=== PATIENT | female | born 1940 | race Caucasian/White ===

== ENCOUNTER → 2017-02-18 | Outpatient (REF) | payer MEDICARE, MEDICAID ==
[2017-02-19 11:25] LABS: ANION GAP 10 MEQ/L (8-16); BLOOD UREA NITROGEN 7 MG/DL (7-18); CALCIUM LEVEL 9.1 MG/DL (8.8-10.2); CARBON DIOXIDE LEVEL 32 MEQ/L (21-32); CHLORIDE LEVEL 94 MEQ/L (98-107); CREATININE FOR GFR 0.44 MG/DL (0.55-1.02); GLOMERULAR FILTRATION RATE > 60.0 (>39); GLUCOSE, FASTING 99 MG/DL (83-110); POTASSIUM SERUM 3.5 MEQ/L (3.5-5.1); SODIUM LEVEL 136 MEQ/L (136-145)
== END ==
LOC: M SFHCCLAY 14:23
PROVIDERS: ATTEND Family Medicine
DX: I10 Essential (primary) hypertension (principal)
CPT/HCPCS: 80048; 84443; G0463

== ENCOUNTER → 2017-04-19 | Outpatient (CLI) | payer MEDICARE, MEDICAID ==
[~2017-04-19] MED LIST: ATEN25TA PO; HYDR-3713 PO; MODU5TA PO; NORC7.5T35 PO; VALS1TAB47 PO; XARE10TA PO
--- NOTE | 2017-04-21 09:37 | REPMRS ---
Patient History The patient states she has not had a clinical breast exam in over a year. Patient is postmenopausal. No known family history of cancer. Digital Woman Screen Mammo: April 19, 2017 - Exam #: [id number] Bilateral CC and MLO view(s) were taken. Technologist: Jannette Yanez, Technologist Prior study comparison: June 05, 2013, digital woman screen mammo performed at [facility] to [facility]. March 01, 2012, digital woman screen mammo performed at [facility] to [facility]. November 13, 2010, bilateral bilat screen digital mammo performed at [facility]. FINDINGS: There are scattered fibroglandular densities. There has been no change in the appearance of the mammogram from the prior studies. There is a mild amount of scattered fibroglandular density which is fairly symmetric. There is no interval development of dominant mass, architectural distortion, or clustered microcalcification suggestive of malignancy. ASSESSMENT: BI-RADS/ACR category 1 mammogram. Negative. Recommendation Routine screening mammogram in 1 year (for women over age 40). This mammogram was interpreted with the aid of an FDA-approved computer-aided dectection system. Electronically Signed By: Sami Lombardo MD 04/21/17 0936
== END ==
LOC: M WHC 09:30
PROVIDERS: ATTEND Family Medicine
DX: Z12.31 Encounter for screening mammogram for malignant neoplasm of breast (principal)

== ENCOUNTER → 2017-05-18 | Outpatient (REF) | payer MEDICARE, MEDICAID ==
[2017-05-18 12:55] LABS: ANION GAP 8 MEQ/L (8-16); BLOOD UREA NITROGEN 7 MG/DL (7-18); CALCIUM LEVEL 8.9 MG/DL (8.8-10.2); CARBON DIOXIDE LEVEL 31 MEQ/L (21-32); CHLORIDE LEVEL 95 MEQ/L (98-107); CREATININE FOR GFR 0.45 MG/DL (0.55-1.02); GLOMERULAR FILTRATION RATE > 60.0 (>39); GLUCOSE, FASTING 107 MG/DL (83-110); POTASSIUM SERUM 3.8 MEQ/L (3.5-5.1); SODIUM LEVEL 134 MEQ/L (136-145)
== END ==
LOC: M SFHCCLAY 08:35
PROVIDERS: ATTEND Family Medicine
DX: I10 Essential (primary) hypertension (principal)
CPT/HCPCS: 80048; G0463

== ENCOUNTER 2017-07-11 15:49 | Inpatient (IN) | payer MEDICARE, MEDICAID ==
[~2017-07-11] VITALS: Ht 157.5 cm; Wt 57.2 kg
[2017-07-11] MEDS ORDERED: PERCOCET 5MG/325MG TAB PO PRN (18:45)
[2017-07-11] MEDS: ONDANSETRON 4MG/2ML VIAL (J2405) IV PRN (18:55)
[2017-07-11 19:00] VITALS: BP 190/80
[2017-07-11] MEDS ORDERED: KCL 20MEQ IN 0.45NS 1000ML 1,000 ML IV SCH (19:00)
[2017-07-11] MEDS: MORPHINE 2 MG/ML 1ML SYRINGE IV PRN ×2 (19:01→22:19)
[2017-07-11] MEDS ORDERED: VALS1TAB47 PO (19:22)
[2017-07-11] MEDS ORDERED: MODU5TA PO (19:22)
[2017-07-11] MEDS ORDERED: ATEN25TA PO (19:22)
[2017-07-11] MEDS ORDERED: NORC7.5T35 PO (19:22)
--- NOTE | 2017-07-11 19:30 | HPEPDOC ---
General Date of Admission Jul 11, 2017 at 18:28 Primary Care Physician: Alejo Barnes MD Attending Physician: GRISEL JOYNER MD Chief Complaint The patient is a 76-year-old female admitted with a reason for visit of Right Femur Fx. Source: Patient Exam Limitations: No limitations History of Present Illness Ms. Lopez is a 76 y/o woman with a history of hypertension, AAA s/p stents, and degenerative disc disease s/p spinal fusion presented to the ED after a fall. She has chronic right foot numbness since her spinal surgery in 1986. Today while walking up the steps at [employer], her right leg gave out and she fell onto her right hip and her right hand. She was evaluated at [facility], where she was found to have right subcapital femur fracture and a fracture of the proximal phalanx of her right thumb. She was transferred to [facility] for Orthopedic consultation. Home Medications Scheduled Amiloride/Hctz (Amiloride/Hydrochlorothia 5-50 mg) 1 Ea Tab, 2 TAB PO DAILY, ( Reported) Atenolol (Atenolol) 25 Mg Tab, 25 MG PO DAILY, (Reported) Valsartan (Valsartan) 160 Mg Tab, 160 MG PO DAILY, (Reported) Scheduled PRN Acetaminophen/Hydrocodone ([place] 7.5-325 mg) 1 Tab Tab, 1 TAB PO Q6H PRN for PAIN, (Reported) Allergies Coded Allergies: Nystatin (Unverified Allergy, Intermediate, RASH, 01/16/13) Amlodipine (Verified Allergy, Unknown, rash, 07/11/17) Contrast Media (Verified Allergy, Unknown, rash, 07/11/17) Cymbalta (Verified Allergy, Unknown, rash, 07/11/17) Past Medical History Medical History 1. Hypertension 2. AAA s/p repair 3. Rheumatoid arthritis 4. Osteoporosis 5. Chronic low back pain, history of lumbar fusion, DDD Surgical History 1. Spinal fusion rods in 1986 2. Left knee replacement in 2008 3. Vein stripping 2011 4. AAA repair with stents 12/05/2016 at [facility] Family History Significant Family History: Noncontributory Social History * Smoker: former Smoker (Quit 23 years ago) Alcohol: Denies Drugs: denies Lives alone Review of Symptoms Constitutional: Denies: Chills, Fever, Night Sweats Eyes: Denies: Pain ENT: Denies: Head Aches Skin: Denies: Rash Pulmonary: Denies: Dyspnea, Cough Cardiovascular: Denies: Chest Pain, Palpitations, Orthopnea, Lt Headedness Gastrointestinal: Denies: Nausea, Vomiting, Abdominal Pain, Diarrhea, Constipation Genitourinary: Denies: Dysuria Hematologic: Denies: Bruising, Bleeding Excessively Musculoskeletal: Reports: Back Pain (chronic), Hand Pain (Right thumb), Denies: Neck Pain Neurological: Reports: Numbness (Right foot - chronic), Denies: Change in speech, Confusion Psych: Reports: Mood Normal Physical Examination General Exam: Positive: Alert, Cooperative, No Acute Distress Eye Exam: Positive: PERRLA, Conjunctiva & lids normal, EOMI ENT Exam: Positive: Atraumatic, Mucous membr. moist/pink Neck Exam: Positive: Supple, Negative: JVD, thyromegaly Chest Exam: Positive: Clear to auscultation, Normal air movement, Negative: Rales, Rhonchi, Wheezing Heart Exam: Positive: Rate Normal, Normal S1, Normal S2, Negative: Murmurs Abdomen Exam: Positive: Normal bowel sounds Extremity Exam: Positive: Normal pulses, Tenderness (right thumb, which is splinted), Negative: Clubbing, Edema Skin Exam: Positive: Nl turgor and temperature, Negative: Rash, Breakdown Neuro Exam: Positive: Normal Speech, Negative: Sensation Intact (Diminished sensation in right foot) Psych Exam: Positive: Mental status NL, Mood NL Vital Signs At [facility]: T97.3, P59, R18, BP 193/83 Laboratory Data CBC/BMP At [facility]: WBC 12.4, Hgb 14.3, Hct 40.5, Plt 241, BUN 10, Cr 0.6, Na 132, K+ 3.9 , CO2 29, PT 9.8, INR 1.02 Problems (1) Subcapital fracture of right femur Status: Acute Problem Specific Plan: Consult Specialist Problem Text: Patient will likely need surgery tomorrow. Will work on BP control tonight so that she can be optimized for surgery tomorrow. Will check EKG and repeat labs in the morning. - Consult Orthopedic surgery. - NPO after midnight, with maintenance IVF to start at midnight - Control pain with home hydrocodone/APAP for moderate pain and morphine IV for severe pain (2) Fracture of thumb, proximal phalanx, right, closed Status: Acute Problem Text: Consult orthopedic surgery (3) Hypertension Status: Chronic Response to Treatment: Uncontrolled Problem Text: BP elevated in the ED and here, likely due to pain. Will treat pain as above and continue home BP medications (valsartan, amiloride-HCTZ, atenolol). Patient states she took all of her BP medications this morning. (4) History of AAA (abdominal aortic aneurysm) repair Status: Chronic Response to Treatment: Stable (5) Osteoporosis Status: Chronic Response to Treatment: Stable (6) Chronic low back pain Status: Chronic Response to Treatment: Stable Plan / VTE VTE Prophylaxis Ordered?: Yes (SCDs, TEDs) GRISEL JOYNER MD Jul 11, 2017 19:08
[2017-07-11] MEDS ORDERED: ATENOLOL 25 MG TAB PO SCH (21:00)
[2017-07-11 22:00] VITALS: BP 166/79
--- NOTE | 2017-07-11 22:36 | CR.PDOC ---
[facility] Consultation Consultation DATE OF CONSULTATION: REFERRING PROVIDER: Dr. Bere Bedolla ATTENDING PHYSICIAN: Dr. Vladimir Solano REASON FOR CONSULTATION/CHIEF COMPLAINT: R femoral neck fracture. HISTORY OF PRESENT ILLNESS: Patient is a 76 y/o female who sustained a fall from standing height resulting in a R minimally displaced femoral neck fracture. She was seen at an outside hospital and transported to [facility] for orthopedic management and medical optimization. Also reports R thumb pain with reported proximal phalanx fracture. ALLERGIES: Please see below. HOME MEDICATIONS: Please see below. 1. Hypertension 2. AAA s/p repair 3. Rheumatoid arthritis 4. Osteoporosis 5. Chronic low back pain, history of lumbar fusion, DDD Surgical History 1. Spinal fusion rods in 1986 2. Left knee replacement in 2008 3. Vein stripping 2011 4. AAA repair with stents 12/05/2016 at [facility] Family History Significant Family History: Noncontributory Social History * Smoker: former Smoker (Quit 23 years ago) Alcohol: Denies Drugs: denies Lives alone Review of Systems Review of Symptoms Constitutional: Denies: Chills, Fever, Night Sweats Eyes: Denies: Pain ENT: Denies: Head Aches Skin: Denies: Rash Pulmonary: Denies: Dyspnea, Cough Cardiovascular: Denies: Chest Pain, Palpitations, Orthopnea, Lt Headedness Gastrointestinal: Denies: Nausea, Vomiting, Abdominal Pain, Diarrhea, Constipation Genitourinary: Denies: Dysuria Hematologic: Denies: Bruising, Bleeding Excessively Musculoskeletal: Reports: Back Pain (chronic), Hand Pain (Right thumb), Denies: Neck Pain Neurological: Reports: Numbness (Right foot - chronic), Denies: Change in speech, Confusion Psych: Reports: Mood Normal PHYSICAL EXAMINATION: VITAL SIGNS: Please see below. GENERAL APPEARANCE: No acute distress. RESPIRATORY: Non labored breathing LABORATORY DATA: Please see below. Radiographs of the R hip, femur, and AP pelvis were reviewed demonstrating a minimally displaced valgus impacted R femoral neck fracture. R thumb images pending. ASSESSMENT: 76 y/o female with R valgus impacted fem neck fracture PLAN: 1. Discussed case with Dr. Bedolla. Patient with poorly controlled blood pressure today and thus not yet medically optimized. Likely will be medically optimized by tomorrow 2. Patient will ultimately require closed reduction percutaneous screw fixation when cleared. 3. Will follow up thumb xrays 4. Please contact [facility] answering service when patient medically optimized Vital Signs/I&O Vital Signs Date Time Temp Pulse Resp B/P (MAP) Pulse Ox O2 Delivery O2 Flow Rate FiO2 07/11/17 22:19 10 07/11/17 19:01 Room Air 07/11/17 19:00 98.0 63 190/80 (116) 96 Allergies Coded Allergies: Nystatin (Unverified Allergy, Intermediate, RASH, 01/16/13) Amlodipine (Verified Allergy, Unknown, rash, 07/11/17) CI Pigment Blue 63 (Verified Allergy, Unknown, rash, 07/11/17) Contrast Media (Verified Allergy, Unknown, rash, 07/11/17) Duloxetine (Verified Allergy, Unknown, rash, 07/11/17) Home Medications Scheduled Amiloride/Hctz (Amiloride/Hydrochlorothia 5-50 mg) 1 Ea Tab, 2 TAB PO DAILY, ( Reported) Atenolol (Atenolol) 25 Mg Tab, 25 MG PO DAILY, (Reported) Valsartan (Valsartan) 160 Mg Tab, 160 MG PO DAILY, (Reported) Scheduled PRN Acetaminophen/Hydrocodone ([place] 7.5-325 mg) 1 Tab Tab, 1 TAB PO Q6H PRN for PAIN, (Reported) RAJINDER SOLANO MD Jul 11, 2017 22:36
[2017-07-12] VITALS (8 sets, daily range): BP systolic 143–169; BP diastolic 71–89; O2SAT 93
[2017-07-12] MEDS ORDERED: KCL 20MEQ IN 0.45NS 1000ML 1,000 ML IV SCH (00:01)
[2017-07-12] MEDS: NORCO, ANEXSIA 5/325MG TABLET (HYDROcodone/ACETAMINOPHEN) PO PRN ×2 (00:10→22:36)
[2017-07-12] MEDS: MORPHINE 2 MG/ML 1ML SYRINGE IV PRN ×7 (05:17→20:16)
[2017-07-12 06:49] LABS: MEAN CORPUSCULAR HEMOGLOBIN 32.5 pg (27.0-33.0); MEAN CORPUSCULAR HGB CONC 35.5 g/dl (32.0-36.5); MEAN CORPUSCULAR VOLUME 91.6 fl (80.0-96.0); RED CELL DISTRIBUTION WIDTH 12.7 % (11.5-14.5); WHITE BLOOD COUNT 6.6 K/mm3 (4.0-10.0)
--- NOTE | 2017-07-12 07:10 | IPNPDOC ---
Subjective Date Seen The patient was seen on 07/12/17. Subjective Chief Complaint/HPI The patient is a 76-year-old female admitted with a reason for visit of Right Femur Fx. Events since last encounter Patient states she is feeling quite anxious this morning and is requesting medication for anxiety. She slept all night, but now that she is awake, she is having more pain in her right hip. Constitutional: Denies: Chills, Fever Pulmonary: Denies: Dyspnea, Cough Cardiovascular: Denies: Chest Pain, Palpitations, Orthopnea, Lt Headedness Gastrointestinal: Denies: Nausea, Vomiting, Abdominal Pain, Diarrhea Hematologic: Denies: Bruising, Bleeding Excessively Musculoskeletal: Reports: Back Pain (chronic, exacerbated by lying in bed) Neurological: Reports: Numbness (chronic right foot), Denies: Confusion Psych: Reports: Anxiety Objective Physical Examination General Exam: Positive: Alert, Cooperative, No Acute Distress Eye Exam: Positive: PERRLA, Conjunctiva & lids normal, EOMI ENT Exam: Positive: Atraumatic, Mucous membr. moist/pink Neck Exam: Positive: Supple, Negative: JVD, thyromegaly Chest Exam: Positive: Clear to auscultation, Normal air movement, Negative: Rales, Rhonchi, Wheezing Heart Exam: Positive: Rate Normal, Normal S1, Normal S2, Negative: Murmurs Abdomen Exam: Positive: Normal bowel sounds Extremity Exam: Positive: Normal pulses, Tenderness (right thumb, which is splinted), Negative: Clubbing, Edema Skin Exam: Positive: Nl turgor and temperature, Negative: Rash, Breakdown Neuro Exam: Positive: Normal Speech, Negative: Sensation Intact (Diminished sensation in right foot) Psych Exam: Positive: Mental status NL, Mood NL Assessment /Plan Problems (1) Subcapital fracture of right femur Status: Acute Problem Specific Plan: Consult Specialist Problem Text: Plan is for OR today. BP is better today. Patient's acute and chronic medical problems are optimized for surgery. - NPO after midnight, with maintenance IVF - Control pain with home hydrocodone/APAP for moderate pain and morphine IV for severe pain (2) Fracture of thumb, proximal phalanx, right, closed Status: Acute Problem Text: Consult orthopedic surgery (3) Hypertension Status: Chronic Response to Treatment: Uncontrolled Problem Text: BP improved today though still somewhat elevated, likely due to pain. - Give home antihypertensives this morning (valsartan, amiloride-HCTZ, atenolol) . (4) History of AAA (abdominal aortic aneurysm) repair Status: Chronic Response to Treatment: Stable (5) Osteoporosis Status: Chronic Response to Treatment: Stable (6) Chronic low back pain Status: Chronic Response to Treatment: Stable (7) Anxiety Status: Acute Problem Text: Start lorazepam PRN. Plan/VTE VTE Prophylaxis Ordered?: Yes (SCDs, TEDs) VS, I&O, 24H, Fishbone Vital Signs/I&O Vital Signs Date Time Temp Pulse Resp B/P (MAP) Pulse Ox O2 Delivery O2 Flow Rate FiO2 07/12/17 06:00 98.4 62 18 169/74 (105) 95 Room Air Laboratory Data 24H LABS Laboratory Tests 2 07/12/17 06:20: CBC/BMP Laboratory Tests 07/12/17 06:20 Red Blood Count 4.19, Mean Corpuscular Volume 91.6, Mean Corpuscular Hemoglobin 32.5, Mean Corpuscular Hemoglobin Concent 35.5, Red Cell Distribution Width 12.7 GRISEL JOYNER MD Jul 12, 2017 07:10
[2017-07-12] MEDS ORDERED: LORazepam 0.5 MG TAB PO PRN (07:15)
[2017-07-12 07:18] LABS: ANION GAP 9 MEQ/L (8-16); BLOOD UREA NITROGEN 9 MG/DL (7-18); CALCIUM LEVEL 8.2 MG/DL (8.8-10.2); CARBON DIOXIDE LEVEL 27 MEQ/L (21-32); CHLORIDE LEVEL 97 MEQ/L (98-107); CREATININE FOR GFR 0.45 MG/DL (0.55-1.02); GLOMERULAR FILTRATION RATE > 60.0 (>39); GLUCOSE, FASTING 89 MG/DL (83-110); POTASSIUM SERUM 3.6 MEQ/L (3.5-5.1); SODIUM LEVEL 133 MEQ/L (136-145)
[2017-07-12] MEDS ORDERED: hydroCHLOROthiazide 25 MG TAB PO SCH (09:00)
--- NOTE | 2017-07-12 09:08 | REP ---
PELVIS AND RIGHT HIP: AP View of the pelvis and cross-table lateral views of the right hip demonstrate an impacted right femoral neck fracture. No other acute fracture or dislocation is seen. Metallic rods extend from the lower lumbar spine region across the sacroiliac joints. There is an aortobifemoral graft. IMPRESSION: Impacted right femoral neck fracture. Signed by Feliciano Gardner MD 07/12/2017 05:29 P
--- NOTE | 2017-07-12 09:09 | REP ---
RIGHT FEMUR: AP and lateral views of the right femur are performed. There is an impacted right femoral neck fracture. No other acute fracture or dislocation is seen. IMPRESSION: Impacted right femoral neck fracture. Signed by Feliciano Gardner MD 07/12/2017 05:29 P
--- NOTE | 2017-07-12 09:10 | REP ---
RIGHT HIP: Two views of the right hip are performed. There is an impacted right femoral neck fracture. No other acute findings are seen. IMPRESSION: Impacted right femoral neck fracture. Signed by Feliciano Gardner MD 07/12/2017 05:29 P
[2017-07-12] MEDS: aMILoride 5 MG TAB PO SCH (09:18)
[2017-07-12] MEDS: VALSARTAN 80 MG TAB (DIOVAN) PO SCH (09:19)
[2017-07-12] MEDS: ATENOLOL 25 MG TAB PO SCH (09:19)
--- NOTE | 2017-07-12 09:24 | REP ---
CT RIGHT HIP: CT right hip performed without IV contrast in the axial plane with sagittal and coronal reconstruction images. There is an impacted fracture of the right femoral neck, which is nondisplaced. There is no other evidence of acute fracture or dislocation. Surrounding soft tissues appear unremarkable. No bone lesions are seen. Signed by Feliciano Gardner MD 07/12/2017 05:29 P
--- NOTE | 2017-07-12 09:44 | REP ---
RIGHT FIRST DIGIT: Four views of the right 1st digit are performed. There is a nondisplaced fracture at the base of the distal phalanx, which extends into the interphalangeal joint. The fracture is not significantly displaced or angulated. No other acute fracture or dislocation is seen. There are degenerative changes in the visualized joints. Signed by Feliciano Gardner MD 07/12/2017 05:30 P
[2017-07-12] MEDS: ONDANSETRON 4MG/2ML VIAL (J2405) IV PRN (11:51)
[2017-07-12] MEDS ORDERED: ceFAZolin 1GM INJ (J0690) As Ordered ONE (13:42)
[2017-07-12] MEDS ORDERED: BUPIVACAINE/EPIN 0.25% 30 ML VIAL As Ordered ONE (13:42)
[2017-07-12] MEDS ORDERED: fentaNYL 100 MCG/2 ML INJECTION (J3010) As Ordered ONE ×2 (14:02→16:12)
[2017-07-12] MEDS ORDERED: MIDAZOLAM INJ 2 MG/2 ML VIAL (J2250) As Ordered ONE (14:03)
[2017-07-12] MEDS ORDERED: ceFAZolin 2 GM/D5W 50 ML IV BAG (J0690) As Ordered ONE (14:16)
[2017-07-12] MEDS ORDERED: BUPIVACAINE HCL 0.25% 30 ML VIAL As Ordered ONE (14:31)
[2017-07-12] MEDS ORDERED: PROPOFOL 200 MG/20 ML VIAL As Ordered ONE (15:46)
[2017-07-12] MEDS ORDERED: ROCURONIUM BROMIDE 50 MG/5 ML VIAL/SYRINGE As Ordered ONE (15:46)
[2017-07-12] MEDS ORDERED: LIDOCAINE 2% INJ 100 MG/5 ML SDV (FOR ANES.) As Ordered ONE (15:46)
[2017-07-12] MEDS ORDERED: NEOSTIGMINE 1MG/ML 5 ML SYRINGE (J2710) As Ordered ONE (15:47)
[2017-07-12] MEDS ORDERED: ONDANSETRON 4MG/2ML VIAL (J2405) As Ordered ONE (15:47)
[2017-07-12] MEDS ORDERED: GLYCOPYRROLATE INJ 0.2 MG/ML 2 ML VIAL As Ordered ONE (15:47)
[2017-07-12] MEDS: fentaNYL 100 MCG/2 ML INJECTION (J3010) IV PRN ×4 (16:30→16:50)
[2017-07-12] MEDS ORDERED: MORPHINE 2 MG/ML 1ML SYRINGE As Ordered ONE ×3 (16:58→17:27)
[2017-07-12] MEDS ORDERED: FLEET ENEMA PR PRN (17:15)
[2017-07-12] MEDS ORDERED: ACETAMINOPHEN TAB 650MG DOSE (2X325MG) PO PRN (17:15)
[2017-07-12] MEDS ORDERED: ONDANSETRON 4MG/2ML VIAL (J2405) IV PRN (17:15)
[2017-07-12] MEDS ORDERED: LR 1,000 ML IV SCH (17:15)
[2017-07-12] MEDS: LR 1,000 ML IV SCH (17:15)
--- NOTE | 2017-07-12 18:58 | REP ---
C-ARM VIEWS RIGHT HIP: C-ARM views of the right hip are performed during placement of metallic screws in the proximal right femur for a right femoral neck fracture. 2 minutes 42 seconds of fluoroscopic time utilized. Signed by Feliciano Gardner MD 07/13/2017 05:19 P
--- NOTE | 2017-07-12 21:28 | ECGEPIP ---
Stationary ECG Study [facility] Test Date: 2017-07-12 Pat Name: JENNIE MENDOZA Department: Room: [place] [address] Gender: F Director Of Special Services: KERRY : 1940 Requested By: GRISEL Velazquez Order Number: [id number] Reading MD: Kobe Woods Measurements Intervals [place] Rate: 61 P: 52 [place]: 149 QRS: -11 QRSD: 81 T: 60 QT: 423 QTc: 429 Interpretive Statements SINUS RHYTHM MODERATE ST DEPRESSION NO PRIOR TRACING IN THE SYSTEM Electronically Signed On 07-12-2017 21:27:41 EDT by Kobe oWods
[2017-07-13] MEDS: MORPHINE 2 MG/ML 1ML SYRINGE IV PRN (01:23)
[2017-07-13] MEDS: LR 1,000 ML IV SCH (05:43)
[2017-07-13] MEDS: NORCO, ANEXSIA 5/325MG TABLET (HYDROcodone/ACETAMINOPHEN) PO PRN ×4 (05:59→20:23)
[2017-07-13 06:00] VITALS: BP 148/65
[2017-07-13 06:46] LABS: MEAN CORPUSCULAR HEMOGLOBIN 30.8 pg (27.0-33.0); MEAN CORPUSCULAR HGB CONC 33.7 g/dl (32.0-36.5); MEAN CORPUSCULAR VOLUME 91.5 fl (80.0-96.0); RED CELL DISTRIBUTION WIDTH 13.2 % (11.5-14.5)
--- NOTE | 2017-07-13 07:01 | RO ---
DATE OF PROCEDURE: 07/12/2017 PREPROCEDURE DIAGNOSIS: Right valgus impacted femoral neck fracture. POSTPROCEDURE DIAGNOSIS: Right valgus impacted femoral neck fracture. FINDINGS: Right valgus impacted femoral neck fracture. PROCEDURE: Closed reduction percutaneous pinning right proximal femur. SURGEON: Sofy Panda MD HEAD OF SALES PROMOTION: None ANESTHESIA: General. ESTIMATED BLOOD LOSS: 50 mL. COMPLICATIONS: None, stable to recovery. INDICATION: This is a 76-year-old female who sustained a [place] [facility] [employer]. The patient sustained a right minimally displaced valgus impacted femoral neck fracture. She was admitted to the hospitalist service and medically cleared for the OR. Risks and benefits of the procedure were discussed with the patient and her family in detail. This includes deep venous thrombosis (DVT)/pulmonary embolus (PE), wound healing problems, continued pain or stiffness, or need for further procedures. Informed consent was obtained. PROCEDURE: The patient was met in the preoperative holding area where the right lower extremity was marked as the corrected operative side. She was then taken to the operating room where she underwent general anesthesia without difficulty. The patient was placed on the fracture table in the scissoring position with her bony prominences well padded. An official time out was performed with the correct patient and side verified. Next, an approximately 3 cm incision was made along the lateral proximal femur distal to the femoral neck for guide pin insertion. Using the appropriate guidewire, a pin was placed inferiorly along the calcar center in the femoral head. Following this, two pins were placed in the superior part of the neck and head in both the anterior and posterior femoral neck. Placement within the femoral neck was confirmed on AP and lateral and multiple orthogonal views. Following confirmation of satisfactory guide pin placement, the lateral cortex was drilled. Following this, three 7.3 mm partially threaded screws were inserted over the guidewires. These measured 75 mm x 2 and 85 mm x 1. The guide pins were removed. Again maintenance of fracture reduction and satisfactory hardware placement were obtained in multiple orthogonal views. The wound was copiously irrigated with normal saline. The wound was copiously irrigated with normal saline following which the deep tissues were closed with #2-0 Vicryl. Subcutaneous tissue was also closed with #2-0 Vicryl and erasmo were used for the skin. A sterile dressing was applied. Patient was safely transferred from the fracture table back to the operating room bed. She was successfully extubated without any difficulty. She was transferred to the postanesthesia care unit in stable condition. PLAN: The patient will be weight bearing as tolerated on her right lower extremity using a walker. She may started Lovenox tomorrow morning for DVT prophylaxis. CRISTIAN
[2017-07-13 07:14] LABS: ANION GAP 8 MEQ/L (8-16); BLOOD UREA NITROGEN 11 MG/DL (7-18); CALCIUM LEVEL 8.2 MG/DL (8.8-10.2); CARBON DIOXIDE LEVEL 26 MEQ/L (21-32); CHLORIDE LEVEL 97 MEQ/L (98-107); CREATININE FOR GFR 0.58 MG/DL (0.55-1.02); GLOMERULAR FILTRATION RATE > 60.0 (>39); GLUCOSE, FASTING 129 MG/DL (83-110); POTASSIUM SERUM 3.9 MEQ/L (3.5-5.1); SODIUM LEVEL 131 MEQ/L (136-145)
--- NOTE | 2017-07-13 08:27 | IPNPDOC ---
Subjective Date Seen The patient was seen on 07/13/17. Subjective Chief Complaint/HPI The patient is a 76-year-old female admitted with a reason for visit of Right Femur Fx. Events since last encounter Patient reports fair amount of pain in right hip this morning not relieved by Hydrocodone.. Feels well otherwise Constitutional: Denies: Chills, Fever Pulmonary: Denies: Dyspnea, Cough Cardiovascular: Denies: Chest Pain, Palpitations Gastrointestinal: Denies: Nausea, Vomiting, Abdominal Pain, Diarrhea, Constipation Musculoskeletal: Reports: Joint Pain (right hip) Objective Physical Examination General Exam: Positive: Alert, Cooperative, No Acute Distress Neck Exam: Positive: Supple Chest Exam: Positive: Clear to auscultation, Normal air movement, Negative: Rales, Rhonchi, Wheezing Heart Exam: Positive: Rate Normal, Normal S1, Normal S2, Negative: Murmurs Abdomen Exam: Positive: Normal bowel sounds, Soft, Negative: Tenderness Extremity Exam: Negative: Edema Skin Exam: Negative: Rash, Breakdown Assessment /Plan Problems (1) Subcapital fracture of right femur Status: Acute Problem Specific Plan: Consult Specialist Problem Text: 07/13 - Psot op day #1 s/p closed reduction Right hip fracture Pain meds adjusted - Can get 2 Hoyt, but has not gotten that dose yet. Has Morphine for breakthrough - last dose around 1:30 am. Sheis on Hoyt chronically at home due to Chronic back pain and RA therefore will likely need something stronger here. (2) Fracture of thumb, proximal phalanx, right, closed Status: Acute Problem Text: Consult orthopedic surgery (3) Hypertension Status: Chronic Response to Treatment: Uncontrolled Problem Text: Bp improved - Getting HD Valsartan. Getting Amiloride 10 ( Normally on Norberto/HCTZ 5/50) and Atenolol 25 (Normally on 50) Adjust as needed. (4) History of AAA (abdominal aortic aneurysm) repair Status: Chronic Response to Treatment: Stable (5) Osteoporosis Status: Chronic Response to Treatment: Stable Problem Text: Defer initiation of Bisphosphonate to PCP upon d/c home (6) Chronic low back pain Status: Chronic Response to Treatment: Stable (7) Anxiety Status: Acute Problem Text: Resolved - D/c lorazepam Plan/VTE VTE Prophylaxis Ordered?: Yes (SCDs, TEDs) Plan Therapy: PT, OT (Lovenox) VS, I&O, 24H, Fishbone Vital Signs/I&O Vital Signs Date Time Temp Pulse Resp B/P (MAP) Pulse Ox O2 Delivery O2 Flow Rate FiO2 07/13/17 06:29 16 Room Air 07/13/17 06:00 98.4 73 148/65 (92) 90 07/12/17 17:31 2 Laboratory Data 24H LABS Laboratory Tests 2 07/13/17 06:28: Anion Gap 8, Glomerular Filtration Rate > 60.0, Blood Urea Nitrogen 11, Creatinine 0.58, Sodium Level 131L, Potassium Level 3.9, Chloride Level 97L, Carbon Dioxide Level 26, Calcium Level 8.2L CBC/BMP Laboratory Tests 07/13/17 06:28 Red Blood Count 3.99 L, Mean Corpuscular Volume 91.5, Mean Corpuscular Hemoglobin 30.8, Mean Corpuscular Hemoglobin Concent 33.7, Red Cell Distribution Width 13.2, Calcium Level 8.2 L KAMILA HURLEY PA-C Jul 13, 2017 08:27
[2017-07-13] MEDS: ENOXAPARIN 40 MG/0.4 ML SYRINGE (J1650) SC SCH (08:48)
[2017-07-13] MEDS: MOM 30ML SUSPENSION UDC PO SCH (08:48)
[2017-07-13] MEDS: MIRALAX *UNIT DOSE* 17GM PACKET PO SCH (08:48)
[2017-07-13] MEDS: SENOKOT S TAB PO SCH ×2 (08:49→20:23)
[2017-07-13] MEDS: ATENOLOL 25 MG TAB PO SCH (08:50)
[2017-07-13] MEDS: aMILoride 5 MG TAB PO SCH (08:50)
[2017-07-13] MEDS: VALSARTAN 80 MG TAB (DIOVAN) PO SCH (08:50)
[2017-07-13] MEDS ORDERED: PREVNAR 13 VACCINE SYRINGE (CPT CODE:90670) IM ONE (09:00)
--- NOTE | 2017-07-13 11:09 | REP ---
RIGHT HIP, TWO VIEWS: HISTORY: Fracture. COMPARISON: 07/12/2017 The patient is status post ORIF of a right femoral neck fracture. Three metal screws are present. There is no dislocation. There is narrowing of the joint space. Surgical clips are present in the overlying soft tissue. IMPRESSION: The patient is status post ORIF of a right femoral neck fracture. There is anatomic alignment. Signed by Anoop Sánchez MD 07/13/2017 11:47 A
[2017-07-13 14:00] VITALS: BP 151/68
[2017-07-13 22:00] VITALS: BP 142/58
[2017-07-13 22:32] VITALS: O2SAT 95
[2017-07-14] MEDS: NORCO, ANEXSIA 5/325MG TABLET (HYDROcodone/ACETAMINOPHEN) PO PRN ×5 (03:04→21:11)
[2017-07-14 06:00] VITALS: BP 140/72
[2017-07-14 06:52] LABS: ANION GAP 5 MEQ/L (8-16); BLOOD UREA NITROGEN 18 MG/DL (7-18); CALCIUM LEVEL 8.5 MG/DL (8.8-10.2); CARBON DIOXIDE LEVEL 28 MEQ/L (21-32); CHLORIDE LEVEL 102 MEQ/L (98-107); CREATININE FOR GFR 0.44 MG/DL (0.55-1.02); GLOMERULAR FILTRATION RATE > 60.0 (>39); GLUCOSE, FASTING 98 MG/DL (83-110); POTASSIUM SERUM 4.7 MEQ/L (3.5-5.1); SODIUM LEVEL 135 MEQ/L (136-145)
--- NOTE | 2017-07-14 08:08 | IPNPDOC ---
Subjective Date Seen The patient was seen on 07/14/17. Subjective Chief Complaint/HPI The patient is a 76-year-old female admitted with a reason for visit of Right Femur Fx. Events since last encounter Pain fairly well controlled with [place] only. No Morphine in over 24 hours Constitutional: Denies: Chills, Fever Pulmonary: Denies: Dyspnea, Cough Cardiovascular: Denies: Chest Pain, Palpitations Gastrointestinal: Reports: Constipation (chronic), Denies: Nausea, Vomiting, Abdominal Pain, Diarrhea Objective Physical Examination General Exam: Positive: Alert, Cooperative, No Acute Distress Neck Exam: Positive: Supple Chest Exam: Positive: Clear to auscultation, Normal air movement, Negative: Rales, Rhonchi, Wheezing Heart Exam: Positive: Rate Normal, Normal S1, Normal S2, Negative: Murmurs Abdomen Exam: Positive: Normal bowel sounds, Soft, Negative: Tenderness Extremity Exam: Negative: Edema Skin Exam: Negative: Rash, Breakdown Assessment /Plan Problems (1) Subcapital fracture of right femur Status: Acute Problem Specific Plan: Consult Specialist Problem Text: 07/14 - Post op day #2 s/p closed reduction Right hip fracture Continue [place] 1 - 2 tabs as needed for pain control (On [place] at home for chronic pain related to lumbar DDD and RA) Continue Lovenox for DVT px Bowel care ordered (2) Fracture of thumb, proximal phalanx, right, closed Status: Acute Problem Text: Casted per ortho (3) Hypertension Status: Chronic Response to Treatment: Uncontrolled Problem Text: BP controlled - Getting HD Valsartan. Getting Amiloride 10 ( Normally on TWO tablets of Norberto/HCTZ 5/50) and Atenolol 25 (Normally on 50) Adjust as needed. (4) History of AAA (abdominal aortic aneurysm) repair Status: Chronic Response to Treatment: Stable (5) Osteoporosis Status: Chronic Response to Treatment: Stable Problem Text: Defer initiation of Bisphosphonate to PCP upon d/c home (6) Chronic low back pain Status: Chronic Response to Treatment: Stable (7) Anxiety Status: Acute Problem Text: Resolved - D/c lorazepam Plan/VTE VTE Prophylaxis Ordered?: Yes (SCDs, TEDs) Plan Therapy: PT, OT (Lovenox) Family Medicine Attending Note: I saw and examined Ms. Lopez this morning; I discussed her care with Kamila Wetterhahn, RPA-C and I agree with her note as documented. Patient had minimal pain in her hip and states she ambulated well with PT today; she plans to attempt stairs this afternoon and hopes to be discharged to home tomorrow. Her daughter is at bedside and states she plans to stay with her mother for the next few days. (KES) Disposition Probable d/c in am 07/15 VS, I&O, 24H, Fishbone Vital Signs/I&O Vital Signs Date Time Temp Pulse Resp B/P (MAP) Pulse Ox O2 Delivery O2 Flow Rate FiO2 07/14/17 06:00 96.9 72 18 140/72 (94) 93 Room Air 07/12/17 17:31 2 Laboratory Data 24H LABS Laboratory Tests 2 07/14/17 05:43: Anion Gap 5L, Glomerular Filtration Rate > 60.0, Blood Urea Nitrogen 18#, Creatinine 0.44L, Sodium Level 135L, Potassium Level 4.7#, Chloride Level 102, Carbon Dioxide Level 28, Calcium Level 8.5L CBC/BMP Laboratory Tests 07/14/17 05:43 Calcium Level 8.5 L KAMILA HURLEY PA-C Jul 14, 2017 08:08 GRISEL JOYNER MD Jul 14, 2017 15:04
[2017-07-14] MEDS: MIRALAX *UNIT DOSE* 17GM PACKET PO SCH (08:10)
[2017-07-14] MEDS: aMILoride 5 MG TAB PO SCH (08:10)
[2017-07-14] MEDS: MOM 30ML SUSPENSION UDC PO SCH (08:10)
[2017-07-14] MEDS: VALSARTAN 80 MG TAB (DIOVAN) PO SCH (08:10)
[2017-07-14] MEDS: ATENOLOL 25 MG TAB PO SCH (08:11)
[2017-07-14] MEDS: SENOKOT S TAB PO SCH ×2 (08:11→21:11)
[2017-07-14] MEDS: ENOXAPARIN 40 MG/0.4 ML SYRINGE (J1650) SC SCH (08:12)
[2017-07-14 14:00] VITALS: BP 139/65
[2017-07-14 22:00] VITALS: BP 162/74
[2017-07-15] MEDS: NORCO, ANEXSIA 5/325MG TABLET (HYDROcodone/ACETAMINOPHEN) PO PRN ×3 (01:47→11:20)
[2017-07-15 06:00] VITALS: BP 157/77
[2017-07-15] MEDS ORDERED: HYDROCORTISONE 1% CREAM 30 GM TOP SCH (09:00)
[2017-07-15] MEDS ORDERED: HYDR-3713 PO (09:05)
[2017-07-15] MEDS ORDERED: XARE10TA PO (09:08)
[2017-07-15] MEDS: MOM 30ML SUSPENSION UDC PO SCH (09:23)
[2017-07-15] MEDS: MIRALAX *UNIT DOSE* 17GM PACKET PO SCH (09:23)
[2017-07-15] MEDS: SENOKOT S TAB PO SCH (09:24)
[2017-07-15] MEDS: ENOXAPARIN 40 MG/0.4 ML SYRINGE (J1650) SC SCH (09:24)
[2017-07-15 09:25] VITALS: BP 157/77
[2017-07-15] MEDS: VALSARTAN 80 MG TAB (DIOVAN) PO SCH (09:25)
[2017-07-15] MEDS: aMILoride 5 MG TAB PO SCH (09:25)
[2017-07-15] MEDS: ATENOLOL 25 MG TAB PO SCH (09:25)
--- NOTE | 2017-07-15 13:44 | DSES ---
DATE OF ADMISSION: 07/11/2017 DATE OF DISCHARGE: 07/15/2017 BRIEF HISTORY AND PHYSICAL: The patient is a 76-year-old patient of Dr. Barnes who was walking up the [employer] steps. Her right leg gave out, she fell onto her right hip and her right hand. Evaluated at [facility], found to have a right subcapital femur fracture and fracture of the proximal phalanx of the right. Transferred to [facility] for orthopedic consultation. Past medical history is significant for hypertension, aortic abdominal aneurysm (AAA) status post stents, degenerative disk disease status post spinal fusion, rheumatoid arthritis and chronic low back pain. Pertinent labs on admission. White count 6.6, hemoglobin 13.6, platelets 126,000. Sodium 133, potassium 3.6, BUN 9, creatinine 0.45, glucose 89. Hip x-rays showed an impacted right femoral neck fracture. HOSPITAL COURSE: The patient was admitted for right valgus impacted femoral neck fracture. She was taken to the operating room (OR) on 07/12/2017 by Duc Panda and underwent closed reduction percutaneous pinning of the right proximal femur. She has done well postoperatively, is participating with physical therapy. Pain is controlled with hydrocortisone acetaminophen and she is felt stable for discharge home. She has been getting Lovenox in the hospital for DVT prophylaxis but is incapable of administering the Lovenox at home due to her hand fracture and inadequate help in assuring she would get this as needed as ordered and so orthopedics plans to send her home on Xarelto. They will be arranging this and obtaining prior authorization if needed. Fracture of the proximal phalanx of the right thumb. Orthopedics has seen the patient and the hand has been casted. She will followup with orthopedics as an outpatient for this. . Hypertension: She was restarted on her he usual home medications. Her amiloride is a combination of amiloride and hydrochlorothiazide. The hydrochlorothiazide part was held during the hospitalization but she will be discharged home on her usual regimen of medications, at this time. Her blood pressure is 157/77 at the time of discharge and so therefore restarting the hydrochlorothiazide, I anticipate she will tolerate without difficulty. Osteoporosis: She is now sustained a hip fracture after mechanical fall and therefore would likely benefit from bisphosphonate therapy. I will defer this to her primary care provider (PCP) to be discussed during followup. Chronic low back pain: She is normally on hydrocodone at home for this and she is almost out so orthopedics plans to send her home with a hydrocodone prescriptions for her current hip fracture and then the further the use of hydrocodone per her PCP. Contact dermatitis: She has a raised erythematous rash on her buttocks from contact irritation from the bed sheets she has been given hydrocortisone cream to use for this and will need followup as an outpatient. I suspect this will resolve when she is no longer contact with the hospital bed sheets. DISPOSITION: She is stable for discharge home with [facility]. She will followup with Dr. Barnes next week and follow up with orthopedics per their office. MEDICATIONS: - amiloride/hydrochlorothiazide 5/50 two tablets daily - atenolol 25 mg daily - valsartan 160 mg daily. - She is getting [place] here in the hospital and the orthopedic group will be sending a prescription for that as well as Xarelto for her deep venous thrombosis (DVT) prophylaxis. Those scripts will be written by orthopedics. DISCHARGE DIAGNOSES: 1. Right impacted capital hip fracture. 2. Fracture of the proximal phalanx of the right some thumb. 3. Hypertension. 4. History of abdominal aortic aneurysm (AAA). 5. Osteoporosis. 6. Chronic low back pain. 7. Contact dermatitis on the buttock. edited: 07/16/2017 1526 tkf MTDD
== END 2017-07-15 13:35 | disposition home health service (06) | DRG 482 ==
LOC: M MS5PR 18:28
PROVIDERS: ADMIT Family Medicine; ATTEND Family Medicine
PROC: 0QS634Z Reposition Right Upper Femur with Internal Fixation Device, Percutaneous Approach (ICD-10-PCS; principal; 2017-07-12 09:23)
DX: S72.011A Unspecified intracapsular fracture of right femur, initial encounter for closed fracture (principal); S62.511A Displaced fracture of proximal phalanx of right thumb, initial encounter for closed fracture; I10 Essential (primary) hypertension; M54.5 Low back pain; F41.9 Anxiety disorder, unspecified; M81.0 Age-related osteoporosis without current pathological fracture; W10.8XXA Fall (on) (from) other stairs and steps, initial encounter; Y92.22 Religious institution as the place of occurrence of the external cause; Y93.01 Activity, walking, marching and hiking; Y99.9 Unspecified external cause status; Z79.899 Other long term (current) drug therapy; Z88.8 Allergy status to other drugs, medicaments and biological substances; Z91.041 Radiographic dye allergy status; Z96.652 Presence of left artificial knee joint; Z87.891 Personal history of nicotine dependence

== ENCOUNTER → 2017-10-07 | Outpatient (CLI) | payer MEDICARE, MEDICAID ==
--- NOTE | 2017-10-07 09:28 | REP ---
ULTRASOUND ABDOMINAL AORTA: Real-time sonographic evaluation of the abdominal aorta performed. There is mild diffuse aneurysmal dilatation of the abdominal aorta. Maximum AP diameter proximally just below the diaphragms is 3.4 cm, at the level of the renal arteries 3.5 cm, and distally 3.2 cm. Common iliac arteries are mildly ectatic, right measuring 1.2 x 1.7 cm and left 1.8 x 1.6 cm. There is a stent in the distal abdominal aorta extending into the common iliac arteries. IMPRESSION: Mild diffuse aneurysmal dilatation of the abdominal aorta as discussed above. Signed by Feliciano Gardner MD 10/07/2017 08:35 P
== END ==
LOC: M RAD 08:12
PROVIDERS: ATTEND Surgery Vascular Surgery
DX: I71.4 Abdominal aortic aneurysm, without rupture (principal)

== ENCOUNTER → 2018-03-31 | Outpatient (CLI) | payer MEDICARE, MEDICAID | LOC: M CLY 14:36 | DX: M85.811 Other specified disorders of bone density and structure, right shoulder (principal); M25.511 Pain in right shoulder | CPT/HCPCS: 73030; G0463 ==

== ENCOUNTER → 2018-05-04 | Outpatient (CLI) | payer MEDICARE, MEDICAID | LOC: M WHC 09:23 | DX: Z12.31 Encounter for screening mammogram for malignant neoplasm of breast (principal) | CPT/HCPCS: 77067 ==

== ENCOUNTER → 2018-06-08 | Outpatient (CLI) | payer MEDICARE, MEDICAID | LOC: M RAD 06:24 | DX: I71.4 Abdominal aortic aneurysm, without rupture (principal) | CPT/HCPCS: 76775 ==

== ENCOUNTER → 2018-09-26 | Outpatient (REF) | payer MEDICARE, MEDICAID | LOC: M LAB REF 16:58 | DX: N39.0 Urinary tract infection, site not specified (principal) | CPT/HCPCS: 87086 ==

== ENCOUNTER → 2018-09-27 | Outpatient (REF) | payer MEDICARE, MEDICAID ==
[~2018-09-27] MED LIST changes: +ALDA25TA2 PO; +Acetaminophen Tab PO; +Artificial Tears Op Drops OU; +BUSP10TA PO; +CALCTAB6 PO; +CATA0.2D TOP; +CLON-412 PO; +CLON0.2T PO; +CLONI1TA PO; +DICL13PA TOP; +KLOR10TA76 PO; +LOSA50TA73 PO; +MAGN50TA PO; +PRESCAP6 PO; +SPIR50TA4 PO; +TRAM50TA2 PO; +XANA0.25 PO
[2018-09-28 11:40] LABS: HEMATOCRIT 38.5 % (36.0-47.0); HEMOGLOBIN 12.9 g/dl (12.0-15.5); MEAN CORPUSCULAR HEMOGLOBIN 28.5 pg (27.0-33.0); MEAN CORPUSCULAR HGB CONC 33.5 g/dl (32.0-36.5); MEAN CORPUSCULAR VOLUME 85.2 fl (80.0-96.0); PLATELET COUNT, AUTOMATED 321 10^3/uL (150-450); RED BLOOD COUNT 4.52 10^6/uL (4.00-5.40); WHITE BLOOD COUNT 6.3 10^3/uL (4.0-10.0)
[2018-09-28 11:48] LABS: ALBUMIN 3.5 GM/DL (3.2-5.2); ALT/SGPT 14 U/L (12-78); BILIRUBIN,TOTAL 0.4 MG/DL (0.2-1.0); BLOOD UREA NITROGEN 9 MG/DL (7-18); CALCIUM LEVEL 8.7 MG/DL (8.8-10.2); CARBON DIOXIDE LEVEL 31 MEQ/L (21-32); CHLORIDE LEVEL 95 MEQ/L (98-107); CREATININE FOR GFR 0.45 MG/DL (0.55-1.30); GLOMERULAR FILTRATION RATE > 60.0 (>39); GLUCOSE, FASTING 91 MG/DL (70-100); POTASSIUM SERUM 3.1 MEQ/L (3.5-5.1); SODIUM LEVEL 133 MEQ/L (136-145); TOTAL PROTEIN 7.1 GM/DL (6.4-8.2)
[2018-09-28 12:12] LABS: ERYTHROCYTE SEDIMENTATION RATE 37 mm/hr (0-30)
== END ==
LOC: M SFHCCLAY 14:54
PROVIDERS: ATTEND Family Medicine
DX: R53.81 Other malaise (principal)
CPT/HCPCS: 80053; 85027; 85652; G0463

== ENCOUNTER 2018-10-04 20:48 | Inpatient (IN) | payer MEDICARE, MEDICAID ==
[2018-10-04] MEDS: methylPREDNISolone INJ 125 MG/2 ML VIAL (J2930) IV
[2018-10-04] MEDS: diphenhydrAMINE INJ 50MG/ML VIAL (J1200) IV
[2018-10-04] MEDS: ACETAMINOPHEN TAB 650MG DOSE (2X325MG) PO (21:50)
[2018-10-04 21:56] LABS: BASO # 0.1 10^3/uL (0.0-0.2); BASO % 0.8 % (0.0-1.0); EOS % 0.2 % (0.0-3.0); HEMATOCRIT 38.3 % (36.0-47.0); HEMOGLOBIN 12.4 g/dl (12.0-15.5); IMMATURE GRANULOCYTE % 0.2 % (0-3.0); LYMPH # 1.1 10^3/uL (1.5-4.5); MEAN CORPUSCULAR HEMOGLOBIN 28.2 pg (27.0-33.0); MEAN CORPUSCULAR HGB CONC 32.4 g/dl (32.0-36.5); MONO # 0.8 10^3/uL (0.0-0.8); MONO % 13.2 % (0.0-5.0); NEUTROPHILS # 4.3 10^3/uL (1.8-7.7); NEUTROPHILS % 68.6 % (36.0-66.0); PLATELET COUNT, AUTOMATED 319 10^3/uL (150-450); RED CELL DISTRIBUTION WIDTH 14.6 % (11.5-14.5); WHITE BLOOD COUNT 6.2 10^3/uL (4.0-10.0)
[2018-10-04 22:21] LABS: ALBUMIN 3.4 GM/DL (3.2-5.2); ALBUMIN/GLOBULIN RATIO 0.97 (1.00-1.93); ALKALINE PHOSPHATASE 121 U/L (45-117); ALT/SGPT 13 U/L (12-78); ANION GAP 6 MEQ/L (8-16); AST/SGOT 19 U/L (7-37); BILIRUBIN,DIRECT 0.1 MG/DL (0.0-0.2); BILIRUBIN,TOTAL 0.4 MG/DL (0.2-1.0); BLOOD UREA NITROGEN 12 MG/DL (7-18); CALCIUM LEVEL 8.6 MG/DL (8.8-10.2); CARBON DIOXIDE LEVEL 27 MEQ/L (21-32); CHLORIDE LEVEL 103 MEQ/L (98-107); CPK CREATINE PHOSPHOKINASE 75 U/L (26-192); CREATININE FOR GFR 0.47 MG/DL (0.55-1.30); GLOMERULAR FILTRATION RATE > 60.0 (>39); GLUCOSE, FASTING 101 MG/DL (70-100); LIPASE 116 U/L (73-393); MAGNESIUM LEVEL 1.8 MG/DL (1.8-2.4); MB/CK RELATIVE INDEX 2.53 (< OR =4); SODIUM LEVEL 136 MEQ/L (136-145); TOTAL PROTEIN 6.9 GM/DL (6.4-8.2); TROPONIN I 0.06 NG/ML (< 0.10)
[2018-10-04 22:51] LABS: KETONE, URINE AUTO RFX TRACE mg/dL (NEGATIVE); LEUKOCYTE ESTERASE UR AUTO RFX NEGATIVE (NEGATIVE); MUCUS, URINE RFX SMALL (NEGATIVE); NITRITE, URINE AUTO RFX NEGATIVE (NEGATIVE); RBC, URINE AUTO RFX 3 /HPF (0-3); SPECIFIC GRAVITY UR AUTO RFX 1.006 (1.002-1.035); SQUAM EPITHELIAL CELL UR AURFX 0 /HPF (0-6); WBC, URINE AUTO RFX 2 /HPF (0-3)
[2018-10-04] MEDS ORDERED: ISOVUE-370 76% 100ML VIAL (Q9967) As Ordered (23:43)
[2018-10-05] MEDS: cloNIDine 0.1 MG TAB PO ×2 (02:35→08:25)
[2018-10-05] MEDS: LOSARTAN 50 MG TAB PO ×3 (02:36→21:17)
[2018-10-05 03:23] LABS: AMMONIA < 10 uMOL/L (<32)
[2018-10-05 03:50] LABS: CPK CREATINE PHOSPHOKINASE 52 U/L (26-192); MB/CK RELATIVE INDEX 2.88 (< OR =4); TROPONIN I 0.04 NG/ML (< 0.10)
[2018-10-05] MEDS: **hydrALAZINE** 10 MG TAB PO ×4 (05:53→23:58)
[2018-10-05] MEDS: ACETAMINOPHEN TAB 650MG DOSE (2X325MG) PO ×4 (05:53→21:16)
[2018-10-05] MEDS: HEPARIN SOD (PORCINE) 5000 UNITS/ML VIAL SC ×3 (05:54→21:17)
[2018-10-05 06:45] LABS: HEMATOCRIT 36.7 % (36.0-47.0); HEMOGLOBIN 12.1 g/dl (12.0-15.5); MEAN CORPUSCULAR HEMOGLOBIN 27.9 pg (27.0-33.0); MEAN CORPUSCULAR VOLUME 84.8 fl (80.0-96.0); PLATELET COUNT, AUTOMATED 334 10^3/uL (150-450); RED BLOOD COUNT 4.33 10^6/uL (4.00-5.40); RED CELL DISTRIBUTION WIDTH 14.6 % (11.5-14.5); WHITE BLOOD COUNT 4.3 10^3/uL (4.0-10.0)
[2018-10-05 07:15] LABS: ALBUMIN 2.9 GM/DL (3.2-5.2); ALBUMIN/GLOBULIN RATIO 0.76 (1.00-1.93); ALKALINE PHOSPHATASE 116 U/L (45-117); ALT/SGPT 15 U/L (12-78); ANION GAP 8 MEQ/L (8-16); AST/SGOT 14 U/L (7-37); BILIRUBIN,TOTAL 0.3 MG/DL (0.2-1.0); BLOOD UREA NITROGEN 7 MG/DL (7-18); CARBON DIOXIDE LEVEL 27 MEQ/L (21-32); CHLORIDE LEVEL 102 MEQ/L (98-107); CREATININE FOR GFR 0.45 MG/DL (0.55-1.30); GLOMERULAR FILTRATION RATE > 60.0 (>39); GLUCOSE, FASTING 137 MG/DL (70-100); MAGNESIUM LEVEL 1.6 MG/DL (1.8-2.4); POTASSIUM SERUM 3.2 MEQ/L (3.5-5.1); SODIUM LEVEL 137 MEQ/L (136-145); TOTAL PROTEIN 6.7 GM/DL (6.4-8.2)
[2018-10-05] MEDS: ONDANSETRON 4MG/2ML VIAL (J2405) IV (07:54)
[2018-10-05] MEDS: CALCIUM/VITAMIN D 500 MG TAB PO (08:25)
[2018-10-05 12:05] LABS: CPK CREATINE PHOSPHOKINASE 51 U/L (26-192); MB/CK RELATIVE INDEX 2.75 (< OR =4); TROPONIN I 0.03 NG/ML (< 0.10)
[2018-10-05] MEDS ORDERED: PILL CRUSHER/CUTTER 1 EACH XX (13:00)
[2018-10-05] MEDS: POTASSIUM CHLORIDE 10 MEQ SR TABLET PO ×2 (13:27→18:21)
[2018-10-05] MEDS: MAGNESIUM GLUCONATE 500 MG TAB PO (18:18)
[2018-10-05] MEDS: cloNIDine HCL 0.2 MG/24 HR PATCH TOP (18:21)
[2018-10-05 18:51] LABS: CPK CREATINE PHOSPHOKINASE 40 U/L (26-192); MB/CK RELATIVE INDEX 2.75 (< OR =4); TROPONIN I 0.02 NG/ML (< 0.10)
[2018-10-05] MEDS ORDERED: LORazepam 2 MG TAB PO (22:30)
[2018-10-05] MEDS: THIAMINE 100 MG TAB PO (22:46)
[2018-10-06] MEDS: ACETAMINOPHEN TAB 650MG DOSE (2X325MG) PO ×3 (03:06→17:58)
[2018-10-06] MEDS: POLYVINYL ALCOHOL OPHTH SOLN 15 ML(LIQUITEARS) OU (05:15)
[2018-10-06] MEDS: SPIRONOLACTONE 25 MG TAB PO (05:15)
[2018-10-06] MEDS: HEPARIN SOD (PORCINE) 5000 UNITS/ML VIAL SC ×3 (05:16→21:17)
[2018-10-06 06:23] LABS: ALBUMIN 3.1 GM/DL (3.2-5.2); ALBUMIN/GLOBULIN RATIO 0.82 (1.00-1.93); ALKALINE PHOSPHATASE 115 U/L (45-117); ALT/SGPT 14 U/L (12-78); ANION GAP 7 MEQ/L (8-16); AST/SGOT 12 U/L (7-37); BILIRUBIN,TOTAL 0.3 MG/DL (0.2-1.0); BLOOD UREA NITROGEN 10 MG/DL (7-18); CALCIUM LEVEL 8.3 MG/DL (8.8-10.2); CARBON DIOXIDE LEVEL 29 MEQ/L (21-32); CHLORIDE LEVEL 100 MEQ/L (98-107); CREATININE FOR GFR 0.56 MG/DL (0.55-1.30); GLOMERULAR FILTRATION RATE > 60.0 (>39); GLUCOSE, FASTING 118 MG/DL (70-100); MAGNESIUM LEVEL 1.7 MG/DL (1.8-2.4); SODIUM LEVEL 136 MEQ/L (136-145); TOTAL PROTEIN 6.9 GM/DL (6.4-8.2)
[2018-10-06] MEDS: POTASSIUM CHLORIDE 10 MEQ SR TABLET PO ×4 (07:53→17:52)
[2018-10-06] MEDS: MAGNESIUM OXIDE 400 MG TAB (MAG-OX) PO (09:32)
[2018-10-06] MEDS: MAGNESIUM GLUCONATE 500 MG TAB PO (09:32)
[2018-10-06] MEDS: LOSARTAN 50 MG TAB PO ×2 (09:34→20:04)
[2018-10-06] MEDS: FOLIC ACID 1 MG TAB PO (09:34)
[2018-10-06] MEDS: THIAMINE 100 MG TAB PO ×2 (09:35→20:04)
[2018-10-06] MEDS: MULTIVITAMINS/MINERALS THERAP 1 TAB PO (09:35)
[2018-10-06] MEDS: CALCIUM/VITAMIN D 500 MG TAB PO (09:35)
[2018-10-06] MEDS: PNEUMOCOCCAL VACCINE 0.5ML SYRINGE(90732) PNEUMOVAX 23 IM (11:27)
[2018-10-06] MEDS: SLF 3 ML SYR IV ×2 (14:25→21:17)
[2018-10-06 14:45] LABS: ANION GAP 8 MEQ/L (8-16); BLOOD UREA NITROGEN 11 MG/DL (7-18); CALCIUM LEVEL 8.7 MG/DL (8.8-10.2); CARBON DIOXIDE LEVEL 28 MEQ/L (21-32); CHLORIDE LEVEL 103 MEQ/L (98-107); CREATININE FOR GFR 0.47 MG/DL (0.55-1.30); GLOMERULAR FILTRATION RATE > 60.0 (>39); GLUCOSE, FASTING 115 MG/DL (70-100); MAGNESIUM LEVEL 1.8 MG/DL (1.8-2.4); POTASSIUM SERUM 4.4 MEQ/L (3.5-5.1); SODIUM LEVEL 139 MEQ/L (136-145)
[2018-10-06] MEDS: **hydrALAZINE** 10 MG TAB PO ×2 (17:58→23:53)
[2018-10-07] MEDS: ACETAMINOPHEN TAB 650MG DOSE (2X325MG) PO ×3 (02:40→16:44)
[2018-10-07] MEDS: HEPARIN SOD (PORCINE) 5000 UNITS/ML VIAL SC ×3 (05:12→21:20)
[2018-10-07] MEDS: SLF 3 ML SYR IV ×3 (05:12→21:20)
[2018-10-07] MEDS: ONDANSETRON 4MG/2ML VIAL (J2405) IV (05:12)
[2018-10-07 06:31] LABS: ANION GAP 7 MEQ/L (8-16); BLOOD UREA NITROGEN 11 MG/DL (7-18); CALCIUM LEVEL 8.5 MG/DL (8.8-10.2); CARBON DIOXIDE LEVEL 29 MEQ/L (21-32); CHLORIDE LEVEL 103 MEQ/L (98-107); GLOMERULAR FILTRATION RATE > 60.0 (>39); GLUCOSE, FASTING 97 MG/DL (70-100); POTASSIUM SERUM 3.7 MEQ/L (3.5-5.1); SODIUM LEVEL 139 MEQ/L (136-145)
[2018-10-07] MEDS: LOSARTAN 50 MG TAB PO ×2 (09:05→19:55)
[2018-10-07] MEDS: POTASSIUM CHLORIDE 10 MEQ SR TABLET PO ×2 (09:06→17:39)
[2018-10-07] MEDS: THIAMINE 100 MG TAB PO (09:06)
[2018-10-07] MEDS: SPIRONOLACTONE 25 MG TAB PO (09:06)
[2018-10-07] MEDS: CALCIUM/VITAMIN D 500 MG TAB PO (09:06)
[2018-10-07] MEDS: FOLIC ACID 1 MG TAB PO (09:06)
[2018-10-07] MEDS: MULTIVITAMINS/MINERALS THERAP 1 TAB PO (09:06)
[2018-10-07] MEDS: MAGNESIUM GLUCONATE 500 MG TAB PO (09:07)
[2018-10-07] MEDS: DICLOFENAC EPOLAMINE 1.3 % PATCH TOP (16:43)
[2018-10-07] MEDS: busPIRone 10 MG TAB PO ×2 (16:44→19:55)
[2018-10-08 05:01] LABS: HEMOGLOBIN 11.8 g/dl (12.0-15.5); MEAN CORPUSCULAR HEMOGLOBIN 27.9 pg (27.0-33.0); MEAN CORPUSCULAR HGB CONC 32.8 g/dl (32.0-36.5); MEAN CORPUSCULAR VOLUME 85.1 fl (80.0-96.0); PLATELET COUNT, AUTOMATED 312 10^3/uL (150-450); RED BLOOD COUNT 4.23 10^6/uL (4.00-5.40); RED CELL DISTRIBUTION WIDTH 15.3 % (11.5-14.5); WHITE BLOOD COUNT 6.8 10^3/uL (4.0-10.0)
[2018-10-08 05:23] LABS: ALBUMIN 2.8 GM/DL (3.2-5.2); ANION GAP 6 MEQ/L (8-16); BLOOD UREA NITROGEN 11 MG/DL (7-18); CALCIUM LEVEL 7.9 MG/DL (8.8-10.2); CARBON DIOXIDE LEVEL 27 MEQ/L (21-32); CHLORIDE LEVEL 105 MEQ/L (98-107); CREATININE FOR GFR 0.48 MG/DL (0.55-1.30); GLOMERULAR FILTRATION RATE > 60.0 (>39); GLUCOSE, FASTING 104 MG/DL (70-100); PHOSPHORUS LEVEL 3.2 MG/DL (2.5-4.9); POTASSIUM SERUM 4.3 MEQ/L (3.5-5.1); SODIUM LEVEL 138 MEQ/L (136-145)
[2018-10-08] MEDS: SLF 3 ML SYR IV (05:48)
[2018-10-08] MEDS: DICLOFENAC EPOLAMINE 1.3 % PATCH TOP (05:48)
[2018-10-08] MEDS: HEPARIN SOD (PORCINE) 5000 UNITS/ML VIAL SC (05:48)
[2018-10-08] MEDS: busPIRone 10 MG TAB PO (08:10)
[2018-10-08] MEDS: MULTIVITAMINS/MINERALS THERAP 1 TAB PO (08:10)
[2018-10-08] MEDS: SPIRONOLACTONE 25 MG TAB PO (08:11)
[2018-10-08] MEDS: MAGNESIUM GLUCONATE 500 MG TAB PO (08:11)
[2018-10-08] MEDS: POTASSIUM CHLORIDE 10 MEQ SR TABLET PO (08:11)
[2018-10-08] MEDS: LOSARTAN 50 MG TAB PO (08:11)
[2018-10-08] MEDS: CALCIUM/VITAMIN D 500 MG TAB PO (08:11)
== END 2018-10-08 13:35 | disposition home or self-care (01) | DRG 918 ==
LOC: M ED INP 20:49 → M ED 20:48 → M PCU 10-05 15:11
DX: T40.2X1A Poisoning by other opioids, accidental (unintentional), initial encounter (principal); F19.20 Other psychoactive substance dependence, uncomplicated; N28.0 Ischemia and infarction of kidney; I16.0 Hypertensive urgency; F41.9 Anxiety disorder, unspecified; M54.5 Low back pain; E83.42 Hypomagnesemia; E87.6 Hypokalemia; R51 Headache; T42.4X1A Poisoning by benzodiazepines, accidental (unintentional), initial encounter; Z79.899 Other long term (current) drug therapy; Z91.041 Radiographic dye allergy status; Z88.8 Allergy status to other drugs, medicaments and biological substances; M81.0 Age-related osteoporosis without current pathological fracture; M06.9 Rheumatoid arthritis, unspecified; Z96.652 Presence of left artificial knee joint; I71.4 Abdominal aortic aneurysm, without rupture; K57.30 Diverticulosis of large intestine without perforation or abscess without bleeding

== ENCOUNTER → 2018-10-10 | Outpatient (REF) | payer MEDICARE, MEDICAID ==
[2018-10-10 13:24] LABS: HEMATOCRIT 41.5 % (36.0-47.0); HEMOGLOBIN 13.7 g/dl (12.0-15.5); MEAN CORPUSCULAR HEMOGLOBIN 28.7 pg (27.0-33.0); MEAN CORPUSCULAR VOLUME 86.8 fl (80.0-96.0); PLATELET COUNT, AUTOMATED 361 10^3/uL (150-450); RED BLOOD COUNT 4.78 10^6/uL (4.00-5.40); RED CELL DISTRIBUTION WIDTH 15.5 % (11.5-14.5); WHITE BLOOD COUNT 7.4 10^3/uL (4.0-10.0)
[2018-10-10 13:26] LABS: ANION GAP 8 MEQ/L (8-16); BLOOD UREA NITROGEN 7 MG/DL (7-18); CALCIUM LEVEL 8.8 MG/DL (8.8-10.2); CARBON DIOXIDE LEVEL 29 MEQ/L (21-32); CHLORIDE LEVEL 96 MEQ/L (98-107); CREATININE FOR GFR 0.62 MG/DL (0.55-1.30); GLOMERULAR FILTRATION RATE > 60.0 (>39); GLUCOSE, FASTING 113 MG/DL (70-100); POTASSIUM SERUM 4.3 MEQ/L (3.5-5.1); SODIUM LEVEL 133 MEQ/L (136-145)
== END ==
LOC: M LAB REF 13:06
DX: E87.6 Hypokalemia (principal); E86.0 Dehydration

== ENCOUNTER → 2018-10-10 | Outpatient (REF) | payer MEDICARE, MEDICAID ==
[2018-10-10 13:25] LABS: ANION GAP 8 MEQ/L (8-16); BLOOD UREA NITROGEN 7 MG/DL (7-18); CALCIUM LEVEL 8.9 MG/DL (8.8-10.2); CARBON DIOXIDE LEVEL 29 MEQ/L (21-32); CHLORIDE LEVEL 96 MEQ/L (98-107); CREATININE FOR GFR 0.61 MG/DL (0.55-1.30); GLOMERULAR FILTRATION RATE > 60.0 (>39); GLUCOSE, FASTING 110 MG/DL (70-100); MAGNESIUM LEVEL 2.1 MG/DL (1.8-2.4); POTASSIUM SERUM 4.4 MEQ/L (3.5-5.1); SODIUM LEVEL 133 MEQ/L (136-145)
== END ==
LOC: M LAB REF 13:02
DX: E87.6 Hypokalemia (principal); E83.42 Hypomagnesemia; E86.0 Dehydration
CPT/HCPCS: 83735

== ENCOUNTER → 2018-10-17 | Outpatient (REF) | payer MEDICARE, MEDICAID ==
[~2018-10-17] MED LIST changes: +ACET1TAB55 PO; +AKWASOL OU; +AZIT-12 PO; +CATA0.2T PO; +CEFU50TA PO; +CLON0.1D3 TD; -LOSA50TA73 PO; +LOSA50TA88 PO; +SPIR-10 PO
[2018-10-17 16:43] LABS: BLOOD UREA NITROGEN 8 MG/DL (7-18); CALCIUM LEVEL 8.6 MG/DL (8.8-10.2); CARBON DIOXIDE LEVEL 29 MEQ/L (21-32); CHLORIDE LEVEL 93 MEQ/L (98-107); CREATININE FOR GFR 0.52 MG/DL (0.55-1.30); GLOMERULAR FILTRATION RATE > 60.0 (>39); GLUCOSE, FASTING 96 MG/DL (70-100); MAGNESIUM LEVEL 2.1 MG/DL (1.8-2.4); POTASSIUM SERUM 4.1 MEQ/L (3.5-5.1); SODIUM LEVEL 131 MEQ/L (136-145)
== END ==
LOC: M SFHCCLAY 10:56
PROVIDERS: ATTEND Family Medicine
DX: E87.6 Hypokalemia (principal); E83.42 Hypomagnesemia

== ENCOUNTER 2018-11-06 02:33 | Inpatient (IN) | payer MEDICARE, MEDICAID ==
[~2018-11-06] VITALS: Ht 157.5 cm; Wt 59.9 kg
[~2018-11-06 02:33] MED LIST changes: -ACET1TAB55 PO; -AKWASOL OU; -AZIT-12 PO; -CATA0.2T PO; -CEFU50TA PO; -CLON0.1D3 TD; -SPIR-10 PO
[2018-11-06] MEDS ORDERED: ATEN25TA PO (03:09)
[2018-11-06 03:28] LABS: BASO % 0.4 % (0.0-1.0); HEMATOCRIT 38.1 % (36.0-47.0); HEMOGLOBIN 12.6 g/dl (12.0-15.5); LYMPH # 0.5 10^3/uL (1.5-4.5); LYMPH % 4.9 % (24.0-44.0); MEAN CORPUSCULAR HEMOGLOBIN 28.8 pg (27.0-33.0); MEAN CORPUSCULAR HGB CONC 33.1 g/dl (32.0-36.5); MONO # 1.5 10^3/uL (0.0-0.8); MONO % 14.2 % (0.0-5.0); NEUTROPHILS # 8.3 10^3/uL (1.8-7.7); PLATELET COUNT, AUTOMATED 287 10^3/uL (150-450); RED BLOOD COUNT 4.38 10^6/uL (4.00-5.40); WHITE BLOOD COUNT 10.4 10^3/uL (4.0-10.0)
[2018-11-06] MEDS ORDERED: cloNIDine 0.2 MG TAB PO ONE (03:30)
[2018-11-06 03:42] LABS: BLOOD UREA NITROGEN 7 MG/DL (7-18); CALCIUM LEVEL 7.8 MG/DL (8.8-10.2); CARBON DIOXIDE LEVEL 25 MEQ/L (21-32); CHLORIDE LEVEL 95 MEQ/L (98-107); CREATININE FOR GFR 0.52 MG/DL (0.55-1.30); GLOMERULAR FILTRATION RATE > 60.0 (>39); GLUCOSE, FASTING 157 MG/DL (70-100); NT-PRO BNP 3877 PG/ML (<450); POTASSIUM SERUM 3.5 MEQ/L (3.5-5.1); SODIUM LEVEL 130 MEQ/L (136-145)
[2018-11-06] MEDS ORDERED: AZITHROMYCIN INJ 500 MG, VIAL MATE ADAPTER 1 EACH in D5W 250 ML IV ONE (04:00)
[2018-11-06] MEDS ORDERED: cefTRIAXone SOD 1 GM in D5W MINI-BAG PLUS 50 ML IV ONE (04:00)
[2018-11-06] MEDS ORDERED: FUROSEMIDE 100 MG/10 ML VIAL (J1940) IV ONE (04:30)
[2018-11-06] MEDS ORDERED: NITROGLYCERIN 2% OINT 1 GM *U/D* PKT TOP ONE (04:30)
[2018-11-06 04:32] LABS: VENOUS BASE EXCESS -0.6 (-2.0-2.0); VENOUS HCO3 22.4 MEQ/L (23.0-27.0); VENOUS O2 SATURATION 98.2 % (60.0-80.0); VENOUS PARTIAL PRESSURE O2 103.4 mmHg (30.0-50.0); VENOUS PH 7.462 UNITS (7.330-7.430); VENOUS TOTAL CO2 23.3 MEQ/L (24.0-28.0)
[2018-11-06] MEDS ORDERED: AKWASOL OU (04:33)
[2018-11-06] MEDS ORDERED: SPIR-10 PO (04:33)
[2018-11-06] MEDS ORDERED: ACET1TAB55 PO (04:33)
[2018-11-06] MEDS ORDERED: CLON0.1D3 TD (04:33)
[2018-11-06 04:43] LABS: INR 1.08; PROTHROMBIN TIME 14.1 SECONDS (12.1-14.4)
[2018-11-06] MEDS ORDERED: traMADol 50 MG TAB PO ONE (05:00)
[2018-11-06] MEDS ORDERED: FUROSEMIDE 40 MG/4 ML VIAL (J1940) IV ONE (05:15)
[2018-11-06] MEDS ORDERED: POLYVINYL ALCOHOL OPHTH SOLN 15 ML(LIQUITEARS) OU PRN (05:15)
[2018-11-06] MEDS: AZITHROMYCIN INJ 500 MG, VIAL MATE ADAPTER 1 EACH in D5W 250 ML IV SCH (05:22)
[2018-11-06] MEDS: ENOXAPARIN 60 MG/0.6 ML SYR (J1650) SC SCH ×2 (05:43→21:15)
[2018-11-06 05:57] LABS: ERYTHROCYTE SEDIMENTATION RATE 30 mm/hr (0-30)
[2018-11-06] MEDS ORDERED: HEPARIN SOD (PORCINE) 5000 UNITS/ML VIAL SC SCH (06:00)
[2018-11-06 06:01] LABS: C REACTIVE PROTEIN QUANTITATIV 5.04 MG/DL (0.00-0.30); TROPONIN I 0.09 NG/ML (< 0.10)
[2018-11-06] MEDS: busPIRone 10 MG TAB PO SCH ×3 (08:06→20:50)
[2018-11-06] MEDS: cefTRIAXone SOD 1 GM in D5W MINI-BAG PLUS 50 ML IV SCH (08:06)
[2018-11-06] MEDS: ATENOLOL 25 MG TAB PO SCH ×2 (09:51→20:50)
[2018-11-06] MEDS: LOSARTAN 50 MG TAB PO SCH ×2 (09:51→20:50)
[2018-11-06] MEDS: SPIRONOLACTONE 25 MG TAB PO SCH (09:51)
--- NOTE | 2018-11-06 10:31 | REP ---
CHEST PA AND LATERAL: 11/06/2018. Comparison: CT angio chest 10/04/2018. Clinical history: Dyspnea. Findings: Two-view show the lung riddle are well inflated. There is flattening of the diaphragms, hyperinflation and diffuse interstitial fibrotic changes. Superimposed basilar patchy atelectasis or infiltrates noted compared to the CT last month. Small effusion suggest a lateral view there is some Carlos B lines present that may reflect some interstitial edema. Cardiomegaly with left atrial ventricular enlargement noted. Vascular redistribution, engorgement of upper lobe veins. Tortuous ectatic calcified aorta noted as on the CT. Airway intact. No mediastinal mass or contour abnormality otherwise. Arteries centrally are prominent consistent with pulmonary artery hypertension and COPD. There is aortic stent graft seen best on the lateral view. Bones are severely demineralized. There is thoracic kyphosis but no definite compression deformity visible. Some dextroconvex scoliosis of the upper thoracic spine. Impression: 1. Advanced COPD with fibrosis, pulmonary artery hypertension and current evidence for some patchy basilar atelectasis or infiltrates left greater than right. Small effusions now present. 2. Cardiomegaly with left atrial and ventricular enlargement and some Carlos B lines superimposed with chronic interstitial changes with vascular engorgement that may reflect some mild interstitial edema. 3. Tortuous ectatic calcified aorta, unchanged. Bones severely demineralized. Electronically Signed by Andriy Smith MD 11/06/2018 02:22 P
[2018-11-06 11:29] VITALS: BP 149/82
[2018-11-06 11:45] LABS: INFLUENZA A AMPLIFICATION NEGATIVE (NEGATIVE); INFLUENZA B AMPLIFICATION NEGATIVE (NEGATIVE)
[2018-11-06] MEDS: ACETAMINOPHEN TAB 650MG DOSE (2X325MG) PO PRN ×2 (12:13→20:24)
--- NOTE | 2018-11-06 12:58 | ECGEPIP ---
Stationary ECG Study [facility] Test Date: 2018-11-06 Pat Name: JENNIE MENDOZA Department: Room: [facility] Gender: F Search Marketing Specialist: andrei : 1940 Requested By: LOUIS WEDNESDAY Order Number: [id number] Reading MD: Vivek Gilliland Measurements Intervals [place] Rate: 74 P: 53 IN: 156 QRS: 9 QRSD: 89 T: 36 QT: 423 QTc: 471 Interpretive Statements SINUS RHYTHM POSSIBLE LEFT ATRIAL ENLARGEMENT Nonspecific ST-T wave abnormalities Electronically Signed On 11-06-2018 12:58:03 EST by Vivek Gilliland
--- NOTE | 2018-11-06 13:04 | ECGEPIP ---
Stationary ECG Study [facility] Test Date: 2018-11-06 Pat Name: JENNIE MENDOZA Department: Room: [place] [address] Gender: F Director Of Market Analysis: NICK : 1940 Requested By: LOUIS WEDNESDAY Order Number: [id number] Reading MD: Vivek Gilliland Measurements Intervals [place] Rate: 62 P: 40 [place]: 138 QRS: 64 QRSD: 82 T: 72 QT: 456 QTc: 466 Interpretive Statements SINUS RHYTHM Nonspecific ST-T wave abnormalities Electronically Signed On 11-06-2018 13:04:23 EST by Vivek Gilliland
[2018-11-06 13:42] LABS: MB/CK RELATIVE INDEX 5.67 (< OR =4); TROPONIN I 0.18 NG/ML (< 0.10)
[2018-11-06 16:00] VITALS: BP 141/65
--- NOTE | 2018-11-06 18:21 | HPE ---
DATE OF ADMISSION: 11/06/2018 CHIEF COMPLAINT: Sudden onset shortness of breath and congestion. HISTORY OF PRESENT ILLNESS: The patient is a 77-year-old female with significant past medical history of spinal stenosis status post laminectomy and fusion, hypertension, abdominal aortic aneurysm status post repair, rheumatoid arthritis, osteoporosis, chronic back pain from the spinal stenosis. She presents to the emergency room with symptoms she states started suddenly at 7:00 p.m. yesterday. Patient states she was standing in her kitchen when all of a sudden she felt congestion on her chest. She states she was then extremely short of breath. She denies any cough; however, she states that she felt as though she had phlegm in her chest and was not able to clear her sputum. She is unable to discern whether or not she has chest pain. She states that she has chronic back pain, which she feels always radiates to her chest and she does not think that she felt anything unlike her chronic back pain radiating to her chest area. She denies any coughing. She denies any fevers or chills. She denies any abdominal pain, constipation, diarrhea or urinary symptoms. She also states immediately she starting having rhinorrhea. She denies any orthopnea or peripheral edema or paroxysmal nocturnal dyspnea (PND). The patient accounted the events with sudden onset shortness of breath; however, it appears that she has a right-sided infiltrate on her chest x-ray, is very inconsistent with the course of pneumonia. It does not appear that she had any symptoms leading up to this sudden onset chest congestion and shortness of breath. On presentation to the emergency department (ED), she was noted to be extremely hypoxic, down to the mid 80s, which improved with supplemental oxygen. Notably, in the patient's history, she has difficulty to control hypertension. She presented to her primary care physician, Dr. Carson, approximately four days ago, at which she was started on atenolol for better blood pressure control, which was added to her clonidine and losartan therapy. Patient believes that this sudden onset shortness of breath is attributable to the atenolol, because she states that she felt somewhat different when she started taking atenolol four days ago. She is unable to describe exactly how she felt. She states it was somewhat dizzy. This dizziness has resolved and the shortness of breath acutely started tonight at 7:00 p.m., as per the patient's account. PAST MEDICAL HISTORY: See history of present illness (HPI). PAST SURGICAL HISTORY: 1. Spinal fusion. 2. Left knee replacement. 3. Hip surgery. 4. Abdominal aortic aneurysm repair. HOME MEDICATIONS: - Tylenol - atenolol - BuSpar - Calcium with vitamin D - clonidine - losartan - spironolactone ALLERGIES: NORVASC, CONTRAST MEDIA, DULOXETINE, NYSTATIN. Reactions are unknown. SOCIAL HISTORY: She is a former smoker. Denies alcohol or illicit drug use. FAMILY HISTORY: Noncontributory. REVIEW OF SYSTEMS: A 12-point review of systems is completed, all of which were negative except those listed in the HPI. VITAL SIGNS ON ADMISSION: Temperature 97.6, pulse 85, respirations 22, blood pressure 179/87, saturating at 91% on 2 liters nasal cannula. PHYSICAL EXAMINATION: GENERAL: She is well-nourished, in no apparent distress. HEAD: Normocephalic, atraumatic. EYES: Extraocular movements are intact. Pupils equal, round, reactive to light. NECK: Supple. No jugular venous pressure (JVP). LUNGS: She has bibasilar crackles, but no wheezing. CARDIOVASCULAR: Regular rate and rhythm. Normal S1, S2. No murmurs, gallops or rubs. ABDOMEN: Soft, nontender, nondistended. Positive bowel sounds. No rebound. No guarding. EXTREMITIES: No pitting edema or calf tenderness. SKIN: Intact. No rashes, lesions or breakdowns. NEUROLOGICAL EXAM: She is alert and oriented times three. There are no focal deficits. LABS AND IMAGING DONE IN THE EMERGENCY ROOM (ER): White count of 10, hemoglobin and hematocrit (H and H) 12 and 38, platelet count 287. Coagulants within normal limits. Chemistry shows a BUN and creatinine of 7 and 0.52, sodium 130, chloride 95, lactate 2.3. Chest x-ray shows possible small bilateral effusion, what appears to be a right lower lobe infiltrate, as well as possible retrocardiac infiltrate. ASSESSMENT AND PLAN: Acute hypoxic respiratory failure, likely secondary to community-acquired pneumonia, possible new onset diastolic congestive heart failure (CHF) in the setting of difficult to control uncontrolled hypertension. Unable to rule out pulmonary embolism (PE), as the patient's recount of the events with sudden onset shortness of breath is somewhat inconsistent with a course of pneumonia, as well as congestive heart failure. PLAN: 1. For pneumonia, we will place patient on ceftriaxone and azithromycin, sputum culture, urine Legionella, urine pneumococcal antigen, Tylenol if needed for pain, oxygen to keep oxygen saturation greater than 94%. Suggest for congestive heart failure. She has bilateral pleural effusions and a longstanding history of uncontrolled hypertension. Will get an echocardiogram, serial EKG, thyroid stimulating hormone (TSH). Will give one dose of Lasix 40 mg intravenously (IV) and oxygen as needed. Patient is allergic to contrast; however, with the way the patient describes her course of events, stated around 7:00 p.m. she was standing in her kitchen and suddenly became short of breath, we need to rule out a PE. She has no discernable modifiable risk factors for PE. As the patient is allergic to contrast, we will get a V/Q scan. We will put her on therapeutic Lovenox 60 mg twice a day for now, while she awaits V/Q scan in the a.m. 2. Hypertension. Continue losartan, clonidine and atenolol. 3. Abdominal aortic aneurysm. Status post repair. Stable. 4. Rheumatoid arthritis. She is not on any medication. 5. Chronic back pain. Tylenol as needed. 6. Supportive deep venous thrombosis (DVT) prophylaxis. She is on Lovenox. 7. Gastrointestinal (GI) prophylaxis. Not indicated. 8. Diet. Cardiac.
[2018-11-06 20:00] VITALS: BP 137/63
[2018-11-07] VITALS (7 sets, daily range): BP systolic 150–195; BP diastolic 68–100
[2018-11-07] MEDS: ACETAMINOPHEN TAB 650MG DOSE (2X325MG) PO PRN ×3 (00:28→21:19)
[2018-11-07] MEDS ORDERED: ATENOLOL 25 MG TAB PO ONE (00:45)
[2018-11-07] MEDS: AZITHROMYCIN INJ 500 MG, VIAL MATE ADAPTER 1 EACH in D5W 250 ML IV SCH (05:20)
[2018-11-07] MEDS: ENOXAPARIN 60 MG/0.6 ML SYR (J1650) SC SCH (05:21)
[2018-11-07 05:34] LABS: HEMATOCRIT 32.7 % (36.0-47.0); HEMOGLOBIN 10.9 g/dl (12.0-15.5); MEAN CORPUSCULAR HEMOGLOBIN 28.3 pg (27.0-33.0); MEAN CORPUSCULAR HGB CONC 33.3 g/dl (32.0-36.5); MEAN CORPUSCULAR VOLUME 84.9 fl (80.0-96.0); PLATELET COUNT, AUTOMATED 278 10^3/uL (150-450); RED BLOOD COUNT 3.85 10^6/uL (4.00-5.40); WHITE BLOOD COUNT 4.8 10^3/uL (4.0-10.0)
[2018-11-07 05:51] LABS: BLOOD UREA NITROGEN 11 MG/DL (7-18); CALCIUM LEVEL 8.3 MG/DL (8.8-10.2); CARBON DIOXIDE LEVEL 31 MEQ/L (21-32); CHLORIDE LEVEL 96 MEQ/L (98-107); CREATININE FOR GFR 0.65 MG/DL (0.55-1.30); GLOMERULAR FILTRATION RATE > 60.0 (>39); GLUCOSE, FASTING 92 MG/DL (70-100); POTASSIUM SERUM 3.5 MEQ/L (3.5-5.1); SODIUM LEVEL 133 MEQ/L (136-145)
[2018-11-07] MEDS: cefTRIAXone SOD 1 GM in D5W MINI-BAG PLUS 50 ML IV SCH (07:46)
--- NOTE | 2018-11-07 08:28 | IPNPDOC ---
Subjective Date Seen The patient was seen on 11/07/18. Subjective Chief Complaint/HPI SOB, chest congestion Events since last encounter Admitted overnight for SOB, hypoxia. Received Lasix x 1 dose. Has been weaned off of oxygen to RA. V/Q scan and echo pending today.Patient c/o anxiety dye to hospitalization. Has hx of anxiety in the past and uses Buspirone with relief at home. states it is not helping while inpatient. Constitutional: Denies: Chills, Fever, Night Sweats ENT: Denies: Head Aches, Ear Pain, Dysphagia Skin: Denies: Rash, Lesions, Breakdown Pulmonary: Reports: Dyspnea, Cough Cardiovascular: Denies: Chest Pain, Palpitations, Orthopnea, Paroxysmal Noc. Dyspnea, Lt Headedness Gastrointestinal: Denies: Nausea, Vomiting, Abdominal Pain, Diarrhea, Constipation Hematologic: Denies: Bruising, Bleeding Excessively Psych: Reports: Anxiety Objective Physical Examination General Exam: Positive: Alert, No Acute Distress ENT Exam: Positive: Atraumatic, Mucous membr. moist/pink, Pharynx Normal Neck Exam: Positive: Supple; Negative: JVD, thyromegaly Chest Exam: Positive: Normal air movement, Diminished (bibasilar) Heart Exam: Positive: Rate Normal, Regular Rhythm, Normal S1, Normal S2; Negative: Murmurs, Rubs Telemetry: Positive: No significant arrhythmia Abdomen Exam: Positive: Normal bowel sounds, Soft; Negative: Tenderness, Hepatospenomegaly Extremity Exam: Positive: Edema (trace pre-tibial) Skin Exam: Positive: Nl turgor and temperature; Negative: Rash, Breakdown Psych Exam: Positive: Mental status NL, Mood NL, Oriented x 3 Assessment /Plan Assessment Patient seen, agree with DB. She complained of worsened anxiety after taking Ativan, and has a history of trouble with benzos, so I stopped it. She stated that she felt wobbly while ambulating, and I ordered PT to eval and treat. Discussed with her potential DC tomorrow. V/Q scan low probability of PE, so I changed her dose of Lovenox to DVT prophylaxis. Problems (1) Pneumonia Status: Acute Problem Text: on azithromycin and ceftriaxone. Oxygen has been weaned to RA. (2) Acute respiratory failure with hypoxia Status: Acute Problem Text: v/q scan and echo today. (3) Hypertension Status: Chronic Problem Text: Pulmonary HTN on CXR with pleural effusion. Given lasix x 1. Will monitor I/O. Echo pending. (4) Anxiety Status: Chronic Problem Text: will give prn lorazepam for anxiety Plan/VTE VTE Prophylaxis Ordered?: Yes (lovenox) VS, I&O, 24H, Fishbone Vital Signs/I&O Vital Signs Date Time Temp Pulse Resp B/P (MAP) Pulse Ox O2 Delivery O2 Flow Rate FiO2 11/07/18 05:45 152/68 (96) 11/07/18 04:00 97.2 59 18 94 Room Air 11/06/18 10:12 2.0 I&O- Last 24 Hours up to 6 AM 11/07/18 06:00 Intake Total 1275 ml Output Total 775 ml Balance 500 ml Laboratory Data 24H LABS Laboratory Tests 2 11/06/18 08:42: Lactic Acid Followup at 4 Hours 1.4, Troponin I 0.25#H 11/06/18 11:10: Influenza Type A (RT-PCR) NEGATIVE, Influenza Type B (RT-PCR) NEGATIVE, Respiratory Syncytial Virus (RT-PCR NEGATIVE 11/06/18 13:01: Troponin I 0.18#H, Total Creatine Kinase 67, Creatine Kinase MB 4.0H, Creatine Kinase MB Relative Index 5.67H 11/07/18 04:30: Nucleated Red Blood Cells % (auto) 0.0, Anion Gap 6L, Glomerular Filtration Rate > 60.0, Blood Urea Nitrogen 11#, Creatinine 0.65, Sodium Level 133L, Potassium Level 3.5, Chloride Level 96L, Carbon Dioxide Level 31, Calcium Level 8.3L CBC/BMP Laboratory Tests 11/07/18 04:30 Red Blood Count 3.85 L, Mean Corpuscular Volume 84.9, Mean Corpuscular Hemoglobin 28.3, Mean Corpuscular Hemoglobin Concent 33.3, Red Cell Distribution Width 15.8 H, Calcium Level 8.3 L Microbiology Microbiology 11/06/18 Blood Culture - Preliminary, Resulted No growth after 24 hours . All specim... Cheryl LeonP Nov 07, 2018 08:28 MITCH DAUGHERTY DO Nov 07, 2018 16:05
[2018-11-07] MEDS ORDERED: LORazepam 0.5 MG TAB PO PRN (08:30)
[2018-11-07] MEDS: SPIRONOLACTONE 25 MG TAB PO SCH (08:50)
[2018-11-07] MEDS: ATENOLOL 25 MG TAB PO SCH ×2 (08:51→21:19)
[2018-11-07] MEDS: LOSARTAN 50 MG TAB PO SCH ×2 (08:51→21:18)
[2018-11-07] MEDS: busPIRone 10 MG TAB PO SCH ×3 (08:52→21:19)
--- NOTE | 2018-11-07 10:17 | ECHO ---
DATE OF PROCEDURE: 11/06/2018 REFERRING PHYSICIAN: Dr. Jackson Wednesday. INDICATION: Dyspnea. HEIGHT: 157 cm. WEIGHT: 60.45 kg. 2D MEASUREMENTS: Aortic annulus - 2.0 cm Aortic root - 3.4 cm Left atrium - 3.5 cm Ventricular septum - 0.94 cm Posterior wall - 0.95 cm Left ventricle diastole - 4.7 cm DOPPLER MEASUREMENTS: Very mild aortic regurgitation. LVOT velocity 102 cm/s LVOT VTI - 19.9 cm Very mild mitral regurgitation. Trace tricuspid regurgitation. Very mild pulmonary artery regurgitation. Pulmonary artery systolic pressure - 31 mmHg MITRAL ANNULAR TISSUE DOPPLER: E prime septal - 4.8 cm/s E prime lateral - 6.7 cm/s DESCRIPTION: The rhythm was sinus. Images quality was fair. No pericardial effusion. This is a 2D, M-mode, color flow Doppler and pulse wave Doppler examination including mitral annular tissue Doppler. CONCLUSIONS: 1. Normal left ventricle internal dimensions and wall thickness. Normal regional LV wall motion and wall thickness. Normal LV systolic function, LVEF 60% by visual estimate. Grade 1 LV diastolic dysfunction (impaired relaxation filling pattern). 2. Moderate aortic valve sclerosis. Very mild aortic regurgitation. No aortic stenosis. 3. Mild mitral annular calcification. Very mild mitral regurgitation. 4. Otherwise normal appearing echocardiogram Doppler findings.
--- NOTE | 2018-11-07 12:38 | REP ---
Ventilation-perfusion lung scan: History: Assess for pulmonary embolus. Comparison chest x-ray is from this date. Technique: 1.0 mCi technetium 99m DTPA aerosol is utilized for the ventilation study and is followed by a 5.5 mCi dose of technetium-99m MAA given intravenously for the perfusion exam. A series of eight planar images are acquired for each portion of the study. Findings: There is some central bronchial deposition of inspired tracer on the ventilation study bilaterally consistent with COPD. Patchy uptake is seen on the ventilation study. The perfusion exam shows more homogeneous somewhat less patchy distribution of radiotracer. There is a matched VQ defect in the left lower lobe on the LPO images. A matched VQ defect is seen in the superior aspect of the left lower lobe on the lateral projection images. No mismatched defect is seen. Impression: Low probability scan for pulmonary embolus. Matched defects. No mismatched defect seen. Electronically Signed by Rodney Lombardo MD 11/07/2018 01:22 P
--- NOTE | 2018-11-07 17:37 | IPN ---
DATE: 11/06/2018 OBJECTIVE: The patient was admitted last night with complaints of dyspnea, rattly cough and short of breath. She was observed to be hypoxic in the emergency department (ED). Chest x-ray was done with findings noted in the laboratory data and diagnostic radiology sections of the chart. She was treated overnight with sequence of treatments including antibiotics for community-acquired pneumonia and was also given IV Lasix in two doses, 40 mg and 80. She did demonstrate improvement in her hypoxemia overnight and this morning when seen, she had an oxygen saturation of 92% on room air and she denies any sense of dyspnea. She reported started yesterday to experience discomfort in her chest, radiating from her mid back through her chest that persisted throughout the afternoon and into the night that disappeared sometime overnight, she is not quite sure when. At this time she feels fine with no sense of dyspnea and no pain when she breathes and not coughing. She does admit to anxiety which has been a long-term problem for her and she is not sure that her current treatment with buspirone is effective. However, she became quite confused and impaired when treated with benzodiazepine, particularly when she used it conjunction with narcotic analgesic, tramadol. OBJECTIVE: Vital signs: She was 99/56 this morning at 0803 hours, 110/59 at 1012 hours this morning, and most recently 149/82. Oxygen saturation remains 93% on room air and temperature is 98 degrees. The hospitalist who admitted her reported documentation of saturations into the 80s but the emergency room staff recording the lowest documented at 0248 hours this morning was 89, perhaps it was emergency certified medical technician assistant (EMT) documentation that recorded the lower saturations. Cold day during transport, uncertain accuracy. At this point, however, she is symptomatically improved. She is not dyspneic and seems quite at ease without oxygen flowing, there is no flaring and no accessory muscle use. Respirations are equal with no wheezing, rales or rhonchi noted. Heart regular rhythm. I do not appreciate a murmur at this time. Abdomen is soft and there is no guarding. She has no pedal edema. Her CPK elevation is very modest at 0.25, it was 0.09 approximately 5-6 hours earlier and repeat is pending. Lactic acid was 2.3 on admission and is rechecked at 1.4. Sodium was 131 on admission. I personally reviewed the x-ray image which shows interlobar fluid on the right. She has bilateral pleural effusions, these are relatively small, and cardiomegaly. White count is not elevated and she was not significantly febrile, but she does appear to have an infiltrate in the right midlung field. ASSESSMENT: 1. Dyspnea with hypoxemia which seems to be significantly improved overnight. Whether this is because of anxiety or treatment of an underlying congestive failure is not so clear at this point. She does have slightly elevated troponins. She has EKG anomaly observed today with ST segments somewhat convex in V1 and V2 suggestive of anteroseptal injury, but again at this point she has no chest pain. Dyspnea with transient hypoxemia, improved. 2. Elevated troponin with abnormal EKG. 3. Chronic anxiety. 4. Abnormal chest x-ray with suggestion of congestive failure. PLAN: Repeat troponin is pending. If troponin is not sufficiently elevated to indicate infarction, might attribute this CK elevation to LV strain related to her respiratory compromise. She does have chest x-ray appearance and overall clinical improvement post diuresis suggestive of congestive failure. Echocardiogram was not done at last admission. Will recommend that we obtain one during this hospital stay to confirm that she does not have systolic impairment. She did have elevated Pro-BNP at 3877 consistent with congestive heart failure. Therefore I think diastolic heart failure is likely pending echo confirmation. Hyponatremia is a new problem, possibly related to fluid volume expansion which would correlate with the presence of failure. Will suggest monitoring at this point since she did receive overnight Lasix, will see what her electrolytes are tomorrow. Labs have been ordered and cardiac marker panel is pending. If the cardiac marker panel is increasingly abnormal then repeat her EKG today and request consultation from protection consultant. For anxiety, at this point will continue buspirone at current dose. Because of her chest CT and dyspnea, a diagnosis of pulmonary embolism was entertained but CT angio could not be done because of history of contrast allergy. Therefore she was placed on Lovenox for active treatment pending completion of the VQ scan. If her VQ scan suggests low probability of pulmonary embolus (PE), then would discontinue therapeutic level Lovenox and proceed with deep venous thrombosis (DVT) prophylaxis provided cardiology results do not drive different interventions. Because we do have an infiltrate visible in the right midlung field, will continue empiric treatment for community-acquired pneumonia with ceftriaxone and azithromycin for the present.
[2018-11-08] VITALS (7 sets, daily range): BP systolic 157–192; BP diastolic 70–98
[2018-11-08] MEDS: LORazepam 0.5 MG TAB PO PRN ×2 (01:26→11:17)
[2018-11-08] MEDS: AZITHROMYCIN INJ 500 MG, VIAL MATE ADAPTER 1 EACH in D5W 250 ML IV SCH (05:28)
[2018-11-08 06:11] LABS: HEMATOCRIT 33.5 % (36.0-47.0); HEMOGLOBIN 11.2 g/dl (12.0-15.5); MEAN CORPUSCULAR HEMOGLOBIN 28.8 pg (27.0-33.0); MEAN CORPUSCULAR HGB CONC 33.4 g/dl (32.0-36.5); MEAN CORPUSCULAR VOLUME 86.1 fl (80.0-96.0); PLATELET COUNT, AUTOMATED 302 10^3/uL (150-450); RED BLOOD COUNT 3.89 10^6/uL (4.00-5.40); WHITE BLOOD COUNT 5.9 10^3/uL (4.0-10.0)
[2018-11-08 06:35] LABS: BLOOD UREA NITROGEN 11 MG/DL (7-18); CALCIUM LEVEL 8.2 MG/DL (8.8-10.2); CARBON DIOXIDE LEVEL 30 MEQ/L (21-32); CHLORIDE LEVEL 99 MEQ/L (98-107); CREATININE FOR GFR 0.58 MG/DL (0.55-1.30); GLOMERULAR FILTRATION RATE > 60.0 (>39); GLUCOSE, FASTING 100 MG/DL (70-100); POTASSIUM SERUM 3.9 MEQ/L (3.5-5.1); SODIUM LEVEL 136 MEQ/L (136-145)
[2018-11-08] MEDS ORDERED: FLUBLOK(EGG FREE)(QUAD)INFLUENZA VACC 0.5ML SYRINGE (90682)18YRS&OLDER IM ONE (09:00)
[2018-11-08] MEDS ORDERED: cloNIDine HCL 0.2 MG/24 HR PATCH TOP SCH (09:00)
[2018-11-08] MEDS: ATENOLOL 25 MG TAB PO SCH (09:00)
[2018-11-08] MEDS: busPIRone 10 MG TAB PO SCH ×3 (09:10→20:47)
[2018-11-08] MEDS: ACETAMINOPHEN TAB 650MG DOSE (2X325MG) PO PRN ×3 (09:11→20:48)
[2018-11-08] MEDS: LOSARTAN 50 MG TAB PO SCH ×2 (09:11→20:48)
[2018-11-08] MEDS: SPIRONOLACTONE 25 MG TAB PO SCH (09:11)
[2018-11-08] MEDS: ENOXAPARIN 40 MG/0.4 ML SYRINGE (J1650) SC SCH (09:12)
[2018-11-08] MEDS: cefTRIAXone SOD 1 GM in D5W MINI-BAG PLUS 50 ML IV SCH (09:12)
--- NOTE | 2018-11-08 10:33 | IPNPDOC ---
Subjective Date Seen The patient was seen on 11/08/18. Subjective Chief Complaint/HPI NO SOB or cough Constitutional: Denies: Chills, Fever Pulmonary: Denies: Dyspnea, Cough Cardiovascular: Denies: Chest Pain, Palpitations Gastrointestinal: Denies: Nausea, Vomiting, Abdominal Pain Genitourinary: Denies: Dysuria, Frequency Objective Physical Examination General Exam: Positive: Alert, No Acute Distress Chest Exam: Positive: Normal air movement; Negative: Rales, Rhonchi, Wheezing Heart Exam: Positive: Rate Normal, Regular Rhythm, Normal S1, Normal S2; Negative: Murmurs, Rubs Telemetry: Positive: No significant arrhythmia Abdomen Exam: Positive: Normal bowel sounds, Soft; Negative: Tenderness, Hepatospenomegaly Extremity Exam: Negative: Edema Skin Exam: Negative: Breakdown Psych Exam: Positive: Mental status NL, Mood NL, Oriented x 3 Assessment /Plan Assessment Agree. As appears consistent with outpatient, patient declines multiple antihypertensives. Placed back on previous PO clonidine regimen (had been changed within the week.) Problems (1) Pneumonia Status: Acute Problem Text: 11/08 - switch to po abx today on azithromycin and ceftriaxone. Oxygen has been weaned to RA. (2) Acute respiratory failure with hypoxia Status: Resolved Problem Text: 11/08 - CXR on admission suggested atelectasis/pneumonia as well as possibly CHf. She has responded to Diuretics and abx Of note: She was started on Atenolol at the office 11/01 - She describes sudden onset of resp distress and wheezing. Her Atenolol may be contributing to some Beta-stephanie induced bronchospasm I will d/c this (she refused this am) V/Q was negative Echo: 1. Normal left ventricle internal dimensions and wall thickness. Normal regional LV wall motion and wall thickness. Normal LV systolic function, LVEF 60% by visual estimate. Grade 1 LV diastolic dysfunction (impaired relaxation filling pattern). 2. Moderate aortic valve sclerosis. Very mild aortic regurgitation. No aortic stenosis. 3. Mild mitral annular calcification. Very mild mitral regurgitation. 4. Otherwise normal appearing echocardiogram Doppler findings. (3) Hypertension Status: Chronic Problem Text: 11/08 - Stop Atenolol as above. Patient would prefer oral Clonidine rather than patch. Will switch to this and monitor BP trend Cont Cozaar & Aldactone. Consider adding Chlorthalidone (4) Anxiety Status: Chronic Problem Text: will give prn lorazepam for anxiety Plan/VTE VTE Prophylaxis Ordered?: Yes (lovenox) Disposition D/C home in am if stable VS, I&O, 24H, Fishbone Vital Signs/I&O Vital Signs Date Time Temp Pulse Resp B/P (MAP) Pulse Ox O2 Delivery O2 Flow Rate FiO2 11/08/18 09:11 157/88 11/08/18 09:00 80 11/08/18 08:00 100.5 20 94 Room Air 11/06/18 10:12 2.0 I&O- Last 24 Hours up to 6 AM 11/08/18 06:00 Intake Total 1385 ml Output Total 825 ml Balance 560 ml Laboratory Data 24H LABS Laboratory Tests 2 11/08/18 05:49: Nucleated Red Blood Cells % (auto) 0.0, Anion Gap 7L, Glomerular Filtration Rate > 60.0, Blood Urea Nitrogen 11, Creatinine 0.58, Sodium Level 136, Potassium Level 3.9, Chloride Level 99, Carbon Dioxide Level 30, Calcium Level 8.2L CBC/BMP Laboratory Tests 11/08/18 05:49 Red Blood Count 3.89 L, Mean Corpuscular Volume 86.1, Mean Corpuscular Hemoglobin 28.8, Mean Corpuscular Hemoglobin Concent 33.4, Red Cell Distribution Width 15.9 H, Calcium Level 8.2 L Microbiology Microbiology 11/06/18 Blood Culture - Preliminary, Resulted No Growth after 48 hours. All Specime... KAMILA HURLEY PA-C Nov 08, 2018 10:33 MITCH DAUGHERTY DO Nov 08, 2018 19:24
[2018-11-08] MEDS ORDERED: cloNIDine 0.1 MG TAB PO SCH ×2 (11:15→21:00)
[2018-11-08] MEDS: CEFUROXIME 500 MG TAB PO SCH (20:47)
[2018-11-09] MEDS: LORazepam 0.5 MG TAB PO PRN ×2 (00:35→08:53)
[2018-11-09 06:00] VITALS: BP 194/88
[2018-11-09 06:19] LABS: HEMATOCRIT 35.4 % (36.0-47.0); HEMOGLOBIN 11.5 g/dl (12.0-15.5); MEAN CORPUSCULAR HEMOGLOBIN 28.4 pg (27.0-33.0); MEAN CORPUSCULAR HGB CONC 32.5 g/dl (32.0-36.5); MEAN CORPUSCULAR VOLUME 87.4 fl (80.0-96.0); PLATELET COUNT, AUTOMATED 319 10^3/uL (150-450); RED BLOOD COUNT 4.05 10^6/uL (4.00-5.40); WHITE BLOOD COUNT 5.1 10^3/uL (4.0-10.0)
[2018-11-09 06:37] LABS: BLOOD UREA NITROGEN 8 MG/DL (7-18); CALCIUM LEVEL 8.3 MG/DL (8.8-10.2); CARBON DIOXIDE LEVEL 29 MEQ/L (21-32); CHLORIDE LEVEL 98 MEQ/L (98-107); CREATININE FOR GFR 0.55 MG/DL (0.55-1.30); GLOMERULAR FILTRATION RATE > 60.0 (>39); GLUCOSE, FASTING 94 MG/DL (70-100); POTASSIUM SERUM 3.9 MEQ/L (3.5-5.1); SODIUM LEVEL 134 MEQ/L (136-145)
[2018-11-09] MEDS: busPIRone 10 MG TAB PO SCH (08:53)
[2018-11-09] MEDS: SPIRONOLACTONE 25 MG TAB PO SCH (08:53)
[2018-11-09] MEDS: LOSARTAN 50 MG TAB PO SCH (08:53)
[2018-11-09 08:54] VITALS: BP 194/88
[2018-11-09] MEDS: CEFUROXIME 500 MG TAB PO SCH (08:54)
[2018-11-09] MEDS: ENOXAPARIN 40 MG/0.4 ML SYRINGE (J1650) SC SCH (08:54)
[2018-11-09] MEDS ORDERED: cloNIDine 0.2 MG TAB PO SCH ×2 (09:00→21:00)
[2018-11-09] MEDS ORDERED: cloNIDine 0.1 MG TAB PO SCH (09:00)
[2018-11-09] MEDS ORDERED: AZITHROMYCIN 250 MG TAB PO SCH (09:00)
[2018-11-09 10:17] VITALS: BP 188/92
[2018-11-09] MEDS ORDERED: CEFU50TA PO (11:32)
[2018-11-09] MEDS ORDERED: AZIT-12 PO (11:32)
[2018-11-09] MEDS ORDERED: CATA0.2T PO (11:32)
--- NOTE | 2018-11-09 14:07 | DSES ---
DATE OF ADMISSION: 11/06/2018 DATE OF DISCHARGE: 11/09/2018 BRIEF HISTORY AND PHYSICAL: The patient is a 77-year-old, patient of Dr. Carson and Dr. Arias, who presented with sudden onset of chest congestion and shortness of breath. No cough but she felt as though she had flutter in her chest and was unable to clear this. No chest pain. No fever or chills. No orthopnea or paroxysmal nocturnal dyspnea or leg swelling. Past medical history is significant for spinal stenosis status post laminectomy and fusion, hypertension. She recently saw her primary care provider, who has been adjusting her blood pressure medications and had switched her from oral clonidine to Catapres patch as well as starting atenolol. She has rheumatoid arthritis, osteoporosis, chronic back pain from spinal stenosis. Her oxygen saturations were 91% on 2 liters nasal cannula. Temperature was 97.6, respirations 22, pulse 85, blood pressure was 179/87 on arrival. She had some crackles at her bases. PERTINENT LABS ON ADMISSION: BUN 7, creatinine 0.52, sodium 130, lactate 2.3. White count 10, hemoglobin 12, platelets 287. Chest x-ray showed possible small bilateral pleural effusions appears to be right lower lobe infiltrate as well as possible retrocardiac infiltrate. HOSPITAL COURSE: The patient was admitted for dyspnea and hypoxemia multifactorial. 1. Acute on chronic diastolic congestive heart failure. She was given intravenous (IV) Lasix. She responded rapidly. Her respiratory status improved. Echocardiogram was performed showing normal left ventricular internal dimensions and wall thickness, normal regional left ventricular wall motion and wall thickness, normal left ventricular systolic function with an ejection fraction of 60%, grade 1 left ventricular diastolic dysfunction and para relaxation filling, moderate aortic valve sclerosis, very mild aortic regurgitation, no aortic stenosis, mild mitral annular calcification with very mild mitral regurgitation, otherwise normal. There may have been based on the chest x-ray on presentation a very slight element of decompensated diastolic congestive heart failure, which responded rapidly to diuretic. She has no signs of clinical congestive heart failure at the time of discharge. However, she does have fairly significant high blood pressure issues maybe anxiety related and there may be a role for adding something like chlorthalidone to her antihypertensive regimen if her blood pressure remains poorly controlled. 2. Pneumonia. She was treated for community-acquired pneumonia. Blood cultures were negative. She was given IV Rocephin and Zithromax. She will complete a 5-day course of Zithromax and then has been switched to Ceftin and will continue with a 10-day course of cephalosporin. Respiratory status improved. She has no cough. No fever. White count has normalized. Oxygen saturations are in the 90s on room air. Of note, her acute respiratory distress may have been related to beta-stephanie induced bronchospasm. She had atenolol added to her regimen about 5 days earlier and it is possible that she had some underlying asthma or lung disease with a propensity toward bronchospasm. I would avoid using beta- blockers in the future. 3. Hypertension. She has fairly significant high blood pressure issues. It is thought that the atenolol may have triggered some of her dyspnea, perhaps beta-stephanie induced bronchospasm. We have discontinued her atenolol. At this point, she is on clonidine 0.2 mg twice a day. She prefers this to the patch that had been prescribed in the office. She remains on Cozaar as prior to admission and spironolactone. Her blood pressure is high at the time of discharge. The case was discussed with Dr. Crowe, who feels that her blood pressure medications can further be adjusted as an outpatient with her primary and that her blood pressure tends to rise due to anxiety. If additional blood pressure agents are needed, perhaps some chlorthalidone would be a reasonable option. If her blood pressure also remains difficult to control, a renal artery Doppler might be beneficial to evaluate for renal artery stenosis. 4. Anxiety. She requested a prescription for Ativan to be used as needed as an outpatient for panic attacks. However, Dr. Crowe did not feel comfortable prescribing this. There are some concern that she had developed some difficulty with a combination of benzodiazepine and tramadol in the past causing altered mental status from over medicating. I would defer the management of her anxiety to her primary care physician. She remains on BuSpar at this time. DISPOSITION: She is stable for discharge home. Followup with Dr. Gonzalez in his office as scheduled next week. Diet: No added salt. Activity: As tolerated. Medications: - azithromycin 250 mg daily for one more day - Ceftin 500 mg twice a day for six more days - clonidine 0.2 mg twice a day - Tylenol 650 mg every 4 hours as needed for pain - Artificial Tears three times a day as needed - BuSpar 10 mg daily - calcium plus D 1 tablet daily - losartan 50 mg twice a day - spironolactone 25 mg daily Atenolol was discontinued. Clonidine patch was switched to oral clonidine as above. DISCHARGE DIAGNOSES: 1. Dyspnea, hypoxemia, multifactorial. 2. Acute on chronic diastolic congestive heart failure. 3. Community-acquired pneumonia. 4. Hypertension. 5. Anxiety. 6. Spinal stenosis with chronic pain. edited: 11/10/2018 0731 tkf CRISTIAN
== END 2018-11-09 15:10 | disposition home or self-care (01) | DRG 193 ==
LOC: M ED 02:33 → EDBD 02:33 → M ED INP 04:56 → M PCU 11:23 → M MS5PR 11-08 16:14
PROVIDERS: ADMIT Internal Medicine; ATTEND Family Medicine
DX: J18.9 Pneumonia, unspecified organism (principal); I50.33 Acute on chronic diastolic (congestive) heart failure; E87.1 Hypo-osmolality and hyponatremia; R06.03 Acute respiratory distress; I11.0 Hypertensive heart disease with heart failure; M06.9 Rheumatoid arthritis, unspecified; M54.9 Dorsalgia, unspecified; F41.9 Anxiety disorder, unspecified; M81.0 Age-related osteoporosis without current pathological fracture; Z98.1 Arthrodesis status; Z96.652 Presence of left artificial knee joint; Z79.899 Other long term (current) drug therapy; Z91.041 Radiographic dye allergy status; Z88.1 Allergy status to other antibiotic agents; Z88.8 Allergy status to other drugs, medicaments and biological substances

== ENCOUNTER → 2018-11-29 | Outpatient (CLI) | payer MEDICARE, MEDICAID ==
[~2018-11-29] MED LIST changes: +ACET1TAB55 PO; +AKWASOL OU; +AZIT-12 PO; +CATA0.2T PO; +CEFU50TA PO; +CLON0.1D3 TD; +SPIR-10 PO
--- NOTE | 2018-11-29 09:39 | REP ---
Renal vascular ultrasound: Right Kidney: Extraparenchymal renal artery. Peak renal artery flow velocity 239.2 cm per seconds Peak aortic velocity: 53.9 cm/sec Renal/aortic ratio: 44 Intraparenchymal renal arteries. Resistive index: upper pole 0.79 mid pole 0.79 lower pole 10 0.72 Acceleration time: upper pole 0.022 mid pole 0.025 lower pole 0.022 Left kidney: Extraparenchymal renal artery: Peak renal artery flow velocity: 115.6 cm/sec. Peak aortic velocity: 53.9 cm/sec Renal/aortic ratio: 21 Intraparenchymal renal arteries: Resistive index: Upper pole 0.71 mid pole 0.70 lower pole of 0.72 Acceleration time: Upper pole 0.033 mid pole 0.033 lower pole 0.033 Impression: The there is elevated peak flow velocity in the main right renal artery, compatible with stenosis. No evidence of stenosis in the left renal artery. Consider follow-up renal artery MRA for confirmation. Bilateral renal ultrasound: The right kidney measures 10.3 x 5.3 x 4.1 cm. The left kidney measures 10.9 x 4.7 x 4.8 cm. The kidneys are normal size. Renal cortical echogenicity is normal bilaterally. There is no hydronephrosis. No renal calculi. There are no solid or cystic renal masses. Impression: Negative renal ultrasound. The bladder is nondistended and cannot be evaluated at this time. Electronically Signed by Feliciano Gruber MD 11/29/2018 09:31 A
== END ==
LOC: M RAD 07:53
PROVIDERS: ATTEND Family Medicine
DX: I10 Essential (primary) hypertension (principal)

== ENCOUNTER → 2018-12-06 | Outpatient (REF) | payer MEDICARE, MEDICAID ==
[2018-12-06 13:30] LABS: BLOOD UREA NITROGEN 6 MG/DL (7-18); CALCIUM LEVEL 8.9 MG/DL (8.8-10.2); CARBON DIOXIDE LEVEL 28 MEQ/L (21-32); CHLORIDE LEVEL 95 MEQ/L (98-107); CREATININE FOR GFR 0.42 MG/DL (0.55-1.30); GLOMERULAR FILTRATION RATE > 60.0 (>39); GLUCOSE, FASTING 80 MG/DL (70-100); POTASSIUM SERUM 3.9 MEQ/L (3.5-5.1); SODIUM LEVEL 132 MEQ/L (136-145)
== END ==
LOC: M SFHCPLAZ 10:07
PROVIDERS: ATTEND Family Medicine
DX: I10 Essential (primary) hypertension (principal)

== ENCOUNTER → 2018-12-06 | Outpatient (REF) | payer MEDICARE, MEDICAID ==
[2018-12-06 12:27] LABS: APPEARANCE, URINE CLEAR (CLEAR); BACTERIA, URINE AUTO 1+ (NEGATIVE); BILIRUBIN, URINE AUTO NEGATIVE (NEGATIVE); BLOOD, URINE BLOOD NEGATIVE (NEGATIVE); COLOR, URINE STRAW (YELLOW); GLUCOSE, URINE (UA) AUTO NEGATIVE (NEGATIVE); KETONE, URINE AUTO NEGATIVE (NEGATIVE); LEUKOCYTE ESTERASE, URINE AUTO NEGATIVE (NEGATIVE); NITRITE, URINE AUTO NEGATIVE (NEGATIVE); PROTEIN, URINE AUTO 1+ mg/dL (NEGATIVE); RBC, URINE AUTO 3 /HPF (0-3); SPECIFIC GRAVITY URINE AUTO 1.005 (1.002-1.035); SQUAMOUS EPITHELIAL CELL UR AU 0 /HPF (0-6); UROBILINOGEN, URINE AUTO 0.2 mg/dL (0.0-2.0); WBC, URINE AUTO 0 /HPF (0-3)
== END ==
LOC: M SFHCPLAZ 11:30
PROVIDERS: ATTEND Family Medicine
DX: R30.0 Dysuria (principal)
CPT/HCPCS: 36415; 80048; 81001; 81002; 87086; G0463

== ENCOUNTER → 2018-12-14 | Outpatient (CLI) | payer MEDICARE, MEDICAID ==
--- NOTE | 2018-12-14 14:10 | PFTRPT ---
Height: 62.00 Inches Weight: 131.00 Lbs BSA: 1.60 Diagnosis: J98.01 DATE OF PROCEDURE: 12/14/2018 ORDERED BY: Dr. Anoop Gonzalez Spirometry: Pre and post bronchodilator study of excellent technical quality. Forced vital capacity normal. FEV1 out of proportion. Obstructive index is, therefore, reduced. Flow Volume Loop: Expiratory limb of the flow volume loop is consistent with flow rate limitation. Favorable bronchodilator response is identified. Lung Volumes: Total lung capacity normal. Residual volume is in proportion. Diffusing Capacity: Diffusing capacity is significantly reduced but does correct for alveolar volume. Hemoglobin: No hemoglobin available for correction. Airway Mechanics: Airway resistance elevated with a concomitant decrease in airway conductance. IMPRESSION: At least mild obstructive ventilatory impairment with bronchodilator response. Diffusing capacity impairment. Please correlate clinically. MTDD
== END ==
LOC: M CARPUL 10:45
PROVIDERS: ATTEND Family Medicine
DX: I10 Essential (primary) hypertension (principal); J98.01 Acute bronchospasm

== ENCOUNTER → 2019-01-10 | Outpatient (CLI) | payer MEDICARE, MEDICAID ==
[~2019-01-10] MED LIST changes: +BUPIVACAINE HCL 0.5% 10 ML VIAL As Ordered ONE; +HEPARIN 1,000 UNITS/ML 10ML VIAL (FOR RADIOLOGY& DIALYSIS ONLY) As Ordered ONE; +ISOVUE-300 61% 50ML VIAL (Q9967) As Ordered ONE; +LIDOCAINE 2% MDV 20 ML VIAL As Ordered ONE; +MIDAZOLAM INJ 2 MG/2 ML VIAL (J2250) As Ordered ONE; +NORC1TAB8 PO; -NORC7.5T35 PO; +PROTAMINE SULF INJ 50 MG/5 ML VIAL (J2720) As Ordered ONE; -VALS1TAB47 PO; +VALS1TAB67 PO; +diphenhydrAMINE INJ 50MG/ML VIAL (J1200) As Ordered ONE; +fentaNYL 100 MCG/2 ML INJECTION (J3010) As Ordered ONE
--- NOTE | 2019-01-18 13:11 | REPIR ---
DATE OF PROCEDURE: 01/10/2019 PREOPERATIVE DIAGNOSIS: Right renal artery stenosis. POSTOPERATIVE DIAGNOSIS: Right renal artery stenosis. PROCEDURE: Right renal artery angiogram. ATTENDING SURGEON: Dr. Glen Arias TEAM PHYSICIAN: ANESTHESIA: Local with sedation. COMPLICATIONS: None. DRAINS: None. SPECIMENS: None. IMPLANTS: None. INDICATION: The patient is a 78-year-old female with previous endovascular abdominal aortic aneurysm repair who has renal artery stenosis on the right and hypertension. The patient undergo an angiogram with possible angioplasty stent and/or atherectomy. Risks, benefits and alternative treatment options were discussed with the patient. DESCRIPTION OF PROCEDURE: The patient was taken to the angiography suite, placed supine on the angiography room table. The left brachial artery was cannulated, catheter placed in the aorta and aortogram was performed. This showed no significant stenosis in the right renal artery. The catheter was removed and manual compression applied at the puncture site in the brachial artery for hemostasis. Dressings were then applied. The patient tolerated the procedure well. All instrument, sponge and needle counts were correct at the end of the case. There were no complications. Dr. Arias was present for and directed the entire case. The patient was transferred to [facility] and subsequent discharged in stable condition. RADIOLOGY SUPERVISION INTERPRETATION: The right renal artery showed no significant stenosis.
== END | disposition home or self-care (01) ==
LOC: M IRPRO 07:14
PROVIDERS: ATTEND Surgery Vascular Surgery
DX: I70.1 Atherosclerosis of renal artery (principal)
CPT/HCPCS: 36200; 75625; C1769; C1876; C1887; C1894; J1200; J2250; J2720; J3010; Q9967

== ENCOUNTER 2019-02-22 00:04 | Emergency (ER) | payer MEDICARE, MEDICAID ==
[~2019-02-22] VITALS: Ht 157.5 cm; Wt 61.4 kg
[~2019-02-22 00:04] MED LIST changes: -BUPIVACAINE HCL 0.5% 10 ML VIAL As Ordered ONE; -HEPARIN 1,000 UNITS/ML 10ML VIAL (FOR RADIOLOGY& DIALYSIS ONLY) As Ordered ONE; -ISOVUE-300 61% 50ML VIAL (Q9967) As Ordered ONE; -LIDOCAINE 2% MDV 20 ML VIAL As Ordered ONE; -MIDAZOLAM INJ 2 MG/2 ML VIAL (J2250) As Ordered ONE; -PROTAMINE SULF INJ 50 MG/5 ML VIAL (J2720) As Ordered ONE; -diphenhydrAMINE INJ 50MG/ML VIAL (J1200) As Ordered ONE; -fentaNYL 100 MCG/2 ML INJECTION (J3010) As Ordered ONE
[2019-02-22] MEDS ORDERED: KETOROLAC 60 MG/2 ML VIAL (J1885) IM ONE (00:45)
--- NOTE | 2019-02-22 02:39 | REPVR ---
EXAM: CT Chest Without Contrast EXAM DATE/TIME: 02/22/19 (12:37am) CLINICAL HISTORY: 78 year old female. Recent fall. Initial encounter. Multiple left-sided rib fractures. TECHNIQUE: Imaging protocol: Axial computed tomography images of the chest without intravenous contrast. Coronal and sagittal reformatted images were created and reviewed. 3D rendering: MIP reconstructed images were created and reviewed. Radiation optimization: All CT scans at this facility use at least one of these dose optimization techniques: automated exposure control; mA and/or kV adjustment per patient size (includes targeted exams where dose is matched to clinical indication); or iterative reconstruction. COMPARISON: CTA CHEST of 10/04/18 FINDINGS: Lungs: No consolidation nor masses. Probable old linear scarring and/or atelectasis at the left lung base and in the RML area. Calcified granuloma laterally in the right midlung zone (unchanged). Pleural space: Normal. No pneumothorax. No pleural effusions. Heart: Cardiomegaly. No pericardial effusion. Aorta: Aortic endovascular graft in place, beginning at approximately the renal hilar level. Lymph nodes: Unremarkable. No enlarged lymph nodes. Bones/joints: Slightly displaced acute fracture of the lateral portion of left rib #7. Acute nondisplaced fractures, lateral portions of left ribs #5 and # 6. Old healed fracture, anterolateral portion of left rib #3. Bilateral spinal rods in the lumbar spine. Levoscoliosis of the lumbar spine. Soft tissues: Unremarkable. IMPRESSION: No focal infiltrates and no pleural effusions. No pneumothorax. Cardiomegaly. Multiple acute left-sided rib fractures (see comments above). Electronically signed by: Suis Kilgore On 02/22/2019 02:38:45 AM
[2019-02-22] MEDS ORDERED: BUPIVACAINE LIPOSOME/PF 1.3% 20ML VIAL (13.3MG/ML)(EXPAREL)(C9290 PER1MG) INFIL ONE (02:45)
[2019-02-22 04:07] VITALS: BP 174/78
== END 2019-02-22 04:08 | disposition home or self-care (01) ==
LOC: M ED 00:04
DX: S22.42XA Multiple fractures of ribs, left side, initial encounter for closed fracture (principal); W18.39XA Other fall on same level, initial encounter; Y92.018 Other place in single-family (private) house as the place of occurrence of the external cause; I10 Essential (primary) hypertension; Z79.899 Other long term (current) drug therapy; Z88.8 Allergy status to other drugs, medicaments and biological substances; Z91.041 Radiographic dye allergy status; Z91.048 Other nonmedicinal substance allergy status; Z87.891 Personal history of nicotine dependence
CPT/HCPCS: 71250; 96372; 99284; C9290; J1885

== ENCOUNTER 2019-03-02 15:01 | Emergency (ER) | payer MEDICARE, MEDICAID ==
[~2019-03-02] VITALS: Ht 157.5 cm; Wt 61.4 kg
[2019-03-02] MEDS ORDERED: CHLO125TA PO (15:15)
[2019-03-02] MEDS ORDERED: LOSA100T50 PO (15:15)
[2019-03-02] MEDS ORDERED: TRAZ-163 PO (15:15)
[2019-03-02] MEDS ORDERED: LEXA5TAB13 PO (15:15)
[2019-03-02] MEDS ORDERED: CLON-412 PO (15:15)
[2019-03-02] MEDS ORDERED: NAPR220C14 PO (15:16)
[2019-03-02] MEDS ORDERED: traMADol 50 MG TAB PO ONE (15:45)
[2019-03-02] MEDS ORDERED: NS 1,000 ML IV ONE (15:45)
[2019-03-02] MEDS ORDERED: ONDANSETRON 4MG/2ML VIAL (J2405) IV ONE (15:45)
[2019-03-02 16:07] LABS: BASO % 0.2 % (0.0-1.0); HEMATOCRIT 35.9 % (36.0-47.0); HEMOGLOBIN 12.7 g/dl (12.0-15.5); LYMPH # 0.9 10^3/uL (1.5-4.5); LYMPH % 4.3 % (24.0-44.0); MEAN CORPUSCULAR HEMOGLOBIN 29.3 pg (27.0-33.0); MEAN CORPUSCULAR HGB CONC 35.4 g/dl (32.0-36.5); MEAN CORPUSCULAR VOLUME 82.7 fl (80.0-96.0); MONO % 11.5 % (0.0-5.0); NEUTROPHILS # 16.6 10^3/uL (1.8-7.7); NEUTROPHILS % 83.5 % (36.0-66.0); PLATELET COUNT, AUTOMATED 361 10^3/uL (150-450); RED BLOOD COUNT 4.34 10^6/uL (4.00-5.40); WHITE BLOOD COUNT 19.9 10^3/uL (4.0-10.0)
[2019-03-02 16:53] LABS: MONO # 2.3 10^3/uL (0.0-0.8)
[2019-03-02 16:55] LABS: ALBUMIN 3.3 GM/DL (3.2-5.2); ALT/SGPT 18 U/L (12-78); BILIRUBIN,DIRECT 0.2 MG/DL (0.0-0.2); BILIRUBIN,TOTAL 0.7 MG/DL (0.2-1.0); CPK CREATINE PHOSPHOKINASE 107 U/L (26-192); LIPASE 50 U/L (73-393); TOTAL PROTEIN 6.7 GM/DL (6.4-8.2); TROPONIN I 1.93 NG/ML (< 0.10)
--- NOTE | 2019-03-02 17:29 | ECGEPIP ---
Stationary ECG Study 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
--- NOTE | 2019-03-02 17:32 | ECGEPIP ---
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
[2019-03-02 17:47] LABS: BLOOD UREA NITROGEN 20 MG/DL (7-18); CALCIUM LEVEL 8.8 MG/DL (8.8-10.2); CARBON DIOXIDE LEVEL 31 MEQ/L (21-32); CHLORIDE LEVEL 80 MEQ/L (98-107); CREATININE FOR GFR 0.79 MG/DL (0.55-1.30); GLOMERULAR FILTRATION RATE > 60.0 (>39); GLUCOSE, FASTING 139 MG/DL (70-100); POTASSIUM SERUM 3.2 MEQ/L (3.5-5.1); SODIUM LEVEL 122 MEQ/L (136-145)
[2019-03-02] MEDS ORDERED: HEPARIN DRIP 25,000 UNITS in APPROPRIATE DILUENT 1 EA IV SCH (18:33)
--- NOTE | 2019-03-02 18:34 | REP ---
Chest one-view HISTORY: Cough Comparison: 11/06/2018 A minimal increase in interstitial markings is present in the lungs consistent with chronic interstitial fibrosis. A calcified granuloma is present in the right lower lobe. Linear densities are present in the left lower lobe consistent with scarring. There is blunting of the left costophrenic angle due to a small pleural effusion. The cardiac silhouette is enlarged. The pulmonary vasculature is normal in appearance. Impression: 1. Chronic interstitial change. 2. Left lower lobe scarring. 3. There is blunting of the left costophrenic angle due to a small pleural effusion. 4. Cardiomegaly. Electronically Signed by Anoop Sánchez MD 03/02/2019 06:26 P
[2019-03-02] MEDS ORDERED: HEPARIN SOD (PORCINE) 5000 UNITS/ML VIAL IV PRN (18:45)
[2019-03-02] MEDS ORDERED: LORazepam 2 MG/ML VIAL (J2060) IV STA (18:47)
[2019-03-02] MEDS ORDERED: POTASSIUM CHLORIDE 10 MEQ SR TABLET PO ONE (19:00)
[2019-03-02 19:16] VITALS: BP 138/73
== END 2019-03-02 19:21 | disposition short-term general hospital (02) ==
LOC: M ED 15:01 → EDBD 15:01 → M ED 19:21
DX: I21.4 Non-ST elevation (NSTEMI) myocardial infarction (principal); I10 Essential (primary) hypertension; M06.9 Rheumatoid arthritis, unspecified; M81.0 Age-related osteoporosis without current pathological fracture; Z79.899 Other long term (current) drug therapy
CPT/HCPCS: 71045; 80048; 80076; 82550; 82553; 83690; 84484; 85025; 85730; 93005; 93041; 96374; 96375; 99285; J2060; J2405

== ENCOUNTER 2019-03-21 13:47 | Inpatient (IN) | payer MEDICARE, MEDICAID ==
[2019-03-21] VITALS (20 sets, daily range): BP systolic 83–161; BP diastolic 51–70
[~2019-03-21] VITALS: Ht 157.5 cm; Wt 64.8 kg
[~2019-03-21 13:47] MED LIST changes: -ACET650S3 PR; -ATOR40TA75 PO; -CALC-190 PO; -DULC10SU2 PR; -ENEMENE PR; -FURO20TA2 PO; -METO1TAB87 PO; -MILKSUS PO; -PERC5TAB12 PO; -TUMS500C PO; -VITA-145 PO
[2019-03-21] MEDS ORDERED: FURO20TA2 PO (14:20)
[2019-03-21] MEDS ORDERED: CALC-190 PO (14:20)
[2019-03-21] MEDS ORDERED: CLONI1TA PO (14:20)
[2019-03-21] MEDS ORDERED: MILKSUS PO (14:20)
[2019-03-21] MEDS ORDERED: ACET650S3 PR (14:20)
[2019-03-21] MEDS ORDERED: METO1TAB87 PO (14:20)
[2019-03-21] MEDS ORDERED: VITA-145 PO (14:20)
[2019-03-21] MEDS ORDERED: ACET1TAB55 PO ×2 (14:20)
[2019-03-21] MEDS ORDERED: PERC5TAB12 PO (14:20)
[2019-03-21] MEDS ORDERED: BUSP10TA PO (14:20)
[2019-03-21] MEDS ORDERED: ATOR40TA75 PO (14:20)
[2019-03-21] MEDS ORDERED: DULC10SU2 PR (14:20)
[2019-03-21] MEDS ORDERED: TUMS500C PO (14:20)
[2019-03-21] MEDS ORDERED: ENEMENE PR (14:20)
[2019-03-21 14:39] LABS: BASO # 0.1 10^3/uL (0.0-0.2); BASO % 0.3 % (0.0-1.0); HEMATOCRIT 21.9 % (36.0-47.0); HEMOGLOBIN 7.2 g/dl (12.0-15.5); LYMPH # 0.8 10^3/uL (1.5-4.5); LYMPH % 5.1 % (24.0-44.0); MEAN CORPUSCULAR HGB CONC 32.9 g/dl (32.0-36.5); MEAN CORPUSCULAR VOLUME 88.3 fl (80.0-96.0); MONO # 1.1 10^3/uL (0.0-0.8); MONO % 7.3 % (0.0-5.0); NEUTROPHILS # 12.6 10^3/uL (1.8-7.7); NEUTROPHILS % 86.5 % (36.0-66.0); PLATELET COUNT, AUTOMATED 431 10^3/uL (150-450); RED BLOOD COUNT 2.48 10^6/uL (4.00-5.40); WHITE BLOOD COUNT 14.6 10^3/uL (4.0-10.0)
[2019-03-21 14:55] LABS: INR 1.05; PROTHROMBIN TIME 13.8 SECONDS (12.1-14.4)
[2019-03-21 15:10] LABS: ALBUMIN 2.6 GM/DL (3.2-5.2); ALT/SGPT 16 U/L (12-78); BILIRUBIN,DIRECT < 0.1 MG/DL (0.0-0.2); BILIRUBIN,TOTAL 0.2 MG/DL (0.2-1.0); LIPASE 71 U/L (73-393); TOTAL PROTEIN 5.6 GM/DL (6.4-8.2)
[2019-03-21] MEDS ORDERED: PANTOPRAZOLE 40MG INJ (PROTONIX) (C9113) IV ONE (15:30)
[2019-03-21] MEDS: NS 1,000 ML IV SCH ×2 (16:45→23:25)
[2019-03-21 16:47] LABS: CPK CREATINE PHOSPHOKINASE 35 U/L (26-192); MB/CK RELATIVE INDEX 4.29 (< OR =4); TROPONIN I < 0.02 NG/ML (< 0.10)
[2019-03-21] MEDS ORDERED: SUCRALFATE 1 GM TAB PO SCH (18:00)
--- NOTE | 2019-03-21 18:30 | HPEPDOC ---
General Date of Admission Mar 21, 2019 at 16:50 Date of Service: Mar 21, 2019 Chief Complaint The patient is a 78-year-old female admitted with a reason for visit of Gi Bleed. History of Present Illness Ms Lopez is a 78 year old female with past medical history of spinal stenosis status post laminectomy, hypertension, abdominal aortic aneurysm status post repair, rheumatoid arthritis, osteoporosis and chronic back pain who presents to the emergency department after experiencing about 10 episodes of black diarrhea that began around lunchtime today. The patient states that she has had some na usea and vomiting, she states she vomited once the emergency department today and that it was very dark brown and black in color. She denies any abdominal pain, denies heart palpitations, denies chest pain. She does admit to dizziness especially when standing that began today and shortness of breath especially with exertion which also began today. She denies fever but does think she's been experiencing chills recently. She does not report a change in weight and does report a normal appetite. No recent travel or sick contacts. She denies blood in her urine but thinks that for the past couple weeks there has been some burning with urination. She states her last bowel movement of loose stool that was dark in color was around noon today. She is not currently in any pain. She does complain of some lower extremity edema, worse towards the evening that has been occurring for the past few weeks, she attributes this to a change in diet at [facility]. No shortness of breath on laying down flat or at night. Home Medications Scheduled Acetaminophen (Acetaminophen) 325 Mg Tablet, 650 MG PO Q8H, (Reported) 0500/1300/2100 Atorvastatin Calcium (Atorvastatin Calcium) 40 Mg Tablet, 40 MG PO QHS, (Reported) Buspirone HCl (Buspirone HCl) 10 Mg Tablet, 20 MG PO TID, (Reported) Calcium Carbonate/Vitamin D3 (Calcium 1,000 + D3 Caplet) 1 Each Tablet, 1 TAB PO DAILY, (Reported) Chlorthalidone (Chlorthalidone) 25 Mg Tablet, 25 MG PO DAILY, (Reported) Cholecalciferol (Vitamin D3) (Vitamin D3) 1,000 Unit Tablet, 1,000 UNIT PO DAILY, (Reported) Clonidine Hcl (Clonidine HCl) 0.1 Mg Tablet, 0.1 MG PO BID, (Reported) Furosemide (Furosemide) 20 Mg Tablet, 20 MG PO DAILY, (Reported) Losartan Potassium (Losartan Potassium) 100 Mg Tablet, 100 MG PO DAILY, (Reported) Metoprolol Tartrate (Metoprolol Tartrate) 25 Mg Tablet, 12.5 MG PO BID, (Reported) Spironolactone (Spironolactone) 25 Mg Tab, 25 MG PO DAILY, (Reported) Trazodone HCl (Trazodone HCl) 100 Mg Tablet, 100 MG PO QHS, (Reported) Scheduled PRN Acetaminophen (Acetaminophen) 325 Mg Tablet, 650 MG PO Q4H PRN for PAIN, (Reported) Acetaminophen (Acetaminophen) 650 Mg Supp.rect, 650 MG OR Q4H PRN for PAIN / FEVER, (Reported) Bisacodyl (Dulcolax) 10 Mg Supp.rect, 10 MG OR DAILY PRN for CONSTIPATION, (Reported) Calcium Carbonate (Tums) 200 Mg Tab.chew, 1,000 MG PO for DYSPEPSIA, (Reported) Magnesium Hydroxide (Milk of Magnesia) 400 Mg/5 Ml Oral.susp, 2,400 MG PO DAILY PRN for CONSTIPATION, (Reported) Oxycodone HCl/Acetaminophen (Percocet 5-325 mg Tablet) 1 Each Tablet, 1 TAB PO BID PRN for SEVERE PAIN (PS 8-10), (Reported) Sodium Phosphate,Benson-Dibasic (Enema) 133 Ml Enema, 1 MUSTAPHA OR DAILY PRN for CONSTIPATION, (Reported) Allergies Coded Allergies: amlodipine (Verified Allergy, Mild, rash, 02/22/19) duloxetine (Verified Allergy, Mild, Rash, 02/22/19) latex (Verified Allergy, Mild, rash, 03/21/19) Contrast Media (Verified Allergy, Unknown, rash, 07/11/17) nystatin (Verified Allergy, Unknown, Rash, 02/22/19) Past Medical History Medical History As per HPI Surgical History AAA repair Laminectomy Right hip surgery Left knee surgery Cardiac cath in early 2018 Family History reviewed and non-contributory Social History * Smoker: non-smoker Alcohol: Denies Drugs: denies From [facility] History Current/History of A-Fib/PAF?: No Review of Systems Constitutional: Reports: Chills, Malaise, Weakness, Fatigue; Denies: Fever, Night Sweats, Weight Loss Pulmonary: Reports: Dyspnea; Denies: Cough, Pleuritic Chest Pain Cardiovascular: Reports: Lt Headedness; Denies: Chest Pain, Palpitations, Orthopnea, Edema Gastrointestinal: Reports: Nausea, Vomiting, Diarrhea, Melena; Denies: Abdominal Pain, Constipation Genitourinary: Reports: Dysuria; Denies: Frequency, Incontinence, Hematuria Neurological: Reports: Weakness Psych: Reports: Mood Normal Physical Examination General Exam: Positive: Alert, Cooperative, No Acute Distress Eye Exam: Positive: Conjunctiva & lids normal, Other Eye Symptoms (pale conjunctiva) ENT Exam: Positive: Mucous membr. moist/pink Neck Exam: Positive: Supple; Negative: JVD Chest Exam: Positive: Clear to auscultation, Normal air movement, Diminished; Negative: Rales, Rhonchi, Wheezing Heart Exam: Positive: Tachycardic, Normal S1, Normal S2; Negative: Gallops, Murmurs Telemetry: Positive: Tachycardia Abdomen Exam: Positive: Normal bowel sounds, Soft; Negative: Tenderness, Hepatospenomegaly, Mass Extremity Exam: Positive: Normal pulses; Negative: Cyanosis, Edema Skin Exam: Negative: Rash, Breakdown Neuro Exam: Positive: Normal Speech Psych Exam: Positive: Mood NL, Anxiety, Oriented x 3 Vital Signs Vital Signs Date Time Temp Pulse Resp B/P (MAP) Pulse Ox O2 Delivery O2 Flow Rate FiO2 03/21/19 17:41 97.1 03/21/19 17:32 100 100 03/21/19 17:30 141/63 (89) 03/21/19 14:02 18 Room Air Laboratory Data Labs 24H Laboratory Tests 2 03/21/19 14:29: Immature Granulocyte % (Auto) 0.8, White Blood Count 14.6H, Red Blood Count 2.48L, Hemoglobin 7.2L, Hematocrit 21.9L, Mean Corpuscular Volume 88.3, Mean Corpuscular Hemoglobin 29.0, Mean Corpuscular Hemoglobin Concent 32.9, Red Cell Distribution Width 14.9H, Platelet Count 431, Neutrophils (%) (Auto) 86.5H, Lymphocytes (%) (Auto) 5.1L, Monocytes (%) (Auto) 7.3H, Eosinophils (%) (Auto) 0.0, Basophils (%) (Auto) 0.3, Neutrophils # (Auto) 12.6H, Lymphocytes # (Auto) 0.8L, Monocytes # (Auto) 1.1H, Eosinophils # (Auto) 0.0, Basophils # (Auto) 0.1, Nucleated Red Blood Cells % (auto) 0.0, Prothrombin Time 13.8, Prothromb Time International Ratio 1.05, Aspartate Amino Transf (AST/SGOT) 14, Alanine Aminotransferase (ALT/SGPT) 16, Alkaline Phosphatase 152H, Total Bilirubin 0.2, Direct Bilirubin < 0.1, Total Creatine Kinase 35, Creatine Kinase MB 2.0, Creatine Kinase MB Relative Index 4.29H, Troponin I < 0.02, Total Protein 5.6L, Albumin 2.6L, Albumin/Globulin Ratio 0.87L, Lipase 71L CBC/BMP Laboratory Tests 03/21/19 14:29 Red Blood Count 2.48 L, Mean Corpuscular Volume 88.3, Mean Corpuscular Hemoglobin 29.0, Mean Corpuscular Hemoglobin Concent 32.9, Red Cell Distribution Width 14.9 H, Neutrophils (%) (Auto) 86.5 H, Lymphocytes (%) (Auto) 5.1 L, Monocytes (%) (Auto) 7.3 H, Eosinophils (%) (Auto) 0.0, Basophils (%) (Auto) 0.3, Neutrophils # (Auto) 12.6 H, Lymphocytes # (Auto) 0.8 L, Monocytes # (Auto) 1.1 H, Eosinophils # (Auto) 0.0, Basophils # (Auto) 0.1 Assessment/Plan This is a 70-year-old female who comes to the emergency department complaining of many episodes of dark black diarrhea associated with coffee ground emesis, light headedness that began acutely today, and found to have likely GI bleed. 1. Acute blood loss anemia -likely secondary to GI source, Dr. Rogers consulted from GI, appreciate his help, plan for colonoscopy and EGD this evening -Hg on presentation is 7.2, receiving 4 units pRBC, will monitor H/H -ICU status until she is more stable -C/W IVF, pantoprazole and carafate -NPO, last food/drink was this morning 2. Sinus tachycardia and light headedness -likely secondary to acute blood loss anemia -she will be monitored on telemetry, EKG In ED reviewed -she is positive orthostatic, begin IVF -receiving pRBC currently -monitor h/h 3. History of elevated troponins -patient was here in mid February 2019, elevated troponin at that time of 1.93- suspect NSTEMI, she was transferred to [place] and had cardiac cath that did not demonstrate any lesions, no intervention took place -current troponin negative, she had ECHO in Oct 2018 that showed EF 60% with G1DD -using the revised cardiac risk index for pre-op risk, she has 6% 30 day risk of , DC or cardiac arrest, Class II risk -She should be stabilized from her hemodynamic standpoint and try to resolve tachycardia and bleeding before procedures 4. HTN -Holding home meds., bp stable at this point 5. Constipation -holding home meds in light of current illness 6. Depression -home meds held 7. DLP -holding home meds 8. CBP -holding home percocet 9. Insomnia -holding home trazodone qhs Disposition: Patient is going to ICU, she is receiving pRBC transfusions, we will monitor h/h., plan is for colonoscopy later this evening to identify and hopefully treat source of bleeding. She is at low to intermediate risk for low risk procedure colonoscopy/EGD. 90 min criticialcare time Plan / VTE VTE Prophylaxis Ordered?: Yes GME ATTESTATION GME ATTESTATION My faculty preceptor for this patient encounter was physically present during the encounter and was fully available. All aspects of the patient interview, examination, medical decision making process, and medical care plan development were reviewed and approved by the faculty preceptor. The faculty preceptor is aware and concurs with the plan as stated in the body of this note and will attest to such by his/her cosignature. ATTENDING NOTE I, Thomas Vital, have both independently examined this patient as well as reviewed the documentation. I have discussed in detail with the resident the findings and plan of treatment as documented by the resident. I agree with their findings and treatment plan. I will continue to follow the patient and offer further guidance to the patients care as necessary during this hospital stay. GLENNY EVANS DO Mar 21, 2019 18:30 THOMAS VITAL MD Mar 22, 2019 10:42
[2019-03-21 18:56] LABS: APPEARANCE, URINE HAZY (CLEAR); BACTERIA, URINE AUTO 2+ (NEGATIVE); BILIRUBIN, URINE AUTO NEGATIVE (NEGATIVE); BLOOD, URINE BLOOD NEGATIVE (NEGATIVE); COLOR, URINE YELLOW (YELLOW); GLUCOSE, URINE (UA) AUTO NEGATIVE (NEGATIVE); KETONE, URINE AUTO NEGATIVE (NEGATIVE); LEUKOCYTE ESTERASE, URINE AUTO 3+ (NEGATIVE); NITRITE, URINE AUTO POSITIVE (NEGATIVE); PROTEIN, URINE AUTO NEGATIVE (NEGATIVE); RBC, URINE AUTO 3 /HPF (0-3); SQUAMOUS EPITHELIAL CELL UR AU 0 /HPF (0-6); UROBILINOGEN, URINE AUTO 0.2 mg/dL (0.0-2.0); WBC, URINE AUTO 121 /HPF (0-3)
[2019-03-21] MEDS: SUCRALFATE SUSP 1GM/10ML UD PO SCH (19:31)
[2019-03-21] MEDS: ONDANSETRON 4MG/2ML VIAL (J2405) IV PRN (19:31)
[2019-03-21 19:48] LABS: MB/CK RELATIVE INDEX 6.15 (< OR =4); TROPONIN I 0.03 NG/ML (< 0.10)
[2019-03-21] MEDS ORDERED: PROPOFOL 200 MG/20 ML VIAL As Ordered ONE (22:55)
[2019-03-21] MEDS ORDERED: LIDOCAINE 2% INJ 100 MG/5 ML SDV (FOR ANES.) As Ordered ONE (22:55)
[2019-03-21] MEDS ORDERED: fentaNYL 100 MCG/2 ML INJECTION (J3010) As Ordered ONE ×2 (22:55→23:54)
[2019-03-21] MEDS ORDERED: MIDAZOLAM INJ 2 MG/2 ML VIAL (J2250) As Ordered ONE (23:54)
[2019-03-22] VITALS (38 sets, daily range): BP systolic 127–197; BP diastolic 60–85
[2019-03-22] MEDS ORDERED: ONDANSETRON 4MG/2ML VIAL (J2405) As Ordered ONE (00:10)
[2019-03-22] MEDS ORDERED: LR 1,000 ML IV SCH (00:15)
[2019-03-22] MEDS ORDERED: ONDANSETRON 4MG/2ML VIAL (J2405) IV PRN (00:15)
[2019-03-22] MEDS: ONDANSETRON 4MG/2ML VIAL (J2405) IV PRN (00:15)
[2019-03-22] MEDS ORDERED: BUPIVACAINE HCL 0.5% 10 ML VIAL As Ordered ONE (01:02)
[2019-03-22] MEDS ORDERED: LIDOCAINE 2% MDV 20 ML VIAL As Ordered ONE (01:02)
[2019-03-22] MEDS ORDERED: ISOVUE-300 61% 50ML VIAL (Q9967) As Ordered ONE (01:03)
[2019-03-22] MEDS ORDERED: MORPHINE 10 MG/ML 1ML VIAL (J2270) As Ordered ONE (01:04)
[2019-03-22] MEDS ORDERED: diphenhydrAMINE INJ 50MG/ML VIAL (J1200) As Ordered ONE (01:06)
[2019-03-22] MEDS ORDERED: methylPREDNISolone INJ 125 MG/2 ML VIAL (J2930) As Ordered ONE (01:06)
[2019-03-22 03:07] LABS: BASO % 0.3 % (0.0-1.0); HEMATOCRIT 26.4 % (36.0-47.0); HEMOGLOBIN 8.9 g/dl (12.0-15.5); LYMPH # 0.8 10^3/uL (1.5-4.5); MEAN CORPUSCULAR HEMOGLOBIN 30.3 pg (27.0-33.0); MEAN CORPUSCULAR HGB CONC 33.7 g/dl (32.0-36.5); MEAN CORPUSCULAR VOLUME 89.8 fl (80.0-96.0); MONO # 0.9 10^3/uL (0.0-0.8); MONO % 6.8 % (0.0-5.0); NEUTROPHILS # 11.3 10^3/uL (1.8-7.7); NEUTROPHILS % 86.1 % (36.0-66.0); PLATELET COUNT, AUTOMATED 180 10^3/uL (150-450); RED BLOOD COUNT 2.94 10^6/uL (4.00-5.40); WHITE BLOOD COUNT 13.2 10^3/uL (4.0-10.0)
[2019-03-22 03:34] LABS: BLOOD UREA NITROGEN 19 MG/DL (7-18); CALCIUM LEVEL 7.8 MG/DL (8.8-10.2); CARBON DIOXIDE LEVEL 27 MEQ/L (21-32); CHLORIDE LEVEL 101 MEQ/L (98-107); CPK CREATINE PHOSPHOKINASE 35 U/L (26-192); CREATININE FOR GFR 0.56 MG/DL (0.55-1.30); GLOMERULAR FILTRATION RATE > 60.0 (>39); GLUCOSE, FASTING 117 MG/DL (70-100); MAGNESIUM LEVEL 1.4 MG/DL (1.8-2.4); MB/CK RELATIVE INDEX 6.29 (< OR =4); NT-PRO BNP 1872 PG/ML (<450); SODIUM LEVEL 135 MEQ/L (136-145); TROPONIN I 0.11 NG/ML (< 0.10)
[2019-03-22] MEDS: MAG SULF 1GM/100ML (MAG RUN) 1 GM in APPROPRIATE DILUENT 1 EA IV SCH ×2 (04:28→05:40)
[2019-03-22] MEDS: PANTOPRAZOLE 40MG INJ (PROTONIX) (C9113) IV SCH ×2 (04:28→14:59)
[2019-03-22] MEDS: SUCRALFATE SUSP 1GM/10ML UD PO SCH ×4 (06:38→17:14)
--- NOTE | 2019-03-22 07:34 | CR ---
DATE OF CONSULTATION: 03/21/2019 TIME OF CONSULTATION: 1630 HISTORY OF PRESENT ILLNESS: Ms. Tejal Lopez is a 78-year-old female with a past medical history significant for hypertension, rheumatoid arthritis. She has aortic aneurysm repairs with endovascular stenting. She presents to the emergency room feeling extremely weak and sick after having had approximately three or four large, watery black stools. She also vomited some coffee-ground material. She presented to the emergency room at around 1350. Her gastrointestinal (GI) symptoms have resolved. There have not been any further stools; however, patient continues to feel quite weak. On presentation, her hemoglobin was 8.8, which is down from her usual baseline of 12.7 a month prior. Over the next several hours, her hemoglobin has dropped to 7.2. Her heart rate is noted in the 100-115 range with positive orthostatic blood pressures. The patient is currently getting intravenous (IV) fluids and blood transfusion for stabilization. PAST MEDICAL HISTORY: 1. Hypertension. 2. Rheumatoid arthritis. 3. Osteoporosis. PREVIOUS SURGICAL HISTORY: 1. Spinal surgery. 2. Knee surgery. ALLERGIES: NORVASC, CONTRAST and NYSTATIN. SOCIAL HISTORY: Negative for alcohol. FAMILY HISTORY: Negative for colorectal carcinoma, inflammatory bowel disease. REVIEW OF SYSTEMS: GENERAL: Negative for weight loss, night sweats, fevers or chills. HEAD, EYES, EARS, NOSE AND THROAT: Negative for double vision, blurry vision. Positive for mild vertigo. CARDIAC: Negative for orthopnea, paroxysmal nocturnal dyspnea (PND). GASTROINTESTINAL (GI): As per history of present illness (HPI). GENITOURINARY (): Negative for hematuria, dysuria. MUSCULOSKELETAL: Positive for arthralgias. Positive for recent rib fracture. NEUROLOGICAL: Negative for focal numbness or weakness. VITAL SIGNS: Pulse is 117, blood pressure 150/58 supine, 95/57 sitting. GENERAL: She is awake, alert and oriented times three. She does not appear in acute distress. She does not appear toxic. She is somewhat pale in appearance. She states she feels cold and weak. HEAD, EYES, EARS, NOSE AND THROAT: Free of any abnormalities. There is no oral thrush. Neck is supple. No lymphadenopathy or thyromegaly. CHEST: Coarse, distant breath sounds, but no rhonchi or crackles. HEART: Mild tachycardia with regular rhythm. S1, S2. No murmurs. ABDOMEN: Soft. Mild epigastric tenderness to deep palpation only. No rebound tenderness. No masses are appreciated. No organomegaly is noted. EXTREMITIES: Negative for edema. Pulses are palpable. RECTAL EXAMINATION: Has been refused by the patient. LABORATORY WORK: Hemoglobin 8.8/7.2, MCV 89.7, platelet count is 459/431. BUN is 13, creatinine 0.59. Albumin is 2.6, lipase of 71, alkaline phosphatase 152. PT/INR 1.05. 1. Acute or subacute GI bleeding with upper source favored over lower source. 2. Positive orthostatics for blood pressure and heart rate. RECOMMENDATIONS: 1. Transfuse 2 units of packed red blood cells (RBCs) and stabilize. 2. Once stable, we will end up proceeding with an upper endoscopy. 3. The patient has positive troponin levels approximately one month ago, which may or may be (cut off), according to the patient's history. The patient should preferably have a (cut off) to help us optimize her for her upcoming endoscopy.
--- NOTE | 2019-03-22 07:48 | ECGEPIP ---
[facility] - ED Test Date: 2019-03-21 Pat Name: JENNIE MENDOZA Department: Room: - Gender: Female Reeling Operator: TC : 1940 Requested By: Simona Mas Order Number: [id number] Reading MD: Simona Mas Measurements Intervals [place] Rate: 83 P: 56 KS: 155 QRS: QRSD: 89 T: 56 QT: 373 QTc: 438 Interpretive Statements SINUS RHYTHM WITH OCCASIONAL SUPRAVENTRICULAR PREMATURE COMPLEXES LEFT VENTRICULAR HYPERTROPHY AND ST-T CHANGE LESS PRONOUNCED ST CHANGES COMPARED 03/02/19 Electronically Signed on 03-22-2019 7:48:36 EDT by Simona Mas
[2019-03-22] MEDS ORDERED: ACETAMINOPHEN TAB 650MG DOSE (2X325MG) As Ordered ONE (08:52)
[2019-03-22] MEDS: LOSARTAN 50 MG TAB PO SCH (08:55)
--- NOTE | 2019-03-22 09:26 | REP ---
CHEST, PORTABLE: AP portable view of the chest is performed and compared to a prior study of 03/02/2019. There is mild cardiomegaly. Stable bibasilar fibroatelectatic change is again noted. There is a stable calcified granuloma in the right lower lobe. Probably small left pleural effusion remains stable. There is calcification and tortuosity of the thoracic aorta. Mediastinal silhouette is unchanged. IMPRESSION: Stable exam. Electronically Signed by Feliciano Gardner MD 03/23/2019 08:52 A
--- NOTE | 2019-03-22 10:56 | CR.PDOC ---
General Date of Consultation: Mar 22, 2019 Consultation Vascular Surgery: Dr Arias. HPI: 78year oldF who presented to the emergency department after experiencing about 10 episodes of black diarrhea that began around lunchtime 03/21/19. The pa thad states that she has had some nausea and vomiting which was dark brown and black in color. She does not report a change in weight and does report a normal appetite. Denies BM this AM. She is not currently in any pain. vascular surgery was consulted for possible vascular bleed. Currently denies any fevers, chills, Headache, Chest Pain, Shortness of breath, cough, palpitations, abdominal pain. Medical History spinal stenosis status post laminectomy, hypertension, abdominal aortic aneurysm status post repair, rheumatoid arthritis, osteoporosis chronic back pain Surgical History AAA repair Laminectomy Right hip surgery Left knee surgery Cardiac cath in early 2018 SOCHX: Resides in: [facility] Tobacco use: denies ETOH: denies FAMHX: Negative for colorectal carcinoma, inflammatory bowel disease, bleeding disorders. ROS: As noted in HPI, otherwise 11pt ROS of systems reviewed and unremarkable. PE: GEN: 78yoF, appears stated age. No acute distress. Alert and oriented x 3. HEENT: Normocephalic, atraumatic. Sclera are nonicteric. Conjunctiva without injection. No facial asymmetry. Moist mucous membranes. CHEST: Regular rate and rhythm, +S1, +S2 LUNGS: Clear to auscultation bilaterally. No wheezes, rales, or rhonchi. Breathing appears symmetric and easy. ABD: Round, soft, non-tender, non-distended. +Bowel sounds throughout. EXT: No lower extremity edema appreciated. SKIN: [place], dry, warm. Capillary refill <2sec. No rashes. NEURO: Alert and oriented x 3. Cranial nerves III-XII are intact. No focal deficits appreciated. A&P: 78year oldF who presented to the emergency department after experiencing about 10 episodes of black diarrhea that began around lunchtime 03/21/19. The patient states that she has had some nausea and vomiting which was dark brown and black in color. She does not report a change in weight and does report a normal appetite. Denies BM this AM. Vascular surgery was consulted for possible vascular bleed. 1. GI Bleed. S/P 6 u PRBC, 2 u FFP. IV protonix. Hgb 8.9 this AM. EGD 03/21/19 as per Gastroenterology. Clot and large cratered actively bleeding duodenal ulcer in the first/second portion of the duodenum, not able to get access nor adequate visualisation despite extensive lavage, unable to apply any endoscopic therapy. S/P mesenteric angiogram as per Dr Arias 03/22/19 with no obvious source of bleed ing identified. No observed gastroduodenal artery. Thank you for your consultation. We will continue to follow along with you. Vital Signs/I&O Vital Signs Date Time Temp Pulse Resp B/P (MAP) Pulse Ox O2 Delivery O2 Flow Rate FiO2 03/22/19 10:03 80 16 162/72 (102) 100 03/22/19 09:54 98.5 03/22/19 08:00 2.0 03/21/19 14:02 Room Air I&O- Last 24 Hours up to 6 AM 03/22/19 06:00 Intake Total 1400 ml Output Total 595 ml Balance 805 ml Laboratory Data Labs 24H Laboratory Tests 2 03/21/19 14:29: Immature Granulocyte % (Auto) 0.8, White Blood Count 14.6H, Red Blood Count 2.48L, Hemoglobin 7.2L, Hematocrit 21.9L, Mean Corpuscular Volume 88.3, Mean Corpuscular Hemoglobin 29.0, Mean Corpuscular Hemoglobin Concent 32.9, Red Cell Distribution Width 14.9H, Platelet Count 431, Neutrophils (%) (Auto) 86.5H, Lymphocytes (%) (Auto) 5.1L, Monocytes (%) (Auto) 7.3H, Eosinophils (%) (Auto) 0.0, Basophils (%) (Auto) 0.3, Neutrophils # (Auto) 12.6H, Lymphocytes # (Auto) 0.8L, Monocytes # (Auto) 1.1H, Eosinophils # (Auto) 0.0, Basophils # (Auto) 0.1, Nucleated Red Blood Cells % (auto) 0.0, Prothrombin Time 13.8, Prothromb Time International Ratio 1.05, Aspartate Amino Transf (AST/SGOT) 14, Alanine Aminotransferase (ALT/SGPT) 16, Alkaline Phosphatase 152H, Total Bilirubin 0.2, Direct Bilirubin < 0.1, Total Creatine Kinase 35, Creatine Kinase MB 2.0, Creatine Kinase MB Relative Index 4.29H, Troponin I < 0.02, Total Protein 5.6L, Albumin 2.6L, Albumin/Globulin Ratio 0.87L, Lipase 71L 03/21/19 18:25: Urine Appearance HAZY, Urine Color YELLOW, Urine pH 6.0, Urine Specific [place] 1.010, Urine Protein NEGATIVE, Urine Glucose (UA) NEGATIVE, Urine Ketones NEGATIVE, Urine Urobilinogen 0.2, Urine Bilirubin NEGATIVE, Urine Leukocyte Esterase 3+H, Urine Blood NEGATIVE, Urine Nitrite POSITIVE, Urine WBC (Auto) 121H, Urine RBC (Auto) 3, Urine Hyaline Casts (Auto) 0, Urine Bacteria (Auto) 2+H, Urine Squamous Epithelial Cells 0, Urine Sperm (Auto) 03/21/19 18:40: Total Creatine Kinase 26, Creatine Kinase MB 2.0, Creatine Kinase MB Relative Index 6.15H, Troponin I 0.03# 03/22/19 02:51: Immature Granulocyte % (Auto) 0.8, White Blood Count 13.2H, Red Blood Count 2.94L, Hemoglobin 8.9L, Hematocrit 26.4L, Mean Corpuscular Volume 89.8, Mean Corpuscular Hemoglobin 30.3, Mean Corpuscular Hemoglobin Concent 33.7, Red Cell Distribution Width 14.5, Platelet Count 180#, Neutrophils (%) (Auto) 86.1H, Lymphocytes (%) (Auto) 6.0L, Monocytes (%) (Auto) 6.8H, Eosinophils (%) (Auto) 0.0, Basophils (%) (Auto) 0.3, Neutrophils # (Auto) 11.3H, Lymphocytes # (Auto) 0.8L, Monocytes # (Auto) 0.9H, Eosinophils # (Auto) 0.0, Basophils # (Auto) 0.0, Nucleated Red Blood Cells % (auto) 0.0, Total Creatine Kinase 35, Creatine Kinase MB 2.0, Creatine Kinase MB Relative Index 6.29H, Troponin I 0.11#H, Anion Gap 7L, Glomerular Filtration Rate > 60.0, Blood Urea Nitrogen 19H, Creatinine 0.56, Sodium Level 135L, Potassium Level 4.0, Chloride Level 101, Carbon Dioxide Level 27, Calcium Level 7.8L, Magnesium Level 1.4L, WT-Vvg-F-Type Natriuretic Peptide 1872H CBC/BMP Laboratory Tests 03/21/19 14:29 Red Blood Count 2.48 L, Mean Corpuscular Volume 88.3, Mean Corpuscular Hemoglobin 29.0, Mean Corpuscular Hemoglobin Concent 32.9, Red Cell Distribution Width 14.9 H, Neutrophils (%) (Auto) 86.5 H, Lymphocytes (%) (Auto) 5.1 L, Monocytes (%) (Auto) 7.3 H, Eosinophils (%) (Auto) 0.0, Basophils (%) (Auto) 0.3, Neutrophils # (Auto) 12.6 H, Lymphocytes # (Auto) 0.8 L, Monocytes # (Auto) 1.1 H, Eosinophils # (Auto) 0.0, Basophils # (Auto) 0.1 03/22/19 02:51 Red Blood Count 2.94 L, Mean Corpuscular Volume 89.8, Mean Corpuscular Hemoglobin 30.3, Mean Corpuscular Hemoglobin Concent 33.7, Red Cell Distribution Width 14.5, Neutrophils (%) (Auto) 86.1 H, Lymphocytes (%) (Auto) 6.0 L, Monocytes (%) (Auto) 6.8 H, Eosinophils (%) (Auto) 0.0, Basophils (%) (Auto) 0.3, Neutrophils # (Auto) 11.3 H, Lymphocytes # (Auto) 0.8 L, Monocytes # (Auto) 0.9 H, Eosinophils # (Auto) 0.0, Basophils # (Auto) 0.0, Calcium Level 7.8 L, Total Creatine Kinase 35 Allergies Coded Allergies: amlodipine (Verified Allergy, Mild, rash, 02/22/19) blue dye (Verified Allergy, Mild, Rash , 02/22/19) Blue Dye 63 from Cymbalta duloxetine (Verified Allergy, Mild, Rash, 02/22/19) latex (Verified Allergy, Mild, rash, 03/21/19) Contrast Media (Verified Allergy, Unknown, rash, 07/11/17) nystatin (Verified Allergy, Unknown, Rash, 02/22/19) Home Medications Scheduled Acetaminophen (Acetaminophen) 325 Mg Tablet, 650 MG PO Q8H, (Reported) 0500/1300/2100 Atorvastatin Calcium (Atorvastatin Calcium) 40 Mg Tablet, 40 MG PO QHS, (Reported) Buspirone HCl (Buspirone HCl) 10 Mg Tablet, 20 MG PO TID, (Reported) Calcium Carbonate/Vitamin D3 (Calcium 1,000 + D3 Caplet) 1 Each Tablet, 1 TAB PO DAILY, (Reported) Chlorthalidone (Chlorthalidone) 25 Mg Tablet, 25 MG PO DAILY, (Reported) Cholecalciferol (Vitamin D3) (Vitamin D3) 1,000 Unit Tablet, 1,000 UNIT PO DAILY, (Reported) Clonidine Hcl (Clonidine HCl) 0.1 Mg Tablet, 0.1 MG PO BID, (Reported) Furosemide (Furosemide) 20 Mg Tablet, 20 MG PO DAILY, (Reported) Losartan Potassium (Losartan Potassium) 100 Mg Tablet, 100 MG PO DAILY, (Reported) Metoprolol Tartrate (Metoprolol Tartrate) 25 Mg Tablet, 12.5 MG PO BID, (Reporte d) Spironolactone (Spironolactone) 25 Mg Tab, 25 MG PO DAILY, (Reported) Trazodone HCl (Trazodone HCl) 100 Mg Tablet, 100 MG PO QHS, (Reported) Scheduled PRN Acetaminophen (Acetaminophen) 325 Mg Tablet, 650 MG PO Q4H PRN for PAIN, (Reported) Acetaminophen (Acetaminophen) 650 Mg Supp.rect, 650 MG MO Q4H PRN for PAIN / FEVER, (Reported) Bisacodyl (Dulcolax) 10 Mg Supp.rect, 10 MG MO DAILY PRN for CONSTIPATION, (Reported) Calcium Carbonate (Tums) 200 Mg Tab.chew, 1,000 MG PO for DYSPEPSIA, (Reported) Magnesium Hydroxide (Milk of Magnesia) 400 Mg/5 Ml Oral.susp, 2,400 MG PO DAILY PRN for CONSTIPATION, (Reported) Oxycodone HCl/Acetaminophen (Percocet 5-325 mg Tablet) 1 Each Tablet, 1 TAB PO BID PRN for SEVERE PAIN (PS 8-10), (Reported) Sodium Phosphate,Elbert-Dibasic (Enema) 133 Ml Enema, 1 [place] MO DAILY PRN for CONSTIPATION, (Reported) Kaylen Easley Mar 22, 2019 10:56
[2019-03-22 11:06] LABS: BASO % 0.2 % (0.0-1.0); HEMATOCRIT 30.1 % (36.0-47.0); HEMOGLOBIN 10.5 g/dl (12.0-15.5); LYMPH # 0.7 10^3/uL (1.5-4.5); LYMPH % 5.6 % (24.0-44.0); MEAN CORPUSCULAR HEMOGLOBIN 30.3 pg (27.0-33.0); MEAN CORPUSCULAR HGB CONC 34.9 g/dl (32.0-36.5); MONO # 0.2 10^3/uL (0.0-0.8); MONO % 1.9 % (0.0-5.0); NEUTROPHILS # 11.4 10^3/uL (1.8-7.7); NEUTROPHILS % 91.8 % (36.0-66.0); PLATELET COUNT, AUTOMATED 152 10^3/uL (150-450); RED BLOOD COUNT 3.46 10^6/uL (4.00-5.40); WHITE BLOOD COUNT 12.5 10^3/uL (4.0-10.0)
[2019-03-22 11:28] LABS: MB/CK RELATIVE INDEX 4.47 (< OR =4); TROPONIN I 0.1 NG/ML (< 0.10)
--- NOTE | 2019-03-22 12:33 | IPNPDOC ---
Text Note Date of Service The patient was seen on 03/22/19. NOTE Ms Lopez is seen on bedside exam today in the ICU., she is tired, she states she has some left sided chest wall pain from her rib injuries prior to admission, its causing some radiation of pain to her abdomen. Otherwise denies sob, light headedness, change in vision, headache, palpitations or cp. ROS : 12 point ROS reviewed with pt., negative except for above findings. PE: VS: See below General: Pleaseant but tired 78 yo female appearing perhaps minimally uncomforta ble from abdominal discomfort, otherwise NAD HEENT: moist mucus membranes, EOMI, no JVD Resp: cta b/l, no wheezing, rales or rhonchi appreciated, some tenderness around left flank area with pressure on ribs 7,8 without bruising, swelling or erythema Cardio: normal s1 and s2., no murmurs, rubs or gallops Abdomen: nabsx4, some discomfort to palpation in lower abdomen, no rebound ridgity or guarding, no distension, no hepatosplenomegaly or masses appreciated, soft Extremities: no cyanosis, mottling or edema 1. Acute blood loss anemia and abdominal discomfort -likely secondary to GI source, Dr. Rogers consulted from GI, performed upper endoscopy yesterday that revealed lot and large cratered actively bleeding duodenal ulcer in the first/second portion of the duodenum, not able to get access nor adequate visualisation despite extensive lavage, unable to apply any endoscopic therapy. She then underwent mesenteric angiogram as per Dr Arias 03/22/19 with no obvious source of bleeding identified. No observed gastroduodenal artery. This could represent anatomical variant. -Hg now 10.5 , s/p 6 units pRBC, 2 units FFP, will continue to closely monitor H/H -C/W IVF, pantoprazole and carafate -she is going for repeat endoscopy with GI today -abdominal discomfort could be secondary to radiation from left ribs injuries, could also be secondary to her procedures and deconditioning, continue to monitor for now, pain control with Tylenol 2. Sinus tachycardia and light headedness -likely secondary to acute blood loss anemia -c/w monitoring on telemetry -she is positive orthostatic, c/w IVF -receiving pRBC currently -monitor h/h 3. History of elevated troponins -patient was here in mid February 2019, elevated troponin at that time of 1.93- suspect NSTEMI, she was transferred to [facility] and had cardiac cath that did not demonstrate any lesions, no intervention took place -current troponin negative, she had ECHO in Oct 2018 that showed EF 60% with G1DD -using the revised cardiac risk index for pre-op risk, she has 6% 30 day risk of , [place] or cardiac arrest, Class II risk -She should be stabilized from her hemodynamic standpoint and try to resolve tachycardia and bleeding before procedures 4. HTN -begin Cozaar -BP now 162/72 5. Constipation -holding home meds in light of current illness 6. Depression -home meds held 7. DLP -holding home meds 8. CBP -holding home percocet 9. Insomnia -holding home trazodone qhs Disposition: Patient is planned for repeat Endoscopy per nursing staff, she is receiving pRBC transfusions, we will monitor h/h. closely, source of bleeding mckay s not been identified yet. She is at low to intermediate risk for low risk procedure colonoscopy/EGD. VS,Fishbone, I+O VS, Fishbone, I+O Laboratory Tests 03/21/19 14:29 Red Blood Count 2.48 L, Mean Corpuscular Volume 88.3, Mean Corpuscular Hemoglobin 29.0, Mean Corpuscular Hemoglobin Concent 32.9, Red Cell Distribution Width 14.9 H, Neutrophils (%) (Auto) 86.5 H, Lymphocytes (%) (Auto) 5.1 L, Monocytes (%) (Auto) 7.3 H, Eosinophils (%) (Auto) 0.0, Basophils (%) (Auto) 0.3, Neutrophils # (Auto) 12.6 H, Lymphocytes # (Auto) 0.8 L, Monocytes # (Auto) 1.1 H, Eosinophils # (Auto) 0.0, Basophils # (Auto) 0.1 03/22/19 02:51 Red Blood Count 2.94 L, Mean Corpuscular Volume 89.8, Mean Corpuscular Hemoglobin 30.3, Mean Corpuscular Hemoglobin Concent 33.7, Red Cell Distribution Width 14.5, Neutrophils (%) (Auto) 86.1 H, Lymphocytes (%) (Auto) 6.0 L, Monocytes (%) (Auto) 6.8 H, Eosinophils (%) (Auto) 0.0, Basophils (%) (Auto) 0.3, Neutrophils # (Auto) 11.3 H, Lymphocytes # (Auto) 0.8 L, Monocytes # (Auto) 0.9 H, Eosinophils # (Auto) 0.0, Basophils # (Auto) 0.0, Calcium Level 7.8 L, Total Creatine Kinase 35 03/22/19 10:51 Red Blood Count 3.46 L, Mean Corpuscular Volume 87.0, Mean Corpuscular Hemoglobin 30.3, Mean Corpuscular Hemoglobin Concent 34.9, Red Cell Distribution Width 14.2, Neutrophils (%) (Auto) 91.8 H, Lymphocytes (%) (Auto) 5.6 L, Monocytes (%) (Auto) 1.9, Eosinophils (%) (Auto) 0.0, Basophils (%) (Auto) 0.2, Neutrophils # (Auto) 11.4 H, Lymphocytes # (Auto) 0.7 L, Monocytes # (Auto) 0.2, Eosinophils # (Auto) 0.0, Basophils # (Auto) 0.0 Vital Signs Date Time Temp Pulse Resp B/P (MAP) Pulse Ox O2 Delivery O2 Flow Rate FiO2 03/22/19 10:03 80 16 162/72 (102) 100 03/22/19 09:54 98.5 03/22/19 08:00 2.0 03/21/19 14:02 Room Air I&O- Last 24 Hours up to 6 AM 03/22/19 06:00 Intake Total 1400 ml Output Total 595 ml Balance 805 ml GME ATTESTATION GME ATTESTATION My faculty preceptor for this patient encounter was physically present during the encounter and was fully available. All aspects of the patient interview, examination, medical decision making process, and medical care plan development were reviewed and approved by the faculty preceptor. The faculty preceptor is aware and concurs with the plan as stated in the body of this note and will attest to such by his/her cosignature. ATTENDING NOTE I, Thomas Vital, have both independently examined this patient as well as reviewed the documentation. I have discussed in detail with the resident the findings and plan of treatment as documented by the resident. I agree with their findings and treatment plan. I will continue to follow the patient and offer further guidance to the patients care as necessary during this hospital stay. GLENNY EVANS DO Mar 22, 2019 12:33 THOMAS VITAL MD Mar 22, 2019 13:36
--- NOTE | 2019-03-22 13:50 | IPN ---
DATE: 03/22/2019 Overnight events are summarized as follows. The patient had upper endoscopy performed where she had a large duodenal ulcer actively bleeding found; however, therapy was unable to be applied due to large volumes of blood and clots. In addition, the ulcer is quite large and deep and is not amendable to endoscopic therapy regardless. We had sent her to Dr. Arias for endovascular attempt at stopping bleeding; however, by the time angiogram was performed, her bleeding had stopped. Since that time, she has received an additional unit of blood overnight. Her blood pressure is actually quite stable. She has not had any further melanotic stools and her heart rate is back in sinus rhythm and she is no longer orthostatic. I am seeing Mrs. Lopez this morning for followup. As stated above she is feeling actually quite well, no longer is dizzy. She still has some midepigastric discomfort but this is quite mild at this point. She has not had any further black stools. Head, eyes, ears, nose and throat grossly without abnormality. Neck is supple. No lymphadenopathy or thyromegaly. Chest is clear bilaterally. Heart is regular rate and rhythm, S1 and S2. Abdomen is soft, positive bowel sounds. Minimally tender to deep palpation only in the subxiphoid area. No rebound tenderness. Extremities: Negative for edema. LABORATORY FINDINGS: Hemoglobin 8.9/10.5, BUN is 19, platelet count is 152. IMPRESSION: 1. Acute posthemorrhagic anemia secondary to a large duodenal ulcer that is not amendable to endoscopic treatment due to poor access and size. Recommendation to continue proton pump inhibitor (PPI) therapy. 2. Sips of clears this morning. 3. Await biopsy report for rule out Helicobacter pylori. 4. Continued observation for monitoring for rebleeding. DISCUSSION: I am very encouraged today that her duodenal ulcer bleed has stopped spontaneously and has remained stopped overnight as evidenced by a fairly good hemoglobin, normalization of her vital signs including blood pressure and heart rate. She has also not had any further black stools. At this time, we will continue to monitor. I do not think there is any role for repeat upper endoscopy due to the size of this ulcer and we will allow it to heal by itself. Should she have any acute rebleeding, consideration may be given for more aggressive intervention, however, at this time this will hopefully not be necessary.
[2019-03-22] MEDS ORDERED: cloNIDine 0.1 MG TAB PO ONE (14:45)
[2019-03-22] MEDS: traMADol 50 MG TAB PO PRN ×2 (14:57→21:06)
[2019-03-22] MEDS: busPIRone 10 MG TAB PO SCH ×2 (17:14→21:05)
[2019-03-22 17:15] LABS: HEMATOCRIT 25.9 % (36.0-47.0); HEMOGLOBIN 9.1 g/dl (12.0-15.5)
[2019-03-22] MEDS: VITAMIN D 1,000 INTERNATIONAL UNITS TABLET PO SCH (17:16)
[2019-03-22 18:47] LABS: HEMOGLOBIN 9.1 g/dl (12.0-15.5)
--- NOTE | 2019-03-22 19:54 | ECGEPIP ---
[facility] Test Date: 2019-03-22 Pat Name: JENNIE MENDOZA Department: Room: [place] [address] Gender: Female Rn Oncology: ARPAN : 1940 Requested By: Vic Lee Order Number: [id number] Reading MD: Vic Cruz Measurements Intervals [place] Rate: 90 P: 63 MS: 150 QRS: QRSD: 77 T: 80 QT: 349 QTc: 428 Interpretive Statements Normal sinus rhythm with frequent isolated PACs. Prominent precordial voltage with LV strain pattern in keeping with LVH. No significant change from previous day. Electronically Signed on 03-22-2019 19:54:49 EDT by Vic Cruz
[2019-03-22] MEDS ORDERED: ATORVASTATIN 20 MG TAB PO SCH (21:00)
[2019-03-22] MEDS: METOPROLOL TART 12.5 MG PER 1/2 TAB PO SCH (21:05)
[2019-03-22] MEDS: cloNIDine 0.1 MG TAB PO SCH (21:07)
[2019-03-23] VITALS (40 sets, daily range): BP systolic 72–188; BP diastolic 39–82
[2019-03-23 00:12] LABS: HEMOGLOBIN 8.5 g/dl (12.0-15.5)
[2019-03-23] MEDS: SUCRALFATE SUSP 1GM/10ML UD PO SCH ×4 (00:59→20:47)
[2019-03-23] MEDS: traMADol 50 MG TAB PO PRN ×2 (03:16→08:45)
[2019-03-23] MEDS: PANTOPRAZOLE 40MG INJ (PROTONIX) (C9113) IV SCH ×2 (03:17→16:00)
[2019-03-23] MEDS ORDERED: hydrOXYzine 50 MG TAB PO ONE (04:45)
[2019-03-23 05:20] LABS: BASO % 0.2 % (0.0-1.0); HEMATOCRIT 25.7 % (36.0-47.0); HEMOGLOBIN 8.9 g/dl (12.0-15.5); LYMPH # 1.6 10^3/uL (1.5-4.5); LYMPH % 12.7 % (24.0-44.0); MEAN CORPUSCULAR HEMOGLOBIN 29.8 pg (27.0-33.0); MEAN CORPUSCULAR HGB CONC 34.6 g/dl (32.0-36.5); MONO # 1.3 10^3/uL (0.0-0.8); MONO % 10.4 % (0.0-5.0); NEUTROPHILS # 9.7 10^3/uL (1.8-7.7); NEUTROPHILS % 76.2 % (36.0-66.0); PLATELET COUNT, AUTOMATED 156 10^3/uL (150-450); RED BLOOD COUNT 2.99 10^6/uL (4.00-5.40); WHITE BLOOD COUNT 12.8 10^3/uL (4.0-10.0)
[2019-03-23 05:45] LABS: BLOOD UREA NITROGEN 26 MG/DL (7-18); CALCIUM LEVEL 8.1 MG/DL (8.8-10.2); CARBON DIOXIDE LEVEL 28 MEQ/L (21-32); CHLORIDE LEVEL 100 MEQ/L (98-107); CREATININE FOR GFR 0.52 MG/DL (0.55-1.30); GLOMERULAR FILTRATION RATE > 60.0 (>39); GLUCOSE, FASTING 77 MG/DL (70-100); MAGNESIUM LEVEL 1.8 MG/DL (1.8-2.4); SODIUM LEVEL 135 MEQ/L (136-145)
[2019-03-23] MEDS: LOSARTAN 50 MG TAB PO SCH (08:43)
[2019-03-23] MEDS: busPIRone 10 MG TAB PO SCH ×2 (08:43→16:00)
[2019-03-23] MEDS: VITAMIN D 1,000 INTERNATIONAL UNITS TABLET PO SCH (08:43)
[2019-03-23] MEDS: cloNIDine 0.1 MG TAB PO SCH ×2 (08:44→21:00)
[2019-03-23] MEDS: METOPROLOL TART 12.5 MG PER 1/2 TAB PO SCH (08:44)
[2019-03-23] MEDS: ONDANSETRON 4MG/2ML VIAL (J2405) IV PRN (08:52)
[2019-03-23] MEDS ORDERED: PERCOCET 5MG/325MG TAB PO PRN (09:45)
[2019-03-23] MEDS ORDERED: hydrOXYzine 50 MG TAB PO PRN (09:45)
[2019-03-23 12:21] LABS: HEMATOCRIT 19.7 % (36.0-47.0)
[2019-03-23 12:30] LABS: HEMOGLOBIN 6.7 g/dl (12.0-15.5)
--- NOTE | 2019-03-23 13:17 | IPNPDOC ---
Text Note Date of Service The patient was seen on 03/23/19. NOTE Patient's been seen and examined. She has recurrent GI bleeding from a duodenal ulcer needing transfusion and transient drop of blood pressure. We are going to arrange for an exploratory laparotomy most likely oversewing of the bleeding ulcer plus or minus some antiulcer procedure such as truncal vagotomy if she is stable enough. VS,Fishbone, I+O VS, Fishbone, I+O Laboratory Tests 03/22/19 16:49 03/22/19 18:28 03/22/19 23:58 03/23/19 05:03 Red Blood Count 2.99 L, Mean Corpuscular Volume 86.0, Mean Corpuscular Hemoglobin 29.8, Mean Corpuscular Hemoglobin Concent 34.6, Red Cell Distribution Width 14.6 H, Neutrophils (%) (Auto) 76.2 H, Lymphocytes (%) (Auto) 12.7 L, Monocytes (%) (Auto) 10.4 H, Eosinophils (%) (Auto) 0.0, Basophils (%) (Auto) 0.2, Neutrophils # (Auto) 9.7 H, Lymphocytes # (Auto) 1.6, Monocytes # (Auto) 1.3 H, Eosinophils # (Auto) 0.0, Basophils # (Auto) 0.0, Calcium Level 8.1 L 03/23/19 12:08 Vital Signs Date Time Temp Pulse Resp B/P (MAP) Pulse Ox O2 Delivery O2 Flow Rate FiO2 03/23/19 11:31 22 95 03/23/19 11:29 97.4 74 105/52 (69) 03/23/19 08:45 94 03/22/19 13:00 2.0 03/21/19 14:02 Room Air I&O- Last 24 Hours up to 6 AM 03/23/19 06:00 Intake Total 775 ml Output Total 855 ml Balance -80 ml BING BOYLE MD Mar 23, 2019 13:17
--- NOTE | 2019-03-23 13:34 | IPNPDOC ---
Text Note Date of Service The patient was seen on 03/23/19. NOTE Ms Lopez is seen on bedside exam today in the ICU., she is very tired, she c omplains of a headache on top of her head, she points above her left eye. She had a panic attack overnight, she got very anxious over he current situation overnight. She continues with left sided chest wall pain from her rib injuries prior to admission. Otherwise denies sob, light headedness, change in vision, headache, palpitations or cp. She just got off of the bed [place] and that was her 4th bloody BM this morning. ROS : 12 point ROS reviewed with pt., negative except for above findings. PE: VS: See below General: 78 yo female appearing very fatigued, otherwise NAD HEENT: moist mucus membranes, EOMI, no JVD Resp: cta b/l, no wheezing, rales or rhonchi appreciated, some tenderness with pressure on ribs 7,8 without bruising, swelling or erythema Cardio: normal s1 and s2., no murmurs, rubs or gallops Abdomen: nabsx4, mild discomfort to palpation in lower abdomen, no rebound ridgity or guarding, no distension, no hepatosplenomegaly or masses appreciated, soft Extremities: no cyanosis, mottling or edema, bandage over left AC area where access was gained for prior angiography 1. Acute blood loss anemia and abdominal discomfort -likely secondary to GI source, Dr. Rogers consulted from GI,the pt is s/p first EGD on 03/22/19 that revealed large cratered actively bleeding duodenal ulc er in the first/second portion of the duodenum, not able to get access nor adequate visualization despite extensive lavage, unable to apply any endoscopic therapy. She then underwent mesenteric angiogram as per Dr Arias 03/22/19 with no obvious source of bleeding identified. No observed gastroduodenal artery. This could represent anatomical variant. -Hg now 8.9/25.7 , s/p 6 units pRBC, 2 units FFP, will continue to closely monitor H/H -C/W IVF, pantoprazole and carafate -Since the bleeding had stopped and her vitals were stopped it was hopeful the ulcer would heal on its own, however she has had so far 4 bloody BM movements this morning, we have consulted general surgery as vascular surgery is unable to access lesion/vessel as it appears the vessel is anatomically absent, appreciate gen sx help -vitals are stable, we are monitoring h/h closely, will transfuse as needed -pain control with tylenol and percocet 2. Sinus tachycardia and light headedness -resolved -likely was secondary to acute blood loss anemia -c/w monitoring on telemetry -she is positive orthostatic, c/w IVF -will transfuse as needed -monitor h/h 3. History of elevated troponins -patient was here in mid February 2019, elevated troponin at that time of 1.93- suspect NSTEMI, she was transferred to [place] and had cardiac cath that did not demonstrate any lesions, no intervention took place -current troponin negative, she had ECHO in Oct 2018 that showed EF 60% with G1DD -using the revised cardiac risk index for pre-op risk, she has 6% 30 day risk of , [place] or cardiac arrest, Class II risk -She should be stabilized from her hemodynamic standpoint and try to resolve tachycardia and bleeding before procedures 4. HTN -c/w Cozaar -BP now 155/67 5. Constipation -holding home meds in light of current illness 6. Depression -home meds held 7. DLP -holding home meds 8. CBP -resume home percocet 9. Insomnia -may resume home trazodone Disposition: Patient is going to be evaluated and treated by general surgery, will monitor h/h closely and transfuse as needed. She is now NPO. VS,Fishbone, I+O VS, Fishbone, I+O Laboratory Tests 03/22/19 16:49 03/22/19 18:28 03/22/19 23:58 03/23/19 05:03 Red Blood Count 2.99 L, Mean Corpuscular Volume 86.0, Mean Corpuscular He moglobin 29.8, Mean Corpuscular Hemoglobin Concent 34.6, Red Cell Distribution Width 14.6 H, Neutrophils (%) (Auto) 76.2 H, Lymphocytes (%) (Auto) 12.7 L, Monocytes (%) (Auto) 10.4 H, Eosinophils (%) (Auto) 0.0, Basophils (%) (Auto) 0.2, Neutrophils # (Auto) 9.7 H, Lymphocytes # (Auto) 1.6, Monocytes # (Auto) 1.3 H, Eosinophils # (Auto) 0.0, Basophils # (Auto) 0.0, Calcium Level 8.1 L 03/23/19 12:08 Vital Signs Date Time Temp Pulse Resp B/P (MAP) Pulse Ox O2 Delivery O2 Flow Rate FiO2 03/23/19 11:31 22 95 03/23/19 11:29 97.4 74 105/52 (69) 03/23/19 08:45 94 03/22/19 13:00 2.0 03/21/19 14:02 Room Air I&O- Last 24 Hours up to 6 AM 03/23/19 05:59 Intake Total 775 ml Output Total 795 ml Balance -20 ml GME ATTESTATION GME ATTESTATION My faculty preceptor for this patient encounter was physically present during the encounter and was fully available. All aspects of the patient interview, examination, medical decision making process, and medical care plan development were reviewed and approved by the faculty preceptor. The faculty preceptor is aware and concurs with the plan as stated in the body of this note and will attest to such by his/her cosignature. ATTENDING NOTE I, Thomas Vital, have both independently examined this patient as well as reviewed the documentation. I have discussed in detail with the resident the findings and plan of treatment as documented by the resident. I agree with their findings and treatment plan. I will continue to follow the patient and offer further guidance to the patients care as necessary during this hospital stay. This afternoon patient had a follow up H&H that had shown an acute drop in H&H to 6.7 and she began to become hypotensive. Patient also reported feeling symptoms of light-headedness and continue to have several bowel movements with bright red blood. Patient had a massive transfusion protocol called and Pulmonology was consulted for better vascular access. She received 4 units PRBC, 2 units of FFP and 1 unit of platelets and had improvement in her condition. Gen eral surgery was contacted earlier who had expedited her progression to OR. I have called the son (Healthcare proxy), Daniel Up and notified him of his mother's critical condition and need for aggressive blood product transfusion and emergent surgical intervention. He has informed me that he will be coming into the hospital immediately. Critical care time spent 64 minutes. GLENNY EVANS DO Mar 23, 2019 13:34 THOMAS VITAL MD Mar 23, 2019 16:59
[2019-03-23] MEDS ORDERED: ETOMIDATE INJ 20MG/10ML VIAL As Ordered ONE (13:37)
[2019-03-23] MEDS ORDERED: ROCURONIUM BROMIDE 50 MG/5 ML VIAL As Ordered ONE ×3 (13:37→14:39)
[2019-03-23] MEDS ORDERED: PROPOFOL 200 MG/20 ML VIAL As Ordered ONE ×2 (13:37→13:41)
[2019-03-23] MEDS ORDERED: fentaNYL 100 MCG/2 ML INJECTION (J3010) As Ordered ONE (13:37)
[2019-03-23] MEDS ORDERED: LIDOCAINE 2% INJ 100 MG/5 ML SDV (FOR ANES.) As Ordered ONE ×2 (13:37→13:42)
[2019-03-23] MEDS ORDERED: MIDAZOLAM INJ 2 MG/2 ML VIAL (J2250) As Ordered ONE (13:38)
[2019-03-23] MEDS ORDERED: KETAMINE HCL 200 MG/20 ML VIAL As Ordered ONE (13:39)
[2019-03-23] MEDS ORDERED: ONDANSETRON 4MG/2ML VIAL (J2405) As Ordered ONE ×3 (13:42→17:58)
[2019-03-23] MEDS ORDERED: dexameTHASONE 4 MG/ML 1ML VIAL (J1100) As Ordered ONE (13:42)
[2019-03-23] MEDS ORDERED: PHENYLEPHRINE INJ 10MG/ML VIAL (J2370) As Ordered ONE (13:45)
[2019-03-23] MEDS ORDERED: ceFAZolin 2 GM/D5W 50 ML IV BAG (J0690 PER 500MG) As Ordered ONE (14:07)
--- NOTE | 2019-03-23 14:40 | RO ---
DATE OF PROCEDURE: 03/23/2019 INDICATION: Blood product administration. PREPROCEDURE DIAGNOSIS: Hemorrhagic shock. POSTPROCEDURE DIAGNOSIS: Hemorrhagic shock. ATTENDING PHYSICIAN: Dr. Kaylee Webb. CONSENT: Consent was implied due to the emergent nature of the procedure. DESCRIPTION F PROCEDURE: Central line insertion practices form was completed by independent observer. My hands were washed prior to procedure and full sterile technique was maintained throughout procedure including surgical cap, mask and protective eyewear, sterile gown and sterile gloves. The left inguinal region was prepped using chlorhexidine scrub and draped in sterile fashion using a full drape and sterile probe cover employed. The femoral vein was identified using ultrasound visualization. Using real-time [id number] ultrasound guidance, introducer needle was inserted into the femoral vein. Venous blood was withdrawn. The syringe was removed and a guidewire was advanced into the introducer needle. The introducer needle was removed over the guidewire and a small incision was made at the skin surface with a scalpel. Using a dilator on the Cordis, a Cordis was exchanged over the wire. The wire and dilator was removed and the Cordis catheter was sutured in place. A sterile chlorhexidine impregnated dressing was placed over the catheter at the insertion site. At the time of procedure completion, all ports were aspirated and flushed properly. Estimated blood loss is less than 5 mL Femoral arterial line was attempted to be placed, however was unsuccessful. Pressure was placed over the femoral artery and hemostasis was achieved and a dressing was placed. CRISTIAN
[2019-03-23 14:54] LABS: HEMATOCRIT 18.7 % (36.0-47.0)
[2019-03-23 14:59] LABS: HEMOGLOBIN 6.4 g/dl (12.0-15.5)
[2019-03-23 15:12] LABS: HEMATOCRIT 18.5 % (36.0-47.0); MEAN CORPUSCULAR HEMOGLOBIN 30.7 pg (27.0-33.0); MEAN CORPUSCULAR HGB CONC 35.1 g/dl (32.0-36.5); MEAN CORPUSCULAR VOLUME 87.3 fl (80.0-96.0); RED BLOOD COUNT 2.12 10^6/uL (4.00-5.40); WHITE BLOOD COUNT 11.3 10^3/uL (4.0-10.0)
[2019-03-23] MEDS ORDERED: NS 1,000 ML IV ONE (15:15)
[2019-03-23 15:35] LABS: HEMOGLOBIN 6.5 g/dl (12.0-15.5); PLATELET COUNT, AUTOMATED 82 10^3/uL (150-450)
[2019-03-23] MEDS ORDERED: HYDROmorphone HCL 2 MG/ML 1ML VIAL (J1170) As Ordered ONE (16:03)
[2019-03-23] MEDS ORDERED: METOCLOPRAMIDE INJ 10MG/2ML VIAL (J2765) As Ordered ONE (16:03)
[2019-03-23] MEDS ORDERED: NEOSTIGMINE 10 MG/10 ML VIAL (J2710) As Ordered ONE (16:04)
[2019-03-23] MEDS ORDERED: GLYCOPYRROLATE INJ 0.2 MG/ML 2 ML VIAL As Ordered ONE (16:04)
[2019-03-23] MEDS ORDERED: MORPHINE 1MG/ML IN 0.9% NACL 100ML IV BAG As Ordered ONE (17:55)
[2019-03-23] MEDS ORDERED: NS 1,000 ML IV SCH (17:58)
[2019-03-23] MEDS: LR 1,000 ML IV SCH (18:00)
[2019-03-23] MEDS ORDERED: fentaNYL 100 MCG/2 ML INJECTION (J3010) IV PRN (18:00)
[2019-03-23] MEDS ORDERED: NALOXONE INJ 0.4 MG/1 ML VIAL (J2310) IV PRN (18:00)
[2019-03-23] MEDS ORDERED: ONDANSETRON 4MG/2ML VIAL (J2405) IV PRN (18:00)
[2019-03-23] MEDS ORDERED: NALBUPHINE HCL 10 MG/ML AMP (J2300) IV PRN (18:00)
[2019-03-23] MEDS ORDERED: EPIDURAL/PCA KEYS XX PRN (18:00)
[2019-03-23] MEDS ORDERED: LR 1,000 ML IV SCH (18:00)
[2019-03-23] MEDS ORDERED: METOCLOPRAMIDE INJ 10MG/2ML VIAL (J2765) IV PRN (18:00)
[2019-03-23] MEDS: MORPHINE 1MG/ML IN 0.9% NACL 100ML IV BAG IV PRN (18:05)
--- NOTE | 2019-03-23 19:56 | CR ---
DATE OF CRITICAL CARE CONSULTATION: 03/23/2019 CHIEF COMPLAINT: Hemorrhagic shock. HISTORY OF PRESENT ILLNESS History is obtained from the chart as the patient was lethargic and unable to provide a history. Ms. Lopez is a 78 year-old female with a past medical history of spinal stenosis, status post laminectomy, hypertension, abdominal aortic aneurysm, status post repair, rheumatoid arthritis, chronic back pain, osteoporosis who presented to the emergency department after being at rehab with complaint of black tarry stools. The patient had previously been admitted in February with elevated troponins and ccl-LG-hffziyspz myocardial infarction (NSTEMI). She was in [place] and had a cardiac catheterization done there which did not demonstrate any significant lesions and she had no interventions at that time. While the patient was in rehabilitation she started complaining of multiple episodes of black diarrhea as well as an episode of hematemesis. She had denied any chest pains. No shortness of breath except with some exertion. She also reported some dizziness and lightheadedness with standing. She had no fevers or chills. At the time she did have some increased lower extremity edema. The patient was admitted for a GI bleed to the medical ICU. She was noted to have a drop in her hemoglobin from her baseline a month ago of around 12.7 to hemoglobin 8.8 on admission. On admission, the patient was transfused 4 units of packed red blood cells (PRBC). She had esophagogastroduodenoscopy (EGD) done on - in the evening. On the EGD, she was found to have a large duodenal ulcer with an actively bleeding vessel, however, therapy was unable to be applied due to large volumes of blood and clots. The ulcer also appeared to be quite large and deep and would not have been amendable to endoscopic treatments. The patient was taken straight from EGD to IR for possible endovascular attempt at stopping the bleeding. She had an angiogram performed but was not found to have a duodenal artery. There was no active source of bleeding noted and it was thought that she may have some anatomical variation and a small arterial branch from her mesentery that was not amenable to endovascular techniques. The decision was made therefore to continue with medical management with PPI drip and sucralfate. She had been given an additional 2 units of PRBC and it appeared her hemoglobin had been stable and she had not had any further episodes of melena yesterday. Overnight and into this morning, the patient had started having episodes of bright maroon colored stool and complaints of dizziness and lightheadedness. The patient had also appeared to be more lethargic and pale. The patient also was becoming hypotensive with a blood pressure systolic in the 70s. She was started on 1 liter normal saline bolus and was ordered for PRBCs. Her hemoglobin had trended down from about 8.9 earlier in the morning to 6.7. On my arrival the patient was still hypotensive. She appeared pale and clammy; was arousable but somewhat drowsy. A femoral Cordis was placed for rapid transfusion and a rapid transfuser was ordered to the bedside as well as rapid transfusion protocol. The patient was rapidly given 4 units of PRBC, 2 units of FFP and 1 unit of platelets. During this, the patient also appeared to have some periods of apnea and desaturation on nasal cannula and respiratory had started ambu-bagging the patient for ventilation and oxygenation. With the blood transfusion, the patient's blood pressure improved and her mental status also improved and her oxygenation. Surgery was evaluating the patient at the bedside and patient was to be taken emergently to the OR. Anesthesia was here evaluating the patient and she was taken emergently to the OR for a procedure. PAST MEDICAL/SURGICAL HISTORY: History of spinal stenosis, status post laminectomy, hypertension, abdominal aortic aneurysm, status post repair, rheumatoid arthritis, osteoporosis, chronic back pain. Right hip surgery, left knee surgery, cardiac cath in 2019. ALLERGIES: AMLODIPINE, BLUE DYE, DULOXETINE, LATEX. CONTRAST MEDIA, NYSTATIN. HOME MEDICATIONS: - Tylenol - atorvastatin - buspirone - calcium carbonate - chlorthalidone - vitamin D3 - clonidine - furosemide - losartan - metoprolol - spironolactone - trazodone SOCIAL HISTORY Nonsmoker. Was from [facility]). FAMILY HISTORY: Hypertension, coronary artery disease and son with asthma. PHYSICAL EXAMINATION: Temperature 97.4, pulse 80s, respirations in the 20s. Blood pressure was systolic 70s. O2 sat was 80s on nasal cannula. General: Patient is an elderly female, is lying in bed and is pale, drowsy. HEENT: Normocephalic, atraumatic. Mucous membranes are dry. Neck is supple. No jugular venous distention (JVD). Cardiovascular: Regular rate and rhythm. Normal S1, S2. No murmur appreciated. Pulmonary: Clear to auscultation anteriorly. Abdomen: Soft, mild tenderness to epigastric region. Extremities: No lower extremity edema bilaterally. LABORATORY DATA WBC was 12.8 this morning, hemoglobin had trended down from 8.9 to 6.7. Platelets this morning were 156. Chemistry: Sodium was 135, potassium 4.0, chloride 100, bicarb 28, BUN 26, creatinine 0.52, glucose is 77, magnesium is 1.8. X-ray from 03-22 showed mild cardiomegaly. Bibasilar fibroatelectatic changes and a calcified granuloma in the right lower lobe. ASSESSMENT/PLAN Ms. Lopez is a 78-year-old female with a past medical history of hypertension, rheumatoid arthritis, abdominal aortic aneurysm status post repair who presented with acute upper GI bleed. The patient had an EGD on admission and was found to have a large duodenal ulcer with a bleeding vessel. She was not amenable to endoscopic treatment and was transferred to IR for possible endovascular treatment for her bleeding. The patient had an angiogram done and it was unable to see an obvious source of bleeding and no observed gastroduodenal artery. The patient given her vascular anatomy is not amenable to endovascular treatments for a GI bleed. She was be medically managed with PPI and sucralfate and had initially appeared to have stabilization of her H and H and did not have any further dark black stools. Today, however, the patient started complaining of bright maroon colored bowel movements. Had multiple bowel movements since earlier in the day. Her hemoglobin had also dropped from 8.9 to 6.7. Up until this time she had received a total of 6 units PRBC and 2 units of FFP. Critical care consult was called to the bedside as patient had also started becoming hypotensive with a systolic blood pressure in the 70s. She was also becoming more drowsy and lethargic and at desaturating. A femoral Cordis was placed in the left groin region and a rapid transfusion protocol was started. The patient received rapidly 4 units PRBC, 2 units of FFP and 1 unit of platelets. The patient was also being ambu-bagged by respiratory with improvement in her oxygenation. After transfusion, the patient's blood pressure is improved and her mental status has also improved. Surgery has been consulted and they evaluated the patient and anesthesia and she was taken to the OR emergently for surgery for an exploratory laparotomy and most likely oversewing of the bleeding ulcer with possible anti-ulcer procedures such as a truncal vagotomy if she is stable enough to tolerate. - Patient will be intubated for the procedure. She may be extubated postprocedure depending on anesthesia, but if not she would return to the ICU intubated and we would follow for vent management. - The patient has further units of blood on hold to the OR to be given at the discretion of surgery and anesthesia. She has now received a total of 10 units of PRBC, 4 of FFP and one platelet since her admission on 03/21/2019. Would need to continue to trend H and H and would keep an active type and screen. - The patient has a history of NSTEMI and recent cardiac cath. Her troponins during this admission have not been significantly positive, however, with her hemorrhagic shock would repeat troponins and trend them closely. - Would hold the patient's antihypertensive medications and her diuretic. Would need to monitor her renal function given her hypotension and also her LFTs. CODE STATUS: FULL CODE. DVT PROPHYLAXIS: SCDs and TEDS. TOTAL CRITICAL CARE TIME: Not including any procedures approximately 50 minutes. MTDD
[2019-03-23] MEDS ORDERED: traZODone 100 MG TAB PO SCH (21:00)
[2019-03-23 21:03] LABS: HEMATOCRIT 27.8 % (36.0-47.0); HEMOGLOBIN 9.7 g/dl (12.0-15.5)
[2019-03-23] MEDS ORDERED: NS 500 ML IV ONE (22:15)
[2019-03-24] VITALS (16 sets, daily range): BP systolic 110–167; BP diastolic 44–71
[2019-03-24 00:16] LABS: HEMATOCRIT 31.1 % (36.0-47.0); HEMOGLOBIN 10.8 g/dl (12.0-15.5)
[2019-03-24] MEDS: LR 1,000 ML IV SCH ×3 (04:18→23:01)
[2019-03-24] MEDS: PANTOPRAZOLE 40MG INJ (PROTONIX) (C9113) IV SCH ×2 (04:18→15:24)
[2019-03-24] MEDS: SUCRALFATE SUSP 1GM/10ML UD PO SCH ×5 (05:42→23:00)
[2019-03-24 06:15] LABS: BASO % 0.2 % (0.0-1.0); HEMATOCRIT 30.9 % (36.0-47.0); HEMOGLOBIN 10.4 g/dl (12.0-15.5); LYMPH # 1.1 10^3/uL (1.5-4.5); LYMPH % 5.1 % (24.0-44.0); MEAN CORPUSCULAR HEMOGLOBIN 29.4 pg (27.0-33.0); MEAN CORPUSCULAR HGB CONC 33.7 g/dl (32.0-36.5); MEAN CORPUSCULAR VOLUME 87.3 fl (80.0-96.0); MONO % 9.3 % (0.0-5.0); NEUTROPHILS # 17.8 10^3/uL (1.8-7.7); NEUTROPHILS % 84.8 % (36.0-66.0); RED BLOOD COUNT 3.54 10^6/uL (4.00-5.40)
[2019-03-24 06:41] LABS: PLATELET COUNT, AUTOMATED 99 10^3/uL (150-450)
[2019-03-24 06:42] LABS: CALCIUM LEVEL 6.8 MG/DL (8.8-10.2); CREATININE FOR GFR 1.11 MG/DL (0.55-1.30); GLOMERULAR FILTRATION RATE 50.6 (>39); MAGNESIUM LEVEL 1.4 MG/DL (1.8-2.4); POTASSIUM SERUM 4.9 MEQ/L (3.5-5.1)
--- NOTE | 2019-03-24 07:41 | IPNPDOC ---
Subjective General Date/Time Seen The patient was seen on 03/24/19 at 07:38. Subject Chief Complaint/History The patient is a 78-year-old female admitted with a reason for visit of Gi Bleed. Patient was brought emergently to the operating room for persistent/recurrent bleeding from her duodenal ulcer in episode of hypotension yesterday. She did well postoperatively and has been hemodynamically stable. She has a low urine output which looks concentrated. She denies any chest pains, shortness of breath. Her hemoglobin and hematocrit has been trending up postoperatively. She is reporting a lot of anxiety and wants to drink water. She denies nausea. Pain is well-controlled with the morphine FOREST FIRE WARDEN the time she forgets to push the FOREST FIRE WARDEN button despite current bleeding and pain. Current Medications Current Medications Current Medications Acetaminophen (Tylenol Tab) 650 mg Q4HP PRN PO PAIN OR FEVER; Start 03/22/19 at 09:00 Ampicillin Sodium/ Sulbactam Sodium 3 gm/Dextrose 100 ml @ 200 mls/hr Q6H IV ; Start 03/24/19 at 07:45; Status UNV Atorvastatin Calcium (Lipitor) 40 mg QHS PO Last administered on 03/22/19at 21:05; Start 03/22/19 at 21:00; Stop 03/23/19 at 18:01; Status DC Buspirone HCl (Buspar) 20 mg TID PO Last administered on 03/23/19at 08:43; Start 03/22/19 at 16:00; Stop 03/23/19 at 18:01; Status DC Clonidine HCl (Catapres) 0.1 mg BID PO Last administered on 03/23/19at 08:44; Start 03/22/19 at 21:00 Diphenhydramine HCl (Benadryl) 12.5 mg Q4HP PRN IV ITCHING; Start 03/23/19 at 18:00 Fentanyl Citrate (Sublimaze) 25 mcg Q5MP PRN IV MODERATE PAIN (PS 4-7); Start 03/23/19 at 18:00; Stop 03/23/19 at 19:00; Status DC Furosemide (LASIX injection) 40 mg DAILY IV ; Start 03/24/19 at 09:00; Status UNV Home Med (Med Rec Complete!) ASDIRECTED XX ; Start 03/21/19 at 14:30; Stop 03/21/19 at 14:39; Status DC Hydroxyzine HCl (Atarax) 50 mg DAILYPRN PRN PO ANXIETY Last administered on 03/24/19at 03:48; Start 03/23/19 at 09:45 Lactated Ringer's 1,000 ml @ 75 mls/hr [id number] IV ; Start 03/22/19 at 00:15; Stop 03/22/19 at 01:14; Status DC Lactated Ringer's 1,000 ml @ 100 mls/hr Q10H IV Last administered on 03/24/19at 04:18; Start 03/23/19 at 18:00 Lactated Ringer's 1,000 ml @ 120 mls/hr Q8H20M IV ; Start 03/23/19 at 18:00; Stop 03/23/19 at 19:00; Status DC Lorazepam (Ativan) 1 mg Q8HP PRN PO ANXIETY; Start 03/24/19 at 07:45; Status UNV Losartan Potassium (Cozaar) 100 mg DAILY PO Last administered on 03/23/19at 08:43; Start 03/22/19 at 09:00; Status Future hold Magnesium Sulfate/ Dextrose 1 gm/IV Miscellaneous Supplies 100 ml @ 100 mls/hr 0400,0500 IV Last administered on 03/22/19at 05:40; Start 03/22/19 at 04:00; Stop 03/22/19 at 12:00; Status DC Magnesium Sulfate/ Dextrose 1 gm/IV Miscellaneous Supplies 100 ml @ 100 mls/hr Q1H IV ; Start 03/24/19 at 08:00; Stop 03/24/19 at 09:59 Metoclopramide HCl (REGLAN INJection) 10 mg Q6HP PRN IV NAUSEA OR VOMITING; Start 03/23/19 at 18:00; Stop 03/23/19 at 19:00; Status DC Metoprolol Tartrate (Lopressor) 12.5 mg BID PO Last administered on 03/23/19at 08:44; Start 03/22/19 at 21:00; Status Future hold Morphine Sulfate (Morphine Sulfate In 0.9%Nacl Iv Bag) Concentration 1 mg/ml ASDIRECTED PRN IV SEE LABEL COMMENTS Last administered on 03/23/19at 18:05; Start 03/23/19 at 18:00 Nalbuphine HCl (Nubain) 2.5 mg Q6HP PRN IV PRURITIS; Start 03/23/19 at 18:00; Stop 03/30/19 at 17:59 Naloxone HCl (Narcan) 0.1 mg Q5MP PRN IV SEE LABEL COMMENTS; Start 03/23/19 at 18:00 Non-Formulary Medication (Epidural/FOREST FIRE WARDEN [place]) USE THIS ENTRY TO VEND ... Q1M PRN XX SEE LABEL COMMENTS; Start 03/23/19 at 18:00 Ondansetron HCl (ZOFRAN INJection) 4 mg Q4HP PRN IV NAUSEA OR VOMITING; Start 03/22/19 at 00:15; Stop 03/22/19 at 01:14; Status DC Ondansetron HCl (ZOFRAN INJection) 4 mg Q4HP PRN IV NAUSEA OR VOMITING Last administered on 03/23/19at 17:59; Start 03/23/19 at 18:00; Stop 03/23/19 at 19:00; Status DC Ondansetron HCl (ZOFRAN INJection) 4 mg Q6HP PRN IV NAUSEA OR VOMITING Last administered on 03/23/19at 08:52; Start 03/21/19 at 19:15; Status Future Hold Ondansetron HCl (ZOFRAN INJection) 4 mg Q6HP PRN IV NAUSEA; Start 03/23/19 at 18:00 Oxycodone/ Acetaminophen (Percocet 5mg/ 325mg Tablet) 1 tab BIDP PRN PO MILD/MODERATE PAIN (PS 1-7) Last administered on 03/23/19at 11:31; Start 03/23/19 at 09:45; Stop 03/23/19 at 18:01; Status DC Pantoprazole Sodium (Protonix) 40 mg Q12H IV Last administered on 03/24/19at 04:18; Start 03/22/19 at 04:00 Sodium Chloride 1,000 ml @ 15 mls/hr Q24H IV ; Start 03/23/19 at 17:58; Status Cancel Sodium Chloride 1,000 ml @ 150 mls/hr Q6H40M IV ; Start 03/21/19 at 16:45; Stop 03/22/19 at 04:17; Status DC Sucralfate (Carafate Suspension) 1 gm Q6H PO Last administered on 03/24/19at 05:42; Start 03/21/19 at 18:00 Sucralfate (Carafate) 1 gm Q6H PO ; Start 03/21/19 at 18:00; Stop 03/21/19 at 18:3 9; Status DC Tramadol HCl (Ultram) 50 mg Q6HP PRN PO MODERATE PAIN (PS 5-7) Last administered on 03/23/19at 08:45; Start 03/22/19 at 14:30; Stop 03/23/19 at 18:01; Status DC Trazodone HCl (Desyrel) 100 mg QHS PO ; Start 03/23/19 at 21:00; Stop 03/23/19 at 21:00; Status DC Vitamin D (Vitamin D) 1,000 units DAILY PO Last administered on 03/23/19at 08:43; Start 03/22/19 at 09:00; Stop 03/23/19 at 18:01; Status DC Allergies Coded Allergies: amlodipine (Verified Allergy, Mild, rash, 02/22/19) blue dye (Verified Allergy, Mild, Rash , 02/22/19) Blue Dye 63 from Cymbalta duloxetine (Verified Allergy, Mild, Rash, 02/22/19) latex (Verified Allergy, Mild, rash, 03/21/19) Contrast Media (Verified Allergy, Unknown, rash, 07/11/17) nystatin (Verified Allergy, Unknown, Rash, 02/22/19) Objective Physical Examination Examination GENERAL APPEARANCE: Patient looks anxious but otherwise in no acute distress. Reports no chest pains minimal abdominal discomfort.. SKIN: Warm and dry more color to her skin as compared to yesterday. HEENT: Normocephalic, atraumatic. Pale Palpebral conjunctiva. Lips are appeared dry NECK: Supple, no thyromegaly. No obvious jugular venous distention. LUNGS: Clear to auscultation bilaterally. No wheezing appreciated. Minimal decrease in breath sounds at the posterior basal areas, no rales no wheezing HEART: Tachycardic, regular rhythm, no murmurs. ABDOMEN: Abdomen is relatively flat, minimally distended, soft, dressings are minimally stained. Mild tenderness around the upper midline incision . Nontender on the right upper quadrant area. FREDO drain mostly the bloody- appearing but has a slight tinge of bile to the drainage. EXTREMITIES: Minimal lower extremity edema. Vital Signs Vital Signs Date Time Temp Pulse Resp B/P (MAP) Pulse Ox O2 Delivery O2 Flow Rate FiO2 03/24/19 06:00 131 167/63 97 03/24/19 04:00 99.0 15 03/24/19 03:45 0.5 03/23/19 13:52 100 03/21/19 14:02 Room Air I&Os I&O- Last 24 Hours up to 6 AM 03/24/19 06:00 Intake Total 3635 ml Output Total 1680 ml Balance 1955 ml Laboratory Data Labs 24H Laboratory Tests 2 03/23/19 14:48: Nucleated Red Blood Cells % (auto) 0.0, Immature Platelet Fraction 2.8 03/24/19 05:58: Nucleated Red Blood Cells % (auto) 0.2H, Immature Granulocyte % (Auto) 0.6, White Blood Count 21.0H, Red Blood Count 3.54L, Hemoglobin 10.4L, Hematocrit 30.9L, Mean Corpuscular Volume 87.3, Mean Corpuscular Hemoglobin 29.4, Mean Corpuscular Hemoglobin Concent 33.7, Red Cell Distribution Width 15.9H, Platelet Count 99L, Neutrophils (%) (Auto) 84.8H, Lymphocytes (%) (Auto) 5.1L, Monocytes (%) (Auto) 9.3H, Eosinophils (%) (Auto) 0.0, Basophils (%) (Auto) 0.2, Neutrophils # (Auto) 17.8H, Lymphocytes # (Auto) 1.1L, Monocytes # (Auto) 2.0H, Eosinophils # (Auto) 0.0, Basophils # (Auto) 0.0, Anion Gap 7L, Glomerular Filtration Rate 50.6, Blood Urea Nitrogen 32H, Creatinine 1.11#, Sodium Level 139, Potassium Level 4.9#, Chloride Level 108H, Carbon Dioxide Level 24, Calcium Level 6.8#L, Magnesium Level 1.4L CBC/BMP Laboratory Tests 03/23/19 12:08 03/23/19 14:48 Red Blood Count 2.12 L, Mean Corpuscular Volume 87.3, Mean Corpuscular Hemoglobin 30.7, Mean Corpuscular Hemoglobin Concent 35.1, Red Cell Distribution Width 14.6 H 03/23/19 14:52 03/23/19 20:55 03/23/19 23:56 03/24/19 05:58 Red Blood Count 3.54 L, Mean Corpuscular Volume 87.3, Mean Corpuscular Hemoglobi n 29.4, Mean Corpuscular Hemoglobin Concent 33.7, Red Cell Distribution Width 15.9 H, Neutrophils (%) (Auto) 84.8 H, Lymphocytes (%) (Auto) 5.1 L, Monocytes (%) (Auto) 9.3 H, Eosinophils (%) (Auto) 0.0, Basophils (%) (Auto) 0.2, Neutrophils # (Auto) 17.8 H, Lymphocytes # (Auto) 1.1 L, Monocytes # (Auto) 2.0 H, Eosinophils # (Auto) 0.0, Basophils # (Auto) 0.0, Calcium Level 6.8 #L Impression POD1 Exploratory Laparotomy, Oversewing bleeding duodenal ulcer acute blood loss anemia anxiety disorder low urine output hemodynamically stable but tachycardic and low urine output. I think she is adequately hydrated at this point. She is actually hypertensive. We'll give some diuresis today. I told her that he will keep her mostly nothing by mouth. She can have some sips of water, small amount of ice chips to get herself comfortable until we are able to get an upper GI series sometime Wednesday or Wednesday next week before we start feeding her. FREDO drainage is mostly bloody, he does have a small tinge of bile when you shake bulb. This could just be left over from the drainage or from the gallbladder wall dissection during the surgery will continue to monitor this for signs of failure on our gastroduodenal anatomy closure. I'll start her on antibiotics. We'll start her on Unasyn for now. Continue close monitoring. continue npo with sips for meds will diurese today at some point next week will do UGIS prior to feeding to look at gastroduodenotomy keep in ICU today multiple punch press operator morphine for pain control may d/c a-line, femoral line Plan / VTE VTE Prophylaxis Ordered?: Yes BING BOYLE MD Mar 24, 2019 07:40
--- NOTE | 2019-03-24 07:44 | ROOPDOC ---
[facility] Report Of Operation Report of Operation DATE OF PROCEDURE: 03/23/19 PREPROCEDURE DIAGNOSES: hypotensive shock, bleeding duodenal ulcer. POSTPROCEDURE DIAGNOSES: same. PROCEDURE: Exploratory Laparotomy, gastroduodenotomy, oversewing of bleeding ulcer, transverse closure of gastroduodenotomy. placement left femoral arterial line. Placement of TLC through left fermoral vein cordis catheter. SURGEON: Zuhair Cain MD YARN WASHER: Dang Harvey NP ANESTHESIA: General Anesthesia. ESTIMATED BLOOD LOSS: Approximately 1000 mL. COMPLICATIONS: none, I had to take part of the gallbladder off the liver bed for exposure, slight capsular tear on the liver, . REMARKS: hemodynamically stable at the end of the procedure REPLACED: 7 u prbc, 2 u FF, 1 platelets. PROCEDURE NOTE: large cratered ulcer at the posterior portion of the duodenal bulb with accompanying induration, visible vessel at the base. triple lumen threaded through the cordis catheter placed on the left groin area. left femoral arterial catheter placed. DESCRIPTION OF PROCEDURE: Patient was emergently brought to the operating room after being hypotensive in ICU with passage of bloody stools. She received 2 g of Ancef IV preoperatively for prophylactic antibiotic. En route to the operating room for left femoral Cordis catheter was placed in the ICU and attempt on a right femoral arterial line was performed. She was receiving blood transfusion through a level I transfuser in the ICU and en route to the OR. Her blood pressure has actually stab lysed. Have already had a conversation with her prior to this event and got her consented for the exploratory laparotomy for persistent/recurrent duodenal bleeding. She was brought to the operating room placed supine on the table. Anesthesia worked on getting her ready for the surgery. Compression boots were placed in both lower extremities for DVT prophylaxis. Gen. endotracheal anesthesia was started she was mildly hypotensive and she was placed on some Delio-Synephrine support her blood pressure will be continue blood transfusion given IV fluids and getting better adequate intravenous access and monitoring lines placed. Under sterile conditions I removed the dressing on the cordis catheter in place a triple-lumen catheter and tested all 3 ports to be working adequately. This was secured to the skin. I then placed in the arterial catheter for intraope rative blood pressure monitoring lateral to the cordis catheter below the inguinal crease to access the femoral artery. This was also secured to the skin and sterile chlorhexidine containing nonocclusive dressings were placed on top of this. A Aaron catheter was placed for urine output monitoring. Her abdomen was widely prepped and draped in usual sterile fashion. We paused for a surgical timeout using both pre-incision safety checklist to verify correct patient, procedure site and additional clinical information prior to beginning the procedure. I made an upper midline vertical incision from the tip of the xiphisternum to about 2 cm below her umbilicus. This was deepened down through her subcutaneous tissue until we exposed the anterior fascia. The midline was located and the anterior fascia was opened up under direct vision lifted off the bowel with Foley clamps. The posterior fascia was opened up under direct vision and the whole of the fascial incision and large to accommodate the whole of skin incision. We set up a Candelario soft retractor for adequate visualization. On initial exploration, the stomach was distended. I asked anesthesia to place an orogastric tube and adjusted to the mid body but it to suction. The transverse colon was partially released from the gastrocolic ligament and packed away to the right lower quadrant area to expose the course of the distal stomach and duodenum. The gallbladder was likewise packed away from view. I placed a Ina forceps to help with downward retraction of the distal portion of the stomach. Dr. Davis previously scoped the patient and noted a large bleeding ulcer at the junction of the first and second portion of the duodenum. I placed 2 Carl sutures of 3-0 silk on the superior and inferior ends of the duodenum. Anal mutually incision was started at the pylorus and stomach side and enlarged towards the duodenal side. Thus we made a through and through incision to open up the pylorus and duodenum there was persistent bright red blood coming out preventing adequate visualization. I enlarged the incision going towards further and the duodenum and packed a piece of lap pads distally to prevent back going of both bile and blood. A small waist band was then used to expose the lumen of the duodenum. The ulcer was located roughly about 1.5-2 cm in size. The underlying tissue underneath the stomach was hardened and the stomach was adhered to this. Continue dissection as able to visualize the base of the ulcer. There was a visible vessel slightly proximal and superior in its c ourse. I initially tried Bovie cautery but wasn't successful. I then placed 3-0 silk sutures on the superior and inferior portion of the course of the he posterior wall of the duodenum with adequate control of the bleeding. Transverse sutures were placed both proximal and distal to the margins of the ulcer to control possible transverse pancreatic artery that may lead to rebleeding. After surveying the area making sure the bleeding stopped, I evaluated the size of my gastroduodenotomy. This was roughly about 5 cm in length anteriorly. I released the retractors to see if I need to do a [place] maneuver to release the duodenal sweep. This at this portion that I saw a rent at the capsule of the liver from the retraction of the gallbladder. This was controlled with packing as well as cautery and Surgicel to the area. I had to bring down the gallbladder from its posterior attachments at the fundus logically visualized bleeding. Once the bleeding has slowed down I placed Tisseel fibrin glue as well as Russ to the r aw surface of the liver from the tear at the capsule. At this point evaluated again my gastroduodenotomy. I placed 2 corner sutures in both the superior and anterior end and pulled the opening transversely. This seems to adequately come together by a retracting the stomach towards the duodenum. I ran a 3-0 PDS full-thickness suture in a Zuhair fashion on both ends and tied it in the middle to close our gastroduodenotomy. Second layer of Lembert sutures using 3-0 silk were then placed leaving the sutures long. I harvested a tongue of omentum and transverse colon and laid on top of our closure and tied off the silk sutures as an omental patch on top of our closure. With me occluding the distal portion of the duodenal sweep I ask anesthesia to insufflate the stomach and tested the closure under water and they did not notice any bubbling. At this point I left a 19 round Los drain coursing close to the superior portion of our closure and underneath the liver where there was some bleeding for postoperative monitoring. Her incision was then closed using #1 looped PDS in a running fashion to close her fascia. The skin was slightly undermined and was closed with interrupted erasmo. The drain was sutured in place with 2-0 silk. Patient towards the middle of the procedure stepwise tender Delio-Synephrine as been stopped. She received several more blood products during the surgery and her hemoglobin and hematocrit was monitored. At the end of procedure she is hemodynamically stable. She was promptly awake and extubated and brought to the recovery room stable ZUHAIR CAIN MD Mar 24, 2019 07:44
[2019-03-24] MEDS ORDERED: AMPICILLIN SOD/SULBACTAM SOD 3 GM in D5W MINI-BAG PLUS 100 ML IV SCH ×2 (08:00→10:00)
[2019-03-24] MEDS: cloNIDine 0.1 MG TAB PO SCH ×2 (08:33→21:18)
[2019-03-24] MEDS: MAG SULF 1GM/100ML (MAG RUN) 1 GM in APPROPRIATE DILUENT 1 EA IV SCH ×2 (08:33→09:50)
[2019-03-24] MEDS: FUROSEMIDE 40 MG/4 ML VIAL (J1940) IV SCH (08:34)
--- NOTE | 2019-03-24 11:24 | IPNPDOC ---
Text Note Date of Service The patient was seen on 03/24/19. NOTE Ms. Lopez was seen during morning rounds, she is tired, she does not really have any specific complaints other than abdominal discomfort which is to be expected. She hasn't been using her TRANSCRIPTIONIST pump however, nursing staff has to remind her to press it when she is in discomfort. She denies cp, sob or heart palpitations despite being tachycardic on exam. ROS: 12 point ROS reviewed with patient and negative except for findings discussed above. PE: Vitals: see below General: 78 yo female appearing very fatigued and complaining of some abdominal discomfort, otherwise she is in NAD HEENT: moist mucus membranes, EOMI, no JVD Resp: cta b/l, no wheezing, rales or rhonchi appreciated Cardio: tachycardic, normal s1 and s2., no murmurs, rubs or gallops, sinus tach rhythm appreciated on monitor during examination with rates into 125 BPM region Abdomen: nabsx4, discomfort to palpation in lower abdomen again, no rebound ridgity or guarding, no distension, no hepatosplenomegaly or masses appreciated, soft, she has now a FREDO draining brown dark bilious/seroussanguineous fluid, she also has L femoral triple lumen and L fem a line, dressings clean and intact, there is no erythema or swelling noted, incision from ex. lap procedure is bandaged and dressing is also clean & intact Extremities: no cyanosis, mottling or edema 1. Acute blood loss anemia causing hypovolemic shock from re-bleeding duodenal ulcer -secondary to GI source bleeding duodenal ulcer, s/p EGD on 03/22/19 that revealed large cratered actively bleeding duodenal ulcer in the first/second portion of the duodenum, not able to get access nor adequate visualization despite extensive lavage, unable to apply any endoscopic therapy. She then underwent mesenteric angiogram as per Dr Arias 03/22/19 with no obvious source of bleeding identified. No observed gastroduodenal artery-representing possible anatomical variant. -Yesterday her blood pressure began to drop, intensive care was consulted, appreciate their help, left femoral line was placed along with A-line, massive transfusion protocl was initiated and the patient was given 7 pPRB and 1 unit platelets and taken emergently with general surgery for ex. lap to identify source of bleed. During surgery her duodenal ulcer was oversewn. - In the ICU, she has a draining FREDO as described above, her A line is being d/c but we will c/w left femoral line for now, her BP is stable but she is tachycardic -Hg for today is pending , s/p 13 units pRBC, platelets and FFP, will continue to closely monitor H/H -C/W IVF, pantoprazole and carafate for now -pain control with TRANSCRIPTIONIST pump-she has to be reminded to use this -her white count did jump, afebrile, unasyn was initiated, continue to monitor for infectious source 2. Sinus tachycardia and light headedness -She is still tachycardic, she has ativan scheduled, but obviously we have to be concerned with ongoing bleeding -c/w monitoring on telemetry for now, BP stable -she was positive orthostatic, c/w IVF, no lightheadedness now -c/w transfusions as needed -monitor h/h closely q6h 3. History of elevated troponins -patient was here in mid February 2019, elevated troponin at that time of 1.93- suspect NSTEMI, she was transferred to [place] and had cardiac cath that did not demonstrate any lesions, no intervention took place -current troponin negative, she had ECHO in Oct 2018 that showed EF 60% with G 1DD -using the revised cardiac risk index for pre-op risk, she has 6% 30 day risk of , HI or cardiac arrest, Class II risk -She should be stabilized from her hemodynamic standpoint and try to resolve tachycardia and bleeding before procedures 4. HTN -c/w Cozaar -BP now 133/64 5. Constipation -holding home meds in light of current illness 6. Depression -home meds held 7. DLP -holding home meds 8. CBP -She has TRANSCRIPTIONIST pump currently 9. Insomnia -c/w home trazodone Disposition: Patient is s/p ex lap and dueodenal ulcer oversew with general surgey, she is currently stable albeit tachycardic., c/w IVF and close monitoring of h/h. Her prognosis remains guarded. VS,Fishbone, I+O VS, Fishbone, I+O Laboratory Tests 03/23/19 12:08 03/23/19 14:48 Red Blood Count 2.12 L, Mean Corpuscular Volume 87.3, Mean Corpuscular Hemoglobin 30.7, Mean Corpuscular Hemoglobin Concent 35.1, Red Cell Distribution Width 14.6 H 03/23/19 14:52 03/23/19 20:55 03/23/19 23:56 03/24/19 05:58 Red Blood Count 3.54 L, Mean Corpuscular Volume 87.3, Mean Corpuscular Hemoglobin 29.4, Mean Corpuscular Hemoglobin Concent 33.7, Red Cell Distribution Width 15.9 H, Neutrophils (%) (Auto) 84.8 H, Lymphocytes (%) (Auto) 5.1 L, Monocytes (%) (Auto) 9.3 H, Eosinophils (%) (Auto) 0.0, Basophils (%) (Auto) 0.2, Neutrophils # (Auto) 17.8 H, Lymphocytes # (Auto) 1.1 L, Monocytes # (Auto) 2.0 H, Eosinophils # (Auto) 0.0, Basophils # (Auto) 0.0, Calcium Level 6.8 #L Vital Signs Date Time Temp Pulse Resp B/P (MAP) Pulse Ox O2 Delivery O2 Flow Rate FiO2 03/24/19 08:33 133/64 03/24/19 08:00 98.6 114 13 94 0.5 03/23/19 13:52 100 03/21/19 14:02 Room Air I&O- Last 24 Hours up to 6 AM 03/24/19 06:00 Intake Total 3635 ml Output Total 1680 ml Balance 1955 ml GME ATTESTATION GME ATTESTATION My faculty preceptor for this patient encounter was physically present during the encounter and was fully available. All aspects of the patient interview, examination, medical decision making process, and medical care plan development were reviewed and approved by the faculty preceptor. The faculty preceptor is aware and concurs with the plan as stated in the body of this note and will attest to such by his/her cosignature. ATTENDING NOTE I, Thomas Vital, have both independently examined this patient as well as revi ewed the documentation. I have discussed in detail with the resident the findings and plan of treatment as documented by the resident. I agree with their findings and treatment plan. I will continue to follow the patient and offer further guidance to the patients care as necessary during this hospital stay. GLENNY EVANS DO Mar 24, 2019 11:23 THOMAS VITAL MD Mar 24, 2019 13:59
[2019-03-24] MEDS ORDERED: SODIUM CHLORIDE 0.9% INJ 10 ML SYR IV PRN (12:00)
[2019-03-24] MEDS: LORazepam 1 MG TAB PO PRN (13:04)
[2019-03-24 13:09] LABS: HEMATOCRIT 28.7 % (36.0-47.0); HEMOGLOBIN 9.9 g/dl (12.0-15.5)
[2019-03-24] MEDS: OCTREOTIDE ACETATE 100 MCG/ML VIAL (J2354) SC SCH ×2 (14:00→21:19)
[2019-03-24] MEDS: SODIUM CHLORIDE 0.9% INJ 10 ML SYR IV SCH ×4 (14:00→21:19)
--- NOTE | 2019-03-24 14:02 | IPNPDOC ---
Text Note Date of Service The patient was seen on 03/24/19. NOTE I came back to check on her. She still remains comfortable though the drainage seems more bilious in appearance still is a bit serosanguineous. At about 90 mL 6 drain this morning. I'm concerned about EKG in between my closure. This was tested under water intraoperatively. Other possibilities including some slightly cage from the gallbladder which was slightly dissected off the liver to help with the exposure of the duodenum. Plan Insert NG tube NG tube to low intermittent wall suction Continue nothing by mouth Add octreotide I started on Unasyn I will change to his Zosyn and had some Diflucan for coverage. Upper GI series next week. VS,Fishbone, I+O VS, Fishbone, I+O Laboratory Tests 03/23/19 14:48 Red Blood Count 2.12 L, Mean Corpuscular Volume 87.3, Mean Corpuscular Hemoglobin 30.7, Mean Corpuscular Hemoglobin Concent 35.1, Red Cell Distribution Width 14.6 H 03/23/19 14:52 03/23/19 20:55 03/23/19 23:56 03/24/19 05:58 Red Blood Count 3.54 L, Mean Corpuscular Volume 87.3, Mean Corpuscular Hemog lobin 29.4, Mean Corpuscular Hemoglobin Concent 33.7, Red Cell Distribution Width 15.9 H, Neutrophils (%) (Auto) 84.8 H, Lymphocytes (%) (Auto) 5.1 L, Monocytes (%) (Auto) 9.3 H, Eosinophils (%) (Auto) 0.0, Basophils (%) (Auto) 0.2, Neutrophils # (Auto) 17.8 H, Lymphocytes # (Auto) 1.1 L, Monocytes # (Auto) 2.0 H, Eosinophils # (Auto) 0.0, Basophils # (Auto) 0.0, Calcium Level 6.8 #L 03/24/19 12:51 Vital Signs Date Time Temp Pulse Resp B/P (MAP) Pulse Ox O2 Delivery O2 Flow Rate FiO2 03/24/19 08:33 133/64 03/24/19 08:00 98.6 114 13 94 0.5 03/23/19 13:52 100 03/21/19 14:02 Room Air I&O- Last 24 Hours up to 6 AM 03/24/19 06:00 Intake Total 3635 ml Output Total 1680 ml Balance 1955 ml BING BOYLE MD Mar 24, 2019 14:02
[2019-03-24] MEDS: FLUCONAZOLE 100 MG in APPROPRIATE DILUENT 1 EA IV SCH (15:24)
[2019-03-24] MEDS: ONDANSETRON 4MG/2ML VIAL (J2405) IV PRN (16:09)
[2019-03-24] MEDS: PIPERACILLIN/TAZOBACTAM SOD 3.375 GM in D5W MINI-BAG PLUS 50 ML IV SCH ×2 (16:09→21:19)
--- NOTE | 2019-03-24 17:17 | REP ---
REASON FOR EXAM: Assess nasogastric tube placement. COMPARISON EXAM: 03/22/2019 The technique utilized in obtaining the radiograph has magnified the cardiac silhouette and accentuated the interstitial markings. Lung riddle and cardiomediastinal silhouette stable. Since the last examination the nasogastric tube has been placed. The tip doubles back upon itself looping the distal portion of the NG tube as the tip remains in the lower esophagus. Evaluation of the osseous structures shows a possible fracture of the posterolateral aspect of possibly the left 6th rib. Additionally one rib below this might also be fractured but nearly impossible to evaluate on this limited portable exam. I can not rule out the possibility of additional fractures. IMPRESSION: 1. Nasogastric tube as described above. Repositioning necessary. 2. Possible rib fracture/multiple fractures. This is only suggested on the markedly limited portable exam. A rib series may prove helpful. A CT would be definitive. Electronically Signed by Jer Deleon DO 03/27/2019 12:54 P
[2019-03-24 18:26] LABS: HEMATOCRIT 25.8 % (36.0-47.0); HEMOGLOBIN 8.7 g/dl (12.0-15.5)
[2019-03-24 23:15] LABS: HEMATOCRIT 23.3 % (36.0-47.0); HEMOGLOBIN 7.8 g/dl (12.0-15.5)
[2019-03-24 23:37] LABS: POTASSIUM SERUM 4.4 MEQ/L (3.5-5.1)
[2019-03-25] VITALS (36 sets, daily range): BP systolic 95–187; BP diastolic 45–92
[2019-03-25] MEDS ORDERED: METOPROLOL TART 25 MG TABLET PO ONE (01:00)
[2019-03-25] MEDS: PANTOPRAZOLE 40MG INJ (PROTONIX) (C9113) IV SCH ×2 (04:32→17:00)
[2019-03-25] MEDS: PIPERACILLIN/TAZOBACTAM SOD 3.375 GM in D5W MINI-BAG PLUS 50 ML IV SCH ×4 (04:50→22:22)
[2019-03-25] MEDS: OCTREOTIDE ACETATE 100 MCG/ML VIAL (J2354) SC SCH ×3 (05:43→22:21)
[2019-03-25] MEDS: SUCRALFATE SUSP 1GM/10ML UD PO SCH ×3 (05:43→17:01)
[2019-03-25] MEDS: SODIUM CHLORIDE 0.9% INJ 10 ML SYR IV SCH ×6 (05:43→22:22)
[2019-03-25 06:12] LABS: HEMATOCRIT 25.5 % (36.0-47.0); HEMOGLOBIN 8.7 g/dl (12.0-15.5); MEAN CORPUSCULAR HGB CONC 34.1 g/dl (32.0-36.5); MEAN CORPUSCULAR VOLUME 90.7 fl (80.0-96.0); PLATELET COUNT, AUTOMATED 102 10^3/uL (150-450); RED BLOOD COUNT 2.81 10^6/uL (4.00-5.40); WHITE BLOOD COUNT 21.6 10^3/uL (4.0-10.0)
[2019-03-25 06:31] LABS: CALCIUM LEVEL 7.2 MG/DL (8.8-10.2); CREATININE FOR GFR 1.2 MG/DL (0.55-1.30); GLOMERULAR FILTRATION RATE 46.3 (>39); POTASSIUM SERUM 4.2 MEQ/L (3.5-5.1)
[2019-03-25 07:02] LABS: LYMPHOCYTES 7 % (16-52); MONOCYTES 5 % (0-8); NEUTROPHILS 80 % (35-75)
[2019-03-25 07:03] LABS: ANISOCYTOSIS 2+; HYPOCHROMASIA 1+; PLATELET ESTIMATE DECREASED (NORMAL)
--- NOTE | 2019-03-25 08:22 | REP ---
Chest one-view HISTORY: Fluid overload Comparison: 03/24/2019 An increase in interstitial markings is present in the lower lobes consistent with chronic interstitial change. A calcified granuloma is present in the right lower lobe. There is blunting of the left costophrenic angle due to small pleural effusion. The cardiac silhouette is enlarged. The pulmonary vasculature is normal in appearance. There is a possible fracture of the left sixth rib. An NG tube is present. Impression: 1. Bibasilar chronic interstitial change. 2. Cardiomegaly. 3. There is a possible fracture of the left sixth rib. Electronically Signed by Anoop Sánchez MD 03/25/2019 08:13 A
[2019-03-25] MEDS: FUROSEMIDE 40 MG/4 ML VIAL (J1940) IV SCH (08:36)
[2019-03-25] MEDS: ONDANSETRON 4MG/2ML VIAL (J2405) IV PRN (08:37)
[2019-03-25] MEDS: cloNIDine 0.1 MG TAB PO SCH (08:37)
[2019-03-25] MEDS: LORazepam 1 MG TAB PO PRN (08:38)
[2019-03-25] MEDS: ACETAMINOPHEN TAB 650MG DOSE (2X325MG) PO PRN (08:39)
[2019-03-25] MEDS: METOPROLOL TART 12.5 MG PER 1/2 TAB PO SCH ×2 (08:40→20:03)
[2019-03-25] MEDS: NS 1,000 ML IV SCH (08:40)
[2019-03-25] MEDS ORDERED: GI COCKTAIL 50ML BTL(HYOSCYAMINE/MAALOX/LIDOCAINE VISCOUS)(1:3:1) PO ONE (09:00)
[2019-03-25] MEDS: LOSARTAN 50 MG TAB PO SCH (10:36)
[2019-03-25 11:28] LABS: HEMATOCRIT 23.8 % (36.0-47.0); HEMOGLOBIN 8.1 g/dl (12.0-15.5)
[2019-03-25] MEDS: FLUCONAZOLE 100 MG in APPROPRIATE DILUENT 1 EA IV SCH (14:13)
--- NOTE | 2019-03-25 14:17 | IPN ---
DATE: 03/25/2019 The patient is status post oversewing of a duodenal ulcer and clinically her son is present. Feels like she seems to be better today. She has been taking pain medication and seems a little bit groggy however. She has had no significant melanotic stools/no bowel movements and more importantly, her NG tube output has not been significantly bloody. Her drain, however, there was quite a bit yesterday but it was bilious initially, now at this point it has a little bit of bile tinged blood, but otherwise no other significant abnormality. Her vitals shows that she had a little bit of temperature spike of 100.7 and her white count is elevated but stable from yesterday at 21.6. On her physical examination, abdomen is soft, mildly tender at the incision. No significant drainage is appreciated. No erythema from the sites. She does have some pitting edema of her arms bilaterally. IMPRESSION AND PLAN The patient is status post oversewing of a bleeding ulcer and bleeding at this point, although her hematocrit has dropped a little bit, seems to be relatively stable and not clinically bleeding from a GI standpoint. She may have some oozing from the anastomosis/the repair, but otherwise no other significant area or ongoing bleeding is appreciated. I do feel that given her hematocrit is low it may be reasonable to give her some blood, but I will defer that to the hospitalist. From a GI standpoint, I would recommend that we keep her nothing by mouth (npo) for now with the NG tube in place and keep the octreotide going with Protonix. Otherwise no significant changes for right now. I do feel that it is reasonable with her significant medical issues and comorbidities that she stays in the ICU for right now with close IV monitoring, urine output, etc.
--- NOTE | 2019-03-25 14:23 | IPNPDOC ---
Text Note Date of Service The patient was seen on 03/25/19. NOTE Ms. Lopez was seen during morning rounds, she complains of abdominal discomf ort on examination but does not appear in too much discomfort. She is fatigued. She denies cp, sob or heart palpitations. ROS: 12 point ROS reviewed with patient and negative except for findings dis cussed above. PE: Vitals: see below General: 78 yo female appearing very fatigued and complaining of some abdominal discomfort, improved today, otherwise she is in NAD, she does have pallor of face HEENT: moist mucus membranes, EOMI, no JVD Resp: cta b/l, no wheezing, rales or rhonchi appreciated Cardio: normal s1 and s2., no murmurs, rubs or gallops, sinus rhythm appreciated on monitor during examination with rates into 85 BPM region Abdomen: nabsx4, discomfort to palpation in lower abdomen again, no rebound ridgity or guarding, no distension, no hepatosplenomegaly or masses appreciated, soft, she has now a FREDO draining brown darker brown/seroussanguineous, light yellow hued fluid (about 30 mL on this mornings exam), she also has L femoral triple lumen and is s/p L fem A line, dressings clean and intact, there is no erythema or swelling noted, dressing for incision from ex. lap procedure is being changed, site of incision is clean and staple closures are intact, borders are approximated without dehiscence, there is no blood or pus exudation, left brachial cutdown incision is examined, staple closure is approximated and without dehiscence, no pus or blood exudation, it is a bit erythematous, somewhat swollen but not warm to the touch, good radial pulses appreciated for left UE, no signs of cyanosis or pallor of L UE, L fem triple lumen in place,dressing is dry but is being changed as it appears to have dried blood on it, dressing is intact, cannot appreciate erythema, swelling at site of l fem triple lumen site Extremities: no cyanosis, mottling or edema 1. Acute blood loss anemia causing hypovolemic shock from re-bleeding duodenal ulcer -8.23.8 was last H/H -secondary to GI source bleeding duodenal ulcer, s/p EGD on 03/22/19 that revealed large cratered actively bleeding duodenal ulcer in the first/second portion of the duodenum, not able to get access nor adequate visualization despite extensive lavage, unable to apply any endoscopic therapy. She then underwent mesenteric angiogram as per Dr Arias 03/22/19 with no obvious source of bleeding identified. No observed gastroduodenal artery-representing possible anatomical variant. -S/p ex lap for duodenal ulcer oversew procedure 03.23.[address] Cain In the ICU, she has a draining FREDO as described above, s/p L fem. A line, triple lumen L fem. access is still in place, her BP is stable, tachycardia have reso lved on my examination -HG did dip again overnight, now s/p 14 units pRBC, platelets and FFP, will c ontinue to closely monitor H/H -Have stopped IVF, she is getting fluid w/ blood transfusions, pantoprazole 40 mg BID and carafate for now, GI cocktail q6h -pain control with LICENSED FUNERAL DIRECTOR AND EMBALMER pump -white count 21.6 a bit of an elevation minimal, although she had slight fever today-pt initiated on Zosyn and Fluconazole (03/24/19), continue for now, CXR pending -transfusing two units PRBC and one unit platelets now 2. Sinus tachycardia and light headedness -Resolved -c/w monitoring on telemetry for now, BP stable -she was positive orthostatic, s/p IVF, no lightheadedness now -c/w transfusions as needed -monitor h/h closely q6h 3. History of elevated Troponins -patient was here in mid February 2019, elevated troponin at that time of 1.93- suspect NSTEMI, she was transferred to [place] and had cardiac cath that did not demonstrate any lesions, no intervention took place -current troponin negative, she had ECHO in Oct 2018 that showed EF 60% with G1DD -using the revised cardiac risk index for pre-op risk, she has 6% 30 day risk of , MN or cardiac arrest, Class II risk 4. HTN -c/w Metoprolol & Lasix - Hold Clonidine and Losartan -stable 5. Constipation -holding home meds in light of current illness 6. Depression -home meds held 7. DLP -holding home meds 8. CBP -She has LICENSED FUNERAL DIRECTOR AND EMBALMER pump currently 9. Insomnia -c/w home trazodone Disposition: Patient is s/p ex lap and dueodenal ulcer oversew with general surgey, tachycardia has resolved, she did have elevation of temp overnight and slight increase in WBC., c/w abx as discussed above, could be secondary stress demargination due to surgery, her left brachial cutdown incision does not appear to be cellulitic in nature, likely reactive inflammation from procedure, continue to monitor for now. She is NPO per surgery recommendations, UGIS plann ed for next wk. Her prognosis unfortunately remains guarded at best. Monitoring H/H. Transfusing one unit platelets now. VS,Fishbone, I+O VS, Fishbone, I+O Laboratory Tests 03/24/19 17:33 03/24/19 23:02 03/25/19 05:44 Red Blood Count 2.81 L, Mean Corpuscular Volume 90.7, Mean Corpuscular Hemoglobin 31.0, Mean Corpuscular Hemoglobin Concent 34.1, Red Cell Distribution Width 16.4 H, Calcium Level 7.2 L 03/25/19 11:11 Vital Signs Date Time Temp Pulse Resp B/P (MAP) Pulse Ox O2 Delivery O2 Flow Rate FiO2 03/25/19 10:36 95/52 03/25/19 10:00 99.5 66 12 99 2.0 03/23/19 13:52 100 03/21/19 14:02 Room Air I&O- Last 24 Hours up to 6 AM 03/25/19 06:00 Intake Total 2800 ml Output Total 1095 ml Balance 1705 ml GME ATTESTATION GME ATTESTATION My faculty preceptor for this patient encounter was physically present during the encounter and was fully available. All aspects of the patient interview, examination, medical decision making process, and medical care plan development were reviewed and approved by the faculty preceptor. The faculty preceptor is aware and concurs with the plan as stated in the body of this note and will attest to such by his/her cosignature. ATTENDING NOTE I, Thomas Vital, have both independently examined this patient as well as reviewed the documentation. I have discussed in detail with the resident the findings and plan of treatment as documented by the resident. I agree with their findings and treatment plan. I will continue to follow the patient and offer further guidance to the patients care as necessary during this hospital stay. GLENNY EVANS DO Mar 25, 2019 14:22 THOMAS VITAL MD Mar 25, 2019 14:48
[2019-03-25] MEDS: GI COCKTAIL 50ML BTL(HYOSCYAMINE/MAALOX/LIDOCAINE VISCOUS)(1:3:1) PO PRN (17:01)
--- NOTE | 2019-03-25 17:16 | ECGEPIP ---
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
[2019-03-25] MEDS: MORPHINE 1MG/ML IN 0.9% NACL 100ML IV BAG IV PRN (18:25)
[2019-03-25 22:43] LABS: HEMATOCRIT 31.3 % (36.0-47.0)
[2019-03-25 22:50] LABS: HEMOGLOBIN 10.3 g/dl (12.0-15.5)
[2019-03-26] VITALS (25 sets, daily range): BP systolic 92–173; BP diastolic 56–100
[2019-03-26] MEDS: SUCRALFATE SUSP 1GM/10ML UD PO SCH ×5 (00:34→23:20)
[2019-03-26] MEDS: GI COCKTAIL 50ML BTL(HYOSCYAMINE/MAALOX/LIDOCAINE VISCOUS)(1:3:1) PO PRN ×2 (00:35→11:11)
[2019-03-26] MEDS: PANTOPRAZOLE 40MG INJ (PROTONIX) (C9113) IV SCH ×2 (04:10→15:04)
[2019-03-26] MEDS: PIPERACILLIN/TAZOBACTAM SOD 3.375 GM in D5W MINI-BAG PLUS 50 ML IV SCH ×4 (04:10→21:07)
[2019-03-26] MEDS: OCTREOTIDE ACETATE 100 MCG/ML VIAL (J2354) SC SCH ×3 (05:53→21:06)
[2019-03-26] MEDS: SODIUM CHLORIDE 0.9% INJ 10 ML SYR IV SCH ×6 (05:55→21:07)
[2019-03-26 06:13] LABS: HEMATOCRIT 32.2 % (36.0-47.0); HEMOGLOBIN 10.9 g/dl (12.0-15.5); MEAN CORPUSCULAR HEMOGLOBIN 30.7 pg (27.0-33.0); MEAN CORPUSCULAR HGB CONC 33.9 g/dl (32.0-36.5); MEAN CORPUSCULAR VOLUME 90.7 fl (80.0-96.0); PLATELET COUNT, AUTOMATED 129 10^3/uL (150-450); RED BLOOD COUNT 3.55 10^6/uL (4.00-5.40); WHITE BLOOD COUNT 17.4 10^3/uL (4.0-10.0)
[2019-03-26 06:36] LABS: BLOOD UREA NITROGEN 26 MG/DL (7-18); CALCIUM LEVEL 7.1 MG/DL (8.8-10.2); CARBON DIOXIDE LEVEL 31 MEQ/L (21-32); CHLORIDE LEVEL 107 MEQ/L (98-107); CREATININE FOR GFR 0.84 MG/DL (0.55-1.30); GLOMERULAR FILTRATION RATE > 60.0 (>39); GLUCOSE, FASTING 100 MG/DL (70-100); POTASSIUM SERUM 3.1 MEQ/L (3.5-5.1); SODIUM LEVEL 145 MEQ/L (136-145)
[2019-03-26 06:44] LABS: LYMPHOCYTES 4 % (16-52); MONOCYTES 5 % (0-8); NEUTROPHILS 90 % (35-75)
[2019-03-26 06:45] LABS: ANISOCYTOSIS 1+; PLATELET ESTIMATE DECREASED (NORMAL)
[2019-03-26 07:28] LABS: ALBUMIN 1.8 GM/DL (3.2-5.2)
[2019-03-26] MEDS ORDERED: POTASSIUM CHLORIDE 10 MEQ SR TABLET PO ONE (08:00)
[2019-03-26] MEDS: LORazepam 1 MG TAB PO PRN (09:31)
[2019-03-26] MEDS: KCL 20MEQ IN 100ML SWI (KRUN) 20 MEQ in APPROPRIATE DILUENT 1 EA IV SCH ×4 (09:32→11:11)
[2019-03-26] MEDS: FUROSEMIDE 40 MG/4 ML VIAL (J1940) IV SCH (09:32)
[2019-03-26] MEDS: NS 1,000 ML IV SCH (09:33)
[2019-03-26] MEDS: METOPROLOL TART 12.5 MG PER 1/2 TAB PO SCH ×2 (09:34→21:06)
--- NOTE | 2019-03-26 11:21 | IPNPDOC ---
Text Note Date of Service The patient was seen on 03/26/19. NOTE Subjective: Patient is a 78-year-old female with a PMHx of HTN, AAA s/p repair, RA / Osteoporosis / Chronic back pain / Spinal stenosis s/p laminectomy, who presented to the ER with complaints of 10 episodes of dark black diarrhea. Patient was admitted to hospitalist service for further evaluation and treatment. Gastroenterology was initially called on consultation. Patient was seen and examined at the bedside. Patient was seen sitting up in chair reported that she is expressing some abdominal pain but not significant. Denies nausea, vomiting. Has not yet had a bowel movement. Patient is a Aaron catheter in place. Denies chest pain, shortness breath, palpitations. Does report some dizziness. Objective: Vitals (See below) General: Lying in bed, no acute distress, comfortable, AAOx3 HEENT: NC, AT CVS: RRR, +S1S2 Lungs: Fair air entry b/l, auscultation is without wheezing, rhonchi or rales Abdomen: Soft, ND, mild tenderness at epigastrium, midline incision noted, FREDO drain - draining serous evidence fluid Extremities: There is 1+ pitting edema at her ankles and below, - Calf tenderness Assessment and plan: Hemorrhagic shock / Hypovolemic shock / Acute blood loss anemia / Symptomatic a nemia - likely 2/2 acute upper GI bleeding - 2/2 actively bleeding duodenal ulcer - Patient reports improvement in her symptoms; although, still expresses some abdominal pain - Remains hemodynamically stable - Will continue to trend H&H q6h - s/p EGD with Dr. Davis on 03/22 - s/p Angiograph with Dr. Arias on 03/22 - s/p Duodenal repair and Ex. Lap with Dr. Cain on 03/23 - s/p 16 units PRBC; 4 units FFP, 2 units platelets - Will continue to follow H&H - c/w Protonix / Octreotide Coverage infection after intra-abdominal surgery - c/w Zosyn and Fluconazole (Day #3) as per general surgery - c/w pain control (Morphine DRINK WAITER / GI cocktail) Evidence of fluid overload - likely 2/2 iatrogenic etiology 2/2 multiple blood products - c/w Strict ins/outs - c/w Furosemide 40 IV daily s/p Sinus tachycardia Hx of Elevated troponin - 02/2019; Suspected NSTEMI; was transferred from [facility] to [place] for cardiac cath and was found to have no stenosis and no stenting was completed - Current troponin negative x3 - ECHO 10/2018: EF 60%, G1DD, [id number] AV sclerosis, Very mild AR, No , HTN - BP moderately controlled - s/p Clonidine and Losartan - c/w Metoprolol and Furosemide - Will reintroduce BP medications with improvement in renal function Constipation - Bowel regimen on hold Depression - Buspirone on hold DLP - Atorvastatin on hold Chronic back pain - Pain medications as stated above Insomnia - c/w Trazodone DVT prophylaxis - c/w TEDs/Sequentials Disposition: - Remains NPO for now - Will re-evaluate with imaging in next 24-48 hours VS,Sergio, I+O VS, Sergio, I+O Laboratory Tests 03/25/19 11:11 03/25/19 22:26 03/26/19 05:56 Red Blood Count 3.55 L, Mean Corpuscular Volume 90.7, Mean Corpuscular Hem oglobin 30.7, Mean Corpuscular Hemoglobin Concent 33.9, Red Cell Distribution Width 17.2 H, Calcium Level 7.1 L Vital Signs Date Time Temp Pulse Resp B/P (MAP) Pulse Ox O2 Delivery O2 Flow Rate FiO2 03/26/19 09:34 98 153/67 03/26/19 09:00 12 97 2.0 03/26/19 08:00 98.9 03/23/19 13:52 100 03/21/19 14:02 Room Air I&O- Last 24 Hours up to 6 AM 03/26/19 06:00 Intake Total 2023 ml Output Total 3275 ml Balance -1252 ml LINDSAY DUARTE MD Mar 26, 2019 11:21
[2019-03-26 11:36] LABS: HEMOGLOBIN 11.6 g/dl (12.0-15.5)
[2019-03-26] MEDS ORDERED: METOPROLOL TART 25 MG TABLET NG ONE (13:45)
[2019-03-26] MEDS ORDERED: NS 500 ML IV ONE (14:45)
[2019-03-26] MEDS: FLUCONAZOLE 100 MG in APPROPRIATE DILUENT 1 EA IV SCH (15:07)
[2019-03-26 15:45] LABS: HEMATOCRIT 32.8 % (36.0-47.0); HEMOGLOBIN 10.9 g/dl (12.0-15.5); MEAN CORPUSCULAR HEMOGLOBIN 30.5 pg (27.0-33.0); MEAN CORPUSCULAR HGB CONC 33.2 g/dl (32.0-36.5); MEAN CORPUSCULAR VOLUME 91.9 fl (80.0-96.0); PLATELET COUNT, AUTOMATED 138 10^3/uL (150-450); RED BLOOD COUNT 3.57 10^6/uL (4.00-5.40); WHITE BLOOD COUNT 19.5 10^3/uL (4.0-10.0)
[2019-03-26 16:08] LABS: CK-MB VALUE MASS 1.7 NG/ML (<3.6); MB/CK RELATIVE INDEX 2.54 (< OR =4); TROPONIN I 0.08 NG/ML (< 0.10)
[2019-03-26] MEDS ORDERED: SODIUM CHLORIDE 0.9% 1000ML IV ONE (16:30)
[2019-03-26] MEDS: ACETAMINOPHEN TAB 650MG DOSE (2X325MG) PO PRN (16:31)
[2019-03-26 17:02] LABS: LYMPHOCYTES 5 % (16-52); MONOCYTES 8 % (0-8); NEUTROPHILS 82 % (35-75)
[2019-03-26 17:08] LABS: ANISOCYTOSIS 2+
[2019-03-26 17:09] LABS: MICROCYTOSIS 1+; POLYCHROMASIA 1+
[2019-03-26 17:10] LABS: PLATELET ESTIMATE DECREASED (NORMAL)
[2019-03-26] MEDS ORDERED: DIGOXIN INJ 0.5 MG/2 ML AMP (J1160) IV ONE (17:30)
[2019-03-26] MEDS: MORPHINE 1MG/ML IN 0.9% NACL 100ML IV BAG IV PRN (18:42)
--- NOTE | 2019-03-26 19:34 | ECGEPIP ---
[facility] Test Date: 2019-03-26 Pat Name: JENNIE MENDOZA Department: Room: [place] [address] Gender: Female Composite Worker: RAKEL : 1940 Requested By: LINDSAY DUARTE Order Number: [id number] Reading MD: Vivek Cason Measurements Intervals [place] Rate: 155 P: SD: -1 QRS: QRSD: 79 T: 152 QT: 260 QTc: 418 Interpretive Statements ATRIAL FIBRILLATION WITH RAPID VENTRICULAR RESPONSE ST DEVIATION AND MODERATE T-WAVE ABNORMALITY, CONSIDER ISCHEMIA Increased heart rate, no longer sinus, more pronounced repolarization abnormalities compared with 03/25/2019. Electronically Signed on 03-26-2019 19:34:05 EDT by Vivek Cason
[2019-03-26] MEDS: hydrOXYzine 25 MG TAB PO PRN (21:05)
--- NOTE | 2019-03-26 21:47 | IPN ---
DATE: 03/26/2019 Overall, the patient states that she is feeling much better today, is not having any significant nausea. Her nasogastric tube has put out very minimal overnight and she has had some good urine output. Her drainage unfortunately from her Kei-Holt drain continues to put out and looks a little more bilious today than it was yesterday, and the amount is relatively high at this time. She does have an elevated white count. PHYSICAL EXAMINATION: Her abdomen is not significantly distended, not significantly tender in the epigastric area. Without guarding and without rebound. Drainage is still the minimal bilious drainage. She has nasogastric tube, which is putting out minimal fluids at this time, incisions, which are clean, dry and healing nicely. IMPRESSION/PLAN: Unfortunately, the patient has probably a small leak, which seems to be controlled at the suture line and I would continue being aggressive with nothing by mouth, nasogastric tube decompression, and medical treatment with the octreotide. As long as her current drainage seems to be well controlled, repeat operative intervention is not indicated; however, if she develops increasing abdominal pain, we may have to reconsider this.
[2019-03-27] VITALS (16 sets, daily range): BP systolic 135–181; BP diastolic 62–99
[2019-03-27 00:06] LABS: HEMATOCRIT 27.1 % (36.0-47.0)
[2019-03-27 00:09] LABS: HEMOGLOBIN 8.8 g/dl (12.0-15.5)
[2019-03-27] MEDS: PANTOPRAZOLE 40MG INJ (PROTONIX) (C9113) IV SCH ×2 (03:41→17:17)
[2019-03-27] MEDS: PIPERACILLIN/TAZOBACTAM SOD 3.375 GM in D5W MINI-BAG PLUS 50 ML IV SCH ×4 (03:41→20:22)
[2019-03-27] MEDS: METOPROLOL TART 12.5 MG PER 1/2 TAB PO SCH ×4 (03:42→21:31)
[2019-03-27] MEDS: SODIUM CHLORIDE 0.9% INJ 10 ML SYR IV SCH ×7 (05:28→21:31)
[2019-03-27] MEDS: SUCRALFATE SUSP 1GM/10ML UD PO SCH ×3 (05:28→17:17)
[2019-03-27] MEDS: OCTREOTIDE ACETATE 100 MCG/ML VIAL (J2354) SC SCH ×3 (05:28→21:31)
[2019-03-27] MEDS: hydrOXYzine 25 MG TAB PO PRN ×3 (05:29→21:32)
[2019-03-27 06:25] LABS: HEMATOCRIT 32.8 % (36.0-47.0); HEMOGLOBIN 10.6 g/dl (12.0-15.5); MEAN CORPUSCULAR HEMOGLOBIN 30.5 pg (27.0-33.0); MEAN CORPUSCULAR HGB CONC 32.3 g/dl (32.0-36.5); MEAN CORPUSCULAR VOLUME 94.3 fl (80.0-96.0); PLATELET COUNT, AUTOMATED 151 10^3/uL (150-450); RED BLOOD COUNT 3.48 10^6/uL (4.00-5.40); WHITE BLOOD COUNT 19.6 10^3/uL (4.0-10.0)
[2019-03-27 06:48] LABS: BLOOD UREA NITROGEN 20 MG/DL (7-18); CALCIUM LEVEL 7.3 MG/DL (8.8-10.2); CARBON DIOXIDE LEVEL 31 MEQ/L (21-32); CHLORIDE LEVEL 106 MEQ/L (98-107); CREATININE FOR GFR 0.56 MG/DL (0.55-1.30); GLOMERULAR FILTRATION RATE > 60.0 (>39); GLUCOSE, FASTING 63 MG/DL (70-100); MAGNESIUM LEVEL 1.8 MG/DL (1.8-2.4); POTASSIUM SERUM 2.9 MEQ/L (3.5-5.1); SODIUM LEVEL 146 MEQ/L (136-145)
[2019-03-27] MEDS ORDERED: KCL 20MEQ IN 100ML SWI (KRUN) 20 MEQ in APPROPRIATE DILUENT 1 EA IV ONE ×4 (07:00→07:15)
[2019-03-27 07:01] LABS: LYMPHOCYTES 4 % (16-52); MONOCYTES 4 % (0-8); NEUTROPHILS 88 % (35-75)
[2019-03-27 07:02] LABS: ANISOCYTOSIS 1+; MICROCYTOSIS 1+; PLATELET ESTIMATE NORMAL (NORMAL)
[2019-03-27 07:04] LABS: POIKILOCYTOSIS 1+
[2019-03-27] MEDS: KCL 20MEQ IN 100ML SWI (KRUN) 20 MEQ in APPROPRIATE DILUENT 1 EA IV SCH ×4 (07:15→10:38)
--- NOTE | 2019-03-27 09:57 | IPN ---
DATE: 03/27/2019 Overall, the patient has been relatively stable overnight and her pain has been well-controlled with her FOUR SLIDE MACHINE SETTER. She has had good urine output. She is not having any nausea. Her NG tube was not draining well and thus I did irrigate the tube and once I was able to irrigate it, it seemed to work better and there is a great deal of bile coming out of it. Her Kei-Holt drain however does have some bile coming out of this as well. Otherwise, her abdomen is softly distended in the epigastric area. No significant tenderness pain or discomfort is appreciated. She had three bowel movements yesterday, but nothing today so far. IMPRESSION AND PLAN: 1. With the bile coming back up into her stomach, it is unlikely that she has duodenal ulcer bleeding and thus continuing on her medications for the ulcer are reasonable at this time. 2. The J-P drain has bile in it and is probably where the suture line is and has some leakage. I think if we can control the biliary bile drainage with the NG tube we may be gilmar to get this to heal up/resolve and thus keeping her nothing by mouth (n.p.o.) with the NG tube in is reasonable at this time. Evaluation of this area can be with an upper GI with a CAT scan with oral contrast with possibly even a HIDA scan. Although at this point given that she clinically seems to be making some improvement, I do feel that it is reasonable to see how she does over today and then if she has increasing temperature, fever or her white count does not seem to come down over the next 24-48 hours, then I would recommend repeating the studies. The patient has some baseline confusion, but overall is reliable in her exam. I anticipate this inflammatory process that has been ongoing and even possibly some bile peritonitis in the epigastric area is some of the reason for her elevated white count. Continuing her on antibiotics at this time is very reasonable. Otherwise, close observation and monitoring is reasonable and encouraged.
[2019-03-27 12:13] LABS: HEMATOCRIT 32.6 % (36.0-47.0); HEMOGLOBIN 10.3 g/dl (12.0-15.5)
--- NOTE | 2019-03-27 12:13 | IPNPDOC ---
Text Note Date of Service The patient was seen on 03/27/19. NOTE Ms. Lopez was seen and examined during bedside morning rounds, she complains of some abdominal discomfort on examination but does not appear in too much discomfort. She is worried about using her [employer]IST too much because she doesn't want to become a drug addict. She denies cp, sob or heart palpitations. ROS: 12 point ROS reviewed with patient and negative except for findings discussed above. PE: Vitals: see below General: 78 yo female laying in bed, speaking in full sentences, NAD, conversant HEENT: moist mucus membranes, EOMI, no JVD Resp: CTA b/l, no wheezing, rales or rhonchi appreciated Cardio: normal s1 and s2., no murmurs, rubs or gallops, RRR Abdomen: nabsx4, discomfort to palpation in lower abdomen again today, no rebound ridgity or guarding, no distension, no hepatosplenomegaly or masses appreciated, soft, her FREDO is currently draining brown darker bilious liquid, L femoral triple lumen and is s/p L fem A line, dressings clean and intact, there is no erythema or swelling noted, dressing for incision from ex. lap procedure is clean and intact, left brachial cutdown incision dressing has some serosanguineous drainage on it but is intact, is a bit erythematous, somewhat swollen again today but not warm to the touch, good radial pulses appreciated for left UE, no signs of cyanosis or pallor of L UE, L fem triple lumen in place,dressing is dry and intact, cannot appreciate erythema, swelling at site of l fem triple lumen site Extremities: no cyanosis, mottling or edema 1. Acute blood loss anemia causing hypovolemic/hemorrhagic shock from re-blee ding duodenal ulcer -10..8 was last H/H -secondary to GI source bleeding duodenal ulcer, s/p EGD on 03/22/19 that revealed large cratered actively bleeding duodenal ulcer in the first/second portion of the duodenum, not able to get access nor adequate visualization despite extensive lavage, unable to apply any endoscopic therapy. She then underwent mesenteric angiogram as per Dr Arias 03/22/19 with no obvious source of bleeding identified. No observed gastroduodenal artery-representing possible anatomical variant. -S/p ex lap for duodenal ulcer oversew procedure 03.23.[address] Cain In the ICU, she has a draining FREDO as described above, s/p L fem. A line, triple lumen L fem. access is still in place -HG has been a bit fluctuating, now s/p 16 units pRBC, platelets and FFP have also been transfused, will continue to closely monitor H/H -c/w pantoprazole 40 mg BID and sucralfate for now, GI cocktail q6h Coverage infection after intra-abdominal surgery -white count 19.6- has been afebrile-c/w Zosyn and Fluconazole (03/24/19) CXR 03.25.19 essentially unrevealing-procal pending -pain control with [employer]IST pump 2. Sinus tachycardia and light headedness -Resolved -c/w monitoring on telemetry for now, BP stable -she was positive orthostatic, s/p IVF, no lightheadedness now -c/w transfusions as needed -monitor h/h closely q6h - IVF as discussed above 3. History of elevated Troponin - suspected to be 2/2 NSTEMI within the past 28 days -patient was here in mid February 2019, elevated troponin at that time of 1.93- suspected NSTEMI, she was transferred to [facility] and had cardiac cath that did not demonstrate any lesions, no intervention / stents were place -current troponin negative, she had ECHO in Oct 2018 that showed EF 60% with G1DD -using the revised cardiac risk index for pre-op risk, she has 6% 30 day risk of , AL or cardiac arrest, Class II risk 4. HTN with signs of possible fluid overload -c/w Metoprolol & Lasix for now, pt has received many blood products - Hold Clonidine and Losartan -stable 5. Constipation -holding home meds in light of current illness 6. Depression -home meds held 7. DLP -holding home meds 8. CBP -She has [employer] pump currently 9. Insomnia -c/w home trazodone Disposition: Patient is s/p ex lap and duodenal ulcer oversew with general surgery, tachycardia has resolved, afebrile and WBC elevated but improving likely secondary to bile peritonitis. General surgery may do UGIS this week or possible CT abdomen with oral contrast, appreciate their help. C/w abx as discussed above, could be secondary stress demargination due to surgery or reactive inflammation from bile peritonitis, her left brachial cutdown incision does not appear to be cellulitic in nature, have asked nursing staff to please remove bandage as it did have some serous sanguineous exudation on the dressing, likely reactive inflammation from procedure, continue to monitor for now. She is NPO per surgery recommendations and should remain so until they feel otherwsie. Monitoring H/H. IVF have been initiated for low K. VS,Fishbone, I+O VS, Fishbone, I+O Laboratory Tests 03/26/19 15:25 Red Blood Count 3.57 L, Mean Corpuscular Volume 91.9, Mean Corpuscular Hemoglobin 30.5, Mean Corpuscular Hemoglobin Concent 33.2, Red Cell Distribution Width 17.3 H 03/26/19 23:22 03/27/19 04:53 Red Blood Count 3.48 L, Mean Corpuscular Volume 94.3, Mean Corpuscular Hemoglobin 30.5, Mean Corpuscular Hemoglobin Concent 32.3, Red Cell Distribution Width 17.2 H, Calcium Level 7.3 L Vital Signs Date Time Temp Pulse Resp B/P (MAP) Pulse Ox O2 Delivery O2 Flow Rate FiO2 03/27/19 08:00 97.8 91 19 176/70 (105) 95 2.0 03/23/19 13:52 100 03/21/19 14:02 Room Air I&O- Last 24 Hours up to 6 AM 03/27/19 06:00 Intake Total 2300 ml Output Total 4085 ml Balance -1785 ml GME ATTESTATION GME ATTESTATION My faculty preceptor for this patient encounter was physically present during the encounter and was fully available. All aspects of the patient interview, examination, medical decision making process, and medical care plan development were reviewed and approved by the faculty preceptor. The faculty preceptor is aware and concurs with the plan as stated in the body of this note and will attest to such by his/her cosignature. ATTENDING NOTE I, Thomas Vital, have both independently examined this patient as well as reviewed the documentation. I have discussed in detail with the resident the findings and plan of treatment as documented by the resident. I agree with their findings and treatment plan. I will continue to follow the patient and offer further guidance to the patients care as necessary during this hospital stay. GLENNY EVANS DO Mar 27, 2019 12:13 THOMAS VITAL MD Mar 27, 2019 13:57
[2019-03-27 12:41] LABS: ALBUMIN 1.7 GM/DL (3.2-5.2); ALT/SGPT 14 U/L (12-78); BILIRUBIN,TOTAL 0.6 MG/DL (0.2-1.0); BLOOD UREA NITROGEN 18 MG/DL (7-18); CARBON DIOXIDE LEVEL 32 MEQ/L (21-32); CHLORIDE LEVEL 108 MEQ/L (98-107); CREATININE FOR GFR 0.54 MG/DL (0.55-1.30); GLOMERULAR FILTRATION RATE > 60.0 (>39); GLUCOSE, FASTING 60 MG/DL (70-100); MAGNESIUM LEVEL 1.8 MG/DL (1.8-2.4); POTASSIUM SERUM 3.8 MEQ/L (3.5-5.1); SODIUM LEVEL 147 MEQ/L (136-145); TOTAL PROTEIN 4.3 GM/DL (6.4-8.2)
[2019-03-27] MEDS ORDERED: LIDOCAINE 1% MDV 20ML VIAL As Ordered ONE (14:20)
[2019-03-27] MEDS ORDERED: SODIUM CHLORIDE 0.9% INJ 10 ML SYR IV PRN (16:45)
[2019-03-27] MEDS: FLUCONAZOLE 100 MG in APPROPRIATE DILUENT 1 EA IV SCH (17:19)
[2019-03-27] MEDS: NS 1,000 ML IV SCH (17:20)
--- NOTE | 2019-03-27 18:48 | REP ---
PICC line insertion under ultrasound guidance. The procedure was performed by ALANA Rojas, under the direct supervision of Dr. Lombardo. The risks and benefits of the procedure were explained to the patient and informed consent was obtained the verbally and written. Directly prior to the start of the procedure, a formal timeout was completed in the procedure room. The right basilic vein was localized using ultrasound guidance. The skin was prepped and draped in the sterile fashion. 6 ml 1% lidocaine was used as a local anesthetic. Using ultrasound guidance the right basilic vein was cannulated and a 0.018 guidewire was inserted and advanced to the SVC using fluoroscopic guidance. The needle was removed and a 5.5 Dominican dilator and peel-away sheath was inserted over the guidewire. A 5.5 Dominican double lumen catheter was cut to the length of 30 cm. The dilator was removed and the catheter was inserted over the guide wire with the tip ending in the SVC. The peel-away sheath was removed and the catheter was flushed with heparinized saline as per hospital protocol. The catheter was affixed to the skin and a sterile dressing was applied. The patient tolerated the procedure well and there were no immediate complications. 0.2 minutes of fluoroscopy time was utilized for this procedure. Reviewed by ALANA Morgan 03/27/2019 05:41 P Electronically Signed by Rodney Lombardo MD 03/27/2019 06:38 P
[2019-03-27 20:39] LABS: HEMATOCRIT 32.5 % (36.0-47.0); HEMOGLOBIN 10.3 g/dl (12.0-15.5)
[2019-03-27] MEDS: MORPHINE 1MG/ML IN 0.9% NACL 100ML IV BAG IV PRN (21:43)
[2019-03-28] VITALS (22 sets, daily range): BP systolic 94–228; BP diastolic 63–103
[2019-03-28] MEDS ORDERED: LABETALOL HCL 100 MG/20 ML VIAL IV PRN
[2019-03-28] MEDS: SUCRALFATE SUSP 1GM/10ML UD PO SCH ×5 (00:25→23:58)
[2019-03-28 01:01] LABS: HEMATOCRIT 32.9 % (36.0-47.0); HEMOGLOBIN 10.5 g/dl (12.0-15.5)
[2019-03-28] MEDS: METOPROLOL TART 12.5 MG PER 1/2 TAB PO SCH ×4 (03:55→20:13)
[2019-03-28] MEDS: PANTOPRAZOLE 40MG INJ (PROTONIX) (C9113) IV SCH ×2 (03:55→15:58)
[2019-03-28] MEDS: PIPERACILLIN/TAZOBACTAM SOD 3.375 GM in D5W MINI-BAG PLUS 50 ML IV SCH ×4 (03:55→21:51)
[2019-03-28] MEDS: OCTREOTIDE ACETATE 100 MCG/ML VIAL (J2354) SC SCH ×3 (05:15→21:51)
[2019-03-28] MEDS: SODIUM CHLORIDE 0.9% INJ 10 ML SYR IV SCH ×4 (05:16→18:15)
[2019-03-28 05:35] LABS: HEMATOCRIT 31.4 % (36.0-47.0); HEMOGLOBIN 9.9 g/dl (12.0-15.5); MEAN CORPUSCULAR HEMOGLOBIN 30.5 pg (27.0-33.0); MEAN CORPUSCULAR HGB CONC 31.5 g/dl (32.0-36.5); MEAN CORPUSCULAR VOLUME 96.6 fl (80.0-96.0); PLATELET COUNT, AUTOMATED 171 10^3/uL (150-450); RED BLOOD COUNT 3.25 10^6/uL (4.00-5.40); WHITE BLOOD COUNT 16.1 10^3/uL (4.0-10.0)
[2019-03-28 05:53] LABS: BLOOD UREA NITROGEN 15 MG/DL (7-18); CALCIUM LEVEL 6.9 MG/DL (8.8-10.2); CARBON DIOXIDE LEVEL 30 MEQ/L (21-32); CHLORIDE LEVEL 109 MEQ/L (98-107); CREATININE FOR GFR 0.41 MG/DL (0.55-1.30); GLOMERULAR FILTRATION RATE > 60.0 (>39); GLUCOSE, FASTING 61 MG/DL (70-100); MAGNESIUM LEVEL 1.8 MG/DL (1.8-2.4); POTASSIUM SERUM 3.5 MEQ/L (3.5-5.1); SODIUM LEVEL 148 MEQ/L (136-145)
[2019-03-28 06:31] LABS: LYMPHOCYTES 5 % (16-52); MONOCYTES 9 % (0-8); NEUTROPHILS 80 % (35-75); PLATELET ESTIMATE NORMAL (NORMAL)
[2019-03-28 06:34] LABS: ANISOCYTOSIS 1+
[2019-03-28] MEDS ORDERED: FUROSEMIDE 20 MG/2 ML VIAL (J1940) IV ONE (08:00)
--- NOTE | 2019-03-28 08:37 | REP ---
Oral chest x-ray: Single view. History: Diminished breath sounds. Comparison chest x-ray: March 25, 2019. Findings: A right-sided PICC line is seen in place with its tip in the expected location of the superior vena cava. NG tube enters left upper quadrant. An aortic stent graft is visible and there is metallic hardware and surgical clips superimposed on the upper lumbar spine. The heart is mildly enlarged unchanged. There is discoid atelectasis in the left base and there is blunting of the left lateral pleural angle indicating a small quantity of left pleural fluid. No acute infiltrate. Electronically Signed by Rodney Lombardo MD 03/28/2019 08:29 A
[2019-03-28] MEDS: NS 1,000 ML IV SCH (09:26)
--- NOTE | 2019-03-28 09:51 | IPNPDOC ---
Subjective General Date/Time Seen The patient was seen on 03/28/19 at 09:49. Subject Chief Complaint/History The patient is a 78-year-old female admitted with a reason for visit of Gi Bleed. Patient reports she's feeling comfortable. She is trying at the used to morphine BIT TAPPER with concerns about side effects though she feels that at times she needs to use morphine to get her comfortable. She denies any nausea or vomiting. She had bowel movement on Wednesday but nothing thereafter. She had elevated blood pressures last night. Her NG tube is putting out bile. Her FREDO drain is putting out mostly light pink serosanguineous fluid with only mild tinge of bile in it. Current Medications Current Medications Current Medications Acetaminophen (Tylenol Tab) 650 mg Q4HP PRN PO PAIN OR FEVER Last administered on 03/26/19at 16:31; Start 03/22/19 at 09:00 Amino Ac/Electrol/ Dextrose/Calcium 2,000 ml @ 60 mls/hr ONCE@1800 IV ; Start 03/28/19 at 18:00; Stop 03/29/19 at 17:59 Ampicillin Sodium/ Sulbactam Sodium 3 gm/Dextrose 100 ml @ 200 mls/hr Q6H IV ; Start 03/24/19 at 08:00; Stop 03/24/19 at 09:40; Status DC Ampicillin Sodium/ Sulbactam Sodium 3 gm/Dextrose 100 ml @ 200 mls/hr Q6H IV Last administered on 03/24/19at 10:37; Start 03/24/19 at 10:00; Stop 03/24/19 at 1 3:31; Status DC Atorvastatin Calcium (Lipitor) 40 mg QHS PO Last administered on 03/22/19at 21:05; Start 03/22/19 at 21:00; Stop 03/23/19 at 18:01; Status DC Buspirone HCl (Buspar) 20 mg TID PO Last administered on 03/23/19at 08:43; Start 03/22/19 at 16:00; Stop 03/23/19 at 18:01; Status DC Clonidine HCl (Catapres) 0.1 mg BID PO Last administered on 03/25/19at 08:37; Start 03/22/19 at 21:00; Stop 03/25/19 at 14:05; Status DC Diphenhydramine HCl (Benadryl) 12.5 mg Q4HP PRN IV ITCHING; Start 03/23/19 at 18:00 Fat Emulsion Intravenous 500 ml @ 20 mls/hr ONCE@1800 IV ; Start 03/28/19 at 18:00; Stop 03/29/19 at 17:59 Fentanyl Citrate (Sublimaze) 25 mcg Q5MP PRN IV MODERATE PAIN (PS 4-7); Start 03/23/19 at 18:00; Stop 03/23/19 at 19:00; Status DC Fluconazole 100 mg/IV Miscellaneous Supplies 50 ml @ 50 mls/hr Q24H IV Last administered on 03/27/19at 17:19; Start 03/24/19 at 15:00 Furosemide (LASIX injection) 40 mg DAILY IV Last administered on 03/26/19at 09:32; Start 03/24/19 at 09:00; Stop 03/27/19 at 09:03; Status DC Heparin Sodium (Heparin (Flush)) 200 units ASDIRECTED PRN IV SEE LABEL COMMENT S; Start 03/27/19 at 16:45 Heparin Sodium (Heparin (Flush)) 200 units PICC IV Last administered on 03/28/19at 05:15; Start 03/27/19 at 18:00 Heparin Sodium (Heparin Lock Flush 10units/ml) 10 units ASDIRECTED PRN IV SEE LABEL COMMENTS Last administered on 03/24/19at 17:34; Start 03/24/19 at 12:00; Sto p 03/28/19 at 05:58; Status DC Heparin Sodium (Heparin Lock Flush 10units/ml) 10 units HLF IV Last administered on 03/27/19at 21:30; Start 03/24/19 at 14:00; Stop 03/28/19 at 05:58; Status DC Home Med (Med Rec Complete!) ASDIRECTED XX ; Start 03/21/19 at 14:30; Stop 03/21/19 at 14:39; Status DC Hydroxyzine HCl (Atarax) 25 mg Q8HP PRN PO ANXIETY Last administered on 03/27/19at 21:32; Start 03/26/19 at 17:00 Hydroxyzine HCl (Atarax) 50 mg DAILYPRN PRN PO ANXIETY Last administered on 03/24/19at 03:48; Start 03/23/19 at 09:45; Stop 03/26/19 at 16:57; Status DC Hyoscyamine/Lido/ Alumin/Mag/Simethi (Gi Cocktail) 50 ml Q6HP PRN PO GI UPSET Last administered on 03/26/19at 11:11; Start 03/25/19 at 14:15 Insulin Human Lispro (HumaLOG INSULIN) See Protocol Table Q6H SC ; Start 03/28/19 at 18:00; Stop 03/29/19 at 12:01 Labetalol HCl (Normodyne, Trandate) 10 mg Q4HP PRN IV HYPERTENSION Last administered on 03/28/19at 02:15; Start 03/28/19 at 00:00 Lactated Ringer's 1,000 ml @ 75 mls/hr [id number] IV ; Start 03/22/19 at 00:15; Stop 03/22/19 at 01:14; Status DC Lactated Ringer's 1,000 ml @ 100 mls/hr Q10H IV Last administered on 03/24/19at 23:01; Start 03/23/19 at 18:00; Stop 03/25/19 at 07:19; Status DC Lactated Ringer's 1,000 ml @ 120 mls/hr Q8H20M IV ; Start 03/23/19 at 18:00; Stop 03/23/19 at 19:00; Status DC Lorazepam (Ativan) 0.5 mg Q8HP PRN PO ANXIETY; Start 03/26/19 at 17:00 Lorazepam (Ativan) 1 mg Q8HP PRN PO ANXIETY Last administered on 03/26/19at 09:31; Start 03/24/19 at 07:45; Stop 03/26/19 at 16:57; Status DC Losartan Potassium (Cozaar) 100 mg DAILY PO Last administered on 03/23/19at 08: 43; Start 03/22/19 at 09:00; Stop 03/25/19 at 14:05; Status DC Magnesium Sulfate/ Dextrose 1 gm/IV Miscellaneous Supplies 100 ml @ 100 mls/hr 0400,0500 IV Last administered on 03/22/19at 05:40; Start 03/22/19 at 04:00; Stop 03/22/19 at 12:00; Status DC Magnesium Sulfate/ Dextrose 1 gm/IV Miscellaneous Supplies 100 ml @ 100 mls/hr Q1H IV Last administered on 03/24/19at 09:50; Start 03/24/19 at 08:00; Stop 03/24/19 at 09:59; Status DC Metoclopramide HCl (REGLAN INJection) 10 mg Q6HP PRN IV NAUSEA OR VOMITING; Start 03/23/19 at 18:00; Stop 03/23/19 at 19:00; Status DC Metoprolol Tartrate (Lopressor) 12.5 mg BID PO Last administered on 03/26/19at 09:34; Start 03/22/19 at 21:00; Stop 03/26/19 at 17:00; Status DC Metoprolol Tartrate (Lopressor) 12.5 mg Q6H PO Last administered on 03/28/19at 09:25; Start 03/26/19 at 21:00 Morphine Sulfate (Morphine Sulfate In 0.9%Nacl Iv Bag) Concentration 1 mg/ml DIRECTED PRN IV SEE LABEL COMMENTS Last administered on 03/27/19at 21:43; Start 03/23/19 at 18:00 Nalbuphine HCl (Nubain) 2.5 mg Q6HP PRN IV PRURITIS; Start 03/23/19 at 18:00; Stop 03/30/19 at 17:59 Naloxone HCl (Narcan) 0.1 mg Q5MP PRN IV SEE LABEL COMMENTS; Start 03/23/19 at 18:00 Non-Formulary Medication (Epidural/BIT TAPPER Golf) USE THIS ENTRY TO VEND ... Q1M PRN XX SEE LABEL COMMENTS; Start 03/23/19 at 18:00 Octreotide Acetate (SandoSTATIN) 100 mcg Q8H SC Last administered on 03/28/19at 05:15; Start 03/24/19 at 14:00 Ondansetron HCl (ZOFRAN INJection) 4 mg Q4HP PRN IV NAUSEA OR VOMITING; Start 03/22/19 at 00:15; Stop 03/22/19 at 01:14; Status DC Ondansetron HCl (ZOFRAN INJection) 4 mg Q4HP PRN IV NAUSEA OR VOMITING Last administered on 03/23/19at 17:59; Start 03/23/19 at 18:00; Stop 03/23/19 at 19:00; Status DC Ondansetron HCl (ZOFRAN INJection) 4 mg Q6HP PRN IV NAUSEA OR VOMITING Last administered on 03/23/19 08:52; Start 03/21/19 at 19:15; Status Future Hold Ondansetron HCl (ZOFRAN INJection) 4 mg Q6HP PRN IV NAUSEA Last administered on 03/25/19 08:37; Start 03/23/19 at 18:00 Oxycodone/ Acetaminophen (Percocet 5mg/ 325mg Tablet) 1 tab BIDP PRN PO MILD/MODERATE PAIN (PS 1-7) Last administered on 03/23/19 11:31; Start 03/23/19 at 09:45; Stop 03/23/19 at 18:01; Status DC Pantoprazole Sodium (Protonix) 40 mg Q12H IV Last administered on 03/28/19 03:55; Start 03/22/19 at 04:00 Piperacillin Sod/ Tazobactam Sod 3.375 gm/Dextrose 50 ml @ 50 mls/hr Q6H IV Last administered on 03/28/19 09:25; Start 03/24/19 at 16:00 Potassium Chloride 20 meq/ IV Miscellaneous Supplies 100 ml @ 100 mls/hr 0700,0800 IV Last administered on 03/27/19 10:38; Start 03/27/19 at 07:00; Stop 03/27/19 at 14:00; Status DC Potassium Chloride 20 meq/ IV Miscellaneous Supplies 100 ml @ 100 mls/hr Q1H IV Last administered on 03/26/19 11:11; Start 03/26/19 at 09:00; Stop 03/26/19 at 10:59; Status DC Sodium Chloride 1,000 ml @ 15 mls/hr Q24H IV ; Start 03/23/19 at 17:58; Status Cancel Sodium Chloride 1,000 ml @ 15 mls/hr Q24H IV Last administered on 03/28/19 09:26; Start 03/25/19 at 07:30 Sodium Chloride 1,000 ml @ 150 mls/hr Q6H40M IV ; Start 03/21/19 at 16:45; Stop 03/22/19 at 04:17; Status DC Sodium Chloride (Saline Lock Flush) 10 ML PICC IV Last administered on 6/11/19at 05:16; Start 03/27/19 at 18:00 Sodium Chloride (Saline Lock Flush) 10 ml ASDIRECTED PRN IV SEE LABEL COMMENTS Last administered on 03/24/19at 17:34; Start 03/24/19 at 12:00; Stop 03/28/19 at 05:58; Status DC Sodium Chloride (Saline Lock Flush) 10 ml SLF IV Last administered on 03/27/19at 21:30; Start 03/24/19 at 14:00; Stop 03/28/19 at 05:58; Status DC Sodium Chloride (Saline Lock Flush) 10 ml SLF IV Last administered on 03/27/19at 21:31; Start 03/24/19 at 14:00; Stop 03/28/19 at 05:58; Status DC Sodium Chloride (Saline Lock Flush) 10ML ASDIRECTED PRN IV SEE LABEL COMMENTS; Start 03/27/19 at 16:45 Sucralfate (Carafate Suspension) 1 gm Q6H PO Last administered on 03/28/19at 05:15; Start 03/21/19 at 18:00 Sucralfate (Carafate) 1 gm Q6H PO ; Start 03/21/19 at 18:00; Stop 03/21/19 at 18:39; Status DC Tramadol HCl (Ultram) 50 mg Q6HP PRN PO MODERATE PAIN (PS 5-7) Last administered on 03/23/19at 08:45; Start 03/22/19 at 14:30; Stop 03/23/19 at 18:01; Status DC Trazodone HCl (Desyrel) 100 mg QHS PO ; Start 03/23/19 at 21:00; Stop 03/23/19 at 21:00; Status DC Vitamin D (Vitamin D) 1,000 units DAILY PO Last administered on 03/23/19at 08:43; Start 03/22/19 at 09:00; Stop 03/23/19 at 18:01; Status DC Allergies Coded Allergies: amlodipine (Verified Allergy, Mild, rash, 02/22/19) duloxetine (Verified Allergy, Mild, Rash, 02/22/19) latex (Verified Allergy, Mild, rash, 03/21/19) Contrast Media (Verified Allergy, Unknown, rash, 07/11/17) nystatin (Verified Allergy, Unknown, Rash, 02/22/19) Objective Physical Examination Examination GENERAL APPEARANCE: Looks relatively comfortable. SKIN: Warm and dry. HEENT: Mild pale palpebral conjunctiva. Lips mildly dry. Nasogastric tube in place. NECK: [Supple, no thyromegaly. No obvious jugular venous distention]. LUNGS: [Clear to auscultation bilaterally. No wheezing appreciated]. HEART: [No chest wall abnormalities. Regular rate and rhythm with no murmurs appreciated]. ABDOMEN: Abdomen is slightly around, soft, minimally distended. Upper midline incision dressings are clean and dry ear FREDO drainage is light pink serosanguineous.. EXTREMITIES: Mild bilateral lower extremity edema.. Vital Signs Vital Signs Date Time Temp Pulse Resp B/P (MAP) Pulse Ox O2 Delivery O2 Flow Rate FiO2 03/28/19 09:25 85 170/79 03/28/19 08:31 94 1.0 03/28/19 08:00 98.5 18 03/23/19 13:52 100 I&Os I&O- Last 24 Hours up to 6 AM 03/28/19 06:00 Intake Total 965 ml Output Total 1570 ml Balance -605 ml Laboratory Data Labs 24H Laboratory Tests 2 03/27/19 11:41: Anion Gap 7L, Glomerular Filtration Rate > 60.0, Blood Urea Nitrogen 18, Creatinine 0.54L, Sodium Level 147H, Potassium Level 3.8#, Chloride Level 108H, Carbon Dioxide Level 32, Calcium Level 7.0L, Aspartate Amino Transf (AST/SGOT) 2 0, Alanine Aminotransferase (ALT/SGPT) 14, Alkaline Phosphatase 98, Total Bilirubin 0.6, Total Protein 4.3L, Albumin 1.7L, Magnesium Level 1.8, Albumin/Globulin Ratio 0.65L 03/28/19 05:14: Anion Gap 9, Glomerular Filtration Rate > 60.0, Blood Urea Nitrogen 15, Creatinine 0.41L, Sodium Level 148H, Potassium Level 3.5, Chloride Level 109H, Carbon Dioxide Level 30, Calcium Level 6.9L, Magnesium Level 1.8, Nucleated Red Blood Cells % (auto) 0.0, Neutrophils 80H, Band Neutrophils 6, Lymphocytes (Manual) 5L, Monocytes (Manual) 9H, Platelet Estimate NORMAL, Anisocytosis 1+ CBC/BMP Laboratory Tests 03/27/19 11:41 Calcium Level 7.0 L, Aspartate Amino Transf (AST/SGOT) 20, Alanine Aminotransferase (ALT/SGPT) 14, Alkaline Phosphatase 98, Total Bilirubin 0.6, Total Protein 4.3 L, Albumin 1.7 L 03/27/19 20:30 03/28/19 00:45 03/28/19 05:14 Calcium Level 6.9 L, Red Blood Count 3.25 L, Mean Corpuscular Volume 96.6 H, Mean Corpuscular Hemoglobin 30.5, Mean Corpuscular Hemoglobin Concent 31.5 L, Red Cell Distribution Width 17.2 H Impression Postop day 5 after exploratory laparotomy, oversewing of bleeding duodenal ulcer Postoperative hemorrhagic anemia Hypertension Malnutrition albumin of 1.9 In terms of her surgery her drainage and looking more light pink serosanguineous stridor been bilious and the amount has markedly decreased the past 2 days. We will schedule her for an upper GI series to evaluate the duodenotomy closure. Her NG tube drainage has been mainly bilious so I don't think she is bleeding so I think we should come down on the hemoglobin and hematocrit monitoring is from the frequent blood draws with just worsen her anemia without much gain. Continue on IV antibiotics for now for possible the cage from the duodenotomy closure. Her white blood cell count continues to go down. She is not showing any signs of peritonitis nor severe inflammatory response. Agree with hospitalist and starting her on TPN for now. Plan / VTE VTE Prophylaxis Ordered?: Yes Plan / Urinary Catheter Reason for insertion/continuin: Critical Pt monitoring BING BOYLE MD Mar 28, 2019 09:51
[2019-03-28] MEDS ORDERED: GASTROGRAFIN SOLUTION 30ML (Q9963) As Ordered ONE (10:44)
--- NOTE | 2019-03-28 11:27 | IPNPDOC ---
Text Note Date of Service The patient was seen on 03/28/19. NOTE Ms. Lopez was seen and examined during bedside morning rounds, she is alert and sitting in bedside chair after working with PT. She complains of some minimal and improving abdominal discomfort on examination. She had just had her FREDO changed with about 30 mL of serosanguineous fluid. She denies cp, sob or heart palpitations. ROS: 12 point ROS reviewed with patient and negative except for findings discussed above. PE: Vitals: see below General: 78 yo female sitting in bedside chair, speaking in full sentences, NAD, conversant HEENT: moist mucus membranes, EOMI, no JVD Resp: CTA b/l, no wheezing, rales or rhonchi appreciated, some diminished breath sounds b/l bases however Cardio: normal s1 and s2., no murmurs, rubs or gallops, RRR Abdomen: nabsx4, discomfort to palpation in lower abdomen is actually improved today, no rebound ridgity or guarding, no distension, no hepatosplenomegaly or masses appreciated, soft, her FREDO is currently draining 30 mL serosanguineous fluid. s/p L femoral triple lumen and is s/p L fem A line. dressing for incision from ex. lap procedure is clean and intact, left brachial cutdown incision/ staple line is clean and intact and prior swelling and erythema has decreased. Extremities: no cyanosis, mottling or edema 1. Acute blood loss anemia causing hypovolemic/hemorrhagic shock from re- bleeding duodenal ulcer -9.9/31.4 was last H/H -secondary to GI source bleeding duodenal ulcer, s/p EGD on 03/22/19 that revealed large cratered actively bleeding duodenal ulcer in the first/second portion of the duodenum, not able to get access nor adequate visualization despite extensive lavage, unable to apply any endoscopic therapy. She then underwent mesenteric angiogram as per Dr Arias 03/22/19 with no obvious source of bleeding identified. No observed gastroduodenal artery-representing possible anatomical variant. -S/p ex lap for duodenal ulcer oversew procedure 03.23.[address] Cain In the ICU, she has a draining FREDO as described above, s/p L fem. A line, s/p triple lumen L fem. access -HG has been a bit fluctuating, now s/p 16 units pRBC, platelets and FFP have also been transfused, will continue to closely monitor H/H -c/w pantoprazole 40 mg BID and sucralfate for now, GI cocktail q6h Coverage infection after intra-abdominal surgery -white count 16.1- has been afebrile-c/w Zosyn and Fluconazole (03/24/19) CXR 6.8.19 essentially unrevealing-procal .15 -pain control with INFORMATION DEVELOPER pump -CXR this morning showed possible small left pleural fluid, will give 1x dose Lasix New onset Atrial fibrillation with episodes of RVR - c/w monitoring on telemetry for now, BP stable - s/p Metoprolol 5mg IV and additional dose of Metoprolol PO - Absolute contraindication to anticoagulation - s/p IVF (Current IVF at [facility] for INFORMATION DEVELOPER pump) 3. History of elevated Troponin - suspected to be 2/2 NSTEMI within the past 28 days -patient was here in mid February 2019, elevated troponin at that time of 1.93- suspected NSTEMI, she was transferred to [place] and had cardiac cath that did not demonstrate any lesions, no intervention / stents were place -current troponin negative, she had ECHO in Oct 2018 that showed EF 60% with G1DD -using the revised cardiac risk index for pre-op risk, she has 6% 30 day risk of , [place] or cardiac arrest, Class II risk 4. HTN with signs of possible fluid overload -c/w Metoprolol & Lasix for now, pt has received many blood products - Hold Clonidine and Losartan -stable 5. Constipation -holding home meds in light of current illness 6. Depression -home meds held 7. DLP -holding home meds 8. CBP -She has INFORMATION DEVELOPER pump currently 9. Insomnia -c/w home trazodone Disposition: Patient is s/p ex lap and duodenal ulcer oversew with general surgery, tachycardia has resolved, afebrile and WBC elevated but improving likely secondary to bile peritonitis, she continues on abx for intra-abdominal coverage. General surgery may do UGIS this week or possible CT abdomen with oral contrast, appreciate their help. FREDO drainage is less bilious today.She is NPO per surgery recommendations and should remain so until they feel otherwsie. Monitoring H/H. IVF have been initiated. VS,Fishbone, I+O VS, Fishbone, I+O Laboratory Tests 6/10/19 11:41 Calcium Level 7.0 L, Aspartate Amino Transf (AST/SGOT) 20, Alanine Aminotransferase (ALT/SGPT) 14, Alkaline Phosphatase 98, Total Bilirubin 0.6, Total Protein 4.3 L, Albumin 1.7 L 03/27/19 20:30 03/28/19 00:45 03/28/19 05:14 Calcium Level 6.9 L, Red Blood Count 3.25 L, Mean Corpuscular Volume 96.6 H, Mean Corpuscular Hemoglobin 30.5, Mean Corpuscular Hemoglobin Concent 31.5 L, Red Cell Distribution Width 17.2 H Vital Signs Date Time Temp Pulse Resp B/P (MAP) Pulse Ox O2 Delivery O2 Flow Rate FiO2 03/28/19 09:25 85 170/79 03/28/19 08:31 94 1.0 03/28/19 08:00 98.5 18 03/23/19 13:52 100 I&O- Last 24 Hours up to 6 AM 03/28/19 06:00 Intake Total 965 ml Output Total 1570 ml Balance -605 ml GME ATTESTATION GME ATTESTATION My faculty preceptor for this patient encounter was physically present during the encounter and was fully available. All aspects of the patient interview, examination, medical decision making process, and medical care plan development were reviewed and approved by the faculty preceptor. The faculty preceptor is aware and concurs with the plan as stated in the body of this note and will attest to such by his/her cosignature. ATTENDING NOTE I, Thomas Vital, have both independently examined this patient as well as revie wed the documentation. I have discussed in detail with the resident the findings and plan of treatment as documented by the resident. I agree with their findings and treatment plan. I will continue to follow the patient and offer further guidance to the patients care as necessary during this hospital stay. GLENNY EVANS DO Mar 28, 2019 11:27 THOMAS VITAL MD Mar 28, 2019 15:15
[2019-03-28] MEDS ORDERED: METOPROLOL 5 MG/5 ML VIAL IV STA (12:53)
[2019-03-28] MEDS: KCL 20MEQ IN 100ML SWI (KRUN) 20 MEQ in APPROPRIATE DILUENT 1 EA IV SCH ×6 (13:15→15:58)
[2019-03-28] MEDS ORDERED: METOPROLOL TART 12.5 MG PER 1/2 TAB PO ONE (16:00)
[2019-03-28] MEDS: FLUCONAZOLE 100 MG in APPROPRIATE DILUENT 1 EA IV SCH (16:15)
[2019-03-28 16:19] LABS: HEMATOCRIT 35.6 % (36.0-47.0); HEMOGLOBIN 11.2 g/dl (12.0-15.5)
[2019-03-28 16:46] LABS: BLOOD UREA NITROGEN 12 MG/DL (7-18); CALCIUM LEVEL 7.8 MG/DL (8.8-10.2); CARBON DIOXIDE LEVEL 34 MEQ/L (21-32); CHLORIDE LEVEL 104 MEQ/L (98-107); CREATININE FOR GFR 0.57 MG/DL (0.55-1.30); GLOMERULAR FILTRATION RATE > 60.0 (>39); GLUCOSE, FASTING 83 MG/DL (70-100); POTASSIUM SERUM 3.5 MEQ/L (3.5-5.1); SODIUM LEVEL 145 MEQ/L (136-145)
[2019-03-28] MEDS ORDERED: FAT EMULSION IV 20% 500 ML IV SCH (18:00)
[2019-03-28] MEDS ORDERED: AMINO AC/ELECTROLYTE/DEX/CALC 2,000 ML IV SCH (18:00)
[2019-03-28] MEDS: HumaLOG INSULIN (NovoLOG) PER UNIT SC SCH ×2 (18:00→23:59)
[2019-03-28 18:11] LABS: MAGNESIUM LEVEL 1.8 MG/DL (1.8-2.4)
[2019-03-28] MEDS: diphenhydrAMINE INJ 50MG/ML VIAL (J1200) IV PRN (20:12)
--- NOTE | 2019-03-28 21:25 | REP ---
Examination Requested: Upper G.I. Series With KUB Reason For Exam: Water-soluble upper GI to evaluate for leak at the site of duodenal repair] Upper GI Air Contrast The procedure was performed by ALANA Rojas, under the direct supervision of Dr. Lombardo. The images were reviewed with Dr. Lombardo. The terminal operations manager film shows no organomegaly or pathological masses. The intestinal gas pattern appears normal. There are spinal fusion rods, bilateral iliac stents, an NG tube, and surgical drain are also visualized. A 50/50 mixture of the gastrograph and water was given in the RPO position with the eight table slightly elevated to perform a water soluble upper GI examination. The oral and pharyngeal stages of deglutition were unremarkable. Esophageal transport is efficient and there is no esophagitis, stricture, or mucosal ring noted. Tertiary contractions were visualized throughout the exam. There is no hiatal hernia. Gastroesophageal reflux was not observed. The stomach fowler are normally outlined. The rugal folds are smooth and regular. There is no gastritis, neoplasm, ulcer disease noted. The duodenal fowler are normally outlined. There is no extravasation or obstruction. The first and second portions of the duodenum are opacified and appear intact. Impression: 1. No extravasation observed. 1.1 minutes of fluoroscopy time was utilized for this procedure. Reviewed by ALANA Morgan 03/28/2019 02:46 P Electronically Signed by Rodney Lombardo MD 03/28/2019 09:17 P
[2019-03-29] MEDS: METOPROLOL TART 12.5 MG PER 1/2 TAB PO SCH ×3 (02:34→16:10)
[2019-03-29] MEDS: PANTOPRAZOLE 40MG INJ (PROTONIX) (C9113) IV SCH ×2 (03:53→16:11)
[2019-03-29] MEDS: PIPERACILLIN/TAZOBACTAM SOD 3.375 GM in D5W MINI-BAG PLUS 50 ML IV SCH ×4 (03:54→22:24)
[2019-03-29 04:00] VITALS: BP 142/82
[2019-03-29] MEDS: diphenhydrAMINE INJ 50MG/ML VIAL (J1200) IV PRN ×3 (04:58→19:47)
[2019-03-29] MEDS: SUCRALFATE SUSP 1GM/10ML UD PO SCH ×3 (05:00→18:56)
[2019-03-29] MEDS: OCTREOTIDE ACETATE 100 MCG/ML VIAL (J2354) SC SCH ×3 (05:00→22:24)
[2019-03-29] MEDS: SODIUM CHLORIDE 0.9% INJ 10 ML SYR IV SCH ×2 (05:00→18:00)
[2019-03-29 05:32] LABS: HEMATOCRIT 32.7 % (36.0-47.0); HEMOGLOBIN 10.2 g/dl (12.0-15.5); MEAN CORPUSCULAR HEMOGLOBIN 29.2 pg (27.0-33.0); MEAN CORPUSCULAR HGB CONC 31.2 g/dl (32.0-36.5); MEAN CORPUSCULAR VOLUME 93.7 fl (80.0-96.0); PLATELET COUNT, AUTOMATED 220 10^3/uL (150-450); RED BLOOD COUNT 3.49 10^6/uL (4.00-5.40); WHITE BLOOD COUNT 10.9 10^3/uL (4.0-10.0)
[2019-03-29 05:57] LABS: BLOOD UREA NITROGEN 11 MG/DL (7-18); CALCIUM LEVEL 7.3 MG/DL (8.8-10.2); CARBON DIOXIDE LEVEL 39 MEQ/L (21-32); CHLORIDE LEVEL 100 MEQ/L (98-107); CREATININE FOR GFR 0.62 MG/DL (0.55-1.30); GLOMERULAR FILTRATION RATE > 60.0 (>39); GLUCOSE, FASTING 228 MG/DL (70-100); MAGNESIUM LEVEL 1.6 MG/DL (1.8-2.4); POTASSIUM SERUM 3.8 MEQ/L (3.5-5.1); SODIUM LEVEL 142 MEQ/L (136-145)
[2019-03-29] MEDS: HumaLOG INSULIN (NovoLOG) PER UNIT SC SCH ×3 (06:06→18:00)
[2019-03-29 08:00] VITALS: BP 148/72
[2019-03-29] MEDS ORDERED: MAG SULF 1GM/100ML (MAG RUN) 1 GM in APPROPRIATE DILUENT 1 EA IV ONE ×2 (08:00→11:00)
[2019-03-29] MEDS: NS 1,000 ML IV SCH (08:10)
--- NOTE | 2019-03-29 09:11 | IPNPDOC ---
Subjective General Date/Time Seen The patient was seen on 03/29/19 at 09:08. Subject Chief Complaint/History The patient is a 78-year-old female admitted with a reason for visit of Gi Bleed. Patient continues to do well. She denies any increasing abdominal discomfort. She reports feeling more comfortable now she is allowed to take some sips of water. She has been afebrile. Nurse reports passage alcohol any colored stools early this morning. Current Medications Current Medications Current Medications Acetaminophen (Tylenol Tab) 650 mg Q4HP PRN PO PAIN OR FEVER Last administered on 03/26/19at 16:31; Start 03/22/19 at 09:00 Amino Ac/Electrol/ Dextrose/Calcium 2,000 ml @ 60 mls/hr ONCE@1800 IV Last administered on 03/28/19at 18:15; Start 03/28/19 at 18:00; Stop 03/29/19 at 17:59 Ampicillin Sodium/ Sulbactam Sodium 3 gm/Dextrose 100 ml @ 200 mls/hr Q6H IV ; Start 03/24/19 at 08:00; Stop 03/24/19 at 09:40; Status DC Ampicillin Sodium/ Sulbactam Sodium 3 gm/Dextrose 100 ml @ 200 mls/hr Q6H IV Last administered on 03/24/19at 10:37; Start 03/24/19 at 10:00; Stop 03/24/19 at 13:31; Status DC Atorvastatin Calcium (Lipitor) 40 mg QHS PO Last administered on 03/22/19at 21:05; Start 03/22/19 at 21:00; Stop 03/23/19 at 18:01; Status DC Buspirone HCl (Buspar) 20 mg TID PO Last administered on 03/23/19at 08:43; Start 03/22/19 at 16:00; Stop 03/23/19 at 18:01; Status DC Clonidine HCl (Catapres) 0.1 mg BID PO Last administered on 03/25/19at 08:37; Start 03/22/19 at 21:00; Stop 03/25/19 at 14:05; Status DC Diphenhydramine HCl (Benadryl) 12.5 mg Q4HP PRN IV ITCHING Last administered on 03/29/19at 04:58; Start 03/23/19 at 18:00 Fat Emulsion Intravenous 500 ml @ 20 mls/hr ONCE@1800 IV Last administered on 03/28/19at 18:15; Start 03/28/19 at 18:00; Stop 03/29/19 at 17:59 Fentanyl Citrate (Sublimaze) 25 mcg Q5MP PRN IV MODERATE PAIN (PS 4-7); Start 03/23/19 at 18:00; Stop 03/23/19 at 19:00; Status DC Fluconazole 100 mg/IV Miscellaneous Supplies 50 ml @ 50 mls/hr Q24H IV Last administered on 03/28/19at 16:15; Start 03/24/19 at 15:00 Furosemide (LASIX injection) 40 mg DAILY IV Last administered on 03/26/19at 09:32; Start 03/24/19 at 09:00; Stop 03/27/19 at 09:03; Status DC Heparin Sodium (Heparin (Flush)) 200 units ASDIRECTED PRN IV SEE LABEL COMMENTS; Start 03/27/19 at 16:45 Heparin Sodium (Heparin (Flush)) 200 units PICC IV Last administered on 03/28/19at 18:14; Start 03/27/19 at 18:00 Heparin Sodium (Heparin Lock Flush 10units/ml) 10 units ASDIRECTED PRN IV SEE LABEL COMMENTS Last administered on 03/24/19at 17:34; Start 03/24/19 at 12:00; Stop 03/28/19 at 05:58; Status DC Heparin Sodium (Heparin Lock Flush 10units/ml) 10 units HLF IV Last administer ed on 03/27/19at 21:30; Start 03/24/19 at 14:00; Stop 03/28/19 at 05:58; Status DC Home Med (Med Rec Complete!) ASDIRECTED XX ; Start 03/21/19 at 14:30; Stop 03/21/19 at 14:39; Status DC Hydroxyzine HCl (Atarax) 25 mg Q8HP PRN PO ANXIETY Last administered on 03/27/19at 21:32; Start 03/26/19 at 17:00 Hydroxyzine HCl (Atarax) 50 mg DAILYPRN PRN PO ANXIETY Last administered on 03/24/19at 03:48; Start 03/23/19 at 09:45; Stop 03/26/19 at 16:57; Status DC Hyoscyamine/Lido/ Alumin/Mag/Simethi (Gi Cocktail) 50 ml Q6HP PRN PO GI UPSET Last administered on 03/26/19at 11:11; Start 03/25/19 at 14:15 Insulin Human Lispro (HumaLOG INSULIN) See Protocol Table Q6H SC Last administered on 03/29/19at 06:06; Start 03/28/19 at 18:00; Stop 03/29/19 at 12:01 Labetalol HCl (Normodyne, Trandate) 10 mg Q4HP PRN IV HYPERTENSION Last administered on 03/28/19at 02:15; Start 03/28/19 at 00:00 Lactated Ringer's 1,000 ml @ 75 mls/hr [id number] IV ; Start 03/22/19 at 00:15; Stop 03/22/19 at 01:14; Status DC Lactated Ringer's 1,000 ml @ 100 mls/hr Q10H IV Last administered on 03/24/19at 23:01; Start 03/23/19 at 18:00; Stop 03/25/19 at 07:19; Status DC Lactated Ringer's 1,000 ml @ 120 mls/hr Q8H20M IV ; Start 03/23/19 at 18:00; Stop 03/23/19 at 19:00; Status DC Lorazepam (Ativan) 0.5 mg Q8HP PRN PO ANXIETY; Start 03/26/19 at 17:00 Lorazepam (Ativan) 1 mg Q8HP PRN PO ANXIETY Last administered on 03/26/19at 09:31; Start 03/24/19 at 07:45; Stop 03/26/19 at 16:57; Status DC Losartan Potassium (Cozaar) 100 mg DAILY PO Last administered on 03/23/19at 08:43; Start 03/22/19 at 09:00; Stop 03/25/19 at 14:05; Status DC Magnesium Sulfate/ Dextrose 1 gm/IV Miscellaneous Supplies 100 ml @ 100 mls/hr 0400,0500 IV Last administered on 03/22/19at 05:40; Start 03/22/19 at 04:00; Stop 03/22/19 at 12:00; Status DC Magnesium Sulfate/ Dextrose 1 gm/IV Miscellaneous Supplies 100 ml @ 100 mls/hr Q1H IV Last administered on 03/24/19at 09:50; Start 03/24/19 at 08:00; Stop 03/24/19 at 09:59; Status DC Metoclopramide HCl (REGLAN INJection) 10 mg Q6HP PRN IV NAUSEA OR VOMITING; Start 03/23/19 at 18:00; Stop 03/23/19 at 19:00; Status DC Metoprolol Tartrate (Lopressor) 5 mg STAT STAT IV Last administered on 03/28/19at 13:00; Start 03/28/19 at 12:53; Stop 03/28/19 at 12:54; Status DC Metoprolol Tartrate (Lopressor) 12.5 mg BID PO Last administered on 03/26/19at 09:34; Start 03/22/19 at 21:00; Stop 03/26/19 at 17:00; Status DC Metoprolol Tartrate (Lopressor) 12.5 mg Q6H PO Last administered on 03/29/19at 02:34; Start 03/26/19 at 21:00 Morphine Sulfate (Morphine Sulfate In 0.9%Nacl Iv Bag) Concentration 1 mg/ml ASDIRECTED PRN IV SEE LABEL COMMENTS Last administered on 03/27/19at 21:43; Start 03/23/19 at 18:00 Nalbuphine HCl (Nubain) 2.5 mg Q6HP PRN IV PRURITIS; Start 03/23/19 at 18:00; Stop 03/30/19 at 17:59 Naloxone HCl (Narcan) 0.1 mg Q5MP PRN IV SEE LABEL COMMENTS; Start 03/23/19 at 18:00 Non-Formulary Medication (Epidural/LOGISTICS DIRECTOR [place]) USE THIS ENTRY TO VEND ... Q1M PRN XX SEE LABEL COMMENTS; Start 03/23/19 at 18:00 Octreotide Acetate (SandoSTATIN) 100 mcg Q8H SC Last administered on 03/29/19at 05:00; Start 03/24/19 at 14:00 Ondansetron HCl (ZOFRAN INJection) 4 mg Q4HP PRN IV NAUSEA OR VOMITING; Start 03/22/19 at 00:15; Stop 03/22/19 at 01:14; Status DC Ondansetron HCl (ZOFRAN INJection) 4 mg Q4HP PRN IV NAUSEA OR VOMITING Last administered on 03/23/19 17:59; Start 03/23/19 at 18:00; Stop 03/23/19 at 19:00; Status DC Ondansetron HCl (ZOFRAN INJection) 4 mg Q6HP PRN IV NAUSEA OR VOMITING Last administered on 03/23/19 08:52; Start 03/21/19 at 19:15; Status Future Hold Ondansetron HCl (ZOFRAN INJection) 4 mg Q6HP PRN IV NAUSEA Last administered on 03/25/19 08:37; Start 03/23/19 at 18:00 Oxycodone/ Acetaminophen (Percocet 5mg/ 325mg Tablet) 1 tab BIDP PRN PO MILD/MODERATE PAIN (PS 1-7) Last administered on 03/23/19 11:31; Start 03/23/19 at 09:45; Stop 03/23/19 at 18:01; Status DC Pantoprazole Sodium (Protonix) 40 mg Q12H IV Last administered on 03/29/19at 03:53; Start 03/22/19 at 04:00 Piperacillin Sod/ Tazobactam Sod 3.375 gm/Dextrose 50 ml @ 50 mls/hr Q6H IV Last administered on 03/29/19at 03:54; Start 03/24/19 at 16:00 Potassium Chloride 20 meq/ IV Miscellaneous Supplies 100 ml @ 100 mls/hr 0700,0800 IV Last administered on 03/27/19at 10:38; Start 03/27/19 at 07:00; Stop 03/27/19 at 14:00; Status DC Potassium Chloride 20 meq/ IV Miscellaneous Supplies 100 ml @ 100 mls/hr Q1H IV Last administered on 03/28/19at 15:58; Start 03/28/19 at 13:00; Stop 03/28/19 at 15:59; Status DC Potassium Chloride 20 meq/ IV Miscellaneous Supplies 100 ml @ 100 mls/hr Q1H IV Last administered on 03/26/19at 11:11; Start 03/26/19 at 09:00; Stop 03/26/19 at 10:59; Status DC Sodium Chloride 1,000 ml @ 15 mls/hr Q24H IV ; Start 03/23/19 at 17:58; Status Cancel Sodium Chloride 1,000 ml @ 15 mls/hr Q24H IV Last administered on 03/29/19at 08:10; Start 03/25/19 at 07:30 Sodium Chloride 1,000 ml @ 150 mls/hr Q6H40M IV ; Start 03/21/19 at 16:45; Stop 03/22/19 at 04:17; Status DC Sodium Chloride (Saline Lock Flush) 10 ML PICC IV Last administered on 03/28/19at 18:15; Start 03/27/19 at 18:00 Sodium Chloride (Saline Lock Flush) 10 ml ASDIRECTED PRN IV SEE LABEL COMMENTS Last administered on 03/24/19at 17:34; Start 03/24/19 at 12:00; Stop 03/28/19 at 05:58; Status DC Sodium Chloride (Saline Lock Flush) 10 ml SLF IV Last administered on 03/27/19at 21:30; Start 03/24/19 at 14:00; Stop 03/28/19 at 05:58; Status DC Sodium Chloride (Saline Lock Flush) 10 ml SLF IV Last administered on 03/27/19at 21:31; Start 03/24/19 at 14:00; Stop 03/28/19 at 05:58; Status DC Sodium Chloride (Saline Lock Flush) 10ML ASDIRECTED PRN IV SEE LABEL COMMENTS; Start 03/27/19 at 16:45 Sucralfate (Carafate Suspension) 1 gm Q6H PO Last administered on 03/29/19at 05:00; Start 03/21/19 at 18:00 Sucralfate (Carafate) 1 gm Q6H PO ; Start 03/21/19 at 18:00; Stop 03/21/19 at 18:39; Status DC Tramadol HCl (Ultram) 50 mg Q6HP PRN PO MODERATE PAIN (PS 5-7) Last administered on 03/23/19at 08:45; Start 03/22/19 at 14:30; Stop 03/23/19 at 18:01; Status DC Trazodone HCl (Desyrel) 100 mg QHS PO ; Start 03/23/19 at 21:00; Stop 03/23/19 at 21:00; Status DC Vitamin D (Vitamin D) 1,000 units DAILY PO Last administered on 03/23/19at 08:43; Start 03/22/19 at 09:00; Stop 03/23/19 at 18:01; Status DC Allergies Coded Allergies: amlodipine (Verified Allergy, Mild, rash, 02/22/19) duloxetine (Verified Allergy, Mild, Rash, 02/22/19) latex (Verified Allergy, Mild, rash, 03/21/19) Contrast Media (Verified Allergy, Unknown, rash, 07/11/17) nystatin (Verified Allergy, Unknown, Rash, 02/22/19) Objective Physical Examination Examination GENERAL APPEARANCE: Patient sitting up in bed, looks comfortable. SKIN: Warm and moist. HEENT: Normocephalic, atraumatic. [place] palpebral conjunctiva, anicteric sclerae. Lips and mucosa appear moist. NECK: Supple, no thyromegaly. No obvious jugular venous distention. LUNGS: Clear to auscultation bilaterally. No wheezing appreciated. HEART: [No chest wall abnormalities. Slight irregularity in the patient's pulse, nontender cardiac heart rates in the 80s to 90s. No murmurs ABDOMEN: Abdomen is round, soft, minimally distended, slightly tympanitic in the upper abdomen. Upper midline incision with erasmo are clean dry and intact with no drainage. Left upper quadrant drain with light pink serosanguineous drainage in the bulb, no more signs of bilious drainage EXTREMITIES: Minimal lower extremity edema improved. Vital Signs Vital Signs Date Time Temp Pulse Resp B/P (MAP) Pulse Ox O2 Delivery O2 Flow Rate FiO2 03/29/19 08:00 97.7 87 16 148/72 (97) 98 2.0 03/23/19 13:52 100 I&Os I&O- Last 24 Hours up to 6 AM 03/29/19 06:00 Intake Total 850 ml Output Total 3843 ml Balance -2993 ml Laboratory Data Labs 24H Laboratory Tests 2 03/28/19 11:58: Bedside Glucose (Misc Panel) 80L 03/28/19 16:01: Anion Gap 7L, Glomerular Filtration Rate > 60.0, Blood Urea Nitrogen 12, Creatinine 0.57, Sodium Level 145, Potassium Level 3.5, Chloride Level 104, Carbon Dioxide Level 34H, Calcium Level 7.8L, Magnesium Level 1.8 03/28/19 18:17: Bedside Glucose (Misc Panel) 83 03/28/19 23:52: Bedside Glucose (Misc Panel) 195H 03/29/19 05:14: Anion Gap 3L, Glomerular Filtration Rate > 60.0, Blood Urea Nitrogen 11, Creatinine 0.62, Sodium Level 142, Potassium Level 3.8, Chloride Level 100, Carbon Dioxide Level 39H, Calcium Level 7.3L, Magnesium Level 1.6L 03/29/19 05:15: Nucleated Red Blood Cells % (auto) 0.0 CBC/BMP Laboratory Tests 03/28/19 16:01 Calcium Level 7.8 L 03/29/19 05:14 Calcium Level 7.3 L 03/29/19 05:15 Red Blood Count 3.49 L, Mean Corpuscular Volume 93.7, Mean Corpuscular Hemoglobin 29.2, Mean Corpuscular Hemoglobin Concent 31.2 L, Red Cell Distribution Width 16.4 H Imaging Studies Upper GI Series The oral and pharyngeal stages of deglutition were unremarkable. Esophageal transport is efficient and there is no esophagitis, stricture, or mucosal ring noted. Tertiary contractions were visualized throughout the exam. There is no hiatal hernia. Gastroesophageal reflux was not observed. The stomach fowler are normally outlined. The rugal folds are smooth and regular. There is no gastritis, neoplasm, ulcer disease noted. The duodenal fowler are normally outlined. There is no extravasation or obstruction. The first and second portions of the duodenum are opacified and appear intact. Impression POD6 Exploratory Laparotomy, Oversewing of Bleeding Duodenal Ulcer, Transverse Closure of Gastroduodenotomy Upper GI Series shows no extravasation advance diet slowly - clears today ambulate - increase activity continue tpn for now continue abx at least 14 days Continue drain DC Aaron Plan / VTE VTE Prophylaxis Ordered?: Yes Plan / Urinary Catheter Reason for insertion/continuin: Critical Pt monitoring BING BOYLE MD Mar 29, 2019 09:11
--- NOTE | 2019-03-29 10:01 | IPNPDOC ---
Text Note Date of Service The patient was seen on 03/29/19. NOTE Ms. Lopez was seen and examined during bedside morning rounds, she is alert and laying in bed, she says she feels well, some abdominal discomfort from incision. Most recent FREDO changed per nursing with 60 ML of serosanguineous fluid. She denies cp, sob or heart palpitations. She did have about 60 cc irina stool at 7:30 am and "moderate" dark/irina BM x2 overnight. ROS: 12 point ROS reviewed with patient and negative except for findings discussed above. PE: Vitals: see below General: 78 yo female laying in bed, speaking in full sentences, NAD, conversant HEENT: moist mucus membranes, EOMI, no JVD Resp: CTA b/l, no wheezing, rales or rhonchi appreciated, some diminished breath sounds b/l bases however Cardio: normal s1 and s2., no murmurs, rubs or gallops, RRR Abdomen: nabsx4, discomfort around incision from ex lap which is uncovered, minimal erythema around individual erasmo but without pus/blood exudation, does not appear infected, no rebound rigidity or guarding, no distension, no hepatosplenomegaly or masses appreciated, soft, her FREDO is currently containing about 20 mL serosang. fluid with small dark red clots. s/p L femoral triple lumen and is s/p L fem A line. dressing for incision from ex. lap procedure is clean and intact, left brachial cutdown incision/ staple line is clean and intact and prior swelling and erythema has decreased. Extremities: no cyanosis, mottling or edema 1. Acute blood loss anemia causing hypovolemic/hemorrhagic shock from re- bleeding duodenal ulcer -10.2/32.7 was last H/H-some episodes of dark stool, general surgery is aware, h/h stable, monitor for now -secondary to GI source bleeding duodenal ulcer, s/p EGD on 03/22/19 that revealed large cratered actively bleeding duodenal ulcer in the first/second portion of the duodenum, not able to get access nor adequate visualization despite extensive lavage, unable to apply any endoscopic therapy. She then underwent mesenteric angiogram as per Dr Arias 03/22/19 with no obvious source of bleeding identified. No observed gastroduodenal artery-representing possible anatomical variant. -S/p ex lap for duodenal ulcer oversew procedure 6.6.[address] Cain In the ICU, she has a draining FREDO as described above, s/p L fem. A line, s/p triple lumen L fem. access -HG has been a bit fluctuating, now s/p 16 units pRBC, platelets and FFP have also been transfused, will continue to closely monitor H/H -c/w pantoprazole 40 mg BID and sucralfate for now, GI cocktail q6h Coverage infection after intra-abdominal surgery -white count 10.9 improving- has been afebrile-c/w Zosyn and Fluconazole (03/24/19) CXR 03.25.19 essentially unrevealing-procal .15 -pain control with [employer] ASSISTANT pump New onset Atrial fibrillation with episodes of RVR - c/w monitoring on telemetry for now, BP stable - s/p Metoprolol 5mg IV and additional dose of Metoprolol PO - c/w Metoprolol 12.5 q6h - Absolute contraindication to anticoagulation - s/p IVF (Current IVF at [facility] for [employer] ASSISTANT pump) 3. History of elevated Troponin - suspected to be 2/2 NSTEMI within the past 28 days -patient was here in mid February 2019, elevated troponin at that time of 1.93- suspected NSTEMI, she was transferred to [place] and had cardiac cath that did not demonstrate any lesions, no intervention / stents were place -current troponin negative, she had ECHO in Oct 2018 that showed EF 60% with G1DD -using the revised cardiac risk index for pre-op risk, she has 6% 30 day risk of , DE or cardiac arrest, Class II risk 4. HTN with signs of possible fluid overload -c/w Metoprolol & Lasix for now, pt has received many blood products - Hold Clonidine and Losartan -stable 5. Constipation -holding home meds in light of current illness 6. Depression -home meds held 7. DLP -holding home meds 8. CBP -She has [employer] ASSISTANT pump currently 9. Insomnia -c/w home trazodone Disposition: Patient is s/p ex lap and duodenal ulcer oversew with general surgery, tachycardia has resolved, afebrile and WBC elevated but improving still today. Some dark stool as described above, briefly spoke with general surgery, since her h/h is stable, continue to monitor for now. She continues on abx for intra-abdominal coverage. General surgery performed UGIS that was unremarkable for extravasation. FREDO drainage continues with serosanguineous. Gen sx has begun clear liquids. Monitoring H/H. VS,Fishbone, I+O VS, Fishbone, I+O Laboratory Tests 03/28/19 16:01 Calcium Level 7.8 L 03/29/19 05:14 Calcium Level 7.3 L 03/29/19 05:15 Red Blood Count 3.49 L, Mean Corpuscular Volume 93.7, Mean Corpuscular Hemoglobin 29.2, Mean Corpuscular Hemoglobin Concent 31.2 L, Red Cell Distribution Width 16.4 H Vital Signs Date Time Temp Pulse Resp B/P (MAP) Pulse Ox O2 Delivery O2 Flow Rate FiO2 03/29/19 09:17 84 148/72 03/29/19 08:00 97.7 16 98 2.0 03/23/19 13:52 100 I&O- Last 24 Hours up to 6 AM 03/29/19 06:00 Intake Total 850 ml Output Total 3843 ml Balance -2993 ml GME ATTESTATION GME ATTESTATION My faculty preceptor for this patient encounter was physically present during the encounter and was fully available. All aspects of the patient interview, examination, medical decision making process, and medical care plan development were reviewed and approved by the faculty preceptor. The faculty preceptor is aware and concurs with the plan as stated in the body of this note and will attest to such by his/her cosignature. ATTENDING NOTE I, Thomas Vital, have both independently examined this patient as well as reviewed the documentation. I have discussed in detail with the resident the findings and plan of treatment as documented by the resident. I agree with their findings and treatment plan. I will continue to follow the patient and offer further guidance to the patients care as necessary during this hospital stay. GLENNY EVANS DO Mar 29, 2019 10:01 THOMAS VITAL MD Mar 29, 2019 14:02
[2019-03-29 12:00] VITALS: BP 156/80
[2019-03-29 12:11] LABS: HEMATOCRIT 33.9 % (36.0-47.0); HEMOGLOBIN 10.7 g/dl (12.0-15.5)
[2019-03-29 16:00] VITALS: BP 190/90
[2019-03-29] MEDS: FLUCONAZOLE 100 MG in APPROPRIATE DILUENT 1 EA IV SCH (16:10)
[2019-03-29] MEDS: hydrOXYzine 25 MG TAB PO PRN (16:37)
[2019-03-29] MEDS: METOPROLOL TART 25 MG TABLET PO SCH (17:04)
[2019-03-29] MEDS ORDERED: METOPROLOL 5 MG/5 ML VIAL IV STA (17:45)
[2019-03-29] MEDS ORDERED: FAT EMULSION IV 20% 500 ML IV SCH (18:00)
[2019-03-29] MEDS ORDERED: AMINO AC/ELECTROLYTE/DEX/CALC 2,000 ML IV SCH (18:00)
[2019-03-29 18:14] LABS: HEMATOCRIT 40.4 % (36.0-47.0); HEMOGLOBIN 12.6 g/dl (12.0-15.5)
[2019-03-29 18:43] LABS: CK-MB VALUE MASS 1.3 NG/ML (<3.6); MB/CK RELATIVE INDEX 2.03 (< OR =4); TROPONIN I 0.05 NG/ML (< 0.10)
[2019-03-29 19:20] VITALS: BP 172/80
[2019-03-29] MEDS: LORazepam 0.5 MG TAB PO PRN (19:47)
[2019-03-29 23:51] LABS: HEMATOCRIT 35.6 % (36.0-47.0); HEMOGLOBIN 11.3 g/dl (12.0-15.5)
[2019-03-30] VITALS (7 sets, daily range): BP systolic 131–156; BP diastolic 62–89
[2019-03-30 00:30] LABS: CK-MB VALUE MASS 1.3 NG/ML (<3.6); MB/CK RELATIVE INDEX 3.33 (< OR =4); TROPONIN I 0.06 NG/ML (< 0.10)
[2019-03-30] MEDS: METOPROLOL TART 25 MG TABLET PO SCH ×5 (00:42→23:39)
[2019-03-30] MEDS: SUCRALFATE SUSP 1GM/10ML UD PO SCH ×5 (00:42→23:37)
[2019-03-30] MEDS: PIPERACILLIN/TAZOBACTAM SOD 3.375 GM in D5W MINI-BAG PLUS 50 ML IV SCH ×4 (04:48→22:48)
[2019-03-30] MEDS: PANTOPRAZOLE 40MG INJ (PROTONIX) (C9113) IV SCH ×2 (04:48→15:54)
[2019-03-30] MEDS: OCTREOTIDE ACETATE 100 MCG/ML VIAL (J2354) SC SCH (05:39)
[2019-03-30] MEDS: SODIUM CHLORIDE 0.9% INJ 10 ML SYR IV SCH ×2 (05:39→18:56)
[2019-03-30 05:51] LABS: BASO # 0.1 10^3/uL (0.0-0.2); BASO % 0.5 % (0.0-1.0); HEMATOCRIT 35.1 % (36.0-47.0); LYMPH # 0.8 10^3/uL (1.5-4.5); LYMPH % 6.8 % (24.0-44.0); MEAN CORPUSCULAR HEMOGLOBIN 28.9 pg (27.0-33.0); MEAN CORPUSCULAR HGB CONC 31.3 g/dl (32.0-36.5); MEAN CORPUSCULAR VOLUME 92.1 fl (80.0-96.0); MONO # 1.6 10^3/uL (0.0-0.8); MONO % 14.1 % (0.0-5.0); NEUTROPHILS # 8.7 10^3/uL (1.8-7.7); NEUTROPHILS % 77.6 % (36.0-66.0); PLATELET COUNT, AUTOMATED 243 10^3/uL (150-450); RED BLOOD COUNT 3.81 10^6/uL (4.00-5.40); WHITE BLOOD COUNT 11.2 10^3/uL (4.0-10.0)
[2019-03-30 06:14] LABS: BLOOD UREA NITROGEN 10 MG/DL (7-18); CALCIUM LEVEL 6.8 MG/DL (8.8-10.2); CARBON DIOXIDE LEVEL 37 MEQ/L (21-32); CHLORIDE LEVEL 94 MEQ/L (98-107); CREATININE FOR GFR 0.47 MG/DL (0.55-1.30); GLOMERULAR FILTRATION RATE > 60.0 (>39); GLUCOSE, FASTING 133 MG/DL (70-100); MAGNESIUM LEVEL 1.6 MG/DL (1.8-2.4); POTASSIUM SERUM 2.9 MEQ/L (3.5-5.1); SODIUM LEVEL 136 MEQ/L (136-145)
[2019-03-30] MEDS: HumaLOG INSULIN (NovoLOG) PER UNIT SC SCH ×5 (06:15→21:00)
--- NOTE | 2019-03-30 08:23 | ECGEPIP ---
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
[2019-03-30] MEDS: POTASSIUM CHLORIDE 10% LIQ 20 MEQ/15 ML UDC PO SCH ×2 (09:29→21:36)
[2019-03-30] MEDS: LORazepam 0.5 MG TAB PO PRN (09:30)
[2019-03-30] MEDS ORDERED: PERCOCET 5MG/325MG TAB PO PRN (10:15)
--- NOTE | 2019-03-30 12:10 | IPNPDOC ---
Text Note Date of Service The patient was seen on 03/30/19. NOTE Ms. Lopez was seen and examined during bedside morning rounds, she is alert and resting in her bedside chair. She says she feels well, some abdominal discomfort from incision but she explicitly says it is "tolerable". She denies cp, sob or heart palpitations. She did have about 60 cc irina stool at 7:30 am and "moderate" dark/irina BM x2 overnight. ROS: 12 point ROS reviewed with patient and negative except for findings discussed above. PE: Vitals: see below General: 78 yo female laying in bed, speaking in full sentences, NAD, conversant HEENT: moist mucus membranes, EOMI, no JVD Resp: CTA b/l, no wheezing, rales or rhonchi appreciated, some diminished breath sounds b/l bases however Cardio: normal s1 and s2., no murmurs, rubs or gallops, RRR Abdomen: nabsx4, discomfort around incision from ex lap which is uncovered, minimal erythema around individual erasmo but without pus/blood exudation, does not appear infected, no rebound rigidity or guarding, no distension, no hepatosplenomegaly or masses appreciated, soft, her FREDO is currently only serosang. fluid. s/p L femoral triple lumen and is s/p L fem A line. dressing for incision from ex. lap procedure is clean and intact, left brachial cutdown incision/ staple line is clean and intact and prior swelling and erythema has decreased. Extremities: no cyanosis, mottling or edema 1. Acute blood loss anemia causing hypovolemic/hemorrhagic shock from re- bleeding duodenal ulcer -secondary to GI source of bleeding duodenal ulcer, s/p EGD on 03/22/19 that revealed large cratered actively bleeding duodenal ulcer in the first/second portion of the duodenum, unfortunately vascular and GI could not access site to stop bleeding -S/p ex lap for duodenal ulcer oversew procedure 03.23.[address] Cain -HG has been a bit fluctuating, now s/p 16 units pRBC, platelets and FFP have also been transfused, will continue to closely monitor H/H -.1 was last H/H this AM, pt tells me she hasn't had dark BM this morning yet- -c/w pantoprazole 40 mg BID and sucralfate for now, GI cocktail q6h Coverage infection after intra-abdominal surgery -white count 11.2 improving- has been afebrile-c/w Zosyn and Fluconazole (03/24/19) CXR 6.8.19 essentially unrevealing-procal .15 -pain control with Percocet 2.New onset Atrial fibrillation with episodes of RVR - c/w monitoring on telemetry for now, BP stable - c/w Metoprolol 25 mg q6h - Absolute contraindication to anticoagulation 3. History of elevated Troponin - suspected to be 2/2 NSTEMI within the past 28 days -Non obstructive CAD. -stable -patient was here in mid February 2019, elevated troponin at that time of 1.93- suspected NSTEMI, she was transferred to [place] and had cardiac cath that did not demonstrate any lesions, no intervention / stents were place -current troponin negative, she had ECHO in Oct 2018 that showed EF 60% with G1DD 4. HTN with signs of possible fluid overload -Now no fluid overload -metoprolol, lisinopril 5. Constipation -holding home meds in light of current illness 6. Depression -home meds held 7. DLP -holding home meds 8. CBP -She has CARTON LINER pump currently 9. Insomnia -c/w home trazodone Disposition: Patient is s/p ex lap and duodenal ulcer oversew with general surgery, tachycardia has resolved, afebrile and WBC elevated but stable. Her h/h is stable, continue to monitor for now. She continues on abx for intra-abdominal coverage. General surgery performed UGIS that was unremarkable for extravasation. FREDO drainage continues with serosanguineous. C/w soft diet. VS,Fishbone, I+O VS, Fishbone, I+O Laboratory Tests 03/29/19 17:47 03/29/19 23:42 03/30/19 05:39 Red Blood Count 3.81 L, Mean Corpuscular Volume 92.1, Mean Corpuscular Hemoglobin 28.9, Mean Corpuscular Hemoglobin Concent 31.3 L, Red Cell Distribution Width 15.8 H, Neutrophils (%) (Auto) 77.6 H, Lymphocytes (%) (Auto) 6.8 L, Monocytes (%) (Auto) 14.1 H, Eosinophils (%) (Auto) 0.0, Basophils (%) ( Auto) 0.5, Neutrophils # (Auto) 8.7 H, Lymphocytes # (Auto) 0.8 L, Monocytes # (Auto) 1.6 H, Eosinophils # (Auto) 0.0, Basophils # (Auto) 0.1, Calcium Level 6.8 L Vital Signs Date Time Temp Pulse Resp B/P (MAP) Pulse Ox O2 Delivery O2 Flow Rate FiO2 03/30/19 08:00 97.8 80 18 156/89 (111) 100 2.0 I&O- Last 24 Hours up to 6 AM 03/30/19 06:00 Intake Total 1290 ml Output Total 1896 ml Balance -606 ml GME ATTESTATION GME ATTESTATION My faculty preceptor for this patient encounter was physically present during the encounter and was fully available. All aspects of the patient interview, examination, medical decision making process, and medical care plan development were reviewed and approved by the faculty preceptor. The faculty preceptor is aware and concurs with the plan as stated in the body of this note and will attest to such by his/her cosignature. ATTENDING NOTE I have examined the patient at bedside and discussed the assessment and plan with the resident. I agree with the above documentation by the resident with the following addendum. Will give 14 days of antibiotics and antifungals. Will stop CARTON LINER and give percocet and morphine prn. Oral Diet as per surgery. Will continue TPN with 60 meq of potassium supplementation for now Bp still not well controlled will start lisinopril with hold parameters. GLENNY EVANS DO Mar 30, 2019 12:10 MOJGAN CA MD Mar 30, 2019 17:05
--- NOTE | 2019-03-30 13:12 | IPNPDOC ---
Subjective General Date/Time Seen The patient was seen on 03/30/19 at 13:08. Subject Chief Complaint/History The patient is a 78-year-old female admitted with a reason for visit of Gi Bleed. Patient seen sitting up on the chair working on her lunch. She reports that food is too much for she is not a big eater. She has finished half of her sandwich. She denies any abdominal discomfort nausea or vomiting. She is working with physical therapy and reports she still needs assistance getting out of bed. Should a few bowel movements reported to be maroon-colored yesterday but none today. Current Medications Current Medications Current Medications Acetaminophen (Tylenol Tab) 650 mg Q4HP PRN PO PAIN OR FEVER Last administered on 03/26/19at 16:31; Start 03/22/19 at 09:00 Amino Ac/Electrol/ Dextrose/Calcium 2,000 ml @ 60 mls/hr ONCE@1800 IV Last administered on 03/28/19at 18:15; Start 03/28/19 at 18:00; Stop 03/29/19 at 17:59; Status DC Amino Ac/Electrol/ Dextrose/Calcium 2,000 ml @ 60 mls/hr ONCE@1800 IV Last administered on 03/29/19at 18:47; Start 03/29/19 at 18:00; Stop 03/30/19 at 17:59 Ampicillin Sodium/ Sulbactam Sodium 3 gm/Dextrose 100 ml @ 200 mls/hr Q6H IV ; Start 03/24/19 at 08:00; Stop 03/24/19 at 09:40; Status DC Ampicillin Sodium/ Sulbactam Sodium 3 gm/Dextrose 100 ml @ 200 mls/hr Q6H IV Last administered on 03/24/19at 10:37; Start 03/24/19 at 10:00; Stop 03/24/19 at 13:31; Status DC Atorvastatin Calcium (Lipitor) 40 mg QHS PO Last administered on 03/22/19at 21:05; Start 03/22/19 at 21:00; Stop 03/23/19 at 18:01; Status DC Buspirone HCl (Buspar) 20 mg TID PO Last administered on 03/23/19at 08:43; Start 03/22/19 at 16:00; Stop 03/23/19 at 18:01; Status DC Clonidine HCl (Catapres) 0.1 mg BID PO Last administered on 03/25/19at 08:37; Start 03/22/19 at 21:00; Stop 03/25/19 at 14:05; Status DC Diphenhydramine HCl (Benadryl) 12.5 mg Q4HP PRN IV ITCHING Last administered on 03/29/19at 19:47; Start 03/23/19 at 18:00; Stop 03/30/19 at 10:02; Status DC Fat Emulsion Intravenous 500 ml @ 20 mls/hr ONCE@1800 IV Last administered on 03/28/19at 18:15; Start 03/28/19 at 18:00; Stop 03/29/19 at 17:59; Status DC Fat Emulsion Intravenous 500 ml @ 20 mls/hr ONCE@1800 IV Last administered on 03/29/19at 18:46; Start 03/29/19 at 18:00; Stop 03/30/19 at 17:59 Fat Emulsion Intravenous 500 ml @ 20 mls/hr ONCE@1800 IV ; Start 03/30/19 at 18:00; Stop 03/31/19 at 17:59 Fentanyl Citrate (Sublimaze) 25 mcg Q5MP PRN IV MODERATE PAIN (PS 4-7); Start 03/23/19 at 18:00; Stop 03/23/19 at 19:00; Status DC Fluconazole 100 mg/IV Miscellaneous Supplies 50 ml @ 50 mls/hr Q24H IV Last administered on 03/29/19at 16:10; Start 03/24/19 at 15:00 Furosemide (LASIX injection) 40 mg DAILY IV Last administered on 03/26/19at 09:32; Start 03/24/19 at 09:00; Stop 03/27/19 at 09:03; Status DC Heparin Sodium (Heparin (Flush)) 200 units ASDIRECTED PRN IV SEE LABEL COM MENTS; Start 03/27/19 at 16:45 Heparin Sodium (Heparin (Flush)) 200 units PICC IV Last administered on 03/30/19at 05:39; Start 03/27/19 at 18:00 Heparin Sodium (Heparin Lock Flush 10units/ml) 10 units ASDIRECTED PRN IV SEE LABEL COMMENTS Last administered on 03/24/19at 17:34; Start 03/24/19 at 12:00; Stop 03/28/19 at 05:58; Status DC Heparin Sodium (Heparin Lock Flush 10units/ml) 10 units HLF IV Last administered on 03/27/19at 21:30; Start 03/24/19 at 14:00; Stop 03/28/19 at 05:58; Status DC Home Med (Med Rec Complete!) ASDIRECTED XX ; Start 03/21/19 at 14:30; Stop 03/21/19 at 14:39; Status DC Hydroxyzine HCl (Atarax) 25 mg Q8HP PRN PO ANXIETY Last administered on 03/29/19at 16:37; Start 03/26/19 at 17:00 Hydroxyzine HCl (Atarax) 50 mg DAILYPRN PRN PO ANXIETY Last administered on 03/24/19at 03:48; Start 03/23/19 at 09:45; Stop 03/26/19 at 16:57; Status DC Hyoscyamine/Lido/ Alumin/Mag/Simethi (Gi Cocktail) 50 ml Q6HP PRN PO GI UPSET Last administered on 03/26/19at 11:11; Start 03/25/19 at 14:15 Insulin Human Lispro (HumaLOG INSULIN) See Protocol Table Q6H SC Last administered on 03/29/19at 14:02; Start 03/28/19 at 18:00; Stop 03/29/19 at 12:01; Status DC Insulin Human Lispro (HumaLOG INSULIN) See Protocol Table Q6H SC Last administered on 03/30/19at 12:43; Start 03/29/19 at 18:00; Stop 03/30/19 at 12:01; Status DC Insulin Human Lispro (HumaLOG INSULIN) See Protocol Table Q6H SC ; Start 03/30/19 at 18:00; Stop 03/31/19 at 12:01 Labetalol HCl (Normodyne, Trandate) 10 mg Q4HP PRN IV HYPERTENSION Last administered on 03/28/19at 02:15; Start 03/28/19 at 00:00 Lactated Ringer's 1,000 ml @ 75 mls/hr [id number] IV ; Start 03/22/19 at 00:15; Stop 03/22/19 at 01:14; Status DC Lactated Ringer's 1,000 ml @ 100 mls/hr Q10H IV Last administered on 03/24/19at 23:01; Start 03/23/19 at 18:00; Stop 03/25/19 at 07:19; Status DC Lactated Ringer's 1,000 ml @ 120 mls/hr Q8H20M IV ; Start 03/23/19 at 18:00; Stop 03/23/19 at 19:00; Status DC Lorazepam (Ativan) 0.5 mg Q8HP PRN PO ANXIETY Last administered on 03/30/19at 09:30; Start 03/26/19 at 17:00 Lorazepam (Ativan) 1 mg Q8HP PRN PO ANXIETY Last administered on 03/26/19at 09:31; Start 03/24/19 at 07:45; Stop 03/26/19 at 16:57; Status DC Losartan Potassium (Cozaar) 100 mg DAILY PO Last administered on 03/23/19at 08:43; Start 03/22/19 at 09:00; Stop 03/25/19 at 14:05; Status DC Magnesium Sulfate/ Dextrose 1 gm/IV Miscellaneous Supplies 100 ml @ 100 mls/hr 0400,0500 IV Last administered on 03/22/19at 05:40; Start 03/22/19 at 04:00; Stop 03/22/19 at 12:00; Status DC Magnesium Sulfate/ Dextrose 1 gm/IV Miscellaneous Supplies 100 ml @ 100 mls/hr Q1H IV Last administered on 03/24/19at 09:50; Start 03/24/19 at 08:00; Stop 03/24/19 at 09:59; Status DC Metoclopramide HCl (REGLAN INJection) 10 mg Q6HP PRN IV NAUSEA OR VOMITING; Start 03/23/19 at 18:00; Stop 03/23/19 at 19:00; Status DC Metoprolol Tartrate (Lopressor) 5 mg STAT STAT IV Last administered on 03/28/19at 13:00; Start 03/28/19 at 12:53; Stop 03/28/19 at 12:54; Status DC Metoprolol Tartrate (Lopressor) 5 mg STAT STAT IV Last administered on 03/29/19at 17:57; Start 03/29/19 at 17:45; Stop 03/29/19 at 17:46; Status DC Metoprolol Tartrate (Lopressor) 12.5 mg BID PO Last administered on 03/26/19at 09:34; Start 03/22/19 at 21:00; Stop 03/26/19 at 17:00; Status DC Metoprolol Tartrate (Lopressor) 12.5 mg Q6H PO Last administered on 03/29/19at 16:10; Start 03/26/19 at 21:00; Stop 03/29/19 at 16:33; Status DC Metoprolol Tartrate (Lopressor) 25 mg Q6H PO Last administered on 03/30/19at 12:42; Start 03/29/19 at 18:00 Miscellaneous (Unresolved Clarification Entry) SEE LABEL COMMENTS DAILY XX ; Start 03/29/19 at 09:00; Stop 03/29/19 at 20:44; Status DC Morphine Sulfate (Morphine Sulfate In 0.9%Nacl Iv Bag) Concentration 1 mg/ml ASDIRECTED PRN IV SEE LABEL COMMENTS Last administered on 03/27/19at 21:43; Start 03/23/19 at 18:00; Stop 03/30/19 at 10:02; Status DC Nalbuphine HCl (Nubain) 2.5 mg Q6HP PRN IV PRURITIS; Start 03/23/19 at 18:00; Stop 03/30/19 at 10:02; Status DC Naloxone HCl (Narcan) 0.1 mg Q5MP PRN IV SEE LABEL COMMENTS; Start 03/23/19 at 18:00; Stop 03/30/19 at 10:02; Status DC Non-Formulary Medication (Epidural/FACILITIES [employer]INTENA[employer]CE [employer] [place]) USE THIS ENTRY TO VEND ... Q1M PRN XX SEE LABEL COMMENTS; Start 03/23/19 at 18:00; Stop 03/30/19 at 10:02; Status DC Octreotide Acetate (SandoSTATIN) 100 mcg Q8H SC Last administered on 03/30/19at 05:39; Start 03/24/19 at 14:00; Stop 03/30/19 at 10:02; Status DC Ondansetron HCl (ZOFRAN INJection) 4 mg Q4HP PRN IV NAUSEA OR VOMITING; Start 03/22/19 at 00:15; Stop 03/22/19 at 01:14; Status DC Ondansetron HCl (ZOFRAN INJection) 4 mg Q4HP PRN IV NAUSEA OR VOMITING Last administered on 03/23/19 17:59; Start 03/23/19 at 18:00; Stop 03/23/19 at 19:00; Status DC Ondansetron HCl (ZOFRAN INJection) 4 mg Q6HP PRN IV NAUSEA OR VOMITING Last administered on 03/23/19 08:52; Start 03/21/19 at 19:15; Status Future Hold Ondansetron HCl (ZOFRAN INJection) 4 mg Q6HP PRN IV NAUSEA Last administered on 03/25/19 08:37; Start 03/23/19 at 18:00; Stop 03/30/19 at 10:02; Status DC Oxycodone/ Acetaminophen (Percocet 5mg/ 325mg Tablet) 1 tab BIDP PRN PO MILD/MODERATE PAIN (PS 1-7) Last administered on 03/23/19 11:31; Start 03/23/19 at 09:45; Stop 03/23/19 at 18:01; Status DC Oxycodone/ Acetaminophen (Percocet 5mg/ 325mg Tablet) 1 tab Q4HP PRN PO MILD/MODERATE PAIN (PS 1-7); Start 03/30/19 at 10:15 Oxycodone/ Acetaminophen (Percocet 5mg/ 325mg Tablet) 2 tab Q4HP PRN PO SEVERE PAIN (PS 8-10); Start 03/30/19 at 10:15 Pantoprazole Sodium (Protonix) 40 mg Q12H IV Last administered on 03/30/19at 04:48; Start 03/22/19 at 04:00 Piperacillin Sod/ Tazobactam Sod 3.375 gm/Dextrose 50 ml @ 50 mls/hr Q6H IV Last administered on 03/30/19at 09:30; Start 03/24/19 at 16:00 Potassium Chloride 20 meq/ IV Miscellaneous Supplies 100 ml @ 100 mls/hr 0700,0 800 IV Last administered on 03/27/19at 10:38; Start 03/27/19 at 07:00; Stop 03/27/19 at 14:00; Status DC Potassium Chloride 20 meq/ IV Miscellaneous Supplies 100 ml @ 100 mls/hr Q1H IV Last administered on 03/28/19at 15:58; Start 03/28/19 at 13:00; Stop 03/28/19 at 15:59; Status DC Potassium Chloride 20 meq/ IV Miscellaneous Supplies 100 ml @ 100 mls/hr Q1H IV Last administered on 03/26/19at 11:11; Start 03/26/19 at 09:00; Stop 03/26/19 at 10:59; Status DC Potassium Chloride 83 meq/ Amino Ac/Electrol/ Dextrose/Calcium 2,041.5 ml @ 60 mls/hr ONCE@1800 IV ; Start 03/30/19 at 18:00; Stop 03/31/19 at 17:59 Potassium Chloride (Potassium Chloride Liquid) 40 meq BID PO Last administered on 03/30/19at 09:29; Start 03/30/19 at 09:00 Sodium Chloride 1,000 ml @ 15 mls/hr Q24H IV ; Start 03/23/19 at 17:58; Status Cancel Sodium Chloride 1,000 ml @ 15 mls/hr Q24H IV Last administered on 03/29/19at 08:10; Start 03/25/19 at 07:30; Stop 03/30/19 at 10:39; Status DC Sodium Chloride 1,000 ml @ 150 mls/hr Q6H40M IV ; Start 03/21/19 at 16:45; Stop 03/22/19 at 04:17; Status DC Sodium Chloride (Saline Lock Flush) 10 ML PICC IV Last administered on 03/30/19at 05:39; Start 03/27/19 at 18:00 Sodium Chloride (Saline Lock Flush) 10 ml ASDIRECTED PRN IV SEE LABEL COMMENTS Last administered on 03/24/19at 17:34; Start 03/24/19 at 12:00; Stop 03/28/19 at 05:58; Status DC Sodium Chloride (Saline Lock Flush) 10 ml SLF IV Last administered on 03/27/19at 21:30; Start 03/24/19 at 14:00; Stop 03/28/19 at 05:58; Status DC Sodium Chloride (Saline Lock Flush) 10 ml SLF IV Last administered on 03/27/19at 21:31; Start 03/24/19 at 14:00; Stop 03/28/19 at 05:58; Status DC Sodium Chloride (Saline Lock Flush) 10ML ASDIRECTED PRN IV SEE LABEL COMMENTS; Start 03/27/19 at 16:45 Sucralfate (Carafate Suspension) 1 gm Q6H PO Last administered on 03/30/19at 12:33; Start 03/21/19 at 18:00 Sucralfate (Carafate) 1 gm Q6H PO ; Start 03/21/19 at 18:00; Stop 03/21/19 at 18:39; Status DC Tramadol HCl (Ultram) 50 mg Q6HP PRN PO MODERATE PAIN (PS 5-7) Last administered on 03/23/19at 08:45; Start 03/22/19 at 14:30; Stop 03/23/19 at 18:01; Status DC Trazodone HCl (Desyrel) 100 mg QHS PO ; Start 03/23/19 at 21:00; Stop 03/23/19 at 21:00; Status DC Vitamin D (Vitamin D) 1,000 units DAILY PO Last administered on 03/23/19at 08:43; Start 03/22/19 at 09:00; Stop 03/23/19 at 18:01; Status DC Allergies Coded Allergies: amlodipine (Verified Allergy, Mild, rash, 02/22/19) duloxetine (Verified Allergy, Mild, Rash, 02/22/19) latex (Verified Allergy, Mild, rash, 03/21/19) Contrast Media (Verified Allergy, Unknown, rash, 07/11/17) nystatin (Verified Allergy, Unknown, Rash, 02/22/19) Objective Physical Examination Examination GENERAL APPEARANCE: Patient seen sitting up on the chair, looks comfortable. SKIN: Warm and moist. HEENT: Normocephalic, atraumatic. Hughes palpebral conjunctiva, anicteric sclerae. Lips and mucosa appear moist. NECK: Supple, no thyromegaly. No obvious jugular venous distention. LUNGS: Clear to auscultation bilaterally. No wheezing appreciated. HEART: No chest wall abnormalities. Regular rate and rhythm with no murmurs appreciated. ABDOMEN: Abdomen is round, soft, nondistended. Upper midline incision with erasmo intact, no drainage no erythema. Los drain with thin serosanguineous fluid. No signs of bile drainage. EXTREMITIES: Minimal lower extremity edema. Vital Signs Vital Signs Date Time Temp Pulse Resp B/P (MAP) Pulse Ox O2 Delivery O2 Flow Rate FiO2 03/30/19 12:42 67 142/69 03/30/19 12:00 97.4 18 96 2.0 I&Os I&O- Last 24 Hours up to 6 AM 03/30/19 06:00 Intake Total 1290 ml Output Total 1896 ml Balance -606 ml Laboratory Data Labs 24H Laboratory Tests 2 03/29/19 17:50: Total Creatine Kinase 64, Creatine Kinase MB 1.3, Creatine Kinase MB Relative Index 2.03, Troponin I 0.05 03/29/19 18:30: Bedside Glucose (Misc Panel) 72L 03/29/19 23:42: Total Creatine Kinase 39, Creatine Kinase MB 1.3, Creatine Kinase MB Relative Index 3.33, Troponin I 0.06 03/30/19 00:24: Bedside Glucose (Misc Panel) 149H 03/30/19 05:39: Immature Granulocyte % (Auto) 1.0, White Blood Count 11.2H, Red Blood Count 3.81L, Hemoglobin 11.0L, Hematocrit 35.1L, Mean Corpuscular Volume 92.1, Mean Corpuscular Hemoglobin 28.9, Mean Corpuscular Hemoglobin Concent 31.3L, Red Cell Distribution Width 15.8H, Platelet Count 243, Neutrophils (%) (Auto) 77.6H, Lymphocytes (%) (Auto) 6.8L, Monocytes (%) (Auto) 14.1H, Eosinophils (%) (Auto) 0.0, Basophils (%) (Auto) 0.5, Neutrophils # (Auto) 8.7H, Lymphocytes # (Auto) 0.8L, Monocytes # (Auto) 1.6H, Eosinophils # (Auto) 0.0, Basophils # (Auto) 0.1, Nucleated Red Blood Cells % (auto) 0.0, Anion Gap 5L, Glomerular Filtration Rate > 60.0, Blood Urea Nitrogen 10, Creatinine 0.47L, Sodium Level 136, Potassium L evel 2.9#*L, Chloride Level 94L, Carbon Dioxide Level 37H, Calcium Level 6.8L, Magnesium Level 1.6L 03/30/19 12:15: Bedside Glucose (Misc Panel) 140H CBC/BMP Laboratory Tests 03/29/19 17:47 03/29/19 23:42 03/30/19 05:39 Red Blood Count 3.81 L, Mean Corpuscular Volume 92.1, Mean Corpuscular Hemoglobin 28.9, Mean Corpuscular Hemoglobin Concent 31.3 L, Red Cell Distribution Width 15.8 H, Neutrophils (%) (Auto) 77.6 H, Lymphocytes (%) (Auto) 6.8 L, Monocytes (%) (Auto) 14.1 H, Eosinophils (%) (Auto) 0.0, Basophils (%) (Auto) 0.5, Neutrophils # (Auto) 8.7 H, Lymphocytes # (Auto) 0.8 L, Monocytes # (Auto) 1.6 H, Eosinophils # (Auto) 0.0, Basophils # (Auto) 0.1, Calcium Level 6.8 L Impression POD7 Exploratory Laparotomy, Oversewing of Bleeding Duodenal Ulcer, Transverse Closure of Gastroduodenotomy Patient is tolerating clear liquids. I have advanced her to a soft diet. If she is tolerating this type of diet, suggest discontinuing TPN after today. Continue IV antibiotics for another 7 days or convert to by mouth antibiotics tolerating regular food Patient continues to be weak and needed assistance on just getting out of bed. She is working and physical therapy. I think getting her into her previous independent state will be the main determining factor in sending her home. Continued working with physical therapy. Her hemoglobin and hematocrit has been stable despite reports of her passing some maroon-colored stools yesterday. A think she is actively bleeding at this point. Plan / VTE VTE Prophylaxis Ordered?: Yes Plan / Urinary Catheter Reason for insertion/continuin: Critical Pt monitoring BING BOYLE MD Mar 30, 2019 13:12
[2019-03-30] MEDS ORDERED: MAG SULF 1GM/100ML (MAG RUN) 1 GM in APPROPRIATE DILUENT 1 EA IV ONE (14:45)
[2019-03-30] MEDS: PERCOCET 5MG/325MG TAB PO PRN (15:52)
[2019-03-30] MEDS: FLUCONAZOLE 100 MG in APPROPRIATE DILUENT 1 EA IV SCH (17:36)
[2019-03-30] MEDS ORDERED: CALC IV SCH (18:00)
[2019-03-30] MEDS ORDERED: FAT EMULSION IV 20% 500 ML IV SCH (18:00)
[2019-03-30] MEDS ORDERED: HumaLOG INSULIN (NovoLOG) PER UNIT SC SCH (18:00)
[2019-03-30] MEDS ORDERED: AMINO AC IV SCH (18:00)
[2019-03-30] MEDS ORDERED: POTASSIUM CHLORIDE IV SCH (18:00)
[2019-03-30] MEDS ORDERED: ELECTROLYTE IV SCH (18:00)
[2019-03-30] MEDS ORDERED: DEX IV SCH (18:00)
[2019-03-30] MEDS ORDERED: LISINOPRIL 10 MG TAB PO SCH (21:00)
[2019-03-31 02:00] VITALS: BP 163/83
[2019-03-31] MEDS: PANTOPRAZOLE 40MG INJ (PROTONIX) (C9113) IV SCH (04:26)
[2019-03-31] MEDS: PIPERACILLIN/TAZOBACTAM SOD 3.375 GM in D5W MINI-BAG PLUS 50 ML IV SCH (04:27)
[2019-03-31] MEDS: SUCRALFATE SUSP 1GM/10ML UD PO SCH ×3 (05:25→17:46)
[2019-03-31] MEDS: SODIUM CHLORIDE 0.9% INJ 10 ML SYR IV SCH ×2 (05:25→17:45)
[2019-03-31] MEDS: METOPROLOL TART 25 MG TABLET PO SCH ×3 (05:26→17:45)
[2019-03-31 06:00] VITALS: BP 160/81
[2019-03-31 06:00] LABS: BASO # 0.1 10^3/uL (0.0-0.2); BASO % 0.4 % (0.0-1.0); HEMATOCRIT 34.4 % (36.0-47.0); HEMOGLOBIN 11.1 g/dl (12.0-15.5); LYMPH % 7.5 % (24.0-44.0); MEAN CORPUSCULAR HEMOGLOBIN 29.1 pg (27.0-33.0); MEAN CORPUSCULAR HGB CONC 32.3 g/dl (32.0-36.5); MEAN CORPUSCULAR VOLUME 90.3 fl (80.0-96.0); MONO # 1.4 10^3/uL (0.0-0.8); MONO % 10.8 % (0.0-5.0); NEUTROPHILS # 10.1 10^3/uL (1.8-7.7); NEUTROPHILS % 79.6 % (36.0-66.0); PLATELET COUNT, AUTOMATED 280 10^3/uL (150-450); RED BLOOD COUNT 3.81 10^6/uL (4.00-5.40); WHITE BLOOD COUNT 12.7 10^3/uL (4.0-10.0)
[2019-03-31 06:29] LABS: BLOOD UREA NITROGEN 14 MG/DL (7-18); CARBON DIOXIDE LEVEL 36 MEQ/L (21-32); CHLORIDE LEVEL 96 MEQ/L (98-107); CREATININE FOR GFR 0.32 MG/DL (0.55-1.30); GLOMERULAR FILTRATION RATE > 60.0 (>39); GLUCOSE, FASTING 116 MG/DL (70-100); POTASSIUM SERUM 3.1 MEQ/L (3.5-5.1); SODIUM LEVEL 136 MEQ/L (136-145)
[2019-03-31 06:30] LABS: CALCIUM LEVEL 6.7 MG/DL (8.8-10.2); MAGNESIUM LEVEL 1.8 MG/DL (1.8-2.4)
[2019-03-31] MEDS: PERCOCET 5MG/325MG TAB PO PRN ×2 (08:28→20:00)
[2019-03-31] MEDS: GI COCKTAIL 50ML BTL(HYOSCYAMINE/MAALOX/LIDOCAINE VISCOUS)(1:3:1) PO PRN (08:28)
[2019-03-31] MEDS: HumaLOG INSULIN (NovoLOG) PER UNIT SC SCH ×4 (08:52→20:43)
[2019-03-31] MEDS: POTASSIUM CHLORIDE 10% LIQ 20 MEQ/15 ML UDC PO SCH ×2 (08:52→20:00)
[2019-03-31] MEDS: metroNIDAZOLE (FLAGYL) 500 MG TAB PO SCH ×3 (08:53→20:00)
[2019-03-31] MEDS: LOSARTAN 50 MG TAB PO SCH ×2 (08:53→20:02)
[2019-03-31 10:00] VITALS: BP 148/82
[2019-03-31] MEDS: CLARITHROMYCIN 250 MG TAB PO SCH ×2 (10:37→20:00)
[2019-03-31] MEDS: ACETAMINOPHEN TAB 650MG DOSE (2X325MG) PO PRN (11:13)
--- NOTE | 2019-03-31 11:25 | IPNPDOC ---
Text Note Date of Service The patient was seen on 03/31/19. NOTE Ms. Lopez was seen and examined during bedside morning rounds, she is alert and resting in her bedside chair. She says she feels well, She has some nausea, some abdominal discomfort. She isn't that hungry currently. She denies cp, sob or heart palpitations. She did have one dark BM this morning. She is working currently with physical therapy. ROS: 12 point ROS reviewed with patient and negative except for findings discussed above. PE: Vitals: see below General: 78 yo female laying in bed, speaking in full sentences, NAD, conversant HEENT: moist mucus membranes, EOMI, no JVD Resp: CTA b/l, no wheezing, rales or rhonchi appreciated, diminished slightly throughout Cardio: normal s1 and s2., no murmurs, rubs or gallops, RRR Abdomen: nabsx4, discomfort around incision from ex lap which is still uncovered, minimal erythema around individual erasmo but without pus/blood exudation, does not appear infected, no rebound rigidity or guarding, no distension, no hepatosplenomegaly or masses appreciated, soft, her FREDO is currently only serosang. fluid about 25 mL, s/p L femoral triple lumen and is s/p L fem A line. dressing for incision from ex. lap procedure is clean and intact, left brachial cutdown incision/ staple line is clean and intact Extremities: no cyanosis, mottling or edema 1. Acute blood loss anemia causing hypovolemic/hemorrhagic shock from re-bl eeding duodenal ulcer -H//H stable today at 11.1/34.4-one dark bm this AM -secondary to GI source of bleeding duodenal ulcer, s/p EGD on 03/22/19 that revealed large cratered actively bleeding duodenal ulcer in the first/second portion of the duodenum, unfortunately vascular and GI could not access site to stop bleeding -S/p ex lap for duodenal ulcer oversew procedure 03.23.[address] Cain -HG has been a bit fluctuating, now s/p 16 units pRBC, platelets and FFP have also been transfused, will continue to closely monitor H/H -c/w pantoprazole 40 mg BID and sucralfate for now, GI cocktail q6h Coverage infection after intra-abdominal surgery -white count 12.7, a bit elevated today, per surgery, c/w abx for 7 more days, can consider PO if she continues to tolerate her food -c/w Zosyn and Fluconazole (03/24/19) CXR 6.8.19 essentially unrevealing-procal .15 -pain control with Percocet 2.New onset Atrial fibrillation with episodes of RVR - c/w monitoring on telemetry for now, BP stable - c/w Metoprolol 25 mg q6h - Absolute contraindication to anticoagulation 3. History of elevated Troponin - suspected to be 2/2 NSTEMI within the past 28 days -Non obstructive CAD. -stable -patient was here in mid February 2019, elevated troponin at that time of 1.93- suspected NSTEMI, she was transferred to [place] and had cardiac cath that did not demonstrate any lesions, no intervention / stents were place -current troponin negative, she had ECHO in Oct 2018 that showed EF 60% with G1DD 4. HTN with signs of possible fluid overload-stable -Now no fluid overload -metoprolol, lisinopril 5. Constipation -holding home meds in light of current illness 6. Depression -home meds held 7. DLP -holding home meds 8. CBP -She has LACE SEWER pump currently 9. Insomnia -c/w home trazodone Disposition: Patient is s/p ex lap and duodenal ulcer oversew with general surgery, she continues to work with PT, one dark BM this AM but stable h/h, minimal elevation in WBC, afebrile, c/w current abx., 7 more days for abx coverage per surgery recommendations. General surgery performed UGIS that was unremarkable for extravasation. FREDO drainage continues with serosanguineous. C/w diet advancement per surgery recommendations. VS,Fishbone, I+O VS, Fishbone, I+O Laboratory Tests 03/31/19 05:39 Red Blood Count 3.81 L, Mean Corpuscular Volume 90.3, Mean Corpuscular Hemoglo bin 29.1, Mean Corpuscular Hemoglobin Concent 32.3, Red Cell Distribution Width 15.6 H, Neutrophils (%) (Auto) 79.6 H, Lymphocytes (%) (Auto) 7.5 L, Monocytes (%) (Auto) 10.8 H, Eosinophils (%) (Auto) 0.0, Basophils (%) (Auto) 0.4, Neutrophils # (Auto) 10.1 H, Lymphocytes # (Auto) 1.0 L, Monocytes # (Auto) 1.4 H, Eosinophils # (Auto) 0.0, Basophils # (Auto) 0.1, Calcium Level 6.7 L Vital Signs Date Time Temp Pulse Resp B/P (MAP) Pulse Ox O2 Delivery O2 Flow Rate FiO2 03/31/19 08:58 16 95 03/31/19 08:53 158/74 03/31/19 06:00 96.7 77 2.0 I&O- Last 24 Hours up to 6 AM 03/31/19 06:00 Intake Total 2930 ml Output Total 310 ml Balance 2620 ml GME ATTESTATION GME ATTESTATION My faculty preceptor for this patient encounter was physically present during the encounter and was fully available. All aspects of the patient interview, examination, medical decision making process, and medical care plan development were reviewed and approved by the faculty preceptor. The faculty preceptor is aware and concurs with the plan as stated in the body of this note and will attest to such by his/her cosignature. ATTENDING NOTE I have personally interviewed and examined the patient. I have discussed the plan of care with the resident. I agree with the resident's documentation above. GLENNY EVANS DO Mar 31, 2019 11:25 MOJGAN CA MD Apr 02, 2019 16:31
[2019-03-31 14:00] VITALS: BP 141/62
--- NOTE | 2019-03-31 14:36 | IPNPDOC ---
Subjective General Date/Time Seen The patient was seen on 03/31/19 at 14:30. Subject Chief Complaint/History The patient is a 78-year-old female admitted with a reason for visit of Gi Bleed. Patient seen sitting up on the recliner, looks comfortable. She reports she is feeling slightly better each day. She is working with physical therapy though she still requires a lot of assistance. She has been tolerating soft diet. She has been afebrile. Current Medications Current Medications Current Medications Acetaminophen (Tylenol Tab) 650 mg Q4HP PRN PO PAIN OR FEVER Last administered on 03/31/19at 11:13; Start 03/22/19 at 09:00 Amino Ac/Electrol/ Dextrose/Calcium 2,000 ml @ 60 mls/hr ONCE@1800 IV Last administered on 03/28/19at 18:15; Start 03/28/19 at 18:00; Stop 03/29/19 at 17:59; Status DC Amino Ac/Electrol/ Dextrose/Calcium 2,000 ml @ 60 mls/hr ONCE@1800 IV Last administered on 03/29/19at 18:47; Start 03/29/19 at 18:00; Stop 03/30/19 at 17:59; Status DC Ampicillin Sodium/ Sulbactam Sodium 3 gm/Dextrose 100 ml @ 200 mls/hr Q6H IV ; Start 03/24/19 at 08:00; Stop 03/24/19 at 09:40; Status DC Ampicillin Sodium/ Sulbactam Sodium 3 gm/Dextrose 100 ml @ 200 mls/hr Q6H IV Last administered on 03/24/19at 10:37; Start 03/24/19 at 10:00; Stop 03/24/19 at 1 3:31; Status DC Atorvastatin Calcium (Lipitor) 40 mg QHS PO Last administered on 03/22/19at 21:05; Start 03/22/19 at 21:00; Stop 03/23/19 at 18:01; Status DC Buspirone HCl (Buspar) 20 mg TID PO Last administered on 03/23/19at 08:43; Start 03/22/19 at 16:00; Stop 03/23/19 at 18:01; Status DC Clarithromycin (Biaxin) 250 mg BID PO Last administered on 03/31/19at 10:37; Start 03/31/19 at 09:00; Stop 04/14/19 at 08:59 Clonidine HCl (Catapres) 0.1 mg BID PO Last administered on 03/25/19at 08:37; Start 03/22/19 at 21:00; Stop 03/25/19 at 14:05; Status DC Diphenhydramine HCl (Benadryl) 12.5 mg Q4HP PRN IV ITCHING Last administered on 03/29/19at 19:47; Start 03/23/19 at 18:00; Stop 03/30/19 at 10:02; Status DC Fat Emulsion Intravenous 500 ml @ 20 mls/hr ONCE@1800 IV Last administered on 03/28/19at 18:15; Start 03/28/19 at 18:00; Stop 03/29/19 at 17:59; Status DC Fat Emulsion Intravenous 500 ml @ 20 mls/hr ONCE@1800 IV Last administered on 03/29/19at 18:46; Start 03/29/19 at 18:00; Stop 03/30/19 at 17:59; Status DC Fat Emulsion Intravenous 500 ml @ 20 mls/hr ONCE@1800 IV Last administered on 03/30/19at 18:57; Start 03/30/19 at 18:00; Stop 03/31/19 at 17:59 Fentanyl Citrate (Sublimaze) 25 mcg Q5MP PRN IV MODERATE PAIN (PS 4-7); Start 03/23/19 at 18:00; Stop 03/23/19 at 19:00; Status DC Fluconazole 100 mg/IV Miscellaneous Supplies 50 ml @ 50 mls/hr Q24H IV Last administered on 03/30/19at 17:36; Start 03/24/19 at 15:00; Stop 03/31/19 at 07:34; Status DC Furosemide (LASIX injection) 40 mg DAILY IV Last administered on 03/26/19at 09:32; Start 03/24/19 at 09:00; Stop 03/27/19 at 09:03; Status DC Heparin Sodium (Heparin (Flush)) 200 units ASDIRECTED PRN IV SEE LABEL COMMENTS; Start 03/27/19 at 16:45 Heparin Sodium (Heparin (Flush)) 200 units PICC IV Last administered on 03/31/19at 05:25; Start 03/27/19 at 18:00 Heparin Sodium (Heparin Lock Flush 10units/ml) 10 units ASDIRECTED PRN IV SEE LABEL COMMENTS Last administered on 03/24/19at 17:34; Start 03/24/19 at 12:00; Stop 03/28/19 at 05:58; Status DC Heparin Sodium (Heparin Lock Flush 10units/ml) 10 units HLF IV Last administered on 03/27/19at 21:30; Start 03/24/19 at 14:00; Stop 03/28/19 at 05:58; Status DC Home Med (Med Rec Complete!) ASDIRECTED XX ; Start 03/21/19 at 14:30; Stop 03/21/19 at 14:39; Status DC Hydroxyzine HCl (Atarax) 25 mg Q8HP PRN PO ANXIETY Last administered on 03/29/19at 16:37; Start 03/26/19 at 17:00 Hydroxyzine HCl (Atarax) 50 mg DAILYPRN PRN PO ANXIETY Last administered on 03/24/19at 03:48; Start 03/23/19 at 09:45; Stop 03/26/19 at 16:57; Status DC Hyoscyamine/Lido/ Alumin/Mag/Simethi (Gi Cocktail) 50 ml Q6HP PRN PO GI UPSET Last administered on 03/31/19at 08:28; Start 03/25/19 at 14:15 Insulin Human Lispro (HumaLOG INSULIN) See Protocol Table AC SC Last administered on 03/31/19at 11:53; Start 03/30/19 at 17:30 Insulin Human Lispro (HumaLOG INSULIN) See Protocol Table Q6H SC Last administered on 03/29/19at 14:02; Start 03/28/19 at 18:00; Stop 03/29/19 at 12:01; Status DC Insulin Human Lispro (HumaLOG INSULIN) See Protocol Table Q6H SC Last administered on 03/30/19at 12:43; Start 03/29/19 at 18:00; Stop 03/30/19 at 12:01; Status DC Insulin Human Lispro (HumaLOG INSULIN) See Protocol Table Q6H SC ; Start 03/30/19 at 18:00; Stop 03/30/19 at 18:00; Status DC Insulin Human Lispro (HumaLOG INSULIN) See Protocol Table QHS SC ; Start 03/30/19 at 21:00 Labetalol HCl (Normodyne, Trandate) 10 mg Q4HP PRN IV HYPERTENSION Last administered on 03/28/19at 02:15; Start 03/28/19 at 00:00; Stop 03/30/19 at 14:35; Status DC Lactated Ringer's 1,000 ml @ 75 mls/hr [id number] IV ; Start 03/22/19 at 00:15; Stop 03/22/19 at 01:14; Status DC Lactated Ringer's 1,000 ml @ 100 mls/hr Q10H IV Last administered on 03/24/19at 23:01; Start 03/23/19 at 18:00; Stop 03/25/19 at 07:19; Status DC Lactated Ringer's 1,000 ml @ 120 mls/hr Q8H20M IV ; Start 03/23/19 at 18:00; Stop 03/23/19 at 19:00; Status DC Lisinopril (Prinivil) 10 mg QHS PO Last administered on 03/30/19at 21:40; Start 03/30/19 at 21:00; Stop 03/31/19 at 07:29; Status DC Lorazepam (Ativan) 0.5 mg Q8HP PRN PO ANXIETY Last administered on 03/30/19at 09:30; Start 03/26/19 at 17:00 Lorazepam (Ativan) 1 mg Q8HP PRN PO ANXIETY Last administered on 03/26/19at 09:31; Start 03/24/19 at 07:45; Stop 03/26/19 at 16:57; Status DC Losartan Potassium (Cozaar) 50 mg BID PO Last administered on 03/31/19at 08:53; Start 03/31/19 at 09:00 Losartan Potassium (Cozaar) 100 mg DAILY PO Last administered on 03/23/19at 08:43; Start 03/22/19 at 09:00; Stop 03/25/19 at 14:05; Status DC Magnesium Sulfate/ Dextrose 1 gm/IV Miscellaneous Supplies 100 ml @ 100 mls/hr 0400,0500 IV Last administered on 03/22/19at 05:40; Start 03/22/19 at 04:00; Stop 03/22/19 at 12:00; Status DC Magnesium Sulfate/ Dextrose 1 gm/IV Miscellaneous Supplies 100 ml @ 100 mls/hr Q1H IV Last administered on 03/24/19at 09:50; Start 03/24/19 at 08:00; Stop 03/24/19 at 09:59; Status DC Metoclopramide HCl (REGLAN INJection) 10 mg Q6HP PRN IV NAUSEA OR VOMITING; Start 03/23/19 at 18:00; Stop 03/23/19 at 19:00; Status DC Metoprolol Tartrate (Lopressor) 5 mg STAT STAT IV Last administered on 03/18 11/05at 13:00; Start 03/28/19 at 12:53; Stop 03/28/19 at 12:54; Status DC Metoprolol Tartrate (Lopressor) 5 mg STAT STAT IV Last administered on 03/29/19at 17:57; Start 03/29/19 at 17:45; Stop 03/29/19 at 17:46; Status DC Metoprolol Tartrate (Lopressor) 12.5 mg BID PO Last administered on 03/26/19at 09:34; Start 03/22/19 at 21:00; Stop 03/26/19 at 17:00; Status DC Metoprolol Tartrate (Lopressor) 12.5 mg Q6H PO Last administered on 03/29/19at 16:10; Start 03/26/19 at 21:00; Stop 03/29/19 at 16:33; Status DC Metoprolol Tartrate (Lopressor) 25 mg Q6H PO Last administered on 03/31/19at 11:53; Start 03/29/19 at 18:00 Metronidazole (Flagyl) 500 mg TID PO Last administered on 03/31/19at 08:53; Sta rt 03/31/19 at 09:00; Stop 04/14/19 at 08:59 Miscellaneous (Unresolved Clarification Entry) SEE LABEL COMMENTS DAILY XX ; Start 03/29/19 at 09:00; Stop 03/29/19 at 20:44; Status DC Morphine Sulfate (Morphine Sulfate In 0.9%Nacl Iv Bag) Concentration 1 mg/ml ASDIRECTED PRN IV SEE LABEL COMMENTS Last administered on 03/27/19at 21:43; Start 03/23/19 at 18:00; Stop 03/30/19 at 10:02; Status DC Nalbuphine HCl (Nubain) 2.5 mg Q6HP PRN IV PRURITIS; Start 03/23/19 at 18:00; Stop 03/30/19 at 10:02; Status DC Naloxone HCl (Narcan) 0.1 mg Q5MP PRN IV SEE LABEL COMMENTS; Start 03/23/19 at 18:00; Stop 03/30/19 at 10:02; Status DC Non-Formulary Medication (Epidural/SHOES HAND SEWER [place]) USE THIS ENTRY TO VEND ... Q1M PRN XX SEE LABEL COMMENTS; Start 03/23/19 at 18:00; Stop 03/30/19 at 10:02; Status DC Octreotide Acetate (SandoSTATIN) 100 mcg Q8H SC Last administered on 03/30/19at 05:39; Start 03/24/19 at 14:00; Stop 03/30/19 at 10:02; Status DC Ondansetron HCl (ZOFRAN INJection) 4 mg Q4HP PRN IV NAUSEA OR VOMITING; Start 03/22/19 at 00:15; Stop 03/22/19 at 01:14; Status DC Ondansetron HCl (ZOFRAN INJection) 4 mg Q4HP PRN IV NAUSEA OR VOMITING Last administered on 03/23/19at 17:59; Start 03/23/19 at 18:00; Stop 03/23/19 at 19:00; Status DC Ondansetron HCl (ZOFRAN INJection) 4 mg Q6HP PRN IV NAUSEA OR VOMITING Last administered on 03/23/19at 08:52; Start 03/21/19 at 19:15; Status Future Hold Ondansetron HCl (ZOFRAN INJection) 4 mg Q6HP PRN IV NAUSEA Last administered on 03/25/19at 08:37; Start 03/23/19 at 18:00; Stop 03/30/19 at 10:02; Status DC Oxycodone/ Acetaminophen (Percocet 5mg/ 325mg Tablet) 1 tab BIDP PRN PO MILD/MODERATE PAIN (PS 1-7) Last administered on 03/23/19at 11:31; Start 03/23/19 at 09:45; Stop 03/23/19 at 18:01; Status DC Oxycodone/ Acetaminophen (Percocet 5mg/ 325mg Tablet) 1 tab Q4HP PRN PO MILD/MODERATE PAIN (PS 1-7); Start 03/30/19 at 10:15 Oxycodone/ Acetaminophen (Percocet 5mg/ 325mg Tablet) 2 tab Q4HP PRN PO SEVERE PAIN (PS 8-10) Last administered on 03/31/19at 08:28; Start 03/30/19 at 10:15 Pantoprazole Sodium (Protonix) 40 mg BID PO ; Start 03/31/19 at 21:00 Pantoprazole Sodium (Protonix) 40 mg Q12H IV Last administered on 03/31/19at 04:26; Start 03/22/19 at 04:00; Stop 03/31/19 at 07:27; Status DC Piperacillin Sod/ Tazobactam Sod 3.375 gm/Dextrose 50 ml @ 50 mls/hr Q6H IV Last administered on 03/31/19at 04:27; Start 03/24/19 at 16:00; Stop 03/31/19 at 07:34; Status DC Potassium Chloride 20 meq/ IV Miscellaneous Supplies 100 ml @ 100 mls/hr 0700,0800 IV Last administered on 03/27/19at 10:38; Start 03/27/19 at 07:00; Stop 03/27/19 at 14:00; Status DC Potassium Chloride 20 meq/ IV Miscellaneous Supplies 100 ml @ 100 mls/hr Q1H IV Last administered on 03/28/19at 15:58; Start 03/28/19 at 13:00; Stop 03/28/19 at 15:59; Status DC Potassium Chloride 20 meq/ IV Miscellaneous Supplies 100 ml @ 100 mls/hr Q1H IV Last administered on 03/26/19at 11:11; Start 03/26/19 at 09:00; Stop 03/26/19 at 10:59; Status DC Potassium Chloride 83 meq/ Amino Ac/Electrol/ Dextrose/Calcium 2,041.5 ml @ 60 mls/hr ONCE@1800 IV Last administered on 03/30/19at 18:57; Start 03/30/19 at 18:00; Stop 03/31/19 at 17:59 Potassium Chloride (Potassium Chloride Liquid) 40 meq BID PO Last administered on 03/31/19at 08:52; Start 03/30/19 at 09:00 Sodium Chloride 1,000 ml @ 15 mls/hr Q24H IV ; Start 03/23/19 at 17:58; Status Cancel Sodium Chloride 1,000 ml @ 15 mls/hr Q24H IV Last administered on 03/29/19at 08:10; Start 03/25/19 at 07:30; Stop 03/30/19 at 10:39; Status DC Sodium Chloride 1,000 ml @ 150 mls/hr Q6H40M IV ; Start 03/21/19 at 16:45; Stop 03/22/19 at 04:17; Status DC Sodium Chloride (Saline Lock Flush) 10 ML PICC IV Last administered on 03/31/19at 05:25; Start 03/27/19 at 18:00 Sodium Chloride (Saline Lock Flush) 10 ml ASDIRECTED PRN IV SEE LABEL COMMENTS Last administered on 03/24/19at 17:34; Start 03/24/19 at 12:00; Stop 03/28/19 at 05:58; Status DC Sodium Chloride (Saline Lock Flush) 10 ml SLF IV Last administered on 03/27/19at 21:30; Start 03/24/19 at 14:00; Stop 03/28/19 at 05:58; Status DC Sodium Chloride (Saline Lock Flush) 10 ml SLF IV Last administered on 03/27/19at 21:31; Start 03/24/19 at 14:00; Stop 03/28/19 at 05:58; Status DC Sodium Chloride (Saline Lock Flush) 10ML ASDIRECTED PRN IV SEE LABEL COMMENTS; Start 03/27/19 at 16:45 Sucralfate (Carafate Suspension) 1 gm Q6H PO Last administered on 03/31/19at 11:52; Start 03/21/19 at 18:00 Sucralfate (Carafate) 1 gm Q6H PO ; Start 03/21/19 at 18:00; Stop 03/21/19 at 18:39; Status DC Tramadol HCl (Ultram) 50 mg Q6HP PRN PO MODERATE PAIN (PS 5-7) Last administered on 03/23/19at 08:45; Start 03/22/19 at 14:30; Stop 03/23/19 at 18:01; Status DC Trazodone HCl (Desyrel) 100 mg QHS PO ; Start 03/23/19 at 21:00; Stop 03/23/19 at 21:00; Status DC Vitamin D (Vitamin D) 1,000 units DAILY PO Last administered on 03/23/19at 08:43; Start 03/22/19 at 09:00; Stop 03/23/19 at 18:01; Status DC Allergies Coded Allergies: amlodipine (Verified Allergy, Mild, rash, 02/22/19) duloxetine (Verified Allergy, Mild, Rash, 02/22/19) latex (Verified Allergy, Mild, rash, 03/21/19) Contrast Media (Verified Allergy, Unknown, rash, 07/11/17) nystatin (Verified Allergy, Unknown, Rash, 02/22/19) Objective Physical Examination Examination GENERAL APPEARANCE: Looks comfortable. SKIN: Warm and moist. HEENT: Normocephalic, atraumatic. [employer] palpebral conjunctiva, anicteric sclerae. Lips and mucosa appear moist. NECK: No jugular venous distention. LUNGS: Clear to auscultation bilaterally. No wheezing appreciated. HEART: Regular rate and rhythm. ABDOMEN: Abdomen is slightly around, soft, nondistended. Upper midline incision with erasmo intact. No signs of any subcutaneous collection. Surrounding skin without any erythema. Nontender on palpation. FREDO drainage with light pink serosanguineous drainage without any tinge of bile. EXTREMITIES: Minimal lower extremity edema. Vital Signs Vital Signs Date Time Temp Pulse Resp B/P (MAP) Pulse Ox O2 Delivery O2 Flow Rate FiO2 03/31/19 11:53 78 154/80 03/31/19 10:00 97.1 16 95 03/31/19 06:00 2.0 I&Os I&O- Last 24 Hours up to 6 AM 03/31/19 06:00 Intake Total 2930 ml Output Total 310 ml Balance 2620 ml Laboratory Data Labs 24H Laboratory Tests 2 03/30/19 17:50: Bedside Glucose (Misc Panel) 161H 03/30/19 21:19: Bedside Glucose (Misc Panel) 109 03/31/19 05:39: Immature Granulocyte % (Auto) 1.7, White Blood Count 12.7H, Red Blood Count 3. 81L, Hemoglobin 11.1L, Hematocrit 34.4L, Mean Corpuscular Volume 90.3, Mean Corpuscular Hemoglobin 29.1, Mean Corpuscular Hemoglobin Concent 32.3, Red Cell Distribution Width 15.6H, Platelet Count 280, Neutrophils (%) (Auto) 79.6H, Lymphocytes (%) (Auto) 7.5L, Monocytes (%) (Auto) 10.8H, Eosinophils (%) (Auto) 0.0, Basophils (%) (Auto) 0.4, Neutrophils # (Auto) 10.1H, Lymphocytes # (Auto) 1.0L, Monocytes # (Auto) 1.4H, Eosinophils # (Auto) 0.0, Basophils # (Auto) 0.1, Nucleated Red Blood Cells % (auto) 0.0, Anion Gap 4L, Glomerular Filtration Rate > 60.0, Blood Urea Nitrogen 14, Creatinine 0.32L, Sodium Level 136, Potassium Level 3.1L, Chloride Level 96L, Carbon Dioxide Level 36H, Calcium Level 6.7L, Magnesium Level 1.8 03/31/19 11:43: Bedside Glucose (Misc Panel) 123H CBC/BMP Laboratory Tests 03/31/19 05:39 Red Blood Count 3.81 L, Mean Corpuscular Volume 90.3, Mean Corpuscular Hemoglobin 29.1, Mean Corpuscular Hemoglobin Concent 32.3, Red Cell Distribution Width 15.6 H, Neutrophils (%) (Auto) 79.6 H, Lymphocytes (%) (Auto) 7.5 L, Monocytes (%) (Auto) 10.8 H, Eosinophils (%) (Auto) 0.0, Basophils (%) (Auto) 0.4, Neutrophils # (Auto) 10.1 H, Lymphocytes # (Auto) 1.0 L, Monocytes # (Auto) 1.4 H, Eosinophils # (Auto) 0.0, Basophils # (Auto) 0.1, Calcium Level 6.7 L Impression POD8 Exploratory Laparotomy, Oversewing of Bleeding Duodenal Ulcer, Transverse Closure of Gastroduodenotomy She continues to do well at this point. She is tolerating soft diet though she reports her appetite is still not there. So in the same breast she also says that she does not eat much at home either. She is able to finish half sandwich for lunch. No febrile episodes. Her drain remained serous sanguinous light pinkish in appearance without any traces of bile. She has some slightly elevated WBC today. I checked on her wounds and no signs of any ongoing wound infection or subcutaneous collection. This continues to increase remaining need to repeat his CT of the abdomen any signs of space organ infection though given the appearance of the FREDO drain and how she is doing overall clinically, I think unlikely. I have switched her IV Zosyn and fluconazole to clarithromycin and metronidazole to cover for H. pylori. I will continue the fluconazole for additional antifungal coverage for another week. I will switch her IV medicatio ns to by mouth including the Protonix. Her hemoglobin and hematocrit has been stable despite reports of her passing some maroon-colored stools. I think she is actively bleeding at this point. Plan / VTE VTE Prophylaxis Ordered?: Yes Plan / Urinary Catheter Reason for insertion/continuin: Critical Pt monitoring BING BOYLE MD Mar 31, 2019 14:36
[2019-03-31] MEDS: ONDANSETRON 4MG/2ML VIAL (J2405) IV PRN (15:57)
[2019-03-31] MEDS: FLUCONAZOLE 100 MG TAB PO SCH (15:58)
[2019-03-31] MEDS: LORazepam 0.5 MG TAB PO PRN (17:44)
[2019-03-31 18:00] VITALS: BP 155/70
[2019-03-31] MEDS: PANTOPRAZOLE 40MG TAB (PROTONIX) PO SCH (20:00)
[2019-03-31] MEDS ORDERED: DEXTROSE 50% 50 ML SYRINGE IV STA (20:12)
[2019-03-31] MEDS ORDERED: DEXTROSE 50% 50 ML SYRINGE As Ordered ONE (20:15)
[2019-03-31 22:00] VITALS: BP 128/68
--- NOTE | 2019-03-31 22:45 | REPVR ---
EXAM: US Duplex Right Upper Extremity Veins, Limited EXAM DATE/TIME: 03/31/2019 10:18 PM CLINICAL HISTORY: 78 years old, female; Signs and symptoms; Swelling (edema) of limb; Upper extremity, right; Prior surgery; Surgery date: Post-operative (0-2 days); Surgery type: Patient had picc line placed; Additional info: Swelling has picc line there TECHNIQUE: Imaging protocol: Real-time Duplex ultrasound of the Right Upper Extremity with 2-D barnes scale, color Doppler flow and spectral waveform analysis. Limited exam focused on the right upper extremity veins. COMPARISON: No relevant prior studies available. FINDINGS: Right deep veins: Unremarkable. Axillary and brachial veins are patent throughout without thrombus. Normal Doppler waveforms. Normal compressibility and/or augmentation response. Visualized internal jugular and subclavian veins are patent. Right superficial veins: Unremarkable. Visualized cephalic vein patent without thrombus. Occluded distal basilic vein from the mid upper arm to the elbow joint. Soft tissues: Unremarkable. IMPRESSION: No acute findings. No evidence of deep vein thrombosis. Distal basilic vein occlusion consistent with superficial thrombosis. Electronically signed by: Omar Comer On 03/31/2019 22:44:52 PM
[2019-04-01] MEDS: SUCRALFATE SUSP 1GM/10ML UD PO SCH ×4 (00:02→17:19)
[2019-04-01] MEDS: ACETAMINOPHEN TAB 650MG DOSE (2X325MG) PO PRN ×3 (00:03→14:49)
[2019-04-01] MEDS: METOPROLOL TART 25 MG TABLET PO SCH ×4 (00:06→17:19)
[2019-04-01] MEDS: hydrOXYzine 25 MG TAB PO PRN ×2 (01:26→14:49)
[2019-04-01] MEDS: LORazepam 0.5 MG TAB PO PRN ×2 (03:08→17:23)
[2019-04-01 06:00] VITALS: BP 136/63
[2019-04-01] MEDS: SODIUM CHLORIDE 0.9% INJ 10 ML SYR IV SCH ×2 (06:15→16:52)
[2019-04-01 06:32] LABS: BASO # 0.1 10^3/uL (0.0-0.2); BASO % 0.9 % (0.0-1.0); HEMATOCRIT 33.1 % (36.0-47.0); HEMOGLOBIN 10.6 g/dl (12.0-15.5); LYMPH # 1.4 10^3/uL (1.5-4.5); LYMPH % 12.4 % (24.0-44.0); MEAN CORPUSCULAR HEMOGLOBIN 29.9 pg (27.0-33.0); MEAN CORPUSCULAR VOLUME 93.2 fl (80.0-96.0); MONO # 1.5 10^3/uL (0.0-0.8); MONO % 12.9 % (0.0-5.0); NEUTROPHILS # 8.1 10^3/uL (1.8-7.7); NEUTROPHILS % 70.3 % (36.0-66.0); PLATELET COUNT, AUTOMATED 334 10^3/uL (150-450); RED BLOOD COUNT 3.55 10^6/uL (4.00-5.40); WHITE BLOOD COUNT 11.5 10^3/uL (4.0-10.0)
[2019-04-01 06:56] LABS: BLOOD UREA NITROGEN 14 MG/DL (7-18); CALCIUM LEVEL 6.8 MG/DL (8.8-10.2); CARBON DIOXIDE LEVEL 33 MEQ/L (21-32); CHLORIDE LEVEL 100 MEQ/L (98-107); CREATININE FOR GFR 0.37 MG/DL (0.55-1.30); GLOMERULAR FILTRATION RATE > 60.0 (>39); GLUCOSE, FASTING 73 MG/DL (70-100); MAGNESIUM LEVEL 1.9 MG/DL (1.8-2.4); SODIUM LEVEL 135 MEQ/L (136-145)
[2019-04-01] MEDS: FLUCONAZOLE 100 MG TAB PO SCH (08:19)
[2019-04-01] MEDS: metroNIDAZOLE (FLAGYL) 500 MG TAB PO SCH ×3 (08:20→21:15)
[2019-04-01] MEDS: CLARITHROMYCIN 250 MG TAB PO SCH ×2 (08:20→21:15)
[2019-04-01] MEDS: LOSARTAN 50 MG TAB PO SCH ×2 (08:20→21:15)
[2019-04-01] MEDS: PANTOPRAZOLE 40MG TAB (PROTONIX) PO SCH ×2 (08:20→21:14)
[2019-04-01] MEDS: PERCOCET 5MG/325MG TAB PO PRN ×2 (08:21→22:44)
[2019-04-01] MEDS: POTASSIUM CHLORIDE 10% LIQ 20 MEQ/15 ML UDC PO SCH (09:49)
[2019-04-01] MEDS: FUROSEMIDE 20 MG/2 ML VIAL (J1940) IV SCH ×2 (09:49→17:19)
--- NOTE | 2019-04-01 12:43 | IPN ---
DATE: 04/01/2019 TIME: 11:20 a.m. HISTORY: The patient is now postop day number 9 from laparotomy and oversewing of a bleeding duodenal ulcer. She reports that she is beginning to feel better. Her oral intake is improved. She is not having any significant abdominal pain at present. She reports that she still feels quite weak but is working with physical therapy. Vital signs show that she has been afebrile for the past 24 hours. Her pulse is in the 60s to low 80s and her blood pressure has been in the 130 systolic most recently. Intake and output show that yesterday she had 1300 recorded in with about 500 recorded out. I do not believe we are actually measuring her voids and bowel movements accurately. Her drainage from her drain yesterday was 120 and she had 20 mL recorded this morning. PHYSICAL EXAMINATION: The patient is sitting up in a chair visiting with family when I entered. She is alert and seems oriented. Skin is warm and dry. Sclerae are anicteric. Heart exam shows a regular rhythm. The lungs are clear bilaterally. The abdomen is soft. She has bowel sounds present. She still has a drain in the left side of the abdomen with a very small amount of light pink serosanguineous fluid. Laboratory studies today show white count of 12, hemoglobin of 11, hematocrit of 33 and platelet count of 334,000. Her differential count shows 70% neutrophils, 12% lymphocytes and 13% monocytes. Chemistry profile today showed sodium 135, potassium 4.0, chloride 100, CO2 of 33, BUN of 14, creatinine 0.4 and a glucose of 73. Her most recent protein and albumin were recorded on the 10th. IMPRESSION: The patient appears to be doing fairly well now 9 days postop from her laparotomy and oversewing of a bleeding ulcer. She appears to be tolerating her diet better. She is off total parenteral nutrition. Her laboratory studies appear stable at this point. PLAN: She is still on telemetry, which does not appear to be required at this point and I will put in an order to discontinue this. I will change her oral liquid potassium to potassium pills to try to make this more palatable for her. I will leave her antibiotics as ordered by Dr. Cain. Her single drain will also remain in place for now.
[2019-04-01 13:50] LABS: URIC ACID 1.5 MG/DL (2.6-6.0)
[2019-04-01 14:00] VITALS: BP 160/76
--- NOTE | 2019-04-01 16:46 | IPNPDOC ---
Text Note Date of Service The patient was seen on 04/01/19. NOTE Ms. Lopez was seen and examined during bedside morning rounds, she is alert and resting in bed watching tv, although she says nothing good is on. She states she feels weak still, not herself yet. She wants the nurse to shave the whiskers off her chin, they are bothering her. Some abdominal discomfort today, but not worsened from days prior. She denies cp, sob or heart palpitations. ROS: 12 point ROS reviewed with patient and negative except for findings discussed above. PE: Vitals: see below General: 78 yo female laying in bed, speaking in full sentences, NAD, conversant HEENT: moist mucus membranes, EOMI, no JVD Resp: CTA b/l, no wheezing, rales or rhonchi appreciated, diminished slightly throughout -crackles faint LLL Cardio: normal s1 and s2., no murmurs, rubs or gallops, RRR Abdomen: nabsx4, discomfort around incision from ex lap which is still uncovered , minimal erythema around individual erasmo but without pus/blood exudation, does not appear infected, no rebound rigidity or guarding, no distension, no hepatosplenomegaly or masses appreciated, soft, her FREDO is currently only serosang. fluid about 13 mL, left brachial cutdown incision/ staple line is clean and intact w/o erythema Extremities: no cyanosis, mottling but at least +1 b/l LE 1. Acute blood loss anemia causing hypovolemic/hemorrhagic shock from re- bleeding duodenal ulcer -H//H stable today at 10.6/33.1- -secondary to GI source of bleeding duodenal ulcer, s/p EGD on 03/22/19 that r evealed large cratered actively bleeding duodenal ulcer in the first/second portion of the duodenum, unfortunately vascular and GI could not access site to stop bleeding -S/p ex lap for duodenal ulcer oversew procedure 03.23.[address] Cain -HG has been a bit fluctuating, now s/p 16 units pRBC, platelets and FFP have also been transfused, will continue to closely monitor H/H -c/w pantoprazole 40 mg BID and sucralfate for now, GI cocktail q6h Coverage infection after intra-abdominal surgery -white count 11.5, improving- per surgery, c/w abx for 7 more days, can consider PO if she continues to tolerate her food -c/w Zosyn and Fluconazole (03/24/19) CXR 6.8.19 essentially unrevealing-procal .15 -pain control with Percocet, pt is afebrile 2.New onset Atrial fibrillation with episodes of RVR -rate controlled - BP stable -c/w Metoprolol 25 mg q6h -Absolute contraindication to anticoagulation 3. History of elevated Troponin - suspected to be 2/2 NSTEMI within the past 28 days -Non obstructive CAD. -stable -patient was here in mid February 2019, elevated troponin at that time of 1.93-suspected NSTEMI, she was transferred to [place] and had cardiac cath that did not demonstrate any lesions, no intervention / stents were place -current troponin negative, she had ECHO in Oct 2018 that showed EF 60% with G1DD 4. HTN with signs of possible fluid overload -b/l LE slightly edematous, some fine crackles Left base, resume lasix today 5. Constipation -holding home meds in light of current illness 6. Depression -home meds held 7. DLP -holding home meds 8. CBP -Percocet 9. Insomnia -stable Disposition: Patient is s/p ex lap and duodenal ulcer oversew with general surgery, she continues to work with PT, H/H stable. She remains afebrile, WBC improving, c/w current abx., 7 more days for abx coverage per surgery recommendations-we can consider PO. General surgery performed UGIS that was unremarkable for extravasation. FREDO drainage continues with serosanguineous. C/w diet advancement per surgery recommendations. VS,Fishbone, I+O VS, Fishbone, I+O Laboratory Tests 04/01/19 05:45 Red Blood Count 3.55 L, Mean Corpuscular Volume 93.2, Mean Corpuscular Hemoglobin 29.9, Mean Corpuscular Hemoglobin Concent 32.0, Red Cell Distribution Width 15.7 H, Neutrophils (%) (Auto) 70.3 H, Lymphocytes (%) (Auto) 12.4 L, Monocytes (%) (Auto) 12.9 H, Eosinophils (%) (Auto) 0.0, Basophils (%) (Auto) 0.9, Neutrophils # (Auto) 8.1 H, Lymphocytes # (Auto) 1.4 L, Monocytes # (Auto) 1.5 H, Eosinophils # (Auto) 0.0, Basophils # (Auto) 0.1, Calcium Level 6.8 L Vital Signs Date Time Temp Pulse Resp B/P (MAP) Pulse Ox O2 Delivery O2 Flow Rate FiO2 04/01/19 14:00 98.0 77 18 160/76 (104) 96 03/31/19 06:00 2.0 l I&O- Last 24 Hours up to 6 AM 04/01/19 06:00 Intake Total 1290 ml Output Total 220 ml Balance 1070 ml GME ATTESTATION GME ATTESTATION My faculty preceptor for this patient encounter was physically present during the encounter and was fully available. All aspects of the patient interview, examination, medical decision making process, and medical care plan development were reviewed and approved by the faculty preceptor. The faculty preceptor is aware and concurs with the plan as stated in the body of this note and will att est to such by his/her cosignature. ATTENDING NOTE I have personally interviewed and examined the patient. I have discussed the plan of care with the resident. I agree with the resident's documentation above. GLENNY EVANS DO Apr 01, 2019 16:45 MOJGAN CA MD Apr 02, 2019 16:36
[2019-04-01] MEDS: POTASSIUM CHLORIDE 10 MEQ SR TABLET PO SCH (21:15)
[2019-04-01] MEDS: ONDANSETRON 4MG/2ML VIAL (J2405) IV PRN ×2 (21:55→23:03)
[2019-04-01 22:00] VITALS: BP 136/63
[2019-04-02] MEDS: SUCRALFATE SUSP 1GM/10ML UD PO SCH ×5 (00:15→23:34)
[2019-04-02] MEDS: METOPROLOL TART 25 MG TABLET PO SCH ×2 (00:17→06:12)
[2019-04-02] MEDS: hydrOXYzine 25 MG TAB PO PRN (00:18)
[2019-04-02] MEDS: ACETAMINOPHEN TAB 650MG DOSE (2X325MG) PO PRN ×4 (01:11→20:13)
[2019-04-02] MEDS: PERCOCET 5MG/325MG TAB PO PRN (03:31)
[2019-04-02 06:00] VITALS: BP 145/68
[2019-04-02 06:27] LABS: BASO # 0.1 10^3/uL (0.0-0.2); BASO % 0.6 % (0.0-1.0); HEMATOCRIT 32.5 % (36.0-47.0); HEMOGLOBIN 10.5 g/dl (12.0-15.5); LYMPH # 1.7 10^3/uL (1.5-4.5); LYMPH % 15.5 % (24.0-44.0); MEAN CORPUSCULAR HEMOGLOBIN 29.4 pg (27.0-33.0); MEAN CORPUSCULAR HGB CONC 32.3 g/dl (32.0-36.5); MONO # 1.6 10^3/uL (0.0-0.8); MONO % 14.4 % (0.0-5.0); NEUTROPHILS # 7.1 10^3/uL (1.8-7.7); NEUTROPHILS % 66.1 % (36.0-66.0); PLATELET COUNT, AUTOMATED 422 10^3/uL (150-450); RED BLOOD COUNT 3.57 10^6/uL (4.00-5.40); WHITE BLOOD COUNT 10.8 10^3/uL (4.0-10.0)
[2019-04-02 06:34] LABS: ALBUMIN 1.7 GM/DL (3.2-5.2); ALT/SGPT 10 U/L (12-78); BILIRUBIN,TOTAL 0.5 MG/DL (0.2-1.0); BLOOD UREA NITROGEN 11 MG/DL (7-18); CALCIUM LEVEL 7.2 MG/DL (8.8-10.2); CARBON DIOXIDE LEVEL 30 MEQ/L (21-32); CHLORIDE LEVEL 102 MEQ/L (98-107); GLOMERULAR FILTRATION RATE > 60.0 (>39); GLUCOSE, FASTING 75 MG/DL (70-100); MAGNESIUM LEVEL 1.7 MG/DL (1.8-2.4); POTASSIUM SERUM 4.1 MEQ/L (3.5-5.1); SODIUM LEVEL 136 MEQ/L (136-145); TOTAL PROTEIN 4.6 GM/DL (6.4-8.2)
[2019-04-02] MEDS: POTASSIUM CHLORIDE 10 MEQ SR TABLET PO SCH (08:35)
[2019-04-02] MEDS: PANTOPRAZOLE 40MG TAB (PROTONIX) PO SCH ×2 (08:35→20:11)
[2019-04-02] MEDS: LOSARTAN 50 MG TAB PO SCH ×2 (08:35→20:13)
[2019-04-02] MEDS: metroNIDAZOLE (FLAGYL) 500 MG TAB PO SCH ×3 (08:35→20:11)
[2019-04-02] MEDS: FLUCONAZOLE 100 MG TAB PO SCH (08:35)
[2019-04-02] MEDS: CLARITHROMYCIN 250 MG TAB PO SCH ×2 (08:36→20:11)
[2019-04-02] MEDS: ONDANSETRON 4MG/2ML VIAL (J2405) IV PRN (08:36)
[2019-04-02] MEDS: FUROSEMIDE 20 MG/2 ML VIAL (J1940) IV SCH (08:36)
--- NOTE | 2019-04-02 11:14 | IPNPDOC ---
Text Note Date of Service The patient was seen on 04/02/19. NOTE Ms. Lopez was seen and examined during bedside morning rounds, she is alert and sitting up in chair. Says feeling better, able to eat some food. Complains of soreness of the abdomen at the surgical site. Did have bowel movement . Her erasmo on the arm from the angiogram will be removed today. Incision looks good and healed seen by Dr Arias also. No fever or chills, no chest pain or sob. Has been having bowel movements but did not see any blood yesterday. Leg swelling is improved. Has superficial thrombophlebitis on the right arm at the site of PICC line. ROS: 12 point ROS reviewed with patient and negative except for findings discussed above. PE: Vitals: see below General: 78 yo female laying in bed, speaking in full sentences, NAD, conversant HEENT: moist mucus membranes, EOMI, no JVD Resp: CTA b/l, no wheezing, rales or rhonchi appreciated, diminished slightly throughout -crackles faint LLL Cardio: normal s1 and s2., no murmurs, rubs or gallops, RRR Abdomen: nabsx4, discomfort around incision from ex lap which is still uncovered, minimal erythema around individual erasmo but without pus/blood exudation, does not appear infected, no rebound rigidity or guarding, no distension, no hepatosplenomegaly or masses appreciated, soft, her FREDO is currently only serosang. fluid about 20 mL, Extremities: left brachial cutdown incision/ staple line is clean and intact w/o erythema, no cyanosis, mottling but at least +2 b/l LE Labs and Radiology: reviewed. ASSESSMENT and PLAN: Acute blood loss anemia causing hypovolemic/hemorrhagic shock from re-bleeding duodenal ulcer secondary to GI source of bleeding duodenal ulcer s/p EGD on 03/22/19 that revealed large cratered actively bleeding duodenal ulcer in the first/second portion of the duodenum, S/P Mesenteric angiogram on 03/22/19 via left brachial artery access did not reveal any active bleeding. Erasmo there to be removed today. unfortunately vascular and GI could not access site to stop bleeding . S/p ex lap for duodenal ulcer oversew procedure 03.23.[address] Cain HG has been a bit fluctuating, now s/p 16 units pRBC, platelets and FFP have also been transfused, will continue to closely monitor H/H c/w pantoprazole 40 mg BID and sucralfate for now, GI cocktail q6h pain controlled with percocet Coverage infection after intra-abdominal surgery on clarithromycin, fluconazole and metronidazole. Superficial thrombophlebitis in the right basilic vein at eh site of PICC line. New onset Atrial fibrillation with episodes of RVR rate controlled c/w Metoprolol 25 mg q6h Absolute contraindication to anticoagulation History of elevated Troponin - suspected to be 2/2 NSTEMI within the past 28 days Non obstructive CAD. stable patient was here in mid February 2019, elevated troponin at that time of 1.93- suspected NSTEMI, she was transferred to [place] and had cardiac cath that did not demonstrate any lesions, no intervention / stents were place current troponin negative, she had ECHO in Oct 2018 that showed EF 60% with G1DD HTN with signs of possible fluid overload restarted losartan, continue metoprolol increased dosage restart spironolactone. clonidine still on hold. IV lasix. Constipation holding home meds in light of current illness Depression home meds held DLP holding home meds CBP Percocet Insomnia -stable Disposition: Patient is s/p ex lap and duodenal ulcer oversew with general surgery, she continues to work with PT, H/H stable. She remains afebrile, WBC improving, c/w current abx., 7 more days for abx coverage per surgery recommendations-we can consider PO. General surgery performed UGIS that was unremarkable for extravasation. FREDO drainage continues with serosanguineous. C/w diet advancement per surgery recommendations. VS,Fishbone, I+O VS, Fishbone, I+O Laboratory Tests 04/02/19 05:42 Red Blood Count 3.57 L, Mean Corpuscular Volume 91.0, Mean Corpuscular Hemoglobin 29.4, Mean Corpuscular Hemoglobin Concent 32.3, Red Cell Distribution Width 15.6 H, Neutrophils (%) (Auto) 66.1 H, Lymphocytes (%) (Auto) 15.5 L, Monocytes (%) (Auto) 14.4 H, Eosinophils (%) (Auto) 0.0, Basophils (%) (Auto) 0.6, Neutrophils # (Auto) 7.1, Lymphocytes # (Auto) 1.7, Monocytes # (Auto) 1.6 H, Eosinophils # (Auto) 0.0, Basophils # (Auto) 0.1, Calcium Level 7.2 L, Aspartate Amino Transf (AST/SGOT) 15, Alanine Aminotransferase (ALT/SGPT) 10 L, Alkaline Phosphatase 119 H, Total Bilirubin 0.5, Total Protein 4.6 L, Albumin 1.7 L Vital Signs Date Time Temp Pulse Resp B/P (MAP) Pulse Ox O2 Delivery O2 Flow Rate FiO2 04/02/19 08:35 134/66 04/02/19 06:12 84 04/02/19 06:00 97.4 20 97 03/31/19 06:00 2.0 I&O- Last 24 Hours up to 6 AM 04/02/19 06:00 Intake Total 990 ml Output Total 350 ml Balance 640 ml MOJGAN CA MD Apr 02, 2019 11:14
[2019-04-02] MEDS ORDERED: MAG SULF 1GM/100ML (MAG RUN) 1 GM in APPROPRIATE DILUENT 1 EA IV ONE (11:30)
[2019-04-02] MEDS ORDERED: METOPROLOL TART 25 MG TABLET PO ONE (11:30)
[2019-04-02] MEDS: SPIRONOLACTONE 25 MG TAB PO SCH (11:46)
[2019-04-02 14:00] VITALS: BP 142/67
[2019-04-02] MEDS: FUROSEMIDE 40 MG/4 ML VIAL (J1940) IV SCH (17:21)
[2019-04-02] MEDS: METOPROLOL TART 50 MG TAB PO SCH (20:12)
[2019-04-02 22:00] VITALS: BP 188/88
[2019-04-03] MEDS: ACETAMINOPHEN TAB 650MG DOSE (2X325MG) PO PRN ×2 (01:43→05:41)
[2019-04-03] MEDS: SUCRALFATE SUSP 1GM/10ML UD PO SCH ×3 (05:37→17:15)
[2019-04-03 06:00] VITALS: BP 153/75
[2019-04-03 06:05] LABS: BASO # 0.1 10^3/uL (0.0-0.2); BASO % 0.7 % (0.0-1.0); HEMATOCRIT 34.3 % (36.0-47.0); HEMOGLOBIN 11.1 g/dl (12.0-15.5); LYMPH # 1.3 10^3/uL (1.5-4.5); LYMPH % 14.4 % (24.0-44.0); MEAN CORPUSCULAR HEMOGLOBIN 29.1 pg (27.0-33.0); MEAN CORPUSCULAR HGB CONC 32.4 g/dl (32.0-36.5); MONO # 1.3 10^3/uL (0.0-0.8); MONO % 14.1 % (0.0-5.0); NEUTROPHILS # 6.3 10^3/uL (1.8-7.7); NEUTROPHILS % 68.1 % (36.0-66.0); PLATELET COUNT, AUTOMATED 483 10^3/uL (150-450); RED BLOOD COUNT 3.81 10^6/uL (4.00-5.40); WHITE BLOOD COUNT 9.2 10^3/uL (4.0-10.0)
[2019-04-03 06:35] LABS: BLOOD UREA NITROGEN 10 MG/DL (7-18); CALCIUM LEVEL 7.7 MG/DL (8.8-10.2); CARBON DIOXIDE LEVEL 30 MEQ/L (21-32); CHLORIDE LEVEL 101 MEQ/L (98-107); CREATININE FOR GFR 0.52 MG/DL (0.55-1.30); GLOMERULAR FILTRATION RATE > 60.0 (>39); GLUCOSE, FASTING 85 MG/DL (70-100); MAGNESIUM LEVEL 1.8 MG/DL (1.8-2.4); POTASSIUM SERUM 3.8 MEQ/L (3.5-5.1); SODIUM LEVEL 135 MEQ/L (136-145)
[2019-04-03] MEDS: CLARITHROMYCIN 250 MG TAB PO SCH ×2 (08:57→20:37)
[2019-04-03] MEDS: FLUCONAZOLE 100 MG TAB PO SCH (08:57)
[2019-04-03] MEDS: PANTOPRAZOLE 40MG TAB (PROTONIX) PO SCH ×2 (08:57→20:37)
[2019-04-03] MEDS: metroNIDAZOLE (FLAGYL) 500 MG TAB PO SCH ×3 (08:57→20:37)
[2019-04-03] MEDS: SPIRONOLACTONE 25 MG TAB PO SCH (08:57)
[2019-04-03] MEDS: LOSARTAN 50 MG TAB PO SCH ×2 (08:58→20:37)
[2019-04-03] MEDS: POTASSIUM CHLORIDE 10 MEQ SR TABLET PO SCH (08:58)
[2019-04-03] MEDS: METOPROLOL TART 50 MG TAB PO SCH ×2 (08:58→20:38)
[2019-04-03] MEDS: FUROSEMIDE 40 MG/4 ML VIAL (J1940) IV SCH ×2 (08:59→17:16)
[2019-04-03] MEDS: traMADol 50 MG TAB PO SCH (11:10)
--- NOTE | 2019-04-03 11:55 | IPN ---
DATE OF SERVICE: 04/02/2019 The patient was seen at approximately 12:30. HISTORY: The patient is now 10 days postoperative from laparotomy for oversewing of a bleeding duodenal ulcer. She is on a soft diet and has been tolerating this acceptably. Her urine output seems to have been good. She still has one drain in place. She denies significant pain today and is asking if she can take plain Tylenol, and I reassured her that she could. Vital signs show that the patient has been afebrile over the past 24 hours. Her pulse is in the 70s and 80s, and her blood pressure is acceptable. Intake and output shows that yesterday she had 890 recorded in with 300 of urine output recorded and multiple small bowel movements recorded. These have been recorded as generally liquid and brown and small. She had 50 mL recorded from her drain yesterday and only 20 mL recorded from the drain this morning. PHYSICAL EXAMINATION: The patient is sitting up in her chair looking quite comfortable. She is alert and oriented. Heart examination shows a regular rhythm. The lungs are clear. The abdomen is flat. She has bowel sounds present. Her incision is clean with erasmo in place. Her remaining drain in the left side of the abdomen has a minimal amount of lightly serosanguineous fluid. The abdomen is otherwise soft and without significant tenderness. LABORATORY STUDIES: Today show a white count of 11, hemoglobin of 10, hematocrit of 32, and a platelet count of 422,000. Differential count shows 66% neutrophils, 16% lymphocytes, and 14% monocytes. Chemistry profile shows normal electrolytes with a BUN of 11, creatinine 0.5, and a glucose of 75. Her total protein is only 4.6 with an albumin of 1.7, and her liver function tests are otherwise normal with the exception of a slight elevation of the alkaline phosphatase to 119. IMPRESSION: The patient is doing well now 10 days out from oversewing of her bleeding ulcer. She is having small liquid bowel movements. She is not complaining of significant pain at this point, and her diet seems to be picking up. PLAN: Her remaining drain will be removed. She will otherwise remain on all of her other medications, including the Carafate and Protonix, for her stomach. She remains on clarithromycin, metronidazole, and fluconazole for antibiotic coverage. Hopefully, the patient will continue to make good progress and be ready for discharge within the next few days.
[2019-04-03 14:00] VITALS: BP 156/73
[2019-04-03] MEDS: ACETAMINOPHEN 500 MG TAB PO SCH ×2 (14:29→21:24)
--- NOTE | 2019-04-03 14:31 | IPNPDOC ---
Text Note Date of Service The patient was seen on 04/03/19. NOTE Ms. Lopez was seen and examined during bedside morning rounds, she is alert and sitting up in chair, she just got back from walking with PT down the hallway using a walker. Says her abdomen is now hurting her and she wants her pain meds now. The pain is still the soreness of the abdomen at the surgical site. No fever or chills, no chest pain or sob. ROS: 12 point ROS reviewed with patient and negative except for findings discussed above. PE: Vitals: see below General: 78 yo female laying in bed, speaking in full sentences, NAD, conversant HEENT: moist mucus membranes, EOMI, no JVD Resp: CTA b/l, no wheezing, rales or rhonchi appreciated Cardio: normal s1 and s2., no murmurs, rubs or gallops, RRR Abdomen: nabsx4, discomfort around incision from ex lap. site is clean, erasmo intact, no erythema, swelling or bruising, no pus or blood exudation appreciated , no rebound rigidity or guarding, no distension, no hepatosplenomegaly or masses appreciated, soft, her FREDO is gone. Extremities: left brachial cutdown incision is clean and intact w/o erythema, swelling or bruising-erasmo were removed yesterday, no cyanosis, mottling but at least +2 b/l LE again today Labs and Radiology: reviewed. ASSESSMENT and PLAN: 1. Acute blood loss anemia causing hypovolemic/hemorrhagic shock from re- bleeding duodenal ulcer -H/H stable secondary to GI source of bleeding duodenal ulcer s/p EGD on 03/22/19 that revealed large cratered actively bleeding duodenal ulcer in the first/second portion of the duodenum, S/P Mesenteric angiogram on 03/22/19 via left brachial artery access did not reveal any active bleeding. Unfortunately vascular and GI could not access site to stop bleeding . S/p ex lap for duodenal ulcer oversew procedure 03.23.[address] Cain s/p 16 units pRBC, platelets and FFP have also been transfused c/w pantoprazole 40 mg BID and sucralfate for now, GI cocktail q6h pain controlled with tramadol & tylenol, s/p percocet General surgery performed UGIS that was unremarkable for extravasation. 2. Coverage infection after intra-abdominal surgery on clarithromycin, fluconazole and metronidazole-per surgery recommendation, once she goes to rehab bed., she will c/w H. Pylori abx for 2 weeks and d/c fluconazole 3. Superficial thrombophlebitis in the right basilic vein at the site of PICC line-this was removed 4. New onset Atrial fibrillation with episodes of RVR rate controlled c/w Metoprolol 25 mg q6h Absolute contraindication to anticoagulation 5. History of elevated Troponin - suspected to be 2/2 NSTEMI within the past 28 days Non obstructive CAD. stable patient was here in mid February 2019, elevated troponin at that time of 1.93-suspect ed NSTEMI, she was transferred to [place] and had cardiac cath that did not demonstrate any lesions, no intervention / stents were place current troponin negative, she had ECHO in Oct 2018 that showed EF 60% with G1DD 6. HTN with signs of possible fluid overload c/w losartan, continue metoprolol c/w spironolactone. c/w IV lasix. 7. Constipation -stable 8. Depression -Ativan as needed for anxiety and hydroxyzine 9. DLP -stable Disposition: Patient is s/p ex lap and duodenal ulcer oversew with general surgery, she continues to work with PT, H/H stable. She remains afebrile, WBC resolved today, c/w current abx. as discussed above. S/p FREDO drain. C/w diet advancement per surgery recommendations. She may be d/c to rehab once bed is available. 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 VS,Sergio, I+O VS, Sergio, I+O Laboratory Tests 04/03/19 05:48 Red Blood Count 3.81 L, Mean Corpuscular Volume 90.0, Mean Corpuscular Hemoglobin 29.1, Mean Corpuscular Hemoglobin Concent 32.4, Red Cell Distribution Width 15.9 H, Neutrophils (%) (Auto) 68.1 H, Lymphocytes (%) (Auto) 14.4 L, Monocytes (%) (Auto) 14.1 H, Eosinophils (%) (Auto) 0.0, Basophils (%) (Auto) 0.7, Neutrophils # (Auto) 6.3, Lymphocytes # (Auto) 1.3 L, Monocytes # (Auto) 1.3 H, Eosinophils # (Auto) 0.0, Basophils # (Auto) 0.1, Calcium Level 7.7 L Vital Signs Date Time Temp Pulse Resp B/P (MAP) Pulse Ox O2 Delivery O2 Flow Rate FiO2 04/03/19 11:10 18 04/03/19 08:58 84 04/03/19 08:58 156/79 04/03/19 06:00 97.1 95 03/31/19 06:00 2.0 I&O- Last 24 Hours up to 6 AM 04/03/19 06:00 Intake Total 640 ml Output Total 1420 ml Balance -780 ml GME ATTESTATION GME ATTESTATION My faculty preceptor for this patient encounter was physically present during the encounter and was fully available. All aspects of the patient interview, examination, medical decision making process, and medical care plan development were reviewed and approved by the faculty preceptor. The faculty preceptor is aware and concurs with the plan as stated in the body of this note and will attest to such by his/her cosignature. ATTENDING NOTE I saw and evaluated the patient. I agree with the finding and the plan of care as documented in the resident's note. GLENNY EVANS DO Apr 03, 2019 14:31 MOJGAN CA MD Apr 05, 2019 05:56
[2019-04-03] MEDS: GI COCKTAIL 50ML BTL(HYOSCYAMINE/MAALOX/LIDOCAINE VISCOUS)(1:3:1) PO PRN (16:07)
[2019-04-03] MEDS ORDERED: GI COCKTAIL 50ML BTL(HYOSCYAMINE/MAALOX/LIDOCAINE VISCOUS)(1:3:1) PO PRN (19:00)
[2019-04-03] MEDS: hydrOXYzine 25 MG TAB PO PRN (21:23)
[2019-04-03] MEDS: ONDANSETRON 4MG/2ML VIAL (J2405) IV PRN (21:23)
[2019-04-03 22:00] VITALS: BP 127/90
[2019-04-04] MEDS: hydrOXYzine 25 MG TAB PO PRN (05:40)
[2019-04-04] MEDS: ACETAMINOPHEN 500 MG TAB PO SCH ×2 (05:40→13:07)
[2019-04-04 06:00] VITALS: BP 153/74
[2019-04-04 06:14] LABS: BASO # 0.1 10^3/uL (0.0-0.2); BASO % 0.7 % (0.0-1.0); HEMATOCRIT 31.9 % (36.0-47.0); HEMOGLOBIN 10.5 g/dl (12.0-15.5); LYMPH # 1.3 10^3/uL (1.5-4.5); LYMPH % 16.6 % (24.0-44.0); MEAN CORPUSCULAR HEMOGLOBIN 29.3 pg (27.0-33.0); MEAN CORPUSCULAR HGB CONC 32.9 g/dl (32.0-36.5); MEAN CORPUSCULAR VOLUME 89.1 fl (80.0-96.0); MONO # 1.2 10^3/uL (0.0-0.8); MONO % 15.6 % (0.0-5.0); NEUTROPHILS % 65.4 % (36.0-66.0); PLATELET COUNT, AUTOMATED 506 10^3/uL (150-450); RED BLOOD COUNT 3.58 10^6/uL (4.00-5.40); WHITE BLOOD COUNT 7.7 10^3/uL (4.0-10.0)
[2019-04-04 06:43] LABS: BLOOD UREA NITROGEN 13 MG/DL (7-18); CALCIUM LEVEL 7.6 MG/DL (8.8-10.2); CARBON DIOXIDE LEVEL 29 MEQ/L (21-32); CHLORIDE LEVEL 102 MEQ/L (98-107); GLOMERULAR FILTRATION RATE > 60.0 (>39); GLUCOSE, FASTING 91 MG/DL (70-100); MAGNESIUM LEVEL 1.6 MG/DL (1.8-2.4); POTASSIUM SERUM 3.6 MEQ/L (3.5-5.1); SODIUM LEVEL 137 MEQ/L (136-145)
[2019-04-04] MEDS ORDERED: PANTOPRAZOLE 40MG TAB (PROTONIX) PO SCH (09:00)
[2019-04-04] MEDS: metroNIDAZOLE (FLAGYL) 500 MG TAB PO SCH (09:18)
[2019-04-04] MEDS: FUROSEMIDE 40 MG/4 ML VIAL (J1940) IV SCH (09:18)
[2019-04-04] MEDS: FLUCONAZOLE 100 MG TAB PO SCH (09:19)
[2019-04-04] MEDS: POTASSIUM CHLORIDE 10 MEQ SR TABLET PO SCH (09:19)
[2019-04-04] MEDS: CLARITHROMYCIN 250 MG TAB PO SCH (09:19)
[2019-04-04] MEDS: PANTOPRAZOLE 40MG TAB (PROTONIX) PO SCH (09:19)
[2019-04-04 09:20] VITALS: BP 174/88
[2019-04-04] MEDS: METOPROLOL TART 50 MG TAB PO SCH (09:20)
[2019-04-04] MEDS: SPIRONOLACTONE 25 MG TAB PO SCH (09:20)
[2019-04-04] MEDS: LOSARTAN 50 MG TAB PO SCH (09:20)
[2019-04-04] MEDS: traMADol 50 MG TAB PO SCH (09:21)
[2019-04-04] MEDS ORDERED: MAG SULF 1GM/100ML (MAG RUN) 1 GM in APPROPRIATE DILUENT 1 EA IV ONE (10:00)
[2019-04-04] MEDS ORDERED: FLAG500T PO (11:12)
[2019-04-04] MEDS ORDERED: ATIV1TAB10 PO (11:12)
[2019-04-04] MEDS ORDERED: ACET-683 PO (11:12)
[2019-04-04] MEDS ORDERED: CLAR250T22 PO (11:12)
[2019-04-04] MEDS ORDERED: ALDA25TA2 PO (11:12)
[2019-04-04] MEDS ORDERED: TRAM50TA2 PO (11:12)
[2019-04-04] MEDS ORDERED: LOPR1TAB6 PO (11:12)
[2019-04-04] MEDS ORDERED: KLOR10TA76 PO (11:12)
[2019-04-04] MEDS ORDERED: PANT40TA3 PO (11:12)
[2019-04-04] MEDS ORDERED: FURO40VL IV (11:12)
[2019-04-10] MEDS ORDERED: CLAR250T22 PO (15:50)
--- NOTE | 2019-04-18 13:55 | CR.PDOC ---
General Surgery Consultation Date of Consultation 03/23/19 History and Physical CONSULT REPORT FOR: recurrent,persistent GI bleeding REASON FOR CONSULTATION: Patient is a 78-year-old female admitted in the hospital for melena secondary to a bleeding duodenal ulcer. HISTORY OF PRESENT ILLNESS: I was urgently asked to see the patient with persistent gastrointestinal bleeding she's been admitted to the hospital since 03/21/2019 after presentation to the emergency room reporting extreme weakness after passing large wire a black stools. She had an upper endoscopy performed by Dr. Bashir. She was found to have a large duodenal ulcer which is actively bleeding. The bleeding was not amenable to endoscopic therapy. She was then sent to interventional radiology for endovascular attempts to stop the bleeding. At the time he angiogram was performed her bleeding seems to have been stopped. She was placed in ICU for monitoring and she continues to have intermittent bleeding as well as an acute drop in her hemoglobin and hematocrit this morning PAST MEDICAL HISTORY: 1. Hypertension 2. Abdominal aortic aneurysm status post endovascular repair 3. Rheumatoid arthritis 4. Spinal stenosis status post laminectomy 5. Chronic back pain PAST SURGICAL HISTORY: INCLUDES: 1. Endovascular repair of abdominal aortic aneurysm 2. Laminectomy 3. Right hip surgery 4. Left knee surgery 5. Cardiac catheterization PREVIOUS ANESTHESIA REACTIONS: ALLERGIES: Please see below. FAMILY HISTORY: . HOME MEDICATIONS: Please see below. REVIEW OF SYSTEMS: GENERAL: Patient feels weak, mildly nauseated HEENT: Denies blurred vision and double vision. Denies ear symptoms. Denies hoarseness. NECK: Denies any neck pain CARDIOVASCULAR: Denies chest pain and palpitations. MUSCULOSKELETAL: Reports joint pains, low back pain. SKIN: Denies rash. NEUROLOGIC: Denies headache, stroke and transient ischemic attack. PSYCHIATRIC: Denies anxiety and depression. ENDOCRINE: Denies thyroid disease. HEMATOLOGY/ONCOLOGY: Denies bleeding or clotting disorder. HEART: Denies any chest pains, palpitations, paroxysmal dyspnea, orthopnea. She had recent admission for chest pain PULMONARY: Denies chronic cough, dyspnea and wheezing. GASTROINTESTINAL: See HPI. GENITOURINARY: Denies dysuria, frequency, hematuria and nocturia. ENDOCRINE: Denies polydipsia, polyphagia, polyuria, heat or cold intolerance. INFECTIOUS: Denies any recent upper respiratory tract infection, UTI, need for use of antibiotics. NUTRITION: Reports fair appetite. PHYSICAL EXAMINATION: VITALS SIGNS: Please see below. GENERAL APPEARANCE: Patient seen in ICU, laying in bed. Relatively comfortable. SKIN: Warm and dry, pale appearing. HEENT: Pale palpebral conjunctiva. Lips are dry. NECK: Supple, no thyromegaly. No obvious jugular venous distention. LUNGS: Clear to auscultation bilaterally. No wheezing appreciated. HEART: No chest wall abnormalities. Regular rate and rhythm with no murmurs appreciated. ABDOMEN: Abdomen is round, soft, minimally distended. Nontender on palpation. EXTREMITIES: Extremities have no deformities. No edema identified ANCILLARIES: . LABORATORY DATA: Please see below. IMAGING STUDIES: . IMPRESSION AND PLAN: Patient has persistent bleeding from a duodenal ulcer that unfortunately is not amenable to endoscopic control. Have spoken to her about need to go to the operating room for oversewing of the duodenal ulcer to its bleeding. This will require laparotomy and to open up the stomach anteriorly with all the in this isn't possible complications including leaks. I was began plans to bring her to the operating room and she had another bout of bleeding with onset of hypotension making the procedure an emergency.. Vital Signs Vital Signs Date Time Temp Pulse Resp B/P (MAP) Pulse Ox O2 Delivery O2 Flow Rate FiO2 03/23/19 08:45 16 94 03/23/19 08:44 85 155/67 03/23/19 07:52 98.2 97 03/22/19 13:00 2.0 03/21/19 14:02 Room Air I&Os I&O- Last 24 Hours up to 6 AM 03/23/19 06:00 Intake Total 775 ml Output Total 855 ml Balance -80 ml Laboratory Data Labs 24H Laboratory Tests 2 03/22/19 10:51: Immature Granulocyte % (Auto) 0.5, White Blood Count 12.5H, Red Blood Count 3.46L, Hemoglobin 10.5L, Hematocrit 30.1L, Mean Corpuscular Volume 87.0, Mean Corpuscular Hemoglobin 30.3, Mean Corpuscular Hemoglobin Concent 34.9, Red Cell Distribution Width 14.2, Platelet Count 152, Neutrophils (%) (Auto) 91.8H, Lymphocytes (%) (Auto) 5.6L, Monocytes (%) (Auto) 1.9, Eosinophils (%) (Auto) 0.0, Basophils (%) (Auto) 0.2, Neutrophils # (Auto) 11.4H, Lymphocytes # (Auto) 0.7L, Monocytes # (Auto) 0.2, Eosinophils # (Auto) 0.0, Basophils # (Auto) 0.0, Nucleated Red Blood Cells % (auto) 0.0, Total Creatine Kinase 38, Creatine Kinase MB 2.0, Creatine Kinase MB Relative Index 4.47H, Troponin I 0.10 03/23/19 05:03: Immature Granulocyte % (Auto) 0.5, White Blood Count 12.8H, Red Blood Count 2.99L, Hemoglobin 8.9L, Hematocrit 25.7L, Mean Corpuscular Volume 86.0, Mean Corpuscular Hemoglobin 29.8, Mean Corpuscular Hemoglobin Concent 34.6, Red Cell Distribution Width 14.6H, Platelet Count 156, Neutrophils (%) (Auto) 76.2H, Lymphocytes (%) (Auto) 12.7L, Monocytes (%) (Auto) 10.4H, Eosinophils (%) (Auto) 0.0, Basophils (%) (Auto) 0.2, Neutrophils # (Auto) 9.7H, Lymphocytes # (Auto) 1.6, Monocytes # (Auto) 1.3H, Eosinophils # (Auto) 0.0, Basophils # (Auto) 0.0, Nucleated Red Blood Cells % (auto) 0.0, Anion Gap 7L, Glomerular Filtration Rate > 60.0, Blood Urea Nitrogen 26H, Creatinine 0.52L, Sodium Level 135L, Potassium Level 4.0, Chloride Level 100, Carbon Dioxide Level 28, Calcium Level 8.1L, Magnesium Level 1.8 CBC/BMP Laboratory Tests 03/22/19 10:51 Red Blood Count 3.46 L, Mean Corpuscular Volume 87.0, Mean Corpuscular Hemoglobin 30.3, Mean Corpuscular Hemoglobin Concent 34.9, Red Cell Distribution Width 14.2, Neutrophils (%) (Auto) 91.8 H, Lymphocytes (%) (Auto) 5.6 L, Monocytes (%) (Auto) 1.9, Eosinophils (%) (Auto) 0.0, Basophils (%) (Auto) 0.2, Neutrophils # (Auto) 11.4 H, Lymphocytes # (Auto) 0.7 L, Monocytes # (Auto) 0.2, Eosinophils # (Auto) 0.0, Basophils # (Auto) 0.0 03/22/19 16:49 03/22/19 18:28 03/22/19 23:58 03/23/19 05:03 Red Blood Count 2.99 L, Mean Corpuscular Volume 86.0, Mean Corpuscular Hemoglobin 29.8, Mean Corpuscular Hemoglobin Concent 34.6, Red Cell Distribution Width 14.6 H, Neutrophils (%) (Auto) 76.2 H, Lymphocytes (%) (Auto) 12.7 L, Monocytes (%) (Auto) 10.4 H, Eosinophils (%) (Auto) 0.0, Basophils (%) (Auto) 0.2, Neutrophils # (Auto) 9.7 H, Lymphocytes # (Auto) 1.6, Monocytes # (Auto) 1.3 H, Eosinophils # (Auto) 0.0, Basophils # (Auto) 0.0, Calcium Level 8.1 L Home Medications Scheduled Acetaminophen (Acetaminophen) 500 Mg Tablet, 1,000 MG PO Q8H Atorvastatin Calcium (Atorvastatin Calcium) 40 Mg Tablet, 40 MG PO QHS Calcium Carbonate/Vitamin D3 (Calcium 1,000 + D3 Caplet) 1 Each Tablet, 1 TAB PO DAILY, (Reported) Cholecalciferol (Vitamin D3) (Vitamin D3) 1,000 Unit Tablet, 1,000 UNIT PO DAILY, (Reported) Clarithromycin (Clarithromycin) 250 Mg Tablet, 250 MG PO BID Escitalopram Oxalate (Escitalopram Oxalate) 10 Mg Tablet, 20 MG PO DAILY Furosemide (Furosemide) 40 Mg Tablet, 40 MG PO BID@09,17 L.acidoph/L.bulg/B.bif/S.therm (Anali-Bid Caplet) 1 Each Tablet, 1 EA PO TID Losartan Potassium (Cozaar) 50 Mg Tablet, 50 MG PO BID Metoprolol Tartrate (Lopressor) 50 Mg Tablet, 50 MG PO BID Metoprolol Tartrate (Lopressor) 50 Mg Tablet, 50 MG PO BID Metronidazole (Flagyl) 500 Mg Tablet, 500 MG PO Q8H Pantoprazole Sodium (Pantoprazole Sodium) 40 Mg Tablet.dr, 40 MG PO DAILY Potassium Chloride (Klor-Con M10) 10 Meq Tab.er.prt, 40 MEQ PO DAILY Potassium Chloride (Klor-Con M10) 10 Meq Tab.er.prt, 40 MEQ PO DAILY Spironolactone (Aldactone) 25 Mg Tablet, 25 MG PO DAILY Spironolactone (Aldactone) 25 Mg Tablet, 25 MG PO QAM Sucralfate (Sucralfate) 1 Gm Tablet, 1 GM PO Q6H Scheduled PRN Calcium Carbonate (Tums) 200 Mg Tab.chew, 1,000 MG PO for DYSPEPSIA, (Reported) Propranolol HCl (Propranolol HCl) 10 Mg Tablet, 5 MG PO TID PRN for ANXIETY Allergies Coded Allergies: amlodipine (Verified Allergy, Mild, rash, 02/22/19) duloxetine (Verified Allergy, Mild, Rash, 02/22/19) latex (Verified Allergy, Mild, rash, 03/21/19) Contrast Media (Verified Allergy, Unknown, rash, 07/11/17) nystatin (Verified Allergy, Unknown, Rash, 02/22/19) BING BOYLE MD Mar 23, 2019 10:22
--- NOTE | 2019-04-26 13:16 | RO ---
DATE OF PROCEDURE: 03/22/2019 ATTENDING SURGEON: Glen Arias MD ASSISTANTS: Inocencia Hamilton and Dinora Palafox PREOPERATIVE DIAGNOSES: Duodenal ulcer, gastrointestinal bleed. POSTOPERATIVE DIAGNOSES: Duodenal ulcer, gastrointestinal bleed. PROCEDURE: Left brachial artery exploration, aortogram, selective celiac artery catheter placement with angiogram, selective hepatic artery catheter placement with angiogram, selective superior mesenteric artery catheter placement with angiogram. INDICATION: The patient is a 78-year-old female with duodenal ulcer and gastrointestinal bleeding who will undergo attempted coil embolization. ANESTHESIA: Local with 10 mL of 2% lidocaine mixed with 0.5% Marcaine. FLUORO TIME: 10.8. CONTRAST: 17 mL. INTRAVENOUS (IV) FLUIDS: 600 mL, 1 unit of fresh frozen plasma (FFP). ESTIMATED BLOOD LOSS: 10 mL. DESCRIPTION OF PROCEDURE: The patient was taken to the angiography suite, placed supine on the angiography room table and then prepped and draped in a standard surgical fashion. The left brachial artery was exposed and then cannulated, and the catheter was placed in the aorta, and an aortogram was performed. A catheter was then placed into the celiac artery, and an angiogram was performed showing no gastroduodenal artery present. The catheter was then moved into the hepatic artery and angiogram performed showing no evidence of bleeding. The catheter was moved into the splenic artery, and angiogram showed no evidence of bleeding. A catheter was placed in superior mesenteric artery, and an angiogram showed no evidence of bleeding. The catheter was removed, and the brachial artery was closed using 6-0 Prolene suture. The skin was closed using erasmo. Dressings were applied. The patient tolerated the procedure well. All instrument, sponge, and needle counts were correct at the end of the case. There were no complications. Dr. Arias was present for and directed the entire case. The patient was transferred to the holding area and subsequently discharged to the floor in stable condition.
== END 2019-04-04 13:30 | DRG 326 ==
LOC: M ED 13:47 → M ED INP 16:50 → M ICU 18:01 → M PCU 03-28 16:56 → M MSPAV 03-30 19:42
PROVIDERS: ADMIT Internal Medicine; ATTEND Internal Medicine
PROC: 30233N1 Transfusion of Nonautologous Red Blood Cells into Peripheral Vein, Percutaneous Approach (ICD-10-PCS; 2019-03-21)
PROC: B44KZZ3 Ultrasonography of Celiac and Mesenteric Arteries, Intravascular (ICD-10-PCS; 2019-03-22)
PROC: B34JZZ3 Ultrasonography of Left Upper Extremity Arteries, Intravascular (ICD-10-PCS; 2019-03-22)
PROC: BF4CZZZ Ultrasonography of Hepatobiliary System, All (ICD-10-PCS; 2019-03-22)
PROC: 30233K1 Transfusion of Nonautologous Frozen Plasma into Peripheral Vein, Percutaneous Approach (ICD-10-PCS; 2019-03-22)
PROC: 0DQ90ZZ Repair Duodenum, Open Approach (ICD-10-PCS; 2019-03-23)
PROC: 0WUF07Z Supplement Abdominal Wall with Autologous Tissue Substitute, Open Approach (ICD-10-PCS; 2019-03-23)
PROC: 04HY32Z Insertion of Monitoring Device into Lower Artery, Percutaneous Approach (ICD-10-PCS; 2019-03-23)
PROC: 06HN33Z Insertion of Infusion Device into Left Femoral Vein, Percutaneous Approach (ICD-10-PCS; principal; 2019-03-23 12:59)
PROC: 02HV33Z Insertion of Infusion Device into Superior Vena Cava, Percutaneous Approach (ICD-10-PCS; 2019-03-27)
DX: K26.4 Chronic or unspecified duodenal ulcer with hemorrhage (principal); R57.8 Other shock; I21.4 Non-ST elevation (NSTEMI) myocardial infarction; K65.3 Choleperitonitis; D62 Acute posthemorrhagic anemia; E46 Unspecified protein-calorie malnutrition; I10 Essential (primary) hypertension; M06.9 Rheumatoid arthritis, unspecified; M81.0 Age-related osteoporosis without current pathological fracture; I95.1 Orthostatic hypotension; F41.0 Panic disorder [episodic paroxysmal anxiety]; I48.91 Unspecified atrial fibrillation; E87.71 Transfusion associated circulatory overload; I80.8 Phlebitis and thrombophlebitis of other sites; F32.9 Major depressive disorder, single episode, unspecified; M54.9 Dorsalgia, unspecified; K59.00 Constipation, unspecified; E78.5 Hyperlipidemia, unspecified; G47.00 Insomnia, unspecified; Z88.8 Allergy status to other drugs, medicaments and biological substances; Z91.040 Latex allergy status; Z95.828 Presence of other vascular implants and grafts; Z79.899 Other long term (current) drug therapy

== ENCOUNTER → 2019-03-21 | Outpatient (REF) | payer MEDICAID, MEDICARE ==
[~2019-03-21] MED LIST changes: +ACET650S3 PR; +ATOR40TA75 PO; +CALC-190 PO; +CHLO125TA PO; +DULC10SU2 PR; +ENEMENE PR; +FURO20TA2 PO; +LEXA5TAB13 PO; +LOSA100T50 PO; +METO1TAB87 PO; +MILKSUS PO; +NAPR220C14 PO; +PERC5TAB12 PO; +TRAZ-163 PO; +TUMS500C PO; +VITA-145 PO
[2019-03-21 09:20] LABS: HEMATOCRIT 26.2 % (36.0-47.0); HEMOGLOBIN 8.8 g/dl (12.0-15.5); MEAN CORPUSCULAR HEMOGLOBIN 30.1 pg (27.0-33.0); MEAN CORPUSCULAR HGB CONC 33.6 g/dl (32.0-36.5); MEAN CORPUSCULAR VOLUME 89.7 fl (80.0-96.0); PLATELET COUNT, AUTOMATED 459 10^3/uL (150-450); RED BLOOD COUNT 2.92 10^6/uL (4.00-5.40); WHITE BLOOD COUNT 6.7 10^3/uL (4.0-10.0)
[2019-03-21 10:42] LABS: BLOOD UREA NITROGEN 13 MG/DL (7-18); CALCIUM LEVEL 7.9 MG/DL (8.8-10.2); CARBON DIOXIDE LEVEL 27 MEQ/L (21-32); CHLORIDE LEVEL 94 MEQ/L (98-107); CREATININE FOR GFR 0.59 MG/DL (0.55-1.30); GLOMERULAR FILTRATION RATE > 60.0 (>39); GLUCOSE, FASTING 117 MG/DL (70-100); POTASSIUM SERUM 3.4 MEQ/L (3.5-5.1); SODIUM LEVEL 133 MEQ/L (136-145)
--- NOTE | 2019-03-22 00:18 | ROOR ---
Patient Name: Tejal Lopez Procedure Date: 03/21/2019 8:15 PM Date of : 1940 Age: 78 Room: Main OR Gender: Female Note Status: Finalized Procedure: Upper GI endoscopy Indications: Acute post hemorrhagic anemia Providers: Vivek FABIAN MD Referring MD: 2. Inpatient 2. Inpatient Requesting Provider: Medicines: Monitored Anesthesia Care Complications: No immediate complications. Procedure: Pre-Anesthesia Assessment: - The heart rate, respiratory rate, oxygen saturations, blood pressure, adequacy of pulmonary ventilation, and response to care were monitored throughout the procedure. The Endoscope was introduced through the mouth, and advanced to the second part of duodenum. The upper GI endoscopy was performed with difficulty due to excessive bleeding. Successful completion of the procedure was aided by lavage. Findings: Red blood was found in the first portion of the duodenum. One spurting cratered duodenal ulcer with adherent clot and active bleeding was found in the junction between first and second portion of the duodenum. The lesion was 15 mm in largest dimension. Lavage of the area was performed using copious amounts, resulting in incomplete clearance with continued poor visualization. Hematin (altered blood/hsworo-pboyay-qdhh material) was found in the entire examined stomach. No gross lesions were noted in the entire examined stomach. Biopsies were taken with a cold forceps for Helicobacter pylori testing. The examined esophagus was tortuous. The examined esophagus was normal. Impression: - Clot and large cratered actively bleeding duodenal ulcer in the first/second portion of the duodenum. I was not able to get access nor adequate visualisation despite extensive lavage. Unable to apply any endoscopic therapy and I continue to see active bleeding at the end of this procedure. - Hematin (altered blood/jxpphn-ohcqsj-voof material) in the entire stomach. No gross lesions in the stomach. - Tortuous, but otherwise normal esophagus. Recommendation: - Refer/consult Vascular Surgeon today for possible angiogram/endovascular therapy. I discussed with Dr Arias. - Continue aggressive transfusion. - Continue PPI therapy. Vivek Fabian MD Vivek FABIAN MD 03/22/2019 12:18:06 AM Electronically signed by Vivek FABIAN MD Number of Addenda: 0 Note Initiated On: 03/21/2019 8:15 PM Estimated Blood Loss: Estimated blood loss: none.
== END ==
PROVIDERS: ATTEND Internal Medicine
DX: R60.9 Edema, unspecified (principal)

== ENCOUNTER 2019-04-04 09:46 | Inpatient (IN) | payer MEDICARE, MEDICAID ==
[~2019-04-04] VITALS: Ht 157.5 cm; Wt 55.6 kg
[~2019-04-04 09:46] MED LIST changes: +ACET650S3 PR; +ATOR40TA75 PO; +CALC-190 PO; +DULC10SU2 PR; +ENEMENE PR; +FURO20TA2 PO; +METO1TAB87 PO; +MILKSUS PO; +PERC5TAB12 PO; +TUMS500C PO; +VITA-145 PO
[2019-04-04] MEDS ORDERED: PANT40TA3 PO (11:12)
[2019-04-04] MEDS ORDERED: ACET-683 PO (11:12)
[2019-04-04] MEDS ORDERED: ATIV1TAB10 PO (11:12)
[2019-04-04] MEDS ORDERED: TRAM50TA2 PO (11:12)
[2019-04-04] MEDS ORDERED: ALDA25TA2 PO (11:12)
[2019-04-04] MEDS ORDERED: CLAR250T PO (11:12)
[2019-04-04] MEDS ORDERED: FLAG500T PO (11:12)
[2019-04-04] MEDS ORDERED: LOPR1TAB6 PO (11:12)
[2019-04-04] MEDS ORDERED: KLOR10TA76 PO (11:12)
[2019-04-04] MEDS ORDERED: FURO40VL IV (11:12)
[2019-04-04 13:40] VITALS: BP 145/68
--- NOTE | 2019-04-04 15:14 | HPEPDOC ---
Pin Machine Operator Note DATE OF ADMISSION: Apr 04, 2019 at 13:37 SOURCE OF ADMISSION INFORMATION: [facility] records and patient CHIEF COMPLAINT: GI bleed HISTORY OF PRESENT ILLNESS: 78F pmh spinal stenosis s/p laminectomy, AAA s/p repair, recent NSTEMI, grade 1 diastolic heart failure, HTN, RA, osteoporosis, chronic pain who had 10 loose black stools at home with nausea and vomiting presented to [facility] ED on 03/21/19 where she was found to have Hgb of 7.2 and was admitted to ICU. She was made NPO, given multiple blood transfusions and IVF for hemorrhagic shock. An EGD was performed showing an actively bleeding large duodenal ulcer which unable to be repaired endoscopically, nor was the source of bleeding easily identified during an IR mesenteric angiogram. She was placed on a PPI drip and given sucralfate while being closely monitored, however she continue to lose blood so underwent an emergent ex-lap on 03/24/19 for oversewing of her ulcer. She was placed on clarithromycin, metronidazole, and fluconazole for H. Pylori coverage and managed on a soft diet. She was evaluated by therapy and found to be deconditioned with difficulty walking due to back pain. She required IV lasix for her fluid overloaded status, was well below her prior level of function therefor deemed medically appropriate for discharge to ARU on 04/04/19. REVIEW OF SYSTEMS: The following is a completed review of systems and has been reviewed. Review of systems otherwise unremarkable. PAIN: Patient self reports low back pain radiating down both legs EYES: Negative for recent vision loss EARS, NOSE, & THROAT: denies dysphagia CARDIOVASCULAR: denies chest pain or palpitations PULMONARY: Negative. Denies shortness of breath GASTROINTESTINAL:+abdominal tenderness, denies diarrhea or constipation GENITOURINARY: no dysuria MUSCULOSKELETAL: lumbar stenosis with bilat leg weakness NEUROLOGICAL: no tremor or seizure activity HEMATOLOGICAL: +anemia SKIN: abdominal incision PSYCHIATRIC: +depressed All other review of systems found to be negative. PAST MEDICAL HISTORY: as per HPI PAST SURGICAL HISTORY: Left knee Right hip Cardiac cath 2018 ALLERGIES: Please see below. MEDICATIONS: Please see below. SOCIAL HISTORY: Lives alone, denies ETOH, smoking, or illicit drug use DIET: low salt (fluid restrict) PHYSICAL EXAMINATION: VITAL SIGNS: Please see below. GENERAL: Pleasant and cooperative. No acute distress. HEENT: PERRL. Extraocular movements intact. Clear conjunctiva, +glasses CARDIOVASCULAR: Regular rate and rhythm. No murmurs, rubs, or gallops LUNGS: Clear to auscultation bilaterally. No wheezes. No rhonchi ABDOMEN: Soft, nontender, nondistended. Positive bowel sounds. Normal active bowel sounds, + vertical abdominal erasmo and drain site c/d/i NEUROLOGICAL: Alert and oriented times three. Cranial nerves II through XII grossly intact. Sensation grossly intact +TTP bilateral lumbar paraspinals EXTREMITIES: 5\5 strength bilateral upper extremities. 5-\5 strength right lower extremity. 5-/5 strength in left lower extremity +bilateral LE edema with negative Jamil's SKIN: + vertical abdominal erasmo and drain site c/d/i IMAGING: Imaging documentation personally reviewed by record FUNCTIONAL STATUS: Premorbid: Independent with all activities of daily life as well as mobility On Admission: Contact guard with RW and functional transfers requiring breaks due to dyspnea and fatigue, requiring stand-by assist for toileting, dressing GOALS: Mod-I for ambulation on altering terrains with RW, Mod-I stairs, dressing, bathing, toileting, car-transfers, medical optimization, assess for DME needs, caregiver training. ASSESSMENT:78-year-old F with past medical history of who presents status post GI bleed. PLAN: 1. Rehab: PT, OT, will work on endurance in setting of deconditioning and LE weakness due to spinal stenosis and recent fluid overloaded status in setting of CHF, goal is to strengthen bilat LE, improve balance to prevent falls and optimize ADLs 2. Cardio:pmh recent NSTEMI with negative cardiac cath, with ECHO on 11/06/18 showing grade 1 diastolic CHF- c/u IV lasix, will switch to po soon-medicine consulted -off antiplatelets given recent GI bleed -pmh HTN c/u metoprolol, losartan, and spironolactone 3. Resp: encourage incentive spirometry 4. GI: s./p duodenal oversewing from bleeding ulcer requiring numerous transfusions, discharged to ARU on protonix daily, c/u sucralfate and monitor h/h -c/u flagyl and clarithromycin for H. Pylori treatment, s/p course of diflucan 5. : monitor PVRs, no dysuria 6. DVT ppx: TEDs, avoid blood thinners 7. Psych: patient reporting depression, will start lexapro, c/u Ativan prn anxiety- will lower dose from 0.5 to 0.25 8. Pain: c.u Tylenol and tramadol prn (will attempt to taper), trazodone prn insomnia 9. Dispo: TBD 10. Full code POST ADMISSION PHYSICIAN EVALUATION: Medical and functional status: Description of medical status, medical assessment: As above. Rehabilitation diagnosis and current and prior cold morbid medical conditions as above. Risk of complications and plans to mitigate them as above. Description of functional status current status is as above. Prior status as above. Status compared to preadmission: There are no clinically significant differences between the patient's current status and the information described on the preadmission screening document. Treatment plan anticipated: Treatment plan is as described above. Required disciplines including physical therapy, occupational therapy, others as noted above. Intensity of services: 3 hours a day, 6 days a week. Special considerations: There are no specific special or safety considerations that would likely preclude immediate implementation of an intensive rehabilitation program or subsequently influence the plan of care ATTESTATION: Considering all the information above, it is my best judgment that this patient requires intensive rehabilitation therapy as described above and an inpatient hospital environment due to the complexity of nursing, medical, and rehabilitation needs required by the patient. Furthermore, this patient can reasonably be expected to participate in an benefit from an inpatient rehabilitation stay with an interdisciplinary team approach to the delivery of rehabilitation care under the direction and supervision of rehabilitation ph ysician PROGNOSIS: Excellent ESTIMATED LENGTH OF STAY:8-10 days. PROJECTED DISCHARGE DESTINATION: Home with family support and any durable medical equipment required to increase functional safety and mobility TIME SPENT COUNSELING AND COORDINATING INITIAL CARE: Greater than 70 minutes. Vital Signs Vital Sign - Last 24 Hours 04/04/19 13:40 Temp 97.2 Pulse 79 Resp 17 B/P (MAP) 145/68 (93) Pulse Ox 99 Home Medications Scheduled Acetaminophen (Acetaminophen) 500 Mg Tablet, 1,000 MG PO Q8H Atorvastatin Calcium (Atorvastatin Calcium) 40 Mg Tablet, 40 MG PO QHS, (Reported) Buspirone HCl (Buspirone HCl) 10 Mg Tablet, 20 MG PO TID, (Reported) Calcium Carbonate/Vitamin D3 (Calcium 1,000 + D3 Caplet) 1 Each Tablet, 1 TAB PO DAILY, (Reported) Cholecalciferol (Vitamin D3) (Vitamin D3) 1,000 Unit Tablet, 1,000 UNIT PO DAILY, (Reported) Clarithromycin (Clarithromycin) 250 Mg Tablet, 250 MG PO BID Furosemide (Furosemide) 10 Mg/1 Ml Vial, 40 MG IV BID@ Losartan Potassium (Losartan Potassium) 100 Mg Tablet, 100 MG PO DAILY, (Reported) Metoprolol Tartrate (Lopressor) 50 Mg Tablet, 50 MG PO BID Metronidazole (Flagyl) 500 Mg Tablet, 500 MG PO TID Pantoprazole Sodium (Pantoprazole Sodium) 40 Mg Tablet.dr, 40 MG PO BID Potassium Chloride (Klor-Con M10) 10 Meq Tab.er.prt, 40 MEQ PO DAILY Spironolactone (Aldactone) 25 Mg Tablet, 25 MG PO DAILY Tramadol HCl (Tramadol HCl) 50 Mg Tablet, 50 MG PO DAILY Scheduled PRN Calcium Carbonate (Tums) 200 Mg Tab.chew, 1,000 MG PO for DYSPEPSIA, (Reported) Lorazepam (Ativan) 0.5 Mg Tablet, 0.5 MG PO Q8HP PRN for ANXIETY Allergies Coded Allergies: amlodipine (Verified Allergy, Mild, rash, 02/22/19) duloxetine (Verified Allergy, Mild, Rash, 02/22/19) latex (Verified Allergy, Mild, rash, 03/21/19) Contrast Media (Verified Allergy, Unknown, rash, 07/11/17) nystatin (Verified Allergy, Unknown, Rash, 02/22/19) A-FIB/CHADSVASC A-FIB History Current/History of A-Fib/PAF?: No RADHA CARTER MD Apr 04, 2019 15:14
[2019-04-04] MEDS ORDERED: MOM 30ML SUSPENSION UDC PO PRN (15:15)
[2019-04-04] MEDS ORDERED: traMADol 50 MG TAB PO PRN (15:15)
[2019-04-04] MEDS ORDERED: PILL CUTTER 1 EACH XX PRN (16:00)
[2019-04-04] MEDS: metroNIDAZOLE (FLAGYL) 500 MG TAB PO SCH ×2 (16:22→21:53)
--- NOTE | 2019-04-04 17:04 | DS.PDOC ---
Discharge Summary General Date of Admission Apr 04, 2019 at 13:37 Date of Discharge 04/04/19 Discharge Summary PROCEDURES PERFORMED DURING STAY: Oversewing of duodenal ulcer, angiogram, EGD ADMITTING DIAGNOSES: 1. Acute blood loss anemia 2. Sinus tachycardia and light headedness 3. History of elevated troponins 4. HTN 5. Constipation 6. Depression 7. DLP 8. CBP 9. Insomnia DISCHARGE DIAGNOSES: 1. Acute blood loss anemia causing hypovolemic/hemorrhagic shock from re- bleeding duodenal ulcer 2. Coverage infection after intra-abdominal surgery 3. Superficial thrombophlebitis 4. New onset Atrial fibrillation with episodes of RVR 5. History of elevated Troponin 6. HTN with signs of possible fluid overload 7. Constipation 8. Depression 9. DLP COMPLICATIONS/CHIEF COMPLAINT: Gi Bleed With Oversewing Of The Bleeding Ulcer. HISTORY OF PRESENT ILLNESS: Per HPI Ms Lopez is a 78 year old female with past medical history of spinal stenosis status post laminectomy, hypertension, abdominal aortic aneurysm status post repair, rheumatoid arthritis, osteoporosis and chronic back pain who presented to the emergency department after experiencing about 10 episodes of black diarrhea that began around lunchtime today. The patient stated that she had associated nausea and vomiting, she stated she vomited once the emergency department that day and that it was very dark brown and black in color. She denied any abdominal pain, denied heart palpitations, denied chest pain. She did admit to dizziness especially when standing that began that day and shortness of breath especially with exertion which also began that day. She denied fever but did think she had been experiencing chills. She did not report a change in weight and did report a normal appetite. No recent travel or sick contacts. She denied blood in her urine but thinks that for the prior couple weeks there had been some burning with urination. She stated her last bowel movement of loose stool that was dark in color was around noon the day of admission. She was not currently in any pain in the ED. She did complain of some lower extremity edema, worse towards the evening that has been occurring for the past few weeks, she attributed that to a change in diet at [facility]. No shortness of breath on laying down flat or at night. HOSPITAL COURSE: During the course of Ms. Lopez extensive stay she was transfused 16 pRBC's, 4 FFP's and two platelets for her bleeding duodenal ulcer. She had an EGD performed on this stay with GI that showed a bleeding ulcer, however it was not able to be accessed for therapy during the EGD. She then had an IR mesenteric angiogram performed and due to likely genetic abnormality/variant the source of bleeding was not identified. General surgery was then called an took the patient for an ex. lap procedure and she had a duodenal ulcer oversew procedure 03.24.19 to tamponade the bleeding. She continued to have maroon colored stools after surgery and her Hg did fluctuate, however it did stabilize., she had a FREDO that was removed as well as she had left cordis cath and A-line. She was maintained on antibiotics inpatient for H. Pylori coverage, clarithromycin, metronidazole ( both should be continued for one week after d/c) and fluconazole which was stopped on d/c. She also did develop paroxysmal a. fib however she represents an absolute contraindication to AC, she was rate controlled in house. Her diet was advanced and she was tolerating PO intake well, she did receive IV lasix in house for lower extremity edema. She worked with physical therapy and was transitioned to ARU as she was not near her baseline functioning for mobility/ADL's. DISCHARGE MEDICATIONS: Please see below. ALLERGIES: Please see below. PHYSICAL EXAMINATION ON DISCHARGE: PE: Vitals: see below General: 78 yo female laying in bed, speaking in full sentences, NAD, conversant HEENT: moist mucus membranes, EOMI, no JVD Resp: CTA b/l, no wheezing, rales or rhonchi appreciated Cardio: normal s1 and s2., no murmurs, rubs or gallops, RRR Abdomen: nabsx4, discomfort around incision from ex lap. site is clean, erasmo intact, no erythema, swelling or bruising, no pus or blood exudation appreciated , no rebound rigidity or guarding, no distension, no hepatosplenomegaly or masses appreciated, soft, site where FREDO drain was is without erythema, blood or pus exudation. Extremities: left brachial cutdown incision is clean and intact w/o erythema, swelling or bruising- no cyanosis, mottling but at least +1 b/l LE seems improved from yesterday LABORATORY DATA: Please see below. IMAGING: CXR 03.22.19 There is mild cardiomegaly. Stable bibasilar fibroatelectatic change is again noted. There is a stable calcified granuloma in the right lower lobe. Probably small left pleural effusion remains stable. There is calcification and tortuosity of the thoracic aorta. Mediastinal silhouette is unchanged. IMPRESSION: Stable exam. CXR 6.05.05 IMPRESSION: 1. Nasogastric tube as described above. Repositioning necessary. 2. Possible rib fracture/multiple fractures. This is only suggested on the markedly limited portable exam. A rib series may prove helpful. A CT would be definitive. CXR 6.8 An increase in interstitial markings is present in the lower lobes consistent with chronic interstitial change. A calcified granuloma is present in the right lower lobe. There is blunting of the left costophrenic angle due to small pleural effusion. The cardiac silhouette is enlarged. The pulmonary vasculature is norm al in appearance. There is a possible fracture of the left sixth rib. An NG tube is present. Impression: 1. Bibasilar chronic interstitial change. 2. Cardiomegaly. 3. There is a possible fracture of the left sixth rib. Upper GI series with air and KUB 6.09.05 Impression: 1. No extravasation observed. 1.1 minutes of fluoroscopy time was utilized for this procedure. cxr 6.09.05 Findings: A right-sided PICC line is seen in place with its tip in the expected location of the superior vena cava. NG tube enters left upper quadrant. An aortic stent graft is visible and there is metallic hardware and surgical clips superimposed on the upper lumbar spine. The heart is mildly enlarged unchanged. There is discoid atelectasis in the left base and there is blunting of the left lateral pleural angle indicating a small quantity of left pleural fluid. No acute infiltrate. vascular u/s 6.14. IMPRESSION: No acute findings. No evidence of deep vein thrombosis. Distal basilic vein occlusion consistent with superficial thrombosis. PROGNOSIS: Favorable so far ACTIVITY: As tolerated DIET: as tolerated DISCHARGE PLAN: ARU DISPOSITION: Stable to ARU ITEMS TO FOLLOWUP ON ON OUTPATIENT: 1. Follow up with GI/Surgery and PCP within 5-7 days of dc DISCHARGE CONDITION: Stable TIME SPENT ON DISCHARGE: Greater than 45 minutes. Vital Signs/I&Os Vital Signs Date Time Temp Pulse Resp B/P (MAP) Pulse Ox O2 Delivery O2 Flow Rate FiO2 04/04/19 16:23 18 04/04/19 13:40 97.2 79 145/68 (93) 99 Discharge Medications Scheduled Acetaminophen (Acetaminophen) 500 Mg Tablet, 1,000 MG PO Q8H Atorvastatin Calcium (Atorvastatin Calcium) 40 Mg Tablet, 40 MG PO QHS, (Reported) Buspirone HCl (Buspirone HCl) 10 Mg Tablet, 20 MG PO TID, (Reported) Calcium Carbonate/Vitamin D3 (Calcium 1,000 + D3 Caplet) 1 Each Tablet, 1 TAB PO DAILY, (Reported) Cholecalciferol (Vitamin D3) (Vitamin D3) 1,000 Unit Tablet, 1,000 UNIT PO DAILY, (Reported) Clarithromycin (Clarithromycin) 250 Mg Tablet, 250 MG PO BID Furosemide (Furosemide) 10 Mg/1 Ml Vial, 40 MG IV BID@ Losartan Potassium (Losartan Potassium) 100 Mg Tablet, 100 MG PO DAILY, (Reported) Metoprolol Tartrate (Lopressor) 50 Mg Tablet, 50 MG PO BID Metronidazole (Flagyl) 500 Mg Tablet, 500 MG PO TID Pantoprazole Sodium (Pantoprazole Sodium) 40 Mg Tablet.dr, 40 MG PO BID Potassium Chloride (Klor-Con M10) 10 Meq Tab.er.prt, 40 MEQ PO DAILY Spironolactone (Aldactone) 25 Mg Tablet, 25 MG PO DAILY Tramadol HCl (Tramadol HCl) 50 Mg Tablet, 50 MG PO DAILY Scheduled PRN Calcium Carbonate (Tums) 200 Mg Tab.chew, 1,000 MG PO for DYSPEPSIA, (Reported) Lorazepam (Ativan) 0.5 Mg Tablet, 0.5 MG PO Q8HP PRN for ANXIETY Allergies Coded Allergies: amlodipine (Verified Allergy, Mild, rash, 02/22/19) duloxetine (Verified Allergy, Mild, Rash, 02/22/19) latex (Verified Allergy, Mild, rash, 03/21/19) Contrast Media (Verified Allergy, Unknown, rash, 07/11/17) nystatin (Verified Allergy, Unknown, Rash, 02/22/19) GME ATTESTATION GME ATTESTATION My faculty preceptor for this patient encounter was physically present during the encounter and was fully available. All aspects of the patient interview, examination, medical decision making process, and medical care plan development were reviewed and approved by the faculty preceptor. The faculty preceptor is aware and concurs with the plan as stated in the body of this note and will attest to such by his/her cosignature. ATTENDING NOTE I, Thomas Duarte, have both independently examined this patient as well as reviewed the documentation. I have discussed in detail with the resident the findings and plan of treatment as documented in the residents documentation and I agree with what is stated. I will continue to follow the patient and offer further guidance to the patients care as necessary during this hospital stay. Time spent on discharge 43 minutes GLENNY EVANS DO Apr 04, 2019 17:04 THOMAS DUARTE MD Apr 04, 2019 20:41
[2019-04-04] MEDS: SUCRALFATE 1 GM TAB PO SCH (18:11)
[2019-04-04] MEDS: FUROSEMIDE 40 MG/4 ML VIAL (J1940) IV SCH (18:11)
[2019-04-04] MEDS: CLARITHROMYCIN 250 MG TAB PO SCH (20:07)
[2019-04-04] MEDS: DOCUSATE SODIUM 100 MG CAP PO SCH (20:07)
[2019-04-04] MEDS: LOSARTAN 50 MG TAB PO SCH (20:07)
[2019-04-04] MEDS: traZODone 25MG PER 1/2 TABLET PO SCH (20:07)
[2019-04-04 20:08] VITALS: BP 181/79
[2019-04-04] MEDS: METOPROLOL TART 50 MG TAB PO SCH (20:08)
[2019-04-04] MEDS: SENNA 8.6 MG TAB (SENOKOT) PO SCH (20:08)
[2019-04-04] MEDS: ACETAMINOPHEN 500 MG TAB PO SCH (20:08)
[2019-04-04] MEDS: LORazepam 0.5 MG TAB PO PRN (21:53)
[2019-04-05] MEDS: SUCRALFATE 1 GM TAB PO SCH ×5 (00:03→23:17)
[2019-04-05 06:00] VITALS: BP 143/61
[2019-04-05] MEDS ORDERED: traMADol 50 MG TAB PO PRN (06:15)
[2019-04-05] MEDS: metroNIDAZOLE (FLAGYL) 500 MG TAB PO SCH ×3 (06:24→21:46)
[2019-04-05] MEDS: PANTOPRAZOLE 40MG TAB (PROTONIX) PO SCH (08:27)
[2019-04-05] MEDS: FUROSEMIDE 40 MG/4 ML VIAL (J1940) IV SCH (08:27)
[2019-04-05] MEDS: POTASSIUM CHLORIDE 10 MEQ SR TABLET PO SCH (08:27)
[2019-04-05] MEDS: DOCUSATE SODIUM 100 MG CAP PO SCH ×2 (08:27→21:43)
[2019-04-05] MEDS: ESCITALOPRAM OXALATE 10 MG TAB (LEXAPRO) PO SCH (08:27)
[2019-04-05] MEDS: CLARITHROMYCIN 250 MG TAB PO SCH ×2 (08:27→21:44)
[2019-04-05] MEDS: METOPROLOL TART 50 MG TAB PO SCH ×2 (08:28→21:44)
[2019-04-05] MEDS: LOSARTAN 50 MG TAB PO SCH ×2 (08:28→21:44)
[2019-04-05] MEDS: ACETAMINOPHEN 500 MG TAB PO SCH ×3 (08:29→21:47)
[2019-04-05] MEDS: LORazepam 0.5 MG TAB PO PRN ×2 (08:35→16:46)
[2019-04-05 08:48] LABS: BASO # 0.1 10^3/uL (0.0-0.2); BASO % 0.5 % (0.0-1.0); EOS % 0.1 % (0.0-3.0); HEMATOCRIT 31.6 % (36.0-47.0); HEMOGLOBIN 10.3 g/dl (12.0-15.5); LYMPH # 1.1 10^3/uL (1.5-4.5); LYMPH % 11.2 % (24.0-44.0); MEAN CORPUSCULAR HEMOGLOBIN 29.5 pg (27.0-33.0); MEAN CORPUSCULAR HGB CONC 32.6 g/dl (32.0-36.5); MEAN CORPUSCULAR VOLUME 90.5 fl (80.0-96.0); MONO # 1.2 10^3/uL (0.0-0.8); MONO % 13.2 % (0.0-5.0); NEUTROPHILS # 6.9 10^3/uL (1.8-7.7); NEUTROPHILS % 73.7 % (36.0-66.0); PLATELET COUNT, AUTOMATED 466 10^3/uL (150-450); RED BLOOD COUNT 3.49 10^6/uL (4.00-5.40); WHITE BLOOD COUNT 9.4 10^3/uL (4.0-10.0)
[2019-04-05 08:58] LABS: ALT/SGPT 13 U/L (12-78); BILIRUBIN,TOTAL 0.3 MG/DL (0.2-1.0); BLOOD UREA NITROGEN 12 MG/DL (7-18); CALCIUM LEVEL 7.5 MG/DL (8.8-10.2); CARBON DIOXIDE LEVEL 26 MEQ/L (21-32); CHLORIDE LEVEL 102 MEQ/L (98-107); CREATININE FOR GFR 0.83 MG/DL (0.55-1.30); GLOMERULAR FILTRATION RATE > 60.0 (>39); GLUCOSE, FASTING 114 MG/DL (70-100); MAGNESIUM LEVEL 1.8 MG/DL (1.8-2.4); POTASSIUM SERUM 3.6 MEQ/L (3.5-5.1); SODIUM LEVEL 135 MEQ/L (136-145); TOTAL PROTEIN 5.1 GM/DL (6.4-8.2)
[2019-04-05] MEDS ORDERED: SPIRONOLACTONE 25 MG TAB PO SCH (09:00)
--- NOTE | 2019-04-05 10:31 | IPNPDOC ---
PM&R Progress Note DATE OF SERVICE: Apr 05, 2019 Corrections Lieutenant Progress Note Subjective: Patient reports therapy went well and that she understands the importance of it. She is willing to stay a week for more treatment. REVIEW OF SYSTEMS: The following is a completed review of systems and has been reviewed. Review of systems otherwise unremarkable. PAIN: Patient self reports low back pain radiating down both legs EYES: Negative for recent vision loss EARS, NOSE, & THROAT: denies dysphagia CARDIOVASCULAR: denies chest pain or palpitations PULMONARY: Negative. Denies shortness of breath GASTROINTESTINAL:+abdominal tenderness, denies diarrhea or constipation GENITOURINARY: no dysuria MUSCULOSKELETAL: lumbar stenosis with bilat leg weakness NEUROLOGICAL: no tremor or seizure activity HEMATOLOGICAL: +anemia SKIN: abdominal incision PSYCHIATRIC: +depressed All other review of systems found to be negative. PHYSICAL EXAMINATION: VITAL SIGNS: Please see below. GENERAL: Pleasant and cooperative. No acute distress. HEENT: PERRL. Extraocular movements intact. Clear conjunctiva, +glasses CARDIOVASCULAR: Regular rate and rhythm. No murmurs, rubs, or gallops LUNGS: Clear to auscultation bilaterally. No wheezes. No rhonchi ABDOMEN: Soft, nontender, nondistended. Positive bowel sounds. Normal active bowel sounds, + vertical abdominal erasmo and drain site c/d/i NEUROLOGICAL: Alert and oriented times three. Cranial nerves II through XII grossly intact. Sensation grossly intact +TTP bilateral lumbar paraspinals EXTREMITIES: 5\5 strength bilateral upper extremities. 5-\5 strength right lower extremity. 5-/5 strength in left lower extremity +bilateral LE edema with negative Jamil's SKIN: + vertical abdominal erasmo and drain site c/d/i ASSESSMENT:78-year-old F with past medical history of who presents status post GI bleed. PLAN: 1. Rehab: PT, OT, will work on endurance in setting of deconditioning and LE weakness due to spinal stenosis and recent fluid overloaded status in setting of CHF, goal is to strengthen bilat LE, improve balance to prevent falls and optimize ADLs 2. Cardio:[facility] recent NSTEMI with negative cardiac cath, with ECHO on 11/06/18 showing grade 1 diastolic CHF- will switch to po lasix 40mg BID and increase spironolactone to 50mg daily to help with diuresis given LE edema, lungs CTA -medicine consulted -off antiplatelets given recent GI bleed -pmh HTN c/u metoprolol, losartan, and spironolactone 3. Resp: encourage incentive spirometry 4. GI: s./p duodenal oversewing from bleeding ulcer requiring numerous transfusions, discharged to ARU on protonix daily, c/u sucralfate and monitor h/h -c/u flagyl and clarithromycin for H. Pylori treatment, s/p course of diflucan 5. : monitor PVRs, no dysuria 6. DVT ppx: TEDs, avoid blood thinners 7. Psych: patient reporting depression, will start lexapro, c/u Ativan prn anxiety- will lower dose from 0.5 to 0.25 8. Pain: c.u Tylenol and tramadol prn (will attempt to taper), trazodone prn insomnia 9. Dispo: TBD 10. Full code Allergies Coded Allergies: amlodipine (Verified Allergy, Mild, rash, 02/22/19) duloxetine (Verified Allergy, Mild, Rash, 02/22/19) latex (Verified Allergy, Mild, rash, 03/21/19) Contrast Media (Verified Allergy, Unknown, rash, 07/11/17) nystatin (Verified Allergy, Unknown, Rash, 02/22/19) Vital Signs Vital Signs Date Time Temp Pulse Resp B/P (MAP) Pulse Ox O2 Delivery O2 Flow Rate FiO2 04/05/19 08:28 143/61 04/05/19 08:28 63 04/05/19 07:15 16 04/05/19 06:00 98.0 98 Laboratory Data CBC/BMP Laboratory Tests 04/05/19 08:23 Red Blood Count 3.49 L, Mean Corpuscular Volume 90.5, Mean Corpuscular Hemoglobin 29.5, Mean Corpuscular Hemoglobin Concent 32.6, Red Cell Distribution Width 16.0 H, Neutrophils (%) (Auto) 73.7 H, Lymphocytes (%) (Auto) 11.2 L, Monocytes (%) (Auto) 13.2 H, Eosinophils (%) (Auto) 0.1, Basophils (%) (Auto) 0.5, Neutrophils # (Auto) 6.9, Lymphocytes # (Auto) 1.1 L, Monocytes # (Auto) 1.2 H, Eosinophils # (Auto) 0.0, Basophils # (Auto) 0.1, Calcium Level 7.5 L, Aspartate Amino Transf (AST/SGOT) 16, Alanine Aminotransferase (ALT/SGPT) 13, Alkaline Phosphatase 136 H, Total Bilirubin 0.3, Total Protein 5.1 L, Albumin 2.0 L Labs 24H Laboratory Tests 2 04/05/19 08:23: Immature Granulocyte % (Auto) 1.3, White Blood Count 9.4, Red Blood Count 3.49L, Hemoglobin 10.3L, Hematocrit 31.6L, Mean Corpuscular Volume 90.5, Mean Corpuscular Hemoglobin 29.5, Mean Corpuscular Hemoglobin Concent 32.6, Red Cell Distribution Width 16.0H, Platelet Count 466H, Neutrophils (%) (Auto) 73.7H, Lymphocytes (%) (Auto) 11.2L, Monocytes (%) (Auto) 13.2H, Eosinophils (%) (Auto) 0.1, Basophils (%) (Auto) 0.5, Neutrophils # (Auto) 6.9, Lymphocytes # (Auto) 1.1L, Monocytes # (Auto) 1.2H, Eosinophils # (Auto) 0.0, Basophils # (Auto) 0.1, Nucleated Red Blood Cells % (auto) 0.0, Anion Gap 7L, Glomerular Filtration Rate > 60.0, Blood Urea Nitrogen 12, Creatinine 0.83, Sodium Level 135L, Potassium Level 3.6, Chloride Level 102, Carbon Dioxide Level 26, Calcium Level 7.5L, Aspartate Amino Transf (AST/SGOT) 16, Alanine Aminotransferase (ALT/SGPT) 13, Alkaline Phosphatase 136H, Total Bilirubin 0.3, Total Protein 5.1L, Albumin 2.0L, Magnesium Level 1.8, Albumin/Globulin Ratio 0.65L Current Medications Current Medications Current Medications Acetaminophen (Tylenol Tab) 1,000 mg TID PO Last administered on 04/05/19at 08:29; Start 04/04/19 at 21:00 Al Hydrox/Mg Hydrox/Simethicone (Mylanta) 30 ml Q4HP PRN PO DYSPEPSIA; Start 04/04/19 at 15:15 Clarithromycin (Biaxin) 250 mg BID PO Last administered on 04/05/19at 08:27; Start 04/04/19 at 21:00; Stop 04/13/19 at 21:01 Docusate Sodium (Colace) 100 mg BID PO Last administered on 04/05/19 08:27; S tart 04/04/19 at 21:00 Escitalopram Oxalate (Lexapro) 10 mg DAILY PO Last administered on 04/05/19 08:27; Start 04/05/19 at 09:00 Furosemide (LASIX injection) 40 mg BID@0900,1700 IV Last administered on 04/05/19 08:27; Start 04/04/19 at 17:00 Hydroxyzine HCl (Atarax) 25 mg Q8HP PRN PO ANXIETY; Start 04/04/19 at 15:15 Lorazepam (Ativan) 0.25 mg Q8HP PRN PO ANXIETY Last administered on 04/05/19 08:35; Start 04/04/19 at 15:15 Losartan Potassium (Cozaar) 50 mg BID PO Last administered on 04/05/19 08:28; Start 04/04/19 at 21:00 Magnesium Hydroxide (Milk Of Magnesia) 30 ml DAILYPRN PRN PO CONSTIPATION; Start 04/04/19 at 15:15 Metoprolol Tartrate (Lopressor) 50 mg BID PO Last administered on 04/04/19 20:08; Start 04/04/19 at 21:00 Metronidazole (Flagyl) 500 mg Q8H PO Last administered on 04/05/19 06:24; Start 04/04/19 at 14:00 Pantoprazole Sodium (Protonix) 40 mg DAILY PO Last administered on 04/05/19 08:27; Start 04/05/19 at 09:00 Potassium Chloride (Micro-K Extencaps) 40 meq DAILY PO Last administered on 04/05/19 08:27; Start 04/05/19 at 09:00 Senna (Senokot) 1 tab QHS PO Last administered on 04/04/19 20:08; Start 04/04/19 at 21:00 Spironolactone (Aldactone) 25 mg QAM PO Last administered on 04/05/19 08:27; Start 04/05/19 at 09:00 Sucralfate (Carafate) 1 gm Q6H PO Last administered on 04/05/19 06:24; Start 04/04/19 at 18:00 Tramadol HCl (Ultram) 25 mg Q12HP PRN PO PAIN Last administered on 04/05/19 06:24; Start 04/05/19 at 06:15 Tramadol HCl (Ultram) 25 mg Q6HP PRN PO MODERATE PAIN (PS 5-7) Last administered on 04/04/19 16:23; Start 04/04/19 at 15:15; Stop 04/04/19 at 16:27; Status DC Trazodone HCl (Desyrel) 25 mg QHS PO Last administered on 04/04/19at 20:07; Start 04/04/19 at 21:00 RADHA CARTER MD Apr 05, 2019 10:31
--- NOTE | 2019-04-05 13:20 | CR ---
DATE OF CONSULTATION: 04/05/2019 REQUESTING PROVIDER: Dr. Ford This is a medical evaluation for the hospitalist service on Tejal Lopez who was transferred from acute care yesterday. She was admitted with acute blood loss anemia secondary to hemorrhagic shock from a bleeding duodenal ulcer requiring emergency surgical intervention. She received 16 units of packed red blood cells, 3 units of fresh frozen plasma, and 2 units of platelets. She is in a bit of diastolic congestive heart failure (CHF) with some lower extremity edema. She denies any chest pain or dyspnea on exertion. PAST MEDICAL HISTORY: Shows that prior to this admission she had an elevated troponin, had a cardiac catheterization which showed no coronary lesions requiring any intervention. She has a history superficial thrombophlebitis, hyperlipidemia, depression, constipation, hypertensive heart disease. Medication list was reviewed. Social and family are unchanged from her admission history and physical. REVIEW OF SYSTEMS: No epistaxis, rectal bleeding or urinary bleeding, orthopnea or paroxysmal nocturnal dyspnea (PND). PHYSICAL EXAMINATION: Vital signs per flow sheet. Oxygen saturation 98% on room air. General appearance: Elderly, frail, resting comfortably. HEENT unremarkable. Neck no jugular venous distention (JVD). Lungs decreased breath sounds. Heart regular rate and rhythm. 1/6 systolic ejection murmur. Abdomen soft, nontender, no masses. She has 1+ peripheral edema to the mid lower leg. LABS: Echocardiogram from October 2018 showed ejection fraction of 60%, impaired diastolic pattern typical for her age. Aortic sclerosis without stenosis. CBC today is unremarkable. CMP today is unremarkable. IMPRESSION: 1. Mild diastolic congestive heart failure (CHF). The patient is on spironolactone, by mouth furosemide. I think we should gently diurese her volume overload. I advise to continue to monitor input and output. She has follow-up labs ordered for tomorrow. She is on an 1800 mL per day fluid restriction and a 2 gram sodium diet, both of which are appropriate. 2. Hypertensive heart disease. Blood pressure is under good control. 3. History of depression. Seems satisfactory. She is currently on trazodone. 4. Recent gastrointestinal (GI) bleed, hemorrhaging ulcer requiring laparotomy. She is still on antibiotics for this. No sign of active infection. Duration of antibiotic would be per surgery. Continue by mouth Protonix.
[2019-04-05 14:00] VITALS: BP 126/66
[2019-04-05] MEDS: FUROSEMIDE 40 MG TAB PO SCH (16:46)
[2019-04-05 20:00] VITALS: BP 140/77
[2019-04-05] MEDS: SENNA 8.6 MG TAB (SENOKOT) PO SCH (21:44)
[2019-04-05] MEDS: traZODone 25MG PER 1/2 TABLET PO SCH (21:44)
[2019-04-05] MEDS: traMADol 50 MG TAB PO PRN (21:46)
[2019-04-06 05:30] VITALS: BP 145/84
[2019-04-06] MEDS: LORazepam 0.5 MG TAB PO PRN ×2 (05:49→16:01)
[2019-04-06] MEDS: metroNIDAZOLE (FLAGYL) 500 MG TAB PO SCH ×3 (05:50→21:02)
[2019-04-06] MEDS: SUCRALFATE 1 GM TAB PO SCH ×3 (05:50→17:09)
[2019-04-06 07:44] LABS: BASO # 0.1 10^3/uL (0.0-0.2); EOS % 0.1 % (0.0-3.0); HEMATOCRIT 31.1 % (36.0-47.0); HEMOGLOBIN 10.2 g/dl (12.0-15.5); LYMPH # 1.2 10^3/uL (1.5-4.5); MEAN CORPUSCULAR HEMOGLOBIN 29.8 pg (27.0-33.0); MEAN CORPUSCULAR HGB CONC 32.8 g/dl (32.0-36.5); MEAN CORPUSCULAR VOLUME 90.9 fl (80.0-96.0); MONO # 1.1 10^3/uL (0.0-0.8); NEUTROPHILS # 4.5 10^3/uL (1.8-7.7); NEUTROPHILS % 63.9 % (36.0-66.0); PLATELET COUNT, AUTOMATED 508 10^3/uL (150-450); RED BLOOD COUNT 3.42 10^6/uL (4.00-5.40); WHITE BLOOD COUNT 7.1 10^3/uL (4.0-10.0)
[2019-04-06 08:04] LABS: BLOOD UREA NITROGEN 9 MG/DL (7-18); CALCIUM LEVEL 7.5 MG/DL (8.8-10.2); CARBON DIOXIDE LEVEL 28 MEQ/L (21-32); CHLORIDE LEVEL 102 MEQ/L (98-107); CREATININE FOR GFR 0.57 MG/DL (0.55-1.30); GLOMERULAR FILTRATION RATE > 60.0 (>39); GLUCOSE, FASTING 80 MG/DL (70-100); POTASSIUM SERUM 3.3 MEQ/L (3.5-5.1); SODIUM LEVEL 136 MEQ/L (136-145)
[2019-04-06] MEDS: DOCUSATE SODIUM 100 MG CAP PO SCH ×2 (09:00→21:02)
[2019-04-06] MEDS: ACETAMINOPHEN 500 MG TAB PO SCH ×3 (09:15→21:04)
[2019-04-06] MEDS: FUROSEMIDE 40 MG TAB PO SCH ×2 (09:15→16:01)
[2019-04-06] MEDS: POTASSIUM CHLORIDE 10 MEQ SR TABLET PO SCH (09:15)
[2019-04-06] MEDS: SPIRONOLACTONE 50 MG TAB PO SCH (09:15)
[2019-04-06] MEDS: CLARITHROMYCIN 250 MG TAB PO SCH ×2 (09:16→21:02)
[2019-04-06] MEDS: PANTOPRAZOLE 40MG TAB (PROTONIX) PO SCH (09:16)
[2019-04-06] MEDS: ESCITALOPRAM OXALATE 10 MG TAB (LEXAPRO) PO SCH (09:16)
[2019-04-06] MEDS: METOPROLOL TART 50 MG TAB PO SCH ×2 (09:16→21:04)
[2019-04-06] MEDS: LOSARTAN 50 MG TAB PO SCH ×2 (09:16→21:03)
[2019-04-06] MEDS ORDERED: POTASSIUM CHLORIDE 10 MEQ SR TABLET PO ONE (11:00)
--- NOTE | 2019-04-06 11:03 | IPNPDOC ---
PM&R Progress Note DATE OF SERVICE: Apr 06, 2019 Cardroom Attendant Progress Note Subjective: Patient seen in OT doing laundry reporting she had her erasmo removed. REVIEW OF SYSTEMS: The following is a completed review of systems and has been reviewed. Review of systems otherwise unremarkable. PAIN: Patient self reports low back pain radiating down both legs EYES: Negative for recent vision loss EARS, NOSE, & THROAT: denies dysphagia CARDIOVASCULAR: denies chest pain or palpitations PULMONARY: Negative. Denies shortness of breath GASTROINTESTINAL:+abdominal tenderness, denies diarrhea or constipation GENITOURINARY: no dysuria MUSCULOSKELETAL: lumbar stenosis with bilat leg weakness NEUROLOGICAL: no tremor or seizure activity HEMATOLOGICAL: +anemia SKIN: abdominal incision PSYCHIATRIC: +depressed All other review of systems found to be negative. PHYSICAL EXAMINATION: VITAL SIGNS: Please see below. GENERAL: Pleasant and cooperative. No acute distress. HEENT: PERRL. Extraocular movements intact. Clear conjunctiva, +glasses CARDIOVASCULAR: Regular rate and rhythm. No murmurs, rubs, or gallops LUNGS: Clear to auscultation bilaterally. No wheezes. No rhonchi ABDOMEN: Soft, nontender, nondistended. Positive bowel sounds. Normal active bowel sounds, + vertical abdominal erasmo and drain site c/d/i NEUROLOGICAL: Alert and oriented times three. Cranial nerves II through XII grossly intact. Sensation grossly intact +TTP bilateral lumbar paraspinals EXTREMITIES: 5\5 strength bilateral upper extremities. 5-\5 strength right lower extremity. 5-/5 strength in left lower extremity +bilateral LE edema with negative Jamil's SKIN: + vertical abdominal erasmo and drain site c/d/i ASSESSMENT:78-year-old F with past medical history of who presents status post GI bleed. PLAN: 1. Rehab: PT, OT, will work on endurance in setting of deconditioning and LE weakness due to spinal stenosis and recent fluid overloaded status in setting of CHF, goal is to strengthen bilat LE, improve balance to prevent falls and optimize ADLs 2. Cardio:[facility] recent NSTEMI with negative cardiac cath, with ECHO on 11/06/18 showing grade 1 diastolic CHF- c/u po lasix 40mg BID and increased [id number] daily to help with diuresis given LE edema, lungs CTA -medicine consulted -off antiplatelets given recent GI bleed -[facility] HTN c/u metoprolol, losartan, and spironolactone 3. Resp: encourage incentive spirometry 4. GI: s./p duodenal oversewing from bleeding ulcer requiring numerous transfusions, discharged to ARU on protonix daily, c/u sucralfate and monitor h/h -c/u flagyl and clarithromycin for H. Pylori treatment, s/p course of diflucan 5. : monitor PVRs, no dysuria 6. DVT ppx: TEDs, avoid blood thinners 7. Psych: patient reporting depression, will start lexapro, c/u Ativan prn anxiety- lowered dose from 0.5 to 0.25 8. Pain: c.u Tylenol and tramadol prn (will attempt to taper), trazodone prn insomnia 9. Dispo: TBD 10. Hypokalemia- on 40meq daily, will give extra dose 40meq and recheck tomorrow 10. Full code Allergies Coded Allergies: amlodipine (Verified Allergy, Mild, rash, 02/22/19) duloxetine (Verified Allergy, Mild, Rash, 02/22/19) latex (Verified Allergy, Mild, rash, 03/21/19) Contrast Media (Verified Allergy, Unknown, rash, 07/11/17) nystatin (Verified Allergy, Unknown, Rash, 02/22/19) Vital Signs Vital Signs Date Time Temp Pulse Resp B/P (MAP) Pulse Ox O2 Delivery O2 Flow Rate FiO2 04/06/19 09:16 145/84 04/06/19 09:16 74 04/06/19 05:30 97.3 18 97 Laboratory Data CBC/BMP Laboratory Tests 04/06/19 06:52 Red Blood Count 3.42 L, Mean Corpuscular Volume 90.9, Mean Corpuscular Hemoglobin 29.8, Mean Corpuscular Hemoglobin Concent 32.8, Red Cell Distribution Width 16.2 H, Neutrophils (%) (Auto) 63.9, Lymphocytes (%) (Auto) 17.0 L, Monocytes (%) (Auto) 16.0 H, Eosinophils (%) (Auto) 0.1, Basophils (%) (Auto) 1.0, Neutrophils # (Auto) 4.5, Lymphocytes # (Auto) 1.2 L, Monocytes # (Auto) 1.1 H, Eosinophils # (Auto) 0.0, Basophils # (Auto) 0.1, Calcium Level 7.5 L Labs 24H Laboratory Tests 2 04/06/19 06:52: Immature Granulocyte % (Auto) 2.0, White Blood Count 7.1, Red Blood Count 3.42L, Hemoglobin 10.2L, Hematocrit 31.1L, Mean Corpuscular Volume 90.9, Mean Corpuscular Hemoglobin 29.8, Mean Corpuscular Hemoglobin Concent 32.8, Red Cell Distribution Width 16.2H, Platelet Count 508H, Neutrophils (%) (Auto) 63.9, Lymphocytes (%) (Auto) 17.0L, Monocytes (%) (Auto) 16.0H, Eosinophils (%) (Auto) 0.1, Basophils (%) (Auto) 1.0, Neutrophils # (Auto) 4.5, Lymphocytes # (Auto) 1.2L, Monocytes # (Auto) 1.1H, Eosinophils # (Auto) 0.0, Basophils # (Auto) 0.1, Nucleated Red Blood Cells % (auto) 0.0, Anion Gap 6L, Glomerular Filtration Rate > 60.0, Blood Urea Nitrogen 9, Creatinine 0.57, Sodium Level 136, Potassium Level 3.3L, Chloride Level 102, Carbon Dioxide Level 28, Calcium Level 7.5L Current Medications Current Medications Current Medications Acetaminophen (Tylenol Tab) 1,000 mg TID PO Last administered on 04/06/19at 09:15; Start 04/04/19 at 21:00 Al Hydrox/Mg Hydrox/Simethicone (Mylanta) 30 ml Q4HP PRN PO DYSPEPSIA; Start 04/04/19 at 15:15 Clarithromycin (Biaxin) 250 mg BID PO Last administered on 04/06/19at 09:16; Start 04/04/19 at 21:00; Stop 04/13/19 at 21:01 Docusate Sodium (Colace) 100 mg BID PO Last administered on 04/05/19at 21:43; Start 04/04/19 at 21:00 Escitalopram Oxalate (Lexapro) 10 mg DAILY PO Last administered on 04/06/19 09:16; Start 04/05/19 at 09:00 Furosemide (LASIX injection) 40 mg BID@0900,1700 IV Last administered on 04/05/19at 08:27; Start 04/04/19 at 17:00; Stop 04/05/19 at 11:50; Status DC Furosemide (Lasix) 40 mg BID@ PO Last administered on 04/06/19 09:15; Start 04/05/19 at 17:00 Hydroxyzine HCl (Atarax) 25 mg Q8HP PRN PO ANXIETY; Start 04/04/19 at 15:15 Lorazepam (Ativan) 0.25 mg Q8HP PRN PO ANXIETY Last administered on 04/06/19 05:49; Start 04/04/19 at 15:15 Losartan Potassium (Cozaar) 50 mg BID PO Last administered on 04/06/19 09:16; Start 04/04/19 at 21:00 Magnesium Hydroxide (Milk Of Magnesia) 30 ml DAILYPRN PRN PO CONSTIPATION; Start 04/04/19 at 15:15 Metoprolol Tartrate (Lopressor) 50 mg BID PO Last administered on 04/06/19 09:16; Start 04/04/19 at 21:00 Metronidazole (Flagyl) 500 mg Q8H PO Last administered on 04/06/19 05:50; Start 04/04/19 at 14:00 Pantoprazole Sodium (Protonix) 40 mg DAILY PO Last administered on 04/06/19 09:16; Start 04/05/19 at 09:00 Potassium Chloride (Micro-K Extencaps) 40 meq DAILY PO Last administered on 04/06/19 09:15; Start 04/05/19 at 09:00 Senna (Senokot) 1 tab QHS PO Last administered on 04/05/19 21:44; Start 04/04/19 at 21:00 Spironolactone (Aldactone) 25 mg QAM PO Last administered on 04/05/19 08:27; Start 04/05/19 at 09:00; Stop 04/05/19 at 11:50; Status DC Spironolactone (Aldactone) 50 mg QAM PO Last administered on 04/06/19 09:15; Start 04/06/19 at 09:00 Sucralfate (Carafate) 1 gm Q6H PO Last administered on 04/06/19 05:50; Start 04/04/19 at 18:00 Tramadol HCl (Ultram) 25 mg Q12HP PRN PO PAIN Last administered on 04/05/19 06:24; Start 04/05/19 at 06:15; Stop 04/05/19 at 11:51; Status DC Tramadol HCl (Ultram) 25 mg Q6H PRN PO PAIN Last administered on 04/05/19 21:46; Start 04/05/19 at 12:00 Tramadol HCl (Ultram) 25 mg Q6HP PRN PO MODERATE PAIN (PS 5-7) Last administered on 04/04/19 16:23; Start 04/04/19 at 15:15; Stop 04/04/19 at 16:27; Status DC Trazodone HCl (Desyrel) 25 mg QHS PO Last administered on 04/05/19 21:44; Start 04/04/19 at 21:00 RADHA CARTER MD Apr 06, 2019 11:03
[2019-04-06] MEDS: MAALOX 30 ML SUSP *UDC PO PRN (11:04)
[2019-04-06] MEDS: MAGNESIUM OXIDE 400 MG TAB (MAG-OX) PO SCH (12:02)
[2019-04-06 14:00] VITALS: BP 140/65
--- NOTE | 2019-04-06 16:12 | IPNPDOC ---
Text Note Date of Service The patient was seen on 04/06/19. NOTE Patient visited today Continues to do well Incisions are healed. Yanira removed by my medical student Impresion: bleeding duodenal ulcer continue bid protonix and carafate for 6 weeks follow up endoscopy in 10-12 weeks VS,Fishbone, I+O VS, Fishbone, I+O Laboratory Tests 04/06/19 06:52 Red Blood Count 3.42 L, Mean Corpuscular Volume 90.9, Mean Corpuscular Hemoglobin 29.8, Mean Corpuscular Hemoglobin Concent 32.8, Red Cell Distribution Width 16.2 H, Neutrophils (%) (Auto) 63.9, Lymphocytes (%) (Auto) 17.0 L, Monocytes (%) (Auto) 16.0 H, Eosinophils (%) (Auto) 0.1, Basophils (%) (Auto) 1.0, Neutrophils # (Auto) 4.5, Lymphocytes # (Auto) 1.2 L, Monocytes # (Auto) 1.1 H, Eosinophils # (Auto) 0.0, Basophils # (Auto) 0.1, Calcium Level 7.5 L Vital Signs Date Time Temp Pulse Resp B/P (MAP) Pulse Ox O2 Delivery O2 Flow Rate FiO2 04/06/19 14:00 97.9 72 18 140/65 (90) 98 I&O- Last 24 Hours up to 6 AM 04/06/19 06:00 Intake Total 1020 ml Balance 1020 ml BING BOYLE MD Apr 06, 2019 16:12
[2019-04-06] MEDS: traMADol 50 MG TAB PO PRN (19:57)
[2019-04-06 20:00] VITALS: BP 144/71
[2019-04-06] MEDS: hydrOXYzine 25 MG TAB PO PRN (21:02)
[2019-04-06] MEDS: traZODone 25MG PER 1/2 TABLET PO SCH (21:03)
[2019-04-06] MEDS: SENNA 8.6 MG TAB (SENOKOT) PO SCH (21:03)
[2019-04-07] MEDS: SUCRALFATE 1 GM TAB PO SCH ×4 (00:04→17:18)
[2019-04-07] MEDS: traMADol 50 MG TAB PO PRN (04:23)
[2019-04-07] MEDS: metroNIDAZOLE (FLAGYL) 500 MG TAB PO SCH ×3 (05:08→20:30)
[2019-04-07 06:00] VITALS: BP 150/73
[2019-04-07] MEDS: LORazepam 0.5 MG TAB PO PRN ×2 (07:00→15:43)
[2019-04-07 08:14] LABS: BLOOD UREA NITROGEN 7 MG/DL (7-18); CARBON DIOXIDE LEVEL 25 MEQ/L (21-32); CHLORIDE LEVEL 103 MEQ/L (98-107); CREATININE FOR GFR 0.61 MG/DL (0.55-1.30); GLOMERULAR FILTRATION RATE > 60.0 (>39); GLUCOSE, FASTING 108 MG/DL (70-100); POTASSIUM SERUM 4.1 MEQ/L (3.5-5.1); SODIUM LEVEL 136 MEQ/L (136-145)
[2019-04-07] MEDS: LOSARTAN 50 MG TAB PO SCH ×2 (09:42→20:30)
[2019-04-07] MEDS: DOCUSATE SODIUM 100 MG CAP PO SCH ×2 (09:42→20:31)
[2019-04-07] MEDS: ESCITALOPRAM OXALATE 10 MG TAB (LEXAPRO) PO SCH (09:43)
[2019-04-07] MEDS: CLARITHROMYCIN 250 MG TAB PO SCH ×2 (09:43→20:30)
[2019-04-07] MEDS: FUROSEMIDE 40 MG TAB PO SCH ×2 (09:43→17:19)
[2019-04-07] MEDS: PANTOPRAZOLE 40MG TAB (PROTONIX) PO SCH (09:43)
[2019-04-07] MEDS: ACETAMINOPHEN 500 MG TAB PO SCH ×3 (09:43→20:30)
[2019-04-07] MEDS: SPIRONOLACTONE 50 MG TAB PO SCH (09:43)
[2019-04-07] MEDS: POTASSIUM CHLORIDE 10 MEQ SR TABLET PO SCH (09:44)
[2019-04-07] MEDS: MAGNESIUM OXIDE 400 MG TAB (MAG-OX) PO SCH (09:44)
[2019-04-07] MEDS: METOPROLOL TART 50 MG TAB PO SCH ×2 (09:44→20:31)
[2019-04-07] MEDS: hydrOXYzine 25 MG TAB PO PRN (11:11)
[2019-04-07] MEDS ORDERED: ONDANSETRON 4 MG TAB (S0181) PO PRN (11:45)
[2019-04-07] MEDS ORDERED: ONDANSETRON 4 MG TAB (S0181) PO ONE (11:45)
--- NOTE | 2019-04-07 12:33 | IPNPDOC ---
PM&R Progress Note DATE OF SERVICE: Apr 07, 2019 [employer] Progress Note Subjective: Patient seen in OT stating her stomach is upset and would like Zofran. REVIEW OF SYSTEMS: The following is a completed review of systems and has been reviewed. Review of systems otherwise unremarkable. PAIN: Patient self reports low back pain radiating down both legs EYES: Negative for recent vision loss EARS, NOSE, & THROAT: denies dysphagia CARDIOVASCULAR: denies chest pain or palpitations PULMONARY: Negative. Denies shortness of breath GASTROINTESTINAL:+abdominal tenderness, denies diarrhea or constipation GENITOURINARY: no dysuria MUSCULOSKELETAL: lumbar stenosis with bilat leg weakness NEUROLOGICAL: no tremor or seizure activity HEMATOLOGICAL: +anemia SKIN: abdominal incision PSYCHIATRIC: +depressed All other review of systems found to be negative. PHYSICAL EXAMINATION: VITAL SIGNS: Please see below. GENERAL: Pleasant and cooperative. No acute distress. HEENT: PERRL. Extraocular movements intact. Clear conjunctiva, +glasses CARDIOVASCULAR: Regular rate and rhythm. No murmurs, rubs, or gallops LUNGS: Clear to auscultation bilaterally. No wheezes. No rhonchi ABDOMEN: Soft, nontender, nondistended. Positive bowel sounds. Normal active bowel sounds, + vertical abdominal erasmo and drain site c/d/i NEUROLOGICAL: Alert and oriented times three. Cranial nerves II through XII grossly intact. Sensation grossly intact +TTP bilateral lumbar paraspinals EXTREMITIES: 5\5 strength bilateral upper extremities. 5-\5 strength right lower extremity. 5-/5 strength in left lower extremity +bilateral LE edema with negative Jamil's SKIN: + vertical abdominal erasmo and drain site c/d/i ASSESSMENT:78-year-old F with past medical history of who presents status post GI bleed. PLAN: 1. Rehab: PT, OT, will work on endurance in setting of deconditioning and LE weakness due to spinal stenosis and recent fluid overloaded status in setting of CHF, goal is to strengthen bilat LE, improve balance to prevent falls and optimize ADLs 2. Cardio:[facility] recent NSTEMI with negative cardiac cath, with ECHO on 11/06/18 showing grade 1 diastolic CHF- c/u po lasix 40mg BID and increased [id number] daily to help with diuresis given LE edema, lungs CTA -medicine consulted -off antiplatelets given recent GI bleed -[facility]h HTN c/u metoprolol, losartan, and spironolactone 3. Resp: encourage incentive spirometry 4. GI: s./p duodenal oversewing from bleeding ulcer requiring numerous transfusions, discharged to ARU on protonix daily, c/u sucralfate and monitor h/h -c/u flagyl and clarithromycin for H. Pylori treatment, s/p course of diflucan -suspect GI upset is due to antibiotic usage, no vomiting/diarrhea/leukocytosis, will start BAcid 5. : monitor PVRs, no dysuria 6. DVT ppx: TEDs, avoid blood thinners 7. Psych: patient reporting depression, will increase Lexarpo and d/c Ativan, patient on Atarax prn anxiety 8. Pain: c.u Tylenol and tramadol prn (will attempt to taper), trazodone prn insomnia 9. Dispo: TBD 10. Hypokalemia- 4.1 today, will c/u daily supplements and monitor 10. Full code Allergies Coded Allergies: amlodipine (Verified Allergy, Mild, rash, 02/22/19) duloxetine (Verified Allergy, Mild, Rash, 02/22/19) latex (Verified Allergy, Mild, rash, 03/21/19) Contrast Media (Verified Allergy, Unknown, rash, 07/11/17) nystatin (Verified Allergy, Unknown, Rash, 02/22/19) Vital Signs Vital Signs Date Time Temp Pulse Resp B/P (MAP) Pulse Ox O2 Delivery O2 Flow Rate FiO2 04/07/19 09:44 82 149/67 04/07/19 06:00 98.0 18 97 Laboratory Data CBC/BMP Laboratory Tests 04/07/19 07:09 Calcium Level 8.0 L Labs 24H Laboratory Tests 2 04/07/19 07:09: Anion Gap 8, Glomerular Filtration Rate > 60.0, Blood Urea Nitrogen 7, Creatinine 0.61, Sodium Level 136, Potassium Level 4.1#, Chloride Level 103, Carbon Dioxide Level 25, Calcium Level 8.0L Current Medications Current Medications Current Medications Acetaminophen (Tylenol Tab) 1,000 mg TID PO Last administered on 04/07/19at 09:4 3; Start 04/04/19 at 21:00 Al Hydrox/Mg Hydrox/Simethicone (Mylanta) 30 ml Q4HP PRN PO DYSPEPSIA Last administered on 04/06/19 11:04; Start 04/04/19 at 15:15 Clarithromycin (Biaxin) 250 mg BID PO Last administered on 04/07/19 09:43; Start 04/04/19 at 21:00; Stop 04/13/19 at 21:01 Docusate Sodium (Colace) 100 mg BID PO Last administered on 04/07/19 09:42; Start 04/04/19 at 21:00 Escitalopram Oxalate (Lexapro) 10 mg DAILY PO Last administered on 04/07/19 09:43; Start 04/05/19 at 09:00; Stop 04/07/19 at 11:44; Status DC Escitalopram Oxalate (Lexapro) 20 mg DAILY PO ; Start 04/08/19 at 09:00 Furosemide (LASIX injection) 40 mg BID@0900,1700 IV Last administered on 04/05/19 08:27; Start 04/04/19 at 17:00; Stop 04/05/19 at 11:50; Status DC Furosemide (Lasix) 40 mg BID@09,17 PO Last administered on 04/07/19 09:43; Start 04/05/19 at 17:00 Hydroxyzine HCl (Atarax) 25 mg Q8HP PRN PO ANXIETY Last administered on 04/07/19 11:11; Start 04/04/19 at 15:15 Lorazepam (Ativan) 0.25 mg Q8HP PRN PO ANXIETY Last administered on 04/07/19 07:00; Start 04/04/19 at 15:15; Stop 04/07/19 at 11:44; Status DC Losartan Potassium (Cozaar) 50 mg BID PO Last administered on 04/07/19 09:42; Start 04/04/19 at 21:00 Magnesium Hydroxide (Milk Of Magnesia) 30 ml DAILYPRN PRN PO CONSTIPATION; Sta rt 04/04/19 at 15:15 Magnesium Oxide (Mag-Ox) 400 mg DAILY PO Last administered on 04/07/19 09:44; Start 04/06/19 at 09:00 Metoprolol Tartrate (Lopressor) 50 mg BID PO Last administered on 04/07/19 09:44; Start 04/04/19 at 21:00 Metronidazole (Flagyl) 500 mg Q8H PO Last administered on 04/07/19 05:08; Start 04/04/19 at 14:00 Ondansetron HCl (Zofran) 4 mg Q6HP PRN PO NAUSEA OR VOMITING; Start 04/07/19 at 11:45 Pantoprazole Sodium (Protonix) 40 mg DAILY PO Last administered on 04/07/19 09:43; Start 04/05/19 at 09:00 Potassium Chloride (Micro-K Extencaps) 40 meq DAILY PO Last administered on 04/07/19 09:44; Start 04/05/19 at 09:00 Senna (Senokot) 1 tab QHS PO Last administered on 04/06/19 21:03; Start 04/04/19 at 21:00 Spironolactone (Aldactone) 25 mg QAM PO Last administered on 04/05/19 08:27; Start 04/05/19 at 09:00; Stop 04/05/19 at 11:50; Status DC Spironolactone (Aldactone) 50 mg QAM PO Last administered on 04/07/19 09:43; Start 04/06/19 at 09:00 Sucralfate (Carafate) 1 gm Q6H PO Last administered on 04/07/19 05:08; Start 04/04/19 at 18:00 Tramadol HCl (Ultram) 25 mg Q12HP PRN PO PAIN Last administered on 04/05/19 06:24; Start 04/05/19 at 06:15; Stop 04/05/19 at 11:51; Status DC Tramadol HCl (Ultram) 25 mg Q6H PRN PO PAIN Last administered on 04/07/19 04 :23; Start 04/05/19 at 12:00 Tramadol HCl (Ultram) 25 mg Q6HP PRN PO MODERATE PAIN (PS 5-7) Last ad ministered on 04/04/19 16:23; Start 04/04/19 at 15:15; Stop 04/04/19 at 16:27; Status DC Trazodone HCl (Desyrel) 25 mg QHS PO Last administered on 04/06/19 21:03; Start 04/04/19 at 21:00 RADHA CARTER MD Apr 07, 2019 12:33
[2019-04-07 14:00] VITALS: BP 135/60
[2019-04-07] MEDS: LACTOBACILLUS ACIDOPHILUS CAP (BACID) PO SCH ×2 (15:42→20:30)
[2019-04-07] MEDS: PROPRANOLOL 10 MG TAB PO PRN (18:26)
[2019-04-07 20:00] VITALS: BP 143/66
[2019-04-07] MEDS: traZODone 25MG PER 1/2 TABLET PO SCH (20:30)
[2019-04-07] MEDS: SENNA 8.6 MG TAB (SENOKOT) PO SCH (20:31)
[2019-04-08] MEDS: SUCRALFATE 1 GM TAB PO SCH ×5 (00:16→23:00)
[2019-04-08] MEDS: PROPRANOLOL 10 MG TAB PO PRN ×2 (01:26→09:27)
[2019-04-08] MEDS: LORazepam 0.5 MG TAB PO PRN ×2 (02:44→15:01)
[2019-04-08] MEDS: metroNIDAZOLE (FLAGYL) 500 MG TAB PO SCH ×3 (05:33→22:58)
[2019-04-08 06:11] VITALS: BP 152/60
[2019-04-08 07:42] LABS: BASO # 0.1 10^3/uL (0.0-0.2); BASO % 1.1 % (0.0-1.0); EOS % 0.1 % (0.0-3.0); HEMATOCRIT 31.3 % (36.0-47.0); HEMOGLOBIN 10.2 g/dl (12.0-15.5); LYMPH # 1.1 10^3/uL (1.5-4.5); LYMPH % 14.3 % (24.0-44.0); MEAN CORPUSCULAR HEMOGLOBIN 30.1 pg (27.0-33.0); MEAN CORPUSCULAR HGB CONC 32.6 g/dl (32.0-36.5); MEAN CORPUSCULAR VOLUME 92.3 fl (80.0-96.0); NEUTROPHILS # 5.3 10^3/uL (1.8-7.7); PLATELET COUNT, AUTOMATED 506 10^3/uL (150-450); RED BLOOD COUNT 3.39 10^6/uL (4.00-5.40); WHITE BLOOD COUNT 7.5 10^3/uL (4.0-10.0)
[2019-04-08 08:03] LABS: BLOOD UREA NITROGEN 7 MG/DL (7-18); CALCIUM LEVEL 7.9 MG/DL (8.8-10.2); CARBON DIOXIDE LEVEL 27 MEQ/L (21-32); CHLORIDE LEVEL 102 MEQ/L (98-107); GLOMERULAR FILTRATION RATE > 60.0 (>39); GLUCOSE, FASTING 88 MG/DL (70-100); POTASSIUM SERUM 3.7 MEQ/L (3.5-5.1); SODIUM LEVEL 135 MEQ/L (136-145)
[2019-04-08] MEDS: CLARITHROMYCIN 250 MG TAB PO SCH ×2 (09:28→20:25)
[2019-04-08] MEDS: POTASSIUM CHLORIDE 10 MEQ SR TABLET PO SCH (09:28)
[2019-04-08] MEDS: SPIRONOLACTONE 50 MG TAB PO SCH (09:28)
[2019-04-08] MEDS: MAGNESIUM OXIDE 400 MG TAB (MAG-OX) PO SCH (09:28)
[2019-04-08] MEDS: LACTOBACILLUS ACIDOPHILUS CAP (BACID) PO SCH ×3 (09:28→20:26)
[2019-04-08] MEDS: LOSARTAN 50 MG TAB PO SCH ×2 (09:28→20:25)
[2019-04-08] MEDS: ACETAMINOPHEN 500 MG TAB PO SCH ×3 (09:29→20:27)
[2019-04-08] MEDS: FUROSEMIDE 40 MG TAB PO SCH ×2 (09:29→18:00)
[2019-04-08] MEDS: DOCUSATE SODIUM 100 MG CAP PO SCH ×2 (09:29→20:25)
[2019-04-08] MEDS: ESCITALOPRAM OXALATE 10 MG TAB (LEXAPRO) PO SCH (09:30)
[2019-04-08] MEDS: METOPROLOL TART 50 MG TAB PO SCH ×2 (09:30→20:26)
[2019-04-08] MEDS: PANTOPRAZOLE 40MG TAB (PROTONIX) PO SCH (09:30)
[2019-04-08] MEDS: MAALOX 30 ML SUSP *UDC PO PRN (10:45)
[2019-04-08 14:00] VITALS: BP 132/60
--- NOTE | 2019-04-08 16:41 | IPNPDOC ---
Date Seen The patient was seen on 04/08/19. Progress Note SUBJECTIVE: Ms. Lopez is a 78-year-old female who is seen on the acute rehabilitation unit. She had been placed there after undergoing intervention for unremarkable bleeding ulcer. She underwent oversewing and massive transfusion. She is otherwise hemodynamically stable on the acute rehabilitation unit. OBJECTIVE PHYSICAL EXAMINATION: VITAL SIGNS: Please see below. GENERAL: [Alert, conversant, well-nourished] HEENT: [Neck is supple, no adenopathy or thyromegaly, oral mucosa is moist, d entition is good] CARDIOVASCULAR: [Regular rate and rhythm with no appreciable murmur]. RESPIRATORY: [Fully clear to auscultation with no wheezes or cough]. ABDOMINAL: [Abdomen is soft. She does have some mild upper abdominal tenderness at the site of her surgery. Bowel tones are present] EXTREMITIES: [show 1-2+ pitting edema to the feet and ankles. Pedal pulses are palpable] NEUROLOGICAL: [No focal neuromotor or sensory deficit] LABORATORY DATA, IMAGING STUDIES, MICROBIOLOGY: Please see below. Echocardiogram: [N]. DVT prophylaxis ordered?: [Patient is not on anticoagulation given her massive bleeding episode. She is not on mechanical prevention as she is ambulatory in rehabilitation.] ASSESSMENT/PLAN: 1. Recent GI bleed--patient had an ulcer that required oversewing. Other interve ntion included massive transfusion. Patient currently remains hemodynamically stable. Hemoglobin is 10.2. . 2. [Chronic diastolic congestive heart failure--patient continues on her diuretic regimen inclusive of Lasix and spironolactone.]. DISPOSITION: . VS, I&O, 24H, [facility] Vital Signs/I&O Vital Signs Date Time Temp Pulse Resp B/P (MAP) Pulse Ox O2 Delivery O2 Flow Rate FiO2 04/08/19 14:00 98.1 65 18 132/60 (84) 98 I&O- Last 24 Hours up to 6 AM 04/08/19 06:00 Intake Total 900 ml Balance 900 ml Laboratory Data 24H LABS Laboratory Tests 2 04/08/19 07:13: Immature Granulocyte % (Auto) 1.5, White Blood Count 7.5, Red Blood Count 3.39L, Hemoglobin 10.2L, Hematocrit 31.3L, Mean Corpuscular Volume 92.3, Mean Corpuscular Hemoglobin 30.1, Mean Corpuscular Hemoglobin Concent 32.6, Red Cell Distribution Width 16.4H, Platelet Count 506H, Neutrophils (%) (Auto) 70.0H, Lymphocytes (%) (Auto) 14.3L, Monocytes (%) (Auto) 13.0H, Eosinophils (%) (Auto) 0.1, Basophils (%) (Auto) 1.1H, Neutrophils # (Auto) 5.3, Lymphocytes # (Auto) 1.1L, Monocytes # (Auto) 1.0H, Eosinophils # (Auto) 0.0, Basophils # (Auto) 0.1, Nucleated Red Blood Cells % (auto) 0.0, Anion Gap 6L, Glomerular Filtration Rate > 60.0, Blood Urea Nitrogen 7, Creatinine 0.50L, Sodium Level 135L, Potassium Level 3.7, Chloride Level 102, Carbon Dioxide Level 27, Calcium Level 7.9L CBC/BMP Laboratory Tests 04/08/19 07:13 Red Blood Count 3.39 L, Mean Corpuscular Volume 92.3, Mean Corpuscular Hemoglobin 30.1, Mean Corpuscular Hemoglobin Concent 32.6, Red Cell Distribution Width 16.4 H, Neutrophils (%) (Auto) 70.0 H, Lymphocytes (%) (Auto) 14.3 L, M onocytes (%) (Auto) 13.0 H, Eosinophils (%) (Auto) 0.1, Basophils (%) (Auto) 1.1 H, Neutrophils # (Auto) 5.3, Lymphocytes # (Auto) 1.1 L, Monocytes # (Auto) 1.0 H, Eosinophils # (Auto) 0.0, Basophils # (Auto) 0.1, Calcium Level 7.9 L VENICE SEALS MD Apr 08, 2019 16:41
[2019-04-08 20:00] VITALS: BP 146/71
[2019-04-08] MEDS: traZODone 25MG PER 1/2 TABLET PO SCH (20:25)
[2019-04-08] MEDS: SENNA 8.6 MG TAB (SENOKOT) PO SCH (20:26)
[2019-04-09] MEDS: SUCRALFATE 1 GM TAB PO SCH ×3 (05:46→17:12)
[2019-04-09] MEDS: metroNIDAZOLE (FLAGYL) 500 MG TAB PO SCH ×3 (05:46→20:11)
[2019-04-09] MEDS: LORazepam 0.5 MG TAB PO PRN ×2 (05:46→18:26)
[2019-04-09 06:00] VITALS: BP 160/88
[2019-04-09] MEDS: MAALOX 30 ML SUSP *UDC PO PRN ×2 (07:24→18:26)
[2019-04-09] MEDS: FUROSEMIDE 40 MG TAB PO SCH ×2 (07:25→17:12)
[2019-04-09] MEDS: ACETAMINOPHEN 500 MG TAB PO PRN (07:25)
[2019-04-09] MEDS: SPIRONOLACTONE 50 MG TAB PO SCH (07:25)
[2019-04-09] MEDS: METOPROLOL TART 50 MG TAB PO SCH ×2 (07:25→20:12)
[2019-04-09] MEDS: POTASSIUM CHLORIDE 10 MEQ SR TABLET PO SCH (07:26)
[2019-04-09] MEDS: CLARITHROMYCIN 250 MG TAB PO SCH ×2 (07:26→20:11)
[2019-04-09] MEDS: PANTOPRAZOLE 40MG TAB (PROTONIX) PO SCH (07:26)
[2019-04-09] MEDS: ESCITALOPRAM OXALATE 10 MG TAB (LEXAPRO) PO SCH (07:26)
[2019-04-09] MEDS: DOCUSATE SODIUM 100 MG CAP PO SCH ×2 (07:26→20:11)
[2019-04-09] MEDS: MAGNESIUM OXIDE 400 MG TAB (MAG-OX) PO SCH (07:26)
[2019-04-09] MEDS: LACTOBACILLUS ACIDOPHILUS CAP (BACID) PO SCH ×3 (07:27→20:12)
[2019-04-09] MEDS: LOSARTAN 50 MG TAB PO SCH ×2 (07:27→20:12)
[2019-04-09] MEDS: PROPRANOLOL 10 MG TAB PO PRN (11:00)
[2019-04-09 14:00] VITALS: BP 144/68
--- NOTE | 2019-04-09 14:19 | IPNPDOC ---
Text Note Date of Service The patient was seen on 04/09/19. NOTE SUBJECTIVE: Ms. Lopez is a 78-year-old female who is seen on the acute rehabilitation unit. She had been placed there after undergoing intervention for remarkable bleeding ulcer. She underwent oversewing and massive transfusion. She is otherwise hemodynamically stable and ambulatory or up in a chair on the acute rehabilitation unit. OBJECTIVE PHYSICAL EXAMINATION: VITAL SIGNS: Please see below. GENERAL: Alert, conversant, well-nourished HEENT: Neck is supple, no adenopathy or thyromegaly, oral mucosa is moist, dentition is good CARDIOVASCULAR: Regular rate and rhythm with no appreciable murmur. RESPIRATORY: Fully clear to auscultation with no wheezes or cough. ABDOMINAL: Abdomen is soft. She does have some mild upper abdominal tenderness at the site of her surgery. Bowel tones are present EXTREMITIES: show 1-2+ pitting edema to the feet and ankles. Pedal pulses are palpable NEUROLOGICAL: No focal neuromotor or sensory deficit LABORATORY DATA, IMAGING STUDIES, MICROBIOLOGY: Please see below. Will draw labs tomorrow in anticipation of her discharge on Wednesday. DVT prophylaxis ordered?: Patient is not on anticoagulation given her massive bleeding episode. She is not on mechanical prevention as she is ambulatory in rehabilitation. ASSESSMENT/PLAN: 1. Recent GI bleed--patient had an ulcer that required oversewing. Other intervention included massive transfusion. Patient currently remains hemodynamically stable. Hemoglobin is 10.2. 2. Chronic diastolic congestive heart failure--patient continues on her di uretic regimen inclusive of Lasix and spironolactone.. VS,Fishbone, I+O VS, Fishbone, I+O Vital Signs Date Time Temp Pulse Resp B/P (MAP) Pulse Ox O2 Delivery O2 Flow Rate FiO2 04/09/19 11:00 75 160/88 04/09/19 06:00 97.0 18 95 I&O- Last 24 Hours up to 6 AM 04/09/19 06:00 Intake Total 1420 ml Balance 1420 ml VENICE SEALS MD Apr 09, 2019 14:19
[2019-04-09 19:57] VITALS: BP 152/78
[2019-04-09] MEDS: traZODone 25MG PER 1/2 TABLET PO SCH (20:11)
[2019-04-09] MEDS: SENNA 8.6 MG TAB (SENOKOT) PO SCH (20:12)
[2019-04-10] MEDS: SUCRALFATE 1 GM TAB PO SCH ×4 (00:03→17:06)
[2019-04-10] MEDS: metroNIDAZOLE (FLAGYL) 500 MG TAB PO SCH ×2 (05:19→15:20)
[2019-04-10] MEDS: LORazepam 0.5 MG TAB PO PRN (05:19)
[2019-04-10 05:22] VITALS: BP 158/80
[2019-04-10] MEDS: ACETAMINOPHEN 500 MG TAB PO PRN (06:52)
[2019-04-10 07:15] LABS: HEMATOCRIT 35.2 % (36.0-47.0); HEMOGLOBIN 11.8 g/dl (12.0-15.5); MEAN CORPUSCULAR HEMOGLOBIN 30.7 pg (27.0-33.0); MEAN CORPUSCULAR HGB CONC 33.5 g/dl (32.0-36.5); MEAN CORPUSCULAR VOLUME 91.7 fl (80.0-96.0); PLATELET COUNT, AUTOMATED 494 10^3/uL (150-450); RED BLOOD COUNT 3.84 10^6/uL (4.00-5.40); WHITE BLOOD COUNT 8.5 10^3/uL (4.0-10.0)
[2019-04-10 07:42] LABS: BLOOD UREA NITROGEN 7 MG/DL (7-18); CALCIUM LEVEL 8.4 MG/DL (8.8-10.2); CARBON DIOXIDE LEVEL 29 MEQ/L (21-32); CHLORIDE LEVEL 97 MEQ/L (98-107); CREATININE FOR GFR 0.54 MG/DL (0.55-1.30); GLOMERULAR FILTRATION RATE > 60.0 (>39); GLUCOSE, FASTING 90 MG/DL (70-100); POTASSIUM SERUM 3.6 MEQ/L (3.5-5.1); SODIUM LEVEL 132 MEQ/L (136-145)
[2019-04-10] MEDS: METOPROLOL TART 50 MG TAB PO SCH (08:08)
[2019-04-10] MEDS: POTASSIUM CHLORIDE 10 MEQ SR TABLET PO SCH (08:08)
[2019-04-10] MEDS: PANTOPRAZOLE 40MG TAB (PROTONIX) PO SCH (08:09)
[2019-04-10] MEDS: LOSARTAN 50 MG TAB PO SCH (08:09)
[2019-04-10] MEDS: LACTOBACILLUS ACIDOPHILUS CAP (BACID) PO SCH ×2 (08:09→15:20)
[2019-04-10] MEDS: ESCITALOPRAM OXALATE 10 MG TAB (LEXAPRO) PO SCH (08:09)
[2019-04-10] MEDS: CLARITHROMYCIN 250 MG TAB PO SCH (08:09)
[2019-04-10] MEDS: MAGNESIUM OXIDE 400 MG TAB (MAG-OX) PO SCH (08:09)
[2019-04-10] MEDS: DOCUSATE SODIUM 100 MG CAP PO SCH (08:33)
[2019-04-10] MEDS ORDERED: SPIRONOLACTONE 25 MG TAB PO SCH (09:00)
--- NOTE | 2019-04-10 10:00 | IPNPDOC ---
PM&R Progress Note DATE OF SERVICE: Apr 10, 2019 [employer] Progress Note Subjective: Patient to go home today after therapy with son who has agreed to stay tyhe night with her until her daughter come tomorrow. REVIEW OF SYSTEMS: The following is a completed review of systems and has been reviewed. Review of systems otherwise unremarkable. PAIN: Patient self reports low back pain radiating down both legs EYES: Negative for recent vision loss EARS, NOSE, & THROAT: denies dysphagia CARDIOVASCULAR: denies chest pain or palpitations PULMONARY: Negative. Denies shortness of breath GASTROINTESTINAL:+abdominal tenderness, denies diarrhea or constipation GENITOURINARY: no dysuria MUSCULOSKELETAL: lumbar stenosis with bilat leg weakness NEUROLOGICAL: no tremor or seizure activity HEMATOLOGICAL: +anemia SKIN: abdominal incision PSYCHIATRIC: +depressed All other review of systems found to be negative. PHYSICAL EXAMINATION: VITAL SIGNS: Please see below. GENERAL: Pleasant and cooperative. No acute distress. HEENT: PERRL. Extraocular movements intact. Clear conjunctiva, +glasses CARDIOVASCULAR: Regular rate and rhythm. No murmurs, rubs, or gallops LUNGS: Clear to auscultation bilaterally. No wheezes. No rhonchi ABDOMEN: Soft, nontender, nondistended. Positive bowel sounds. Normal active bowel sounds, + vertical abdominal erasmo and drain site c/d/i NEUROLOGICAL: Alert and oriented times three. Cranial nerves II through XII jerome ssly intact. Sensation grossly intact +TTP bilateral lumbar paraspinals EXTREMITIES: 5\5 strength bilateral upper extremities. 5-\5 strength right lower extremity. 5-/5 strength in left lower extremity +bilateral LE edema with negative Jamil's SKIN: + vertical abdominal erasmo and drain site c/d/i ASSESSMENT:78-year-old F with past medical history of who presents status post GI bleed. PLAN: 1. Rehab: PT, OT, will work on endurance in setting of deconditioning and LE weakness due to spinal stenosis and recent fluid overloaded status in setting of CHF, goal is to strengthen bilat LE, improve balance to prevent falls and optimize ADLs 2. Cardio:[facility] recent NSTEMI with negative cardiac cath, with ECHO on 11/06/18 showing grade 1 diastolic CHF- c/u po lasix 40mg BID and will decrease yuli nolactone back to home dose of 25mg dialy given hyponatremia today, daily to help with diuresis given LE edema, lungs CTA -medicine consulted -off antiplatelets given recent GI bleed -pmh HTN c/u metoprolol, losartan, and spironolactone 3. Resp: encourage incentive spirometry 4. GI: s./p duodenal oversewing from bleeding ulcer requiring numerous transfusions, discharged to ARU on Protonix daily, c/u sucralfate and monitor h/h -c/u flagyl and clarithromycin for H. Pylori treatment, s/p course of diflucan -suspect GI upset is due to antibiotic usage, no vomiting/diarrhea/leukocytosis, will start BAcid 5. : monitor PVRs, no dysuria 6. DVT ppx: TEDs, avoid blood thinners 7. Psych: patient reporting depression, c/u Lexarpo and d/c Ativan, switched to low dose propranolol for anxiety with holding parameters, Atarax not working and would like to avoid benzos given addictive features 8. Pain: c.u Tylenol, d/c'ed tramadol, trazodone prn insomnia 9. Dispo: TBD 10. Hypokalemia- resolved, will c/u daily supplements and monitor 11, Hyponatremia- patient asymptomatic, likely due to addition of Lexapro and diuretics, will lower spionolactone and have patient f/u with PMD to recheck within 10 days 10. Full code Allergies Coded Allergies: amlodipine (Verified Allergy, Mild, rash, 02/22/19) duloxetine (Verified Allergy, Mild, Rash, 02/22/19) latex (Verified Allergy, Mild, rash, 03/21/19) Contrast Media (Verified Allergy, Unknown, rash, 07/11/17) nystatin (Verified Allergy, Unknown, Rash, 02/22/19) Vital Signs Vital Signs Date Time Temp Pulse Resp B/P (MAP) Pulse Ox O2 Delivery O2 Flow Rate FiO2 04/10/19 08:09 158/80 04/10/19 08:08 64 04/10/19 05:22 97.1 18 97 Laboratory Data CBC/BMP Laboratory Tests 04/10/19 07:00 Red Blood Count 3.84 L, Mean Corpuscular Volume 91.7, Mean Corpuscular Hemoglobin 30.7, Mean Corpuscular Hemoglobin Concent 33.5, Red Cell Distribution Width 16.5 H, Calcium Level 8.4 L Labs 24H Laboratory Tests 2 04/10/19 07:00: Nucleated Red Blood Cells % (auto) 0.0, Anion Gap 6L, Glomerular Filtration Rate > 60.0, Blood Urea Nitrogen 7, Creatinine 0.54L, Sodium Level 132L, Potassium Level 3.6, Chloride Level 97L, Carbon Dioxide Level 29, Calcium Level 8.4L Current Medications Current Medications Current Medications Acetaminophen (Tylenol Tab) 1,000 mg Q8H PRN PO Pain Last administered on 04/10/19 06:52; Start 04/09/19 at 07:15 Acetaminophen (Tylenol Tab) 1,000 mg TID PO Last administered on 04/08/19 20:27; Start 04/04/19 at 21:00; Stop 04/09/19 at 07:01; Status DC Al Hydrox/Mg Hydrox/Simethicone (Mylanta) 30 ml Q4HP PRN PO DYSPEPSIA Last administered on 04/09/19 18:26; Start 04/04/19 at 15:15 Clarithromycin (Biaxin) 250 mg BID PO Last administered on 04/10/19 08:09; Start 04/04/19 at 21:00; Stop 04/13/19 at 21:01 Docusate Sodium (Colace) 100 mg BID PO Last administered on 04/09/19 20:11; Start 04/04/19 at 21:00 Escitalopram Oxalate (Lexapro) 10 mg DAILY PO Last administered on 04/07/19 09:43; Start 04/05/19 at 09:00; Stop 04/07/19 at 11:44; Status DC Escitalopram Oxalate (Lexapro) 20 mg DAILY PO Last administered on 04/10/19 08:09; Start 04/08/19 at 09:00 Furosemide (LASIX injection) 40 mg BID@0900,1700 IV Last administered on 04/05/19 08:27; Start 04/04/19 at 17:00; Stop 04/05/19 at 11:50; Status DC Furosemide (Lasix) 40 mg BID@09,17 PO Last administered on 04/09/19at 17:12; Start 04/05/19 at 17:00 Hydroxyzine HCl (Atarax) 25 mg Q8HP PRN PO ANXIETY Last administered on 04/07/19 11:11; Start 04/04/19 at 15:15; Stop 04/07/19 at 17:01; Status DC Lactobacillus Acidophilus (Bacid) 1 ea TID PO Last administered on 04/10/19 08:09; Start 04/07/19 at 16:00 Lorazepam (Ativan) 0.25 mg BIDP PRN PO ANXIETY Last administered on 04/10/19 05:19; Start 04/07/19 at 14:15 Lorazepam (Ativan) 0.25 mg Q8HP PRN PO ANXIETY Last administered on 04/07/19 07:00; Start 04/04/19 at 15:15; Stop 04/07/19 at 11:44; Status DC Losartan Potassium (Cozaar) 50 mg BID PO Last administered on 04/10/19 08:09; Start 04/04/19 at 21:00 Magnesium Hydroxide (Milk Of Magnesia) 30 ml DAILYPRN PRN PO CONSTIPATION; Start 04/04/19 at 15:15 Magnesium Oxide (Mag-Ox) 400 mg DAILY PO Last administered on 04/10/19 08:09; Start 04/06/19 at 09:00 Metoprolol Tartrate (Lopressor) 50 mg BID PO Last administered on 04/10/19 08:08; Start 04/04/19 at 21:00 Metronidazole (Flagyl) 500 mg Q8H PO Last administered on 04/10/19 05:19; Start 04/04/19 at 14:00 Ondansetron HCl (Zofran) 4 mg Q6HP PRN PO NAUSEA OR VOMITING Last administered on 04/10/19 08:08; Start 04/07/19 at 11:45 Pantoprazole Sodium (Protonix) 40 mg DAILY PO Last administered on 04/10/19 08:09; Start 04/05/19 at 09:00 Potassium Chloride (Micro-K Extencaps) 40 meq DAILY PO Last administered on 04/10/19 08:08; Start 04/05/19 at 09:00 Propranolol HCl (Inderal) 5 mg TID PRN PO ANXIETY Last administered on 11:00; Start 04/07/19 at 17:00 Senna (Senokot) 1 tab QHS PO Last administered on 04/09/19 20:12; Start 04/04/19 at 21:00 Spironolactone (Aldactone) 25 mg QAM PO Last administered on 04/05/19 08:27; Start 04/05/19 at 09:00; Stop 04/05/19 at 11:50; Status DC Spironolactone (Aldactone) 50 mg QAM PO Last administered on 04/09/19 07:25; Start 04/06/19 at 09:00 Sucralfate (Carafate) 1 gm Q6H PO Last administered on 04/10/19 05:19; Start 04/04/19 at 18:00 Tramadol HCl (Ultram) 25 mg Q12HP PRN PO PAIN Last administered on 04/05/19 06:24; Start 04/05/19 at 06:15; Stop 04/05/19 at 11:51; Status DC Tramadol HCl (Ultram) 25 mg Q6H PRN PO PAIN Last administered on 04/07/19 04:23; Start 04/05/19 at 12:00; Stop 04/07/19 at 14:06; Status DC Tramadol HCl (Ultram) 25 mg Q6HP PRN PO MODERATE PAIN (PS 5-7) Last administered on 04/04/19 16:23; Start 04/04/19 at 15:15; Stop 04/04/19 at 1 6:27; Status DC Trazodone HCl (Desyrel) 25 mg QHS PO Last administered on 04/09/19 20:11; Start 04/04/19 at 21:00 RADHA CARTER MD Apr 10, 2019 10:00
[2019-04-10] MEDS: FUROSEMIDE 40 MG TAB PO SCH ×2 (10:24→16:47)
[2019-04-10 10:35] VITALS: BP 158/80
[2019-04-10] MEDS: PROPRANOLOL 10 MG TAB PO PRN (10:35)
--- NOTE | 2019-04-10 11:43 | IPNPDOC ---
Text Note Date of Service The patient was seen on 04/10/19. NOTE SUBJECTIVE: Patient is a 8 year old female admitted and treated for bleeding ulcer. She is S/P massive transfusion and oversewing. This morning she complains of depression morning, denies any history. States she was unable to sleep last night. denies chest pain SOB. Complains of abdominal tenderness. OBJECTIVE PHYSICAL EXAMINATION: VITAL SIGNS: Please see below. GENERAL: up to chair at bedside. NAD noted HEENT: Neck is supple, no adenopathy or thyromegaly, oral mucosa is moist, dentition is good CARDIOVASCULAR: Regular rate and rhythm, no MRG, no JVD, no edema. RESPIRATORY: Fully clear to auscultation with no wheezes or cough. ABDOMINAL: Abdomen is soft. BS+, non distended. Surgical sutures dry and intact. NEUROLOGICAL: No focal neuromotor or sensory deficit ASSESSMENT/PLAN: GI bleed -2/2/ stomach Ulcer -s/p massive transfusion -s/p oversewing -hgb is stable -continue to monitor Depression -Start lexapro -continue ativan BID PRN Chronic DHF -currently compensated. -continue fluid restriction, daily weights DVT Prophylaxis -recent GI bleed -TEDs VS,Fishbone, I+O VS, Fishbone, I+O Laboratory Tests 04/10/19 07:00 Red Blood Count 3.84 L, Mean Corpuscular Volume 91.7, Mean Corpuscular Hemoglobin 30.7, Mean Corpuscular Hemoglobin Concent 33.5, Red Cell Distribution Width 16.5 H, Calcium Level 8.4 L Vital Signs Date Time Temp Pulse Resp B/P (MAP) Pulse Ox O2 Delivery O2 Flow Rate FiO2 04/10/19 10:35 64 158/80 04/10/19 05:22 97.1 18 97 I&O- Last 24 Hours up to 6 AM 04/10/19 06:00 Intake Total 1080 ml Balance 1080 ml ARELI VALIENTE [facility] Apr 10, 2019 11:43
[2019-04-10] MEDS ORDERED: ESCITALOPRAM OXALATE 5MG TABLET (LEXAPRO) PO SCH (11:45)
[2019-04-10 15:00] VITALS: BP 144/68
[2019-04-10] MEDS ORDERED: PROP10TA56 PO (15:50)
[2019-04-10] MEDS ORDERED: ALDA25TA2 PO (15:50)
[2019-04-10] MEDS ORDERED: KLOR10TA76 PO (15:50)
[2019-04-10] MEDS ORDERED: ESCI10TA2 PO (15:50)
[2019-04-10] MEDS ORDERED: FURO40TA2 PO (15:50)
[2019-04-10] MEDS ORDERED: FLAG500T PO (15:50)
[2019-04-10] MEDS ORDERED: PANT40TA3 PO (15:50)
[2019-04-10] MEDS ORDERED: ATOR40TA75 PO (15:50)
[2019-04-10] MEDS ORDERED: LOPR1TAB6 PO (15:50)
[2019-04-10] MEDS ORDERED: CLAR250T PO (15:50)
[2019-04-10] MEDS ORDERED: SUCR1TA PO (15:50)
[2019-04-10] MEDS ORDERED: RISATAB3 PO (15:50)
[2019-04-10] MEDS ORDERED: COZA50TA PO (15:50)
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
== END 2019-04-10 17:12 | disposition home or self-care (01) | DRG 552 ==
LOC: M PM&R 13:37
PROVIDERS: ADMIT Physical Medicine & Rehabilitation; ATTEND Physical Medicine & Rehabilitation
DX: M48.061 Spinal stenosis, lumbar region without neurogenic claudication (principal); I50.32 Chronic diastolic (congestive) heart failure; E87.1 Hypo-osmolality and hyponatremia; I25.2 Old myocardial infarction; I11.0 Hypertensive heart disease with heart failure; M06.9 Rheumatoid arthritis, unspecified; M81.0 Age-related osteoporosis without current pathological fracture; G89.29 Other chronic pain; R26.2 Difficulty in walking, not elsewhere classified; D64.9 Anemia, unspecified; F32.9 Major depressive disorder, single episode, unspecified; M62.81 Muscle weakness (generalized); G47.00 Insomnia, unspecified; Z79.891 Long term (current) use of opiate analgesic; Z79.899 Other long term (current) drug therapy; Z88.8 Allergy status to other drugs, medicaments and biological substances; Z91.040 Latex allergy status; Z91.041 Radiographic dye allergy status; E87.6 Hypokalemia

== ENCOUNTER 2019-04-19 10:23 | Inpatient (IN) | payer MEDICARE, MEDICAID ==
[~2019-04-19] VITALS: Ht 157.5 cm; Wt 52.8 kg
[~2019-04-19 10:23] MED LIST changes: +ACET-683 PO; +ATIV1TAB10 PO; +CLAR250T22 PO; +COZA50TA PO; +ESCI10TA2 PO; +FLAG500T PO; +FURO40TA2 PO; +FURO40VL IV; +LOPR1TAB6 PO; +PANT40TA3 PO; +PROP10TA56 PO; +RISATAB3 PO; +SUCR1TA PO
[2019-04-19] MEDS ORDERED: [UNRECOGNIZED DRUG - OTHER] PO (11:03)
[2019-04-19 11:48] LABS: BASO # 0.1 10^3/uL (0.0-0.2); BASO % 0.6 % (0.0-1.0); EOS % 0.1 % (0.0-3.0); HEMATOCRIT 37.3 % (36.0-47.0); HEMOGLOBIN 12.4 g/dl (12.0-15.5); LYMPH % 9.4 % (24.0-44.0); MEAN CORPUSCULAR HEMOGLOBIN 30.6 pg (27.0-33.0); MEAN CORPUSCULAR HGB CONC 33.2 g/dl (32.0-36.5); MEAN CORPUSCULAR VOLUME 92.1 fl (80.0-96.0); MONO # 1.5 10^3/uL (0.0-0.8); MONO % 15.3 % (0.0-5.0); NEUTROPHILS # 7.5 10^3/uL (1.8-7.7); NEUTROPHILS % 74.1 % (36.0-66.0); PLATELET COUNT, AUTOMATED 243 10^3/uL (150-450); RED BLOOD COUNT 4.05 10^6/uL (4.00-5.40); WHITE BLOOD COUNT 10.1 10^3/uL (4.0-10.0)
[2019-04-19 12:01] LABS: BLOOD UREA NITROGEN 13 MG/DL (7-18); CALCIUM LEVEL 8.3 MG/DL (8.8-10.2); CARBON DIOXIDE LEVEL 27 MEQ/L (21-32); CHLORIDE LEVEL 97 MEQ/L (98-107); CREATININE FOR GFR 0.47 MG/DL (0.55-1.30); GLOMERULAR FILTRATION RATE > 60.0 (>39); GLUCOSE, FASTING 96 MG/DL (70-100); POTASSIUM SERUM 3.4 MEQ/L (3.5-5.1); SODIUM LEVEL 134 MEQ/L (136-145)
[2019-04-19] MEDS ORDERED: NS 1,000 ML IV ONE (13:45)
[2019-04-19] MEDS ORDERED: ONDANSETRON 4MG/2ML VIAL (J2405) IV ONE (17:30)
[2019-04-19] MEDS ORDERED: ACET-897 PO (18:06)
[2019-04-19] MEDS ORDERED: ATOR40TA75 PO (18:06)
[2019-04-19] MEDS ORDERED: TUMS500C PO (18:06)
[2019-04-19] MEDS ORDERED: MULTCAP PO (18:10)
[2019-04-19] MEDS ORDERED: ESCI10TA2 PO (18:10)
[2019-04-19] MEDS ORDERED: FURO40TA2 PO (18:10)
[2019-04-19] MEDS ORDERED: METO50TA7 PO (18:10)
[2019-04-19] MEDS ORDERED: PANT-23 PO (18:10)
[2019-04-19] MEDS ORDERED: PROP10TA56 PO (18:10)
[2019-04-19] MEDS ORDERED: RISATAB3 PO (18:10)
[2019-04-19] MEDS ORDERED: SPIR-10 PO (18:10)
[2019-04-19] MEDS ORDERED: PEPT262C2 PO (18:10)
[2019-04-19] MEDS ORDERED: SUCR1TAB56 PO (18:10)
[2019-04-19] MEDS ORDERED: POTA10CA32 PO (18:10)
[2019-04-19] MEDS ORDERED: LOSA50TA88 PO (18:10)
--- NOTE | 2019-04-19 18:32 | HPEPDOC ---
[facility] Medical History & Physical Date of Admission Apr 19, 2019 Date of Service: Apr 19, 2019 History and Physical CHIEF COMPLAINT: weakness HISTORY OF PRESENT ILLNESS: Patient is a 78-year-old female with past medical history of recent complicated admission for bleeding duodenal ulcer and hemorrhagic shock, AAA s/p repair, HTN, spinal stenosis s/p laminectomy, chronic back pain, RA brought in by family with concerns for not eating, weakness, and black stool. Patient was just admitted in March for complicated duodenal bleeding ulcer with a period in the ICU for hypovolemic and hemorrhagic shock. She has been discharged home from Rehab one week prior and has noted to not been eating due to lack of appetite/depression/pain. Hb noted to be at 12.4, which is on the high end of patient's baseline. Denies any noticable red blood in stool, heme negative in ER. Son at bedside stated that he gave her peptobismo several days ago and that had turned her stool dark, which also happens with him. Apart from generalized weakness/lethargy, patient also complains of lower abdominal discomfort since surgery but nothing acute and denies any other complaints. PAST MEDICAL HISTORY: Refer to [facility] PAST SURGICAL HISTORY: Right hip surgery Left knee surgery Cardiac cath 2019 AAA repair Laminectomy Ex lap for duodenal ulcer oversew 03/23/19 SOCIAL HISTORY: Denies tobacco, alcohol or illicit drug use. FAMILY HISTORY: CAD ALLERGIES: Please see below. REVIEW OF SYSTEMS: 10 point review of system negative except as stated in [facility] HOME MEDICATIONS: Please see below. PHYSICAL EXAMINATION: General: No acute distress, Alert, lethargic Eyes: Normal sclera, EOMI, DIANA HENT: Atraumatic, neck supple, moist mucous membranes Cardiovascular: Normal rate, normal rhythm. No murmurs appreciated. Pulmonary: Clear to auscultation b/l, no wheezing GI: Soft, nondistended, midline surgical scar clean and dry. mild tenderness in lower abdomen. Skin: Warm and dry Neuro: CN grossly intact. No focal deficits. Psych: oriented x 3 LABORATORY DATA: See below. MICROBIOLOGY: Please see below. ASSESSMENT AND PLAN: 1. Lethargy - 2/2 dehydration and malnutrition. Orthostatic hypotension with dizziness/lethargy. - Has not been eating well since previous admission for duodenal ulcer. Has abdominal pain, depression, lack of appetite. - Will try full liquid diet for now, central service supply distributor consult. IVF support given low PO intake. - PT/OT eval. - Dark stool likely 2/2 petobismo use. Hb high compare to baseline, no other evidence of bleeding. 2. HTN - Resume home medications. 3. AAA - s/p repair. 4. RA - resume home medications DVT ppx: SCD Code status: Full code Vital Signs Vital Signs Date Time Temp Pulse Resp B/P (MAP) Pulse Ox O2 Delivery O2 Flow Rate FiO2 04/19/19 16:45 84 167/48 (87) 97 158/74 (102) 138 165/76 (105) 04/19/19 14:14 97.2 17 04/19/19 14:01 97 04/19/19 10:41 Room Air Laboratory Data Labs 24H Laboratory Tests 2 04/19/19 11:25: Immature Granulocyte % (Auto) 0.5, White Blood Count 10.1H, Red Blood Count 4.05, Hemoglobin 12.4, Hematocrit 37.3, Mean Corpuscular Volume 92.1, Mean Corpuscular Hemoglobin 30.6, Mean Corpuscular Hemoglobin Concent 33.2, Red Cell Distribution Width 16.6H, Platelet Count 243, Neutrophils (%) (Auto) 74.1H, Lymphocytes (%) (Auto) 9.4L, Monocytes (%) (Auto) 15.3H, Eosinophils (%) (Auto) 0.1, Basophils (%) (Auto) 0.6, Neutrophils # (Auto) 7.5, Lymphocytes # (Auto) 1.0L, Monocytes # (Auto) 1.5H, Eosinophils # (Auto) 0.0, Basophils # (Auto) 0.1, Nucleated Red Blood Cells % (auto) 0.0, Anion Gap 10, Glomerular Filtration Rate > 60.0, Blood Urea Nitrogen 13, Creatinine 0.47L, Sodium Level 134L, Potassium Level 3.4L, Chloride Level 97L, Carbon Dioxide Level 27, Calcium Level 8.3L 04/19/19 13:32: Urine Color YELLOW, Urine Appearance CLEAR, Urine pH 7.0, Urine Specific [place] 1.010, Urine Protein NEGATIVE, Urine Glucose (UA) NEGATIVE, Urine Ketones NEGATIVE, Urine Blood NEGATIVE, Urine Nitrite NEGATIVE, Urine Bilirubin NEGATIVE, Urine Urobilinogen 0.2, Urine Leukocyte Esterase NEGATIVE, Urine WBC (Auto) 0, Urine RBC (Auto) 1, Urine Hyaline Casts (Auto) 1, Urine Bacteria (Auto) NEGATIVE, Urine Squamous Epithelial Cells 0, Urine Mucus (Auto) SMALL, Urine Sperm (Auto) CBC/BMP Laboratory Tests 04/19/19 11:25 Red Blood Count 4.05, Mean Corpuscular Volume 92.1, Mean Corpuscular Hemoglobin 30.6, Mean Corpuscular Hemoglobin Concent 33.2, Red Cell Distribution Width 16.6 H, Neutrophils (%) (Auto) 74.1 H, Lymphocytes (%) (Auto) 9.4 L, Monocytes (%) (Auto) 15.3 H, Eosinophils (%) (Auto) 0.1, Basophils (%) (Auto) 0.6, Neutrophils # (Auto) 7.5, Lymphocytes # (Auto) 1.0 L, Monocytes # (Auto) 1.5 H, Eosinophils # (Auto) 0.0, Basophils # (Auto) 0.1, Calcium Level 8.3 L Home Medications Scheduled Atorvastatin Calcium (Atorvastatin Calcium) 40 Mg Tablet, 40 MG PO QHS Escitalopram Oxalate (Escitalopram Oxalate) 10 Mg Tablet, 20 MG PO DAILY Furosemide (Furosemide) 40 Mg Tablet, 40 MG PO BID L.acidoph/L.bulg/B.bif/S.therm (Anali-Bid Caplet) 1 Each Tablet, 1 TAB PO TID Losartan Potassium (Losartan Potassium) 50 Mg Tablet, 50 MG PO BID Metoprolol Tartrate (Metoprolol Tartrate) 50 Mg Tablet, 50 MG PO BID Multivitamin (Multivitamins) 1 Each Capsule, 1 CAP PO DAILY Pantoprazole Sodium (Pantoprazole Sodium) 40 Mg Tablet.dr, 40 MG PO DAILY Potassium Chloride (Potassium Chloride) 10 Meq Capsule.er, 40 MEQ PO DAILY Spironolactone (Spironolactone) 25 Mg Tablet, 25 MG PO DAILY Sucralfate (Sucralfate) 1 Gm Tablet, 1 GM PO Q6H Scheduled PRN Acetaminophen (Tylenol Extra Strength) 500 Mg Tablet, 1,000 MG PO Q8H PRN for PAIN / FEVER Bismuth Subsalicylate (Pepto-Bismol) 262 Mg Tab.chew, 262 MG PO QID PRN for INDIGESTION Calcium Carbonate (Tums) 200 Mg Tab.chew, 1,000 MG PO PC PRN for INDIGESTION Propranolol HCl (Propranolol HCl) 10 Mg Tablet, 5 MG PO TID PRN for ANXIETY Allergies Coded Allergies: amlodipine (Verified Allergy, Mild, rash, 02/22/19) duloxetine (Verified Allergy, Mild, Rash, 02/22/19) latex (Verified Allergy, Mild, rash, 03/21/19) Contrast Media (Verified Allergy, Unknown, rash, 07/11/17) nystatin (Verified Allergy, Unknown, Rash, 02/22/19) A-FIB/CHADSVASC A-FIB History Current/History of A-Fib/PAF?: No OSVALDO JORGE MD Apr 19, 2019 18:32
[2019-04-19] MEDS ORDERED: CALCIUM CARBONATE 500 MG CHEW U/D PO PRN (18:45)
[2019-04-19] MEDS: LOSARTAN 50 MG TAB PO SCH (21:34)
[2019-04-19] MEDS: FUROSEMIDE 40 MG TAB PO SCH (21:34)
[2019-04-19] MEDS: SUCRALFATE 1 GM TAB PO SCH (21:34)
[2019-04-19] MEDS: METOPROLOL TART 50 MG TAB PO SCH (21:35)
[2019-04-19] MEDS: ATORVASTATIN 20 MG TAB PO SCH (21:35)
[2019-04-19 21:43] VITALS: BP 170/76
[2019-04-19 23:59] VITALS: BP 167/83
[2019-04-20 04:00] VITALS: BP 144/64
[2019-04-20] MEDS: SUCRALFATE 1 GM TAB PO SCH ×5 (05:32→23:37)
[2019-04-20 06:09] LABS: HEMATOCRIT 36.2 % (36.0-47.0); HEMOGLOBIN 11.7 g/dl (12.0-15.5); MEAN CORPUSCULAR HEMOGLOBIN 30.3 pg (27.0-33.0); MEAN CORPUSCULAR HGB CONC 32.3 g/dl (32.0-36.5); MEAN CORPUSCULAR VOLUME 93.8 fl (80.0-96.0); PLATELET COUNT, AUTOMATED 246 10^3/uL (150-450); RED BLOOD COUNT 3.86 10^6/uL (4.00-5.40); WHITE BLOOD COUNT 8.8 10^3/uL (4.0-10.0)
[2019-04-20 06:23] LABS: BLOOD UREA NITROGEN 13 MG/DL (7-18); CALCIUM LEVEL 8.1 MG/DL (8.8-10.2); CARBON DIOXIDE LEVEL 29 MEQ/L (21-32); CHLORIDE LEVEL 98 MEQ/L (98-107); GLOMERULAR FILTRATION RATE > 60.0 (>39); GLUCOSE, FASTING 77 MG/DL (70-100); POTASSIUM SERUM 3.5 MEQ/L (3.5-5.1); SODIUM LEVEL 138 MEQ/L (136-145)
[2019-04-20 08:00] VITALS: BP 145/73
[2019-04-20] MEDS: ESCITALOPRAM OXALATE 10 MG TAB (LEXAPRO) PO SCH (08:39)
[2019-04-20] MEDS: POTASSIUM CHLORIDE 10 MEQ SR TABLET PO SCH (08:39)
[2019-04-20] MEDS: ACETAMINOPHEN 500 MG TAB PO PRN ×2 (08:39→20:17)
[2019-04-20] MEDS: PANTOPRAZOLE 40MG TAB (PROTONIX) PO SCH (08:40)
[2019-04-20] MEDS: LOSARTAN 50 MG TAB PO SCH ×2 (08:40→20:17)
[2019-04-20] MEDS: METOPROLOL TART 50 MG TAB PO SCH ×2 (08:40→20:17)
[2019-04-20] MEDS: SPIRONOLACTONE 25 MG TAB PO SCH (08:40)
[2019-04-20] MEDS: FUROSEMIDE 40 MG TAB PO SCH ×2 (08:40→17:18)
--- NOTE | 2019-04-20 10:32 | IPNPDOC ---
Subjective Date Seen The patient was seen on 04/20/19. Subjective Chief Complaint/HPI Pt this morning states that since returning home from [facility] she has not been eating well due to poor appetite, intermittent nausea. She states that she has grown progressively more weak. She has started taking peptobismuth for her upset stomach a few times weekly and since then has noticed that her stools are now mostly black. General: Reports: Fatigue Constitutional: Denies: Chills, Fever Pulmonary: Denies: Dyspnea, Cough Cardiovascular: Denies: Chest Pain, Palpitations Gastrointestinal: Denies: Nausea, Vomiting, Diarrhea Neurological: Denies: Weakness Psych: Reports: Mood Normal Objective Physical Examination General Exam: Positive: Alert, No Acute Distress ENT Exam: Positive: Mucous membr. moist/pink Chest Exam: Positive: Clear to auscultation, Normal air movement Heart Exam: Positive: Rate Normal, Normal S1, Normal S2 Abdomen Exam: Positive: Normal bowel sounds, Soft; Negative: Tenderness Extremity Exam: Negative: Edema Neuro Exam: Positive: Normal Speech Psych Exam: Positive: Mood NL Assessment /Plan Problems (1) Weakness Status: Acute Response to Treatment: Stable Discussed With: Patient Problem Specific Plan: Monitor Clinically Problem Text: Will add antiemetic to see if this helps improve her nausea and s ubsequently improve her appetite. Will d/c IVF today. PT ordered, transfer to the floor. Peptobismuth has been held, I anticipate her stools will clear up from being black with the d/c use of this. monitor. Hgb stable. (2) Hypertension Status: Chronic Response to Treatment: Stable Problem Specific Plan: Monitor Clinically (3) History of AAA (abdominal aortic aneurysm) repair Status: Chronic Response to Treatment: Stable Problem Specific Plan: Monitor Clinically Plan/VTE VTE Prophylaxis Ordered?: No VTE Exclusion Pharmacological: Bleeding Risk VS, I&O, 24H, Fishbone Vital Signs/I&O Vital Signs Date Time Temp Pulse Resp B/P (MAP) Pulse Ox O2 Delivery O2 Flow Rate FiO2 04/20/19 08:40 82 04/20/19 08:40 145/73 04/20/19 08:00 96.6 18 90 04/19/19 18:42 Room Air I&O- Last 24 Hours up to 6 AM 04/20/19 05:59 Intake Total 1000 ml Output Total 900 ml Balance 100 ml Laboratory Data 24H LABS Laboratory Tests 2 04/19/19 11:25: Immature Granulocyte % (Auto) 0.5, White Blood Count 10.1H, Red Blood Count 4.05, Hemoglobin 12.4, Hematocrit 37.3, Mean Corpuscular Volume 92.1, Mean Corpuscular Hemoglobin 30.6, Mean Corpuscular Hemoglobin Concent 33.2, Red Cell Distribution Width 16.6H, Platelet Count 243, Neutrophils (%) (Auto) 74.1H, Lymphocytes (%) (Auto) 9.4L, Monocytes (%) (Auto) 15.3H, Eosinophils (%) (Auto) 0.1, Basophils (%) (Auto) 0.6, Neutrophils # (Auto) 7.5, Lymphocytes # (Auto) 1.0L, Monocytes # (Auto) 1.5H, Eosinophils # (Auto) 0.0, Basophils # (Auto) 0.1, Nucleated Red Blood Cells % (auto) 0.0, Anion Gap 10, Glomerular Filtration Rate > 60.0, Blood Urea Nitrogen 13, Creatinine 0.47L, Sodium Level 134L, Potassium Level 3.4L, Chloride Level 97L, Carbon Dioxide Level 27, Calcium Level 8.3L 04/19/19 13:32: Urine Color YELLOW, Urine Appearance CLEAR, Urine pH 7.0, Urine Specific [place] 1.010, Urine Protein NEGATIVE, Urine Glucose (UA) NEGATIVE, Urine Ketones NEGATIVE, Urine Blood NEGATIVE, Urine Nitrite NEGATIVE, Urine Bilirubin NEGATIVE, Urine Urobilinogen 0.2, Urine Leukocyte Esterase NEGATIVE, Urine WBC (Auto) 0, Urine RBC (Auto) 1, Urine Hyaline Casts (Auto) 1, Urine Bacteria (Auto) NEGATIVE, Urine Squamous Epithelial Cells 0, Urine Mucus (Auto) SMALL, Urine Sperm (Auto) 04/20/19 05:32: Nucleated Red Blood Cells % (auto) 0.0, Anion Gap 11, Glomerular Filtration Rate > 60.0, Blood Urea Nitrogen 13, Creatinine 0.50L, Sodium Level 138, Potassium Level 3.5, Chloride Level 98, Carbon Dioxide Level 29, Calcium Level 8.1L CBC/BMP Laboratory Tests 04/19/19 11:25 Red Blood Count 4.05, Mean Corpuscular Volume 92.1, Mean Corpuscular Hemoglobin 30.6, Mean Corpuscular Hemoglobin Concent 33.2, Red Cell Distribution Width 16.6 H, Neutrophils (%) (Auto) 74.1 H, Lymphocytes (%) (Auto) 9.4 L, Monocytes (%) (Auto) 15.3 H, Eosinophils (%) (Auto) 0.1, Basophils (%) (Auto) 0.6, Neutrophils # (Auto) 7.5, Lymphocytes # (Auto) 1.0 L, Monocytes # (Auto) 1.5 H, Eosinophils # (Auto) 0.0, Basophils # (Auto) 0.1, Calcium Level 8.3 L 04/20/19 05:32 Red Blood Count 3.86 L, Mean Corpuscular Volume 93.8, Mean Corpuscular Hemoglobin 30.3, Mean Corpuscular Hemoglobin Concent 32.3, Red Cell Distribution Width 16.7 H, Calcium Level 8.1 L RENAY LOWERY PA-C Apr 20, 2019 10:32
[2019-04-20] MEDS: ONDANSETRON 4 MG TAB (S0181) PO PRN (11:33)
[2019-04-20 12:00] VITALS: BP 123/56
[2019-04-20 16:00] VITALS: BP 120/58
[2019-04-20] MEDS: ATORVASTATIN 20 MG TAB PO SCH (20:16)
[2019-04-20] MEDS ORDERED: ALPRAZolam 0.25 MG TAB PO PRN (21:15)
[2019-04-20 22:00] VITALS: BP 129/62
[2019-04-21 02:00] VITALS: BP 126/65
[2019-04-21 06:00] VITALS: BP 128/62
[2019-04-21 06:24] LABS: HEMATOCRIT 35.7 % (36.0-47.0); HEMOGLOBIN 11.6 g/dl (12.0-15.5); MEAN CORPUSCULAR HEMOGLOBIN 30.9 pg (27.0-33.0); MEAN CORPUSCULAR HGB CONC 32.5 g/dl (32.0-36.5); MEAN CORPUSCULAR VOLUME 94.9 fl (80.0-96.0); PLATELET COUNT, AUTOMATED 216 10^3/uL (150-450); RED BLOOD COUNT 3.76 10^6/uL (4.00-5.40); WHITE BLOOD COUNT 10.1 10^3/uL (4.0-10.0)
[2019-04-21] MEDS: SUCRALFATE 1 GM TAB PO SCH ×3 (06:38→17:45)
[2019-04-21 06:51] LABS: BLOOD UREA NITROGEN 16 MG/DL (7-18); CALCIUM LEVEL 8.7 MG/DL (8.8-10.2); CARBON DIOXIDE LEVEL 31 MEQ/L (21-32); CHLORIDE LEVEL 97 MEQ/L (98-107); CREATININE FOR GFR 0.79 MG/DL (0.55-1.30); GLOMERULAR FILTRATION RATE > 60.0 (>39); GLUCOSE, FASTING 81 MG/DL (70-100); POTASSIUM SERUM 3.7 MEQ/L (3.5-5.1); SODIUM LEVEL 136 MEQ/L (136-145)
[2019-04-21] MEDS: ONDANSETRON 4 MG TAB (S0181) PO PRN ×2 (08:09→14:42)
[2019-04-21] MEDS: ESCITALOPRAM OXALATE 10 MG TAB (LEXAPRO) PO SCH (08:10)
[2019-04-21] MEDS: METOPROLOL TART 50 MG TAB PO SCH ×2 (08:10→21:28)
[2019-04-21] MEDS: FUROSEMIDE 40 MG TAB PO SCH ×2 (08:11→17:45)
[2019-04-21] MEDS: LOSARTAN 50 MG TAB PO SCH ×2 (08:11→21:27)
[2019-04-21] MEDS: SPIRONOLACTONE 25 MG TAB PO SCH (08:12)
[2019-04-21] MEDS: PANTOPRAZOLE 40MG TAB (PROTONIX) PO SCH (08:12)
[2019-04-21] MEDS: POTASSIUM CHLORIDE 10 MEQ SR TABLET PO SCH (08:13)
--- NOTE | 2019-04-21 08:54 | IPNPDOC ---
Subjective Date Seen The patient was seen on 04/21/19. Subjective Chief Complaint/HPI Pt this morning states that she was given xanax last night because she was anxious. This morning she is feeling low energy, hasn't been out of bed, feels frightened, scared. General: Reports: Fatigue Constitutional: Denies: Fever ENT: Denies: Head Aches Pulmonary: Denies: Dyspnea, Cough Cardiovascular: Denies: Chest Pain, Palpitations Gastrointestinal: Denies: Nausea, Vomiting, Diarrhea Neurological: Reports: Weakness Psych: Reports: Anxiety Objective Physical Examination General Exam: Positive: Alert, No Acute Distress ENT Exam: Positive: Mucous membr. moist/pink Chest Exam: Positive: Clear to auscultation, Normal air movement Heart Exam: Positive: Rate Normal, Normal S1, Normal S2 Abdomen Exam: Positive: Normal bowel sounds, Soft; Negative: Tenderness Extremity Exam: Negative: Edema Neuro Exam: Positive: Normal Speech Psych Exam: Positive: Mood NL Assessment /Plan Problems (1) Weakness Status: Acute Response to Treatment: Stable Discussed With: Patient Problem Specific Plan: Monitor Clinically Problem Text: 04/21 PT will cont to work with the patient. 04/20 Will add antiemetic to see if this helps improve her nausea and subsequently improve her appetite. Will d/c IVF today. PT ordered, transfer to the floor. Peptobismuth has been held, I anticipate her stools will clear up from being black with the d/c use of this. monitor. Hgb stable. (2) Hypertension Status: Chronic Response to Treatment: Stable Problem Specific Plan: Monitor Clinically (3) History of AAA (abdominal aortic aneurysm) repair Status: Chronic Response to Treatment: Stable Problem Specific Plan: Monitor Clinically Plan/VTE VTE Prophylaxis Ordered?: No VTE Exclusion Pharmacological: Bleeding Risk VS, I&O, 24H, Fishbone Vital Signs/I&O Vital Signs Date Time Temp Pulse Resp B/P (MAP) Pulse Ox O2 Delivery O2 Flow Rate FiO2 04/21/19 08:11 128/62 04/21/19 08:10 84 04/21/19 06:00 97.7 18 93 04/19/19 18:42 Room Air I&O- Last 24 Hours up to 6 AM 04/21/19 06:00 Intake Total 400 ml Output Total 475 ml Balance -75 ml Laboratory Data 24H LABS Laboratory Tests 2 04/21/19 05:35: Nucleated Red Blood Cells % (auto) 0.0, Anion Gap 8, Glomerular Filtration Rate > 60.0, Blood Urea Nitrogen 16, Creatinine 0.79#, Sodium Level 136, Potassium Level 3.7, Chloride Level 97L, Carbon Dioxide Level 31, Calcium Level 8.7L CBC/BMP Laboratory Tests 04/21/19 05:35 Red Blood Count 3.76 L, Mean Corpuscular Volume 94.9, Mean Corpuscular Hemoglobin 30.9, Mean Corpuscular Hemoglobin Concent 32.5, Red Cell Distribution Width 16.8 H, Calcium Level 8.7 L RENAY LOWERY PA-C Apr 21, 2019 08:54
[2019-04-21] MEDS: ACETAMINOPHEN 500 MG TAB PO PRN (10:24)
[2019-04-21 14:00] VITALS: BP 125/64
[2019-04-21] MEDS: ATORVASTATIN 20 MG TAB PO SCH (21:27)
[2019-04-21 22:00] VITALS: BP 158/86
[2019-04-22] MEDS: ACETAMINOPHEN 500 MG TAB PO PRN ×3 (00:34→21:21)
[2019-04-22] MEDS: SUCRALFATE 1 GM TAB PO SCH ×5 (00:34→23:57)
[2019-04-22 02:00] VITALS: BP 146/72
[2019-04-22 06:00] VITALS: BP 139/62
[2019-04-22 06:16] LABS: HEMATOCRIT 34.4 % (36.0-47.0); HEMOGLOBIN 11.2 g/dl (12.0-15.5); MEAN CORPUSCULAR HEMOGLOBIN 29.6 pg (27.0-33.0); MEAN CORPUSCULAR HGB CONC 32.6 g/dl (32.0-36.5); PLATELET COUNT, AUTOMATED 211 10^3/uL (150-450); RED BLOOD COUNT 3.78 10^6/uL (4.00-5.40); WHITE BLOOD COUNT 10.7 10^3/uL (4.0-10.0)
[2019-04-22 06:35] LABS: BLOOD UREA NITROGEN 16 MG/DL (7-18); CALCIUM LEVEL 8.3 MG/DL (8.8-10.2); CARBON DIOXIDE LEVEL 32 MEQ/L (21-32); CHLORIDE LEVEL 98 MEQ/L (98-107); CREATININE FOR GFR 0.76 MG/DL (0.55-1.30); GLOMERULAR FILTRATION RATE > 60.0 (>39); GLUCOSE, FASTING 97 MG/DL (70-100); POTASSIUM SERUM 3.8 MEQ/L (3.5-5.1); SODIUM LEVEL 136 MEQ/L (136-145)
[2019-04-22] MEDS: POTASSIUM CHLORIDE 10 MEQ SR TABLET PO SCH (09:42)
[2019-04-22] MEDS: SPIRONOLACTONE 25 MG TAB PO SCH (09:43)
[2019-04-22] MEDS: FUROSEMIDE 40 MG TAB PO SCH ×2 (09:44→18:06)
[2019-04-22] MEDS: ESCITALOPRAM OXALATE 10 MG TAB (LEXAPRO) PO SCH (09:44)
[2019-04-22] MEDS: METOPROLOL TART 50 MG TAB PO SCH ×2 (09:45→21:21)
[2019-04-22] MEDS: PANTOPRAZOLE 40MG TAB (PROTONIX) PO SCH (09:45)
[2019-04-22] MEDS: LOSARTAN 50 MG TAB PO SCH ×2 (09:46→21:21)
[2019-04-22] MEDS: ONDANSETRON 4 MG TAB (S0181) PO PRN (09:52)
[2019-04-22 10:00] VITALS: BP 142/66
[2019-04-22 14:00] VITALS: BP 130/69
[2019-04-22 18:00] VITALS: BP 130/68
[2019-04-22] MEDS: ATORVASTATIN 20 MG TAB PO SCH (21:21)
[2019-04-22 22:00] VITALS: BP 145/71
--- NOTE | 2019-04-23 | IPNPDOC ---
Subjective Date Seen The patient was seen on 04/22/19. Subjective Chief Complaint/HPI Today she complains of significant depression and lack of motivation. She admits to stomach discomfort in the vicinity of her previous abdominal incision; it seems worse with activity, not with meals. She initially had a poor appetite, but daughter brought in some food (including a doughnut) that she ate without trouble. Pulmonary: Reports: Cough; Denies: Dyspnea Cardiovascular: Denies: Chest Pain Gastrointestinal: Reports: Abdominal Pain; Denies: Nausea, Vomiting, Diarrhea, Constipation Psych: Reports: Anxiety, Depression; Denies: Mood Normal, Thoughts of Self Harm Objective Physical Examination General Exam: Positive: Alert, No Acute Distress ENT Exam: Positive: Mucous membr. moist/pink Chest Exam: Positive: Clear to auscultation, Normal air movement Heart Exam: Positive: Rate Normal, Normal S1, Normal S2 Abdomen Exam: Positive: Normal bowel sounds, Soft, Other (midline incision); Negative: Tenderness Extremity Exam: Negative: Edema Neuro Exam: Positive: Normal Speech Psych Exam: Positive: Mood NL Assessment /Plan Problems (1) Anxiety with depression Problem Text: She is already on an SSRI. Today and yesterday we discussed resources to have her mood treated as an outpatient. I declined to change SSRI at this time because it might be difficult to differentiate between abdominal discomfort as a side effect of medication, and abdominal pain from underlying pa thology. I did encourage her to make plans to followup with [facility] or her PCP, +/+ counseling. I (2) Weakness Status: Acute Response to Treatment: Stable Discussed With: Patient Problem Specific Plan: Monitor Clinically Problem Text: 04/22 -- Despite family counseling, patient has done little physical exericse while here. 04/21 PT will cont to work with the patient. 04/20 Will add antiemetic to see if this helps improve her nausea and subse quently improve her appetite. Will d/c IVF today. PT ordered, transfer to the floor. Peptobismuth has been held, I anticipate her stools will clear up from being black with the d/c use of this. monitor. Hgb stable. (3) Hypertension Status: Chronic Response to Treatment: Stable Problem Specific Plan: Monitor Clinically (4) History of AAA (abdominal aortic aneurysm) repair Status: Chronic Response to Treatment: Stable Problem Specific Plan: Monitor Clinically Plan/VTE VTE Prophylaxis Ordered?: Yes VTE Exclusion Pharmacological: Bleeding Risk VS, I&O, 24H, Fishbone Vital Signs/I&O Vital Signs Date Time Temp Pulse Resp B/P (MAP) Pulse Ox O2 Delivery O2 Flow Rate FiO2 04/22/19 21:21 80 145/71 04/22/19 18:00 98.5 18 93 04/19/19 18:42 Room Air I&O- Last 24 Hours up to 6 AM 04/22/19 06:00 Intake Total 460 ml Output Total 500 ml Balance -40 ml Laboratory Data 24H LABS Laboratory Tests 2 04/22/19 05:55: Nucleated Red Blood Cells % (auto) 0.0, Anion Gap 6L, Glomerular Filtration Rate > 60.0, Blood Urea Nitrogen 16, Creatinine 0.76, Sodium Level 136, Potassium Level 3.8, Chloride Level 98, Carbon Dioxide Level 32, Calcium Level 8.3L CBC/BMP Laboratory Tests 04/22/19 05:55 Red Blood Count 3.78 L, Mean Corpuscular Volume 91.0, Mean Corpuscular Hemoglob in 29.6, Mean Corpuscular Hemoglobin Concent 32.6, Red Cell Distribution Width 16.5 H, Calcium Level 8.3 L MITCH DAUGHERTY DO Apr 23, 2019 00:00
[2019-04-23 02:00] VITALS: BP 132/64
[2019-04-23] MEDS: SUCRALFATE 1 GM TAB PO SCH ×3 (05:56→17:51)
[2019-04-23 06:00] VITALS: BP 147/67
[2019-04-23 07:12] LABS: HEMATOCRIT 34.4 % (36.0-47.0); HEMOGLOBIN 11.2 g/dl (12.0-15.5); MEAN CORPUSCULAR HEMOGLOBIN 29.9 pg (27.0-33.0); MEAN CORPUSCULAR HGB CONC 32.6 g/dl (32.0-36.5); MEAN CORPUSCULAR VOLUME 91.7 fl (80.0-96.0); PLATELET COUNT, AUTOMATED 210 10^3/uL (150-450); RED BLOOD COUNT 3.75 10^6/uL (4.00-5.40)
[2019-04-23 07:38] LABS: BLOOD UREA NITROGEN 16 MG/DL (7-18); CALCIUM LEVEL 8.3 MG/DL (8.8-10.2); CARBON DIOXIDE LEVEL 32 MEQ/L (21-32); CHLORIDE LEVEL 99 MEQ/L (98-107); CREATININE FOR GFR 0.68 MG/DL (0.55-1.30); GLOMERULAR FILTRATION RATE > 60.0 (>39); GLUCOSE, FASTING 83 MG/DL (70-100); POTASSIUM SERUM 3.6 MEQ/L (3.5-5.1); SODIUM LEVEL 137 MEQ/L (136-145)
[2019-04-23] MEDS: POTASSIUM CHLORIDE 10 MEQ SR TABLET PO SCH (08:44)
[2019-04-23] MEDS: METOPROLOL TART 50 MG TAB PO SCH ×2 (08:45→21:26)
[2019-04-23] MEDS: PANTOPRAZOLE 40MG TAB (PROTONIX) PO SCH (08:45)
[2019-04-23] MEDS: ESCITALOPRAM OXALATE 10 MG TAB (LEXAPRO) PO SCH (08:45)
[2019-04-23] MEDS: SPIRONOLACTONE 25 MG TAB PO SCH (08:45)
[2019-04-23] MEDS: LOSARTAN 50 MG TAB PO SCH ×2 (08:45→21:25)
[2019-04-23] MEDS: FUROSEMIDE 40 MG TAB PO SCH ×2 (08:46→17:51)
[2019-04-23 10:00] VITALS: BP 143/82
[2019-04-23 14:00] VITALS: BP 124/57
--- NOTE | 2019-04-23 16:38 | IPNPDOC ---
Subjective Date Seen The patient was seen on 04/23/19. Subjective Chief Complaint/HPI Ms. Lopez reports that she is actually feeling better today. Her appetite is improved and she has eaten something for breakfast and lunch, without stomach discomfort. She got washed up and her spirits are improved. Daughter is encouraged. She has decided that some of the fatigue that she was having at home was secondary to taking frequent propranolol with metoprolol. Constitutional: Denies: Chills, Fever Pulmonary: Denies: Dyspnea, Cough Cardiovascular: Denies: Chest Pain Gastrointestinal: Denies: Nausea, Vomiting, Diarrhea, Constipation Psych: Reports: Depression (appears improved); Denies: Mood Normal Objective Physical Examination General Exam: Positive: Alert, No Acute Distress ENT Exam: Positive: Mucous membr. moist/pink Chest Exam: Positive: Clear to auscultation, Normal air movement Heart Exam: Positive: Rate Normal, Normal S1, Normal S2 Abdomen Exam: Positive: Normal bowel sounds, Soft, Other (midline incision); Negative: Tenderness Extremity Exam: Negative: Edema Neuro Exam: Positive: Normal Speech Psych Exam: Negative: Mood NL Assessment /Plan Problems (1) Anxiety with depression Problem Text: 04/23 -- This appears improved today. She is already on an SSRI. Today and yesterday we discussed resources to have her mood treated as an outpatient. I declined to change SSRI at this time because it might be difficult to differentiate between abdominal discomfort as a side effect of medication, and abdominal pain from underlying pathology. I did encourage her to make plans to followup with [facility] or her PCP, +/+ counseling. I (2) Weakness Status: Acute Response to Treatment: Stable Discussed With: Patient Problem Specific Plan: Monitor Clinically Problem Text: 04/22 -- Despite family counseling, patient has done little physical exericse while here. 04/21 PT will cont to work with the patient. 04/20 Will add antiemetic to see if this helps improve her nausea and subseque ntly improve her appetite. Will d/c IVF today. PT ordered, transfer to the floor. Peptobismuth has been held, I anticipate her stools will clear up from being black with the d/c use of this. monitor. Hgb stable. (3) Hypertension Status: Chronic Response to Treatment: Stable Problem Specific Plan: Monitor Clinically (4) History of AAA (abdominal aortic aneurysm) repair Status: Chronic Response to Treatment: Stable Problem Specific Plan: Monitor Clinically Plan/VTE VTE Prophylaxis Ordered?: Yes VTE Exclusion Pharmacological: Bleeding Risk VS, I&O, 24H, Fishbone Vital Signs/I&O Vital Signs Date Time Temp Pulse Resp B/P (MAP) Pulse Ox O2 Delivery O2 Flow Rate FiO2 04/23/19 14:00 98.5 72 18 124/57 (79) 91 04/19/19 18:42 Room Air I&O- Last 24 Hours up to 6 AM0 04/23/19 06:00 Intake Total 1040 ml Output Total 1300 ml Balance -260 ml Laboratory Data 24H LABS Laboratory Tests 2 04/23/19 06:42: Nucleated Red Blood Cells % (auto) 0.0, Anion Gap 6L, Glomerular Filtration Rate > 60.0, Blood Urea Nitrogen 16, Creatinine 0.68, Sodium Level 137, Potassium Level 3.6, Chloride Level 99, Carbon Dioxide Level 32, Calcium Level 8.3L CBC/BMP Laboratory Tests 04/23/19 06:42 Red Blood Count 3.75 L, Mean Corpuscular Volume 91.7, Mean Corpuscular Hemoglobin 29.9, Mean Corpuscular Hemoglobin Concent 32.6, Red Cell Distribution Width 16.5 H, Calcium Level 8.3 L MITCH DAUGHERTY DO Apr 23, 2019 16:38
[2019-04-23] MEDS: ACETAMINOPHEN 500 MG TAB PO PRN (21:26)
[2019-04-23] MEDS: ATORVASTATIN 20 MG TAB PO SCH (21:26)
[2019-04-23 22:00] VITALS: BP 129/64
[2019-04-24] MEDS: SUCRALFATE 1 GM TAB PO SCH ×4 (00:56→17:24)
[2019-04-24 06:00] VITALS: BP 140/67
[2019-04-24 06:02] LABS: HEMATOCRIT 34.4 % (36.0-47.0); HEMOGLOBIN 11.2 g/dl (12.0-15.5); MEAN CORPUSCULAR HEMOGLOBIN 30.7 pg (27.0-33.0); MEAN CORPUSCULAR HGB CONC 32.6 g/dl (32.0-36.5); MEAN CORPUSCULAR VOLUME 94.2 fl (80.0-96.0); PLATELET COUNT, AUTOMATED 220 10^3/uL (150-450); RED BLOOD COUNT 3.65 10^6/uL (4.00-5.40); WHITE BLOOD COUNT 8.1 10^3/uL (4.0-10.0)
[2019-04-24] MEDS: ACETAMINOPHEN 500 MG TAB PO PRN ×2 (06:05→17:40)
[2019-04-24 06:23] LABS: BLOOD UREA NITROGEN 16 MG/DL (7-18); CALCIUM LEVEL 8.5 MG/DL (8.8-10.2); CARBON DIOXIDE LEVEL 33 MEQ/L (21-32); CHLORIDE LEVEL 99 MEQ/L (98-107); CREATININE FOR GFR 0.75 MG/DL (0.55-1.30); GLOMERULAR FILTRATION RATE > 60.0 (>39); GLUCOSE, FASTING 86 MG/DL (70-100); POTASSIUM SERUM 3.8 MEQ/L (3.5-5.1); SODIUM LEVEL 137 MEQ/L (136-145)
[2019-04-24] MEDS: SPIRONOLACTONE 25 MG TAB PO SCH (08:47)
[2019-04-24] MEDS: METOPROLOL TART 50 MG TAB PO SCH ×2 (08:47→21:22)
[2019-04-24] MEDS: PANTOPRAZOLE 40MG TAB (PROTONIX) PO SCH (08:47)
[2019-04-24] MEDS: ESCITALOPRAM OXALATE 10 MG TAB (LEXAPRO) PO SCH (08:47)
[2019-04-24] MEDS: POTASSIUM CHLORIDE 10 MEQ SR TABLET PO SCH (08:47)
[2019-04-24] MEDS: LOSARTAN 50 MG TAB PO SCH ×2 (08:48→21:21)
[2019-04-24] MEDS: FUROSEMIDE 40 MG TAB PO SCH ×2 (08:48→17:24)
--- NOTE | 2019-04-24 09:40 | DSES ---
[facility] (SNF) SUMMARY DATE OF ADMISSION: 04/19/2018 DATE OF ALTERNATE LEVEL OF CARE (ALC): 04/24/2019 DATE OF DISCHARGE: PRIMARY CARE PROVIDER: Kings Washington MD ATTENDING: Today is Alejo Barnes MD HISTORY: This is a 78-year-old female patient who was recently admitted to the hospital for a bleeding duodenal ulcer, a hemorrhagic shock who underwent surgical repair who was transitioned to the outpatient setting to short-term rehabilitation where she was then discharged. Upon transition home, the patient complains of weakness, lethargy, as well as lower abdominal discomfort and which she has been taking Pepto Bismol. During her hospitalization, she continues to complain of lower abdominal discomfort, although workup has been benign. We have held her Pepto Bismol. Her stools have cleared up and are no longer black and tarry appearing. Her hemoglobin has remained stable. Her appetite has improved slightly, although it appears that the patient's primary issue at this point is depression and would benefit from some counseling, as well as general motivational skills. At this point, she needs continued physical therapy, and she can be discharged to the outpatient setting. She may need again short-term rehabilitation. Will leave this to be determined by physical therapy as they evaluate her. I have discussed this with her. Her discharge diagnoses at this time include anxiety, depression, generalized weakness, hypertension, history of abdominal aortic repair, history of duodenal ulcer repair. Discharge medications and plan will be at time of discharge from the hospital. edited: 04/25/2019 0731 tkf MTDD
[2019-04-24] MEDS: ATORVASTATIN 20 MG TAB PO SCH (21:22)
[2019-04-25] MEDS: ACETAMINOPHEN 500 MG TAB PO PRN ×3 (01:16→22:03)
[2019-04-25] MEDS: SUCRALFATE 1 GM TAB PO SCH ×4 (01:16→17:08)
[2019-04-25 06:15] LABS: HEMATOCRIT 34.7 % (36.0-47.0); HEMOGLOBIN 11.3 g/dl (12.0-15.5); MEAN CORPUSCULAR HEMOGLOBIN 30.4 pg (27.0-33.0); MEAN CORPUSCULAR HGB CONC 32.6 g/dl (32.0-36.5); MEAN CORPUSCULAR VOLUME 93.3 fl (80.0-96.0); PLATELET COUNT, AUTOMATED 225 10^3/uL (150-450); RED BLOOD COUNT 3.72 10^6/uL (4.00-5.40)
[2019-04-25 06:25] VITALS: BP 157/77
[2019-04-25 06:46] LABS: ALBUMIN 2.5 GM/DL (3.2-5.2); ALT/SGPT 18 U/L (12-78); BILIRUBIN,TOTAL 0.3 MG/DL (0.2-1.0); BLOOD UREA NITROGEN 16 MG/DL (7-18); CALCIUM LEVEL 8.6 MG/DL (8.8-10.2); CARBON DIOXIDE LEVEL 29 MEQ/L (21-32); CHLORIDE LEVEL 109 MEQ/L (98-107); CREATININE FOR GFR 0.64 MG/DL (0.55-1.30); GLOMERULAR FILTRATION RATE > 60.0 (>39); GLUCOSE, FASTING 82 MG/DL (70-100); POTASSIUM SERUM 3.2 MEQ/L (3.5-5.1); SODIUM LEVEL 131 MEQ/L (136-145)
[2019-04-25] MEDS: ESCITALOPRAM OXALATE 10 MG TAB (LEXAPRO) PO SCH (08:33)
[2019-04-25] MEDS: METOPROLOL TART 50 MG TAB PO SCH ×2 (08:34→22:03)
[2019-04-25] MEDS: PANTOPRAZOLE 40MG TAB (PROTONIX) PO SCH (08:34)
[2019-04-25] MEDS: SPIRONOLACTONE 25 MG TAB PO SCH (08:34)
[2019-04-25] MEDS: FUROSEMIDE 40 MG TAB PO SCH ×2 (08:34→17:08)
[2019-04-25] MEDS: LOSARTAN 50 MG TAB PO SCH ×2 (08:34→22:02)
[2019-04-25] MEDS: POTASSIUM CHLORIDE 10 MEQ SR TABLET PO SCH (08:35)
[2019-04-25] MEDS: ATORVASTATIN 20 MG TAB PO SCH (22:02)
[2019-04-26] MEDS: SUCRALFATE 1 GM TAB PO SCH ×3 (00:52→12:14)
[2019-04-26 06:00] VITALS: BP 154/78
[2019-04-26 06:44] LABS: HEMATOCRIT 36.1 % (36.0-47.0); HEMOGLOBIN 11.7 g/dl (12.0-15.5); MEAN CORPUSCULAR HEMOGLOBIN 29.5 pg (27.0-33.0); MEAN CORPUSCULAR HGB CONC 32.4 g/dl (32.0-36.5); MEAN CORPUSCULAR VOLUME 91.2 fl (80.0-96.0); PLATELET COUNT, AUTOMATED 256 10^3/uL (150-450); RED BLOOD COUNT 3.96 10^6/uL (4.00-5.40); WHITE BLOOD COUNT 7.9 10^3/uL (4.0-10.0)
[2019-04-26 07:13] LABS: BLOOD UREA NITROGEN 17 MG/DL (7-18); CALCIUM LEVEL 8.3 MG/DL (8.8-10.2); CARBON DIOXIDE LEVEL 31 MEQ/L (21-32); CHLORIDE LEVEL 102 MEQ/L (98-107); CREATININE FOR GFR 0.59 MG/DL (0.55-1.30); GLOMERULAR FILTRATION RATE > 60.0 (>39); GLUCOSE, FASTING 92 MG/DL (70-100); POTASSIUM SERUM 3.4 MEQ/L (3.5-5.1); SODIUM LEVEL 139 MEQ/L (136-145)
[2019-04-26] MEDS: ESCITALOPRAM OXALATE 10 MG TAB (LEXAPRO) PO SCH (09:08)
[2019-04-26] MEDS: POTASSIUM CHLORIDE 10 MEQ SR TABLET PO SCH (09:08)
[2019-04-26] MEDS: SPIRONOLACTONE 25 MG TAB PO SCH (09:08)
[2019-04-26] MEDS: FUROSEMIDE 40 MG TAB PO SCH (09:08)
[2019-04-26] MEDS: PANTOPRAZOLE 40MG TAB (PROTONIX) PO SCH (09:08)
[2019-04-26 09:15] VITALS: BP 160/90
[2019-04-26] MEDS: LOSARTAN 50 MG TAB PO SCH (09:15)
[2019-04-26] MEDS: METOPROLOL TART 50 MG TAB PO SCH (09:15)
[2019-04-26] MEDS: ONDANSETRON 4 MG TAB (S0181) PO PRN (12:14)
--- NOTE | 2019-04-26 18:19 | DSES ---
DATE OF ADMISSION: 04/19/2019 DATE OF DISCHARGE: 04/26/2019 DISCHARGE MEDICATIONS: - acetaminophen 1000 mg three times a day - atorvastatin 40 mg at bedtime - Pepto-Bismol one tablet four times a day as needed for indigestion - calcium carbonate 1000 mg four times a day as needed for indigestion - escitalopram 20 mg daily - furosemide 40 mg twice a day - Bacid tablets one three times a day - losartan 50 mg by mouth twice a day - metoprolol 50 mg by mouth twice a day - multivitamin one tablet daily - pantoprazole 40 mg daily - potassium chloride 40 mEq daily - spironolactone 25 mg daily - sucralfate 1 gram by mouth four times a day Activity at home will be as tolerated. Two-gram sodium diet. Home physical therapy (PT) will be arranged and assistance with transport will be arranged by [employer]. Followup with Dr. Carson in two weeks.
== END 2019-04-26 15:00 | disposition home health service (06) | DRG 948 ==
LOC: M ED 10:23 → EDBD 10:23 → M ED INP 17:17 → M PCU 21:43 → M MS5PR 04-20 11:45
PROVIDERS: ADMIT Student in an Organized Health Care Education/Training Program; ATTEND Family Medicine
DX: R53.83 Other fatigue (principal); E46 Unspecified protein-calorie malnutrition; E86.0 Dehydration; I95.1 Orthostatic hypotension; I10 Essential (primary) hypertension; M06.9 Rheumatoid arthritis, unspecified; F41.8 Other specified anxiety disorders; R53.1 Weakness; Z79.899 Other long term (current) drug therapy; Z88.8 Allergy status to other drugs, medicaments and biological substances; Z91.040 Latex allergy status; Z91.041 Radiographic dye allergy status; Z98.890 Other specified postprocedural states; Z87.11 Personal history of peptic ulcer disease; Z87.19 Personal history of other diseases of the digestive system

== ENCOUNTER 2019-05-22 13:45 | Inpatient (IN) | payer MEDICARE, MEDICAID ==
[~2019-05-22] VITALS: Ht 157.5 cm; Wt 60.7 kg
[~2019-05-22 13:45] MED LIST changes: +ACET-897 PO; +METO50TA7 PO; +MULTCAP PO; +PANT-23 PO; +PEPT262C2 PO; +POTA10CA32 PO; +SUCR1TAB56 PO; +[UNRECOGNIZED DRUG - OTHER] PO
[2019-05-22 14:36] LABS: BASO % 0.5 % (0.0-1.0); HEMATOCRIT 32.9 % (36.0-47.0); HEMOGLOBIN 10.5 g/dl (12.0-15.5); LYMPH % 16.2 % (24.0-44.0); MEAN CORPUSCULAR HGB CONC 31.9 g/dl (32.0-36.5); MEAN CORPUSCULAR VOLUME 90.9 fl (80.0-96.0); MONO # 1.1 10^3/uL (0.0-0.8); MONO % 18.5 % (0.0-5.0); NEUTROPHILS # 3.9 10^3/uL (1.8-7.7); PLATELET COUNT, AUTOMATED 277 10^3/uL (150-450); RED BLOOD COUNT 3.62 10^6/uL (4.00-5.40); WHITE BLOOD COUNT 6.1 10^3/uL (4.0-10.0)
--- NOTE | 2019-05-22 14:44 | REP ---
CHEST, ONE VIEW: HISTORY: Preop. COMPARISON: 03/28/2019. The lungs are clear. The cardiac silhouette is enlarged. The pulmonary vasculature is normal in appearance. IMPRESSION: Cardiomegaly. Electronically Signed by Anoop Sánchez MD 05/22/2019 03:14 P
[2019-05-22 14:47] LABS: PARTIAL THROMBOPLASTIN TIME 32.1 SECONDS (25.0-38.4)
[2019-05-22 14:52] LABS: BLOOD UREA NITROGEN 11 MG/DL (7-18); CALCIUM LEVEL 8.4 MG/DL (8.8-10.2); CARBON DIOXIDE LEVEL 29 MEQ/L (21-32); CHLORIDE LEVEL 101 MEQ/L (98-107); GLOMERULAR FILTRATION RATE > 60.0 (>39); GLUCOSE, FASTING 103 MG/DL (70-100); POTASSIUM SERUM 4.1 MEQ/L (3.5-5.1); SODIUM LEVEL 135 MEQ/L (136-145)
--- NOTE | 2019-05-22 14:53 | REP ---
LEFT HIP, AP PELVIS, THREE VIEWS: HISTORY: Trauma. There is a nondisplaced fracture of the neck of the left femur. There is no dislocation. There is moderate narrowing of the right and marked narrowing of the left hip joint spaces. The bony structure is osteopenic. The patient is status post ORIF of a fracture of the right femoral neck. Metal hardware is present. IMPRESSION: Nondisplaced fracture of the left femoral neck. Electronically Signed by Anoop Sánchez MD 05/22/2019 03:14 P
[2019-05-22 15:00] LABS: ALT/SGPT 19 U/L (12-78); BILIRUBIN,DIRECT 0.2 MG/DL (0.0-0.2); BILIRUBIN,TOTAL 0.4 MG/DL (0.2-1.0); CK-MB VALUE MASS < 1.0 NG/ML (<3.6); CPK CREATINE PHOSPHOKINASE 36 U/L (26-192); MB/CK RELATIVE INDEX 2.78 (< OR =4); TOTAL PROTEIN 6.6 GM/DL (6.4-8.2); TROPONIN I < 0.02 NG/ML (< 0.10)
[2019-05-22] MEDS ORDERED: fentaNYL 100 MCG/2 ML INJECTION (J3010) IV ONE (15:00)
[2019-05-22] MEDS ORDERED: NS 1,000 ML IV ONE (15:00)
[2019-05-22] MEDS ORDERED: LIDOCAINE 2% 5ML JELLY UROJET TOP ONE (15:00)
[2019-05-22] MEDS ORDERED: POTA10TA17 PO (15:01)
[2019-05-22] MEDS ORDERED: MAALOX 30 ML SUSP *UDC PO PRN (15:15)
[2019-05-22] MEDS ORDERED: MOM 30ML SUSPENSION UDC PO PRN (15:15)
[2019-05-22] MEDS ORDERED: ACETAMINOPHEN TAB 650MG DOSE (2X325MG) PO PRN (15:15)
[2019-05-22 15:43] LABS: INR 1.04; PROTHROMBIN TIME 13.3 SECONDS (11.8-14.0)
[2019-05-22] MEDS: PERCOCET 5MG/325MG TAB PO PRN ×2 (15:58→21:20)
--- NOTE | 2019-05-22 17:27 | HPEPDOC ---
General Date of Admission May 22, 2019 at 15:02 Date of Service: May 22, 2019 Primary Care Physician: Kings Washington M.D. Attending Physician: RENAY PARSONS DO Chief Complaint The patient is a 78-year-old female admitted with a reason for visit of Hip Fracture Left. Source: Patient Exam Limitations: No limitations History of Present Illness 78yo female recently discharged on 04/26/19 after brief hospital stay for debility, presents with left hip fracture. Patient states today, she had been using her cane, instead of walker, to go to bathroom when her back "gave out" and she fell. States no head injury but increased back and hip pain. Was brought to ED where she was determined to have a left intertrochanteric hip fracture. Ortho, Dr Vogel, consulted. Her last meal was at 1100 am today Patient states has chronic back pain (lim rods in place) but worse since fall, no bowel or bladder incontinence, no N, no V, no CP, no SOB. States hip pain worse with movement, relief with fentyl (100mcg given in ambulance, additional 25mcg in ED) , dull achy. States unable to move left leg Home Medications Scheduled Atorvastatin Calcium (Atorvastatin Calcium) 40 Mg Tablet, 40 MG PO QHS, (Reported) Escitalopram Oxalate (Escitalopram Oxalate) 10 Mg Tablet, 20 MG PO DAILY, (Reported) Furosemide (Furosemide) 40 Mg Tablet, 40 MG PO DAILY, (Reported) Losartan Potassium (Losartan Potassium) 50 Mg Tablet, 50 MG PO BID, (Reported) Metoprolol Tartrate (Metoprolol Tartrate) 50 Mg Tablet, 50 MG PO BID, (Reported) Multivitamin (Multivitamins) 1 Each Capsule, 1 CAP PO DAILY, (Reported) Pantoprazole Sodium (Pantoprazole Sodium) 40 Mg Tablet.dr, 40 MG PO DAILY, (Reported) Potassium Chloride (Potassium Chloride) 10 Meq Tab.er.prt, 10 MEQ PO QID, (Reported) Spironolactone (Spironolactone) 25 Mg Tablet, 25 MG PO DAILY, (Reported) Sucralfate (Sucralfate) 1 Gm Tablet, 1 GM PO ACHS, (Reported) Scheduled PRN Acetaminophen (Tylenol Extra Strength) 500 Mg Tablet, 1,000 MG PO Q8H PRN for PAIN / FEVER, (Reported) Allergies Coded Allergies: amlodipine (Verified Allergy, Mild, rash, 02/22/19) duloxetine (Verified Allergy, Mild, Rash, 02/22/19) latex (Verified Allergy, Mild, rash, 03/21/19) Contrast Media (Verified Allergy, Unknown, rash, 07/11/17) nystatin (Verified Allergy, Unknown, Rash, 02/22/19) Past Medical History Medical History bleeding duodenal ulcer and hemorrhagic shock (march 2019) Debility (recent admission april 2019) HTN, spinal stenosis s/p laminectomy, chronic back pain, RA CAD PAST SURGICAL HISTORY: Right hip surgery Left knee surgery Cardiac cath 2018 AAA repair Laminectomy Ex lap for duodenal ulcer oversew 03/23/19 Lim rods to back SOCIAL HISTORY: Denies tobacco, alcohol or illicit drug use. FAMILY HISTORY: CAD A-FIB/CHADSVASC A-FIB History Current/History of A-Fib/PAF?: No Review of Systems Other systems 10 systems reviewed and negative except as per HPI Physical Examination General Exam: Positive: Alert, Cooperative, Mild Distress (laying supine on ED litter - unable to sit up) Eye Exam: Positive: PERRLA, Conjunctiva & lids normal, EOMI ENT Exam: Positive: Atraumatic, Mucous membr. moist/pink, Pharynx Normal, Other ENT (upper dentures, partial lower denture) Neck Exam: Positive: Supple, +2 carotid pulse wo bruit Chest Exam: Positive: Clear to auscultation (anteriorly), Normal air movement; Negative: Rales, Rhonchi, Wheezing, Diminished Heart Exam: Positive: Rate Normal, Regular Rhythm, Normal S1, Normal S2 Telemetry: Positive: No significant arrhythmia, Other Telemetry: (NSR ; EKG: NSR) Abdomen Exam: Positive: Normal bowel sounds, Soft (NT ND NABS), Other (georges cath intact) Extremity Exam: Positive: Normal pulses, Other (left leg shorter and out turned); Negative: Clubbing, Cyanosis, Edema Skin Exam: Positive: Other skin issue (left elbow with 3.5cm ankles skin tear, no celluitis (unable to exam posterior/back due to inmobility from hip frac ture)) Neuro Exam: Positive: Normal Speech, Sensation Intact, Cranial Nerves 3-12 NL Psych Exam: Positive: Mental status NL, Mood NL, Memory Intact, Oriented x 3 Other physical findings HIP XRAY: There is a nondisplaced fracture of the neck of the left femur. There is no dislocation. There is moderate narrowing of the right and marked narrowing of the left hip joint spaces. The bony structure is osteopenic. The patient is status post ORIF of a fracture of the right femoral neck. Metal hardware is present. IMPRESSION: Nondisplaced fracture of the left femoral neck. CXR: IMPRESSION: Cardiomegaly. Vital Signs Vital Signs Date Time Temp Pulse Resp B/P (MAP) Pulse Ox O2 Delivery O2 Flow Rate FiO2 05/22/19 15:58 98.3 76 18 147/67 95 2.0 05/22/19 15:30 Room Air Laboratory Data Labs 24H Laboratory Tests 2 05/22/19 14:17: Immature Granulocyte % (Auto) 0.8, White Blood Count 6.1, Red Blood Count 3.62L, Hemoglobin 10.5L, Hematocrit 32.9L, Mean Corpuscular Volume 90.9, Mean Corpuscular Hemoglobin 29.0, Mean Corpuscular Hemoglobin Concent 31.9L, Red Cell Distribution Width 15.5H, Platelet Count 277, Neutrophils (%) (Auto) 64.0, Lymphocytes (%) (Auto) 16.2L, Monocytes (%) (Auto) 18.5H, Eosinophils (%) (Auto) 0.0, Basophils (%) (Auto) 0.5, Neutrophils # (Auto) 3.9, Lymphocytes # (Auto) 1.0L, Monocytes # (Auto) 1.1H, Eosinophils # (Auto) 0.0, Basophils # (Auto) 0.0, Nucleated Red Blood Cells % (auto) 0.0, Prothrombin Time 13.3, Prothromb Time International Ratio 1.04, Activated Partial Thromboplast Time 32.1, Anion Gap 5L, Glomerular Filtration Rate > 60.0, Blood Urea Nitrogen 11, Creatinine 0.60, Sodium Level 135L, Potassium Level 4.1, Chloride Level 101, Carbon Dioxide Level 29, Calcium Level 8.4L 05/22/19 14:20: Aspartate Amino Transf (AST/SGOT) 23, Alanine Aminotransferase (ALT/SGPT) 19, Alkaline Phosphatase 130H, Total Bilirubin 0.4, Direct Bilirubin 0.2, Total Creatine Kinase 36, Creatine Kinase MB < 1.0, Creatine Kinase MB Relative Index 2.78, Troponin I < 0.02, Total Protein 6.6, Albumin 3.0L, Albumin/Globulin Ratio 0.83L CBC/BMP Laboratory Tests 05/22/19 14:17 Red Blood Count 3.62 L, Mean Corpuscular Volume 90.9, Mean Corpuscular Hemoglobin 29.0, Mean Corpuscular Hemoglobin Concent 31.9 L, Red Cell Distribution Width 15.5 H, Neutrophils (%) (Auto) 64.0, Lymphocytes (%) (Auto) 16.2 L, Monocytes (%) (Auto) 18.5 H, Eosinophils (%) (Auto) 0.0, Basophils (%) (Auto) 0.5, Neutrophils # (Auto) 3.9, Lymphocytes # (Auto) 1.0 L, Monocytes # (Auto) 1.1 H, Eosinophils # (Auto) 0.0, Basophils # (Auto) 0.0, Calcium Level 8.4 L Assessment/Plan 1) left intertrochanteric hip fracture - Ortho consulted. NPO after midnight, pain medications Georges cathetar 2) Back pain - acute on chronic with caleb placement Unable to determine if back rods were damaged with fall that broke her hip - ortho consulted 3) History of duodenal ulcer and hemorrhagic shock in MARCH 2019 PPI for GI prophylaxis. 4) RA - continue home regimen but hold any DMARDs or immunosuppressants 5) History CAD - request cardiac cath report form 2018 CODE STATUS: FULL DVT prophylaxis: on hold for anticipated surgery in AM Plan / VTE VTE Prophylaxis Ordered?: No (pending surgery for hip) RENAY PARSONS DO May 22, 2019 17:10
[2019-05-22] MEDS: MORPHINE 4 MG/ML 1ML VIAL/SYRINGE (J2270) IV PRN (17:50)
[2019-05-22 18:00] VITALS: BP 159/79
--- NOTE | 2019-05-22 18:07 | CR ---
DATE OF CONSULTATION: 05/22/2019 CONSULTATION REPORT FOR: Suzie Sagastume MD PROVIDER CONSULTED: Chin Vogel MD, orthopedics CHIEF COMPLAINT: Left hip pain. HISTORY: The patient is a 78-year-old female presenting to the emergency room via emergency medical services (EMS) for left hip pain status post mechanical fall. The patient was getting up from her recliner and fell landing on her left side. She had quite a bit of pain and deformity to the left lower extremity so EMS was called. No other injuries were sustained with the exception of an abrasion to the left elbow. The patient had x-rays notable for a femoral neck fracture and orthopedics was consulted. CURRENT MEDICATIONS: - acetaminophen 500 mg tablets 1000 mg by mouth every eight hours as needed - atorvastatin 40 mg tablets one tablet by mouth daily at bedtime - escitalopram 10 mg tablets 20 mg by mouth daily - furosemide 40 mg tablets one tablet by mouth daily - losartan 50 mg tablets one tablet by mouth twice daily - metoprolol 50 mg tablets one tablet by mouth twice daily - pantoprazole 40 mg tablets take one by mouth daily - spironolactone 25 mg tablets take one tablet by mouth daily - sucralfate 1 gram tablets one tablet by mouth before meals and at bedtime daily - multivitamin - potassium chloride 10 mEq tablets one tablet by mouth four times daily ALLERGIES: CONTRAST MEDIA, NYSTATIN, AMLODIPINE, CYMBALTA, LATEX. CHRONIC MEDICAL CONDITIONS: Osteoporosis, hypokalemia, anxiety, depression, history of gastrointestinal (GI) bleed, congestive heart failure, history of ryc-CU-lomltulc myocardial infarction, weakness, orthostatic hypotension, dyspnea, gastroesophageal reflux disease, bleeding duodenal ulcer and hemorrhagic shock, spinal stenosis status post laminectomy, rheumatoid arthritis, coronary artery disease. PAST SURGICAL HISTORY: AAA repair, venous stripping, exploratory laparotomy for a bleeding intestinal ulcer, lumbar fusion, left total knee arthroplasty, right hip status post fracture, cardiac catheterization. SOCIAL HISTORY: The patient denies tobacco, alcohol or illicit drug use. REVIEW OF SYSTEMS: The patient denies fevers, chills, nausea, vomiting or diarrhea. She denies chest pain, shortness of breath, lightheadedness or dizziness. Denies any current abdominal pain. She complains of left hip pain. She also has an abrasion to the left elbow. PHYSICAL EXAMINATION: GENERAL: Well-nourished, well-developed female who is resting comfortably in the stretcher. She is alert, oriented and cooperative. Mood and affect appropriate. VITAL SIGNS: Temperature 98.3, heart rate 76, respirations 18, blood pressure 147/67, pulse oximetry 95% with two liters of oxygen via nasal cannula. NECK: Supple without lymphadenopathy. CARDIOVASCULAR: Radial pulses and dorsalis pedis pulses are palpable and equal bilaterally. PULMONARY: Breathing is regular and nonlabored. ABDOMEN: Soft, nontender to palpation. MUSCULOSKELETAL: The patient does have tenderness to palpation at the left hip and groin. Extremity is in a slightly shortened and externally rotated position. The patient's calf is soft and nontender to palpation. No palpable cords are noted. Again, she is neurovascularly intact distally. She is able to move all of her toes freely. Capillary refill is brisk and her sensation is intact. Extremity does appear to be warm and well-perfused. SKIN: The patient does have an abrasion to the left elbow without evidence of secondary infection. X-rays of the left hip and pelvis reveal a minimally displaced fracture of the left femoral neck. IMPRESSION: Left femoral neck fracture. PLAN: The patient will remain nothing by mouth. Hospitalist clearance recommended. Operating room (OR) booked for a left hemiarthroplasty pending clearance. Dr. Vogel will see the patient and consent for surgery will be completed at that time.
--- NOTE | 2019-05-22 20:10 | ECGEPIP ---
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
[2019-05-22] MEDS: DOCUSATE SODIUM 100 MG CAP PO SCH (21:20)
[2019-05-22 22:00] VITALS: BP 152/74
[2019-05-23] MEDS: MORPHINE 4 MG/ML 1ML VIAL/SYRINGE (J2270) IV PRN ×3 (00:06→10:14)
[2019-05-23 06:00] VITALS: BP 150/71
[2019-05-23 06:58] LABS: HEMOGLOBIN 9.7 g/dl (12.0-15.5); MEAN CORPUSCULAR HEMOGLOBIN 28.7 pg (27.0-33.0); MEAN CORPUSCULAR HGB CONC 31.3 g/dl (32.0-36.5); MEAN CORPUSCULAR VOLUME 91.7 fl (80.0-96.0); PLATELET COUNT, AUTOMATED 254 10^3/uL (150-450); RED BLOOD COUNT 3.38 10^6/uL (4.00-5.40); WHITE BLOOD COUNT 6.1 10^3/uL (4.0-10.0)
[2019-05-23 07:09] LABS: INR 1.12; PROTHROMBIN TIME 14.1 SECONDS (11.8-14.0)
[2019-05-23 07:22] LABS: BLOOD UREA NITROGEN 9 MG/DL (7-18); CALCIUM LEVEL 8.2 MG/DL (8.8-10.2); CARBON DIOXIDE LEVEL 31 MEQ/L (21-32); CHLORIDE LEVEL 102 MEQ/L (98-107); CREATININE FOR GFR 0.42 MG/DL (0.55-1.30); GLOMERULAR FILTRATION RATE > 60.0 (>39); GLUCOSE, FASTING 86 MG/DL (70-100); POTASSIUM SERUM 3.7 MEQ/L (3.5-5.1); SODIUM LEVEL 137 MEQ/L (136-145)
[2019-05-23] MEDS: DOCUSATE SODIUM 100 MG CAP PO SCH ×2 (07:56→20:08)
[2019-05-23] MEDS: ONDANSETRON 4MG/2ML VIAL (J2405) IV PRN ×2 (08:14→19:00)
[2019-05-23] MEDS: PERCOCET 5MG/325MG TAB PO PRN ×2 (08:14→12:34)
[2019-05-23] MEDS: LR 1,000 ML IV SCH ×2 (08:15→18:12)
--- NOTE | 2019-05-23 09:48 | REP ---
THORACIC SPINE, FOUR VIEWS: HISTORY: Spinal fusion. There is no acute fracture or subluxation. There is loss of height of several mid and lower thoracic intervertebral discs. The patient is status post lumbar to sacroiliac posterior spinal fusion. The bony structure is osteopenic. IMPRESSION: Degenerative change as described above. Electronically Signed by Anoop Sánchez MD 05/23/2019 09:54 A
--- NOTE | 2019-05-23 10:00 | REP ---
LUMBAR SPINE, TWO VIEWS: HISTORY: Evaluate hardware. A lateral radiograph of the lumbar spine and AP radiograph of the pelvis were obtained. The patient is status-post lumbar to sacroiliac posterior spinal fusion. Metal hardware is present. There is no definite fracture or subluxation. The bony structure is very osteopenic. The patient is status-post ORIF of a right femoral neck fracture. Metal hardware is present. There is a nondisplaced fracture of the left femoral neck. There is narrowing of the hip joint spaces. IMPRESSION: 1. The patient is status-post lumbar to sacroiliac posterior spinal fusion. There is no definite fracture or subluxation. 2. There is a nondisplaced fracture of the left femoral neck. Electronically Signed by Anoop Sánchez MD 05/23/2019 10:02 A
--- NOTE | 2019-05-23 11:38 | IPNPDOC ---
Subjective Date Seen The patient was seen on 05/23/19. Subjective Chief Complaint/HPI Patient seen and examined at the bedside. Reports continued left hip pain. She is tentatively scheduled for the operating room today. No acute overnight events noted. Objective Physical Examination General Exam: Positive: Alert, Cooperative, No Acute Distress ENT Exam: Positive: Atraumatic, Mucous membr. moist/pink Neck Exam: Negative: JVD Chest Exam: Positive: Clear to auscultation, Normal air movement; Negative: Rales, Rhonchi, Wheezing, Diminished Heart Exam: Positive: Rate Normal, Normal S1, Normal S2 Abdomen Exam: Positive: Soft; Negative: Tenderness Extremity Exam: Positive: Other (left foot noted to be externally rotated. Left hip joint with them to range of motion secondary to fracture. Extremity Neurovascularly intact distally.); Negative: Clubbing, Cyanosis, Edema Psych Exam: Positive: Mental status NL, Mood NL, Oriented x 3 Assessment /Plan Plan/VTE VTE Prophylaxis Ordered?: No (pending surgery for hip) Plan Left intertrochanteric hip fracture Orthopedic surgery on board for further evaluation and management Back pain - acute on chronic with caleb placement XR of the thoracic and lumbar spine with no acute fractures of the spine noted Orthopedic Surgery on board will follow up with their recommendations History of duodenal ulcer and hemorrhagic shock in March 2019 PPI for GI prophylaxis. RA Continue home regimen but hold any DMARDs or immunosuppressants History CAD in February of 2019 The patient had a cardiac cath in February of 2019 at [facility] for an elevated Troponin level here in the ED on 03/02/19. I did speak with Dr. Gregory of [facility] ([phone]), and he has relayed to me that the patient's Cardiac Cath showed no evidence of Coronary Artery Disease with a normal LVEF, and that the elevation of troponin level was attributed to possible mild takotsubo's. At this time, Dr. Gregory does not recommend any further invasive cardiac work up and he does not think that the patient's surgery needs to be delayed based on the presented information. The patient denies any complaints of chest pain, SOB, or palpitations at this time. The patient is medically optimized based on the aforementioned conversati on and findings. Follow up as outpatient DVT prophylaxis on hold for anticipated surgery this AM Will f/u with Ortho recommendations post-operatively VS, I&O, 24H, Fishbone Vital Signs/I&O Vital Signs Date Time Temp Pulse Resp B/P (MAP) Pulse Ox O2 Delivery O2 Flow Rate FiO2 05/23/19 10:24 16 05/23/19 10:14 2.0 05/23/19 06:00 97.1 85 150/71 (97) 95 05/22/19 18:21 95 05/22/19 17:45 Nasal Cannula I&O- Last 24 Hours up to 6 AM 05/23/19 06:00 Intake Total 300 ml Output Total 650 ml Balance -350 ml Laboratory Data 24H LABS Laboratory Tests 2 05/22/19 14:17: Immature Granulocyte % (Auto) 0.8, White Blood Count 6.1, Red Blood Count 3.62L, Hemoglobin 10.5L, Hematocrit 32.9L, Mean Corpuscular Volume 90.9, Mean C orpuscular Hemoglobin 29.0, Mean Corpuscular Hemoglobin Concent 31.9L, Red Cell Distribution Width 15.5H, Platelet Count 277, Neutrophils (%) (Auto) 64.0, Lymphocytes (%) (Auto) 16.2L, Monocytes (%) (Auto) 18.5H, Eosinophils (%) (Auto) 0.0, Basophils (%) (Auto) 0.5, Neutrophils # (Auto) 3.9, Lymphocytes # (Auto) 1.0L, Monocytes # (Auto) 1.1H, Eosinophils # (Auto) 0.0, Basophils # (Auto) 0.0, Nucleated Red Blood Cells % (auto) 0.0, Prothrombin Time 13.3, Prothromb Time International Ratio 1.04, Activated Partial Thromboplast Time 32.1, Anion Gap 5L, Glomerular Filtration Rate > 60.0, Blood Urea Nitrogen 11, Creatinine 0.60, Sodium Level 135L, Potassium Level 4.1, Chloride Level 101, Carbon Dioxide Level 29, Calcium Level 8.4L 05/22/19 14:20: Aspartate Amino Transf (AST/SGOT) 23, Alanine Aminotransferase (ALT/SGPT) 19, Alkaline Phosphatase 130H, Total Bilirubin 0.4, Direct Bilirubin 0.2, Total Creatine Kinase 36, Creatine Kinase MB < 1.0, Creatine Kinase MB Relative Index 2.78, Troponin I < 0.02, Total Protein 6.6, Albumin 3.0L, Albumin/Globulin Ratio 0.83L 05/23/19 06:35: Prothrombin Time 14.1H, Prothromb Time International Ratio 1.12 05/23/19 06:36: Nucleated Red Blood Cells % (auto) 0.0, Anion Gap 4L, Glomerular Filtration Rate > 60.0, Blood Urea Nitrogen 9, Creatinine 0.42L, Sodium Level 137, Potassium Level 3.7, Chloride Level 102, Carbon Dioxide Level 31, Calcium Level 8.2L CBC/BMP Laboratory Tests 05/22/19 14:17 Red Blood Count 3.62 L, Mean Corpuscular Volume 90.9, Mean Corpuscular Hemoglo bin 29.0, Mean Corpuscular Hemoglobin Concent 31.9 L, Red Cell Distribution Width 15.5 H, Neutrophils (%) (Auto) 64.0, Lymphocytes (%) (Auto) 16.2 L, Monocytes (%) (Auto) 18.5 H, Eosinophils (%) (Auto) 0.0, Basophils (%) (Auto) 0.5, Neutrophils # (Auto) 3.9, Lymphocytes # (Auto) 1.0 L, Monocytes # (Auto) 1.1 H, Eosinophils # (Auto) 0.0, Basophils # (Auto) 0.0, Calcium Level 8.4 L 05/23/19 06:36 Red Blood Count 3.38 L, Mean Corpuscular Volume 91.7, Mean Corpuscular Hemoglobi n 28.7, Mean Corpuscular Hemoglobin Concent 31.3 L, Red Cell Distribution Width 15.7 H, Calcium Level 8.2 L TRUNG NORIEGA MD May 23, 2019 11:38
[2019-05-23] MEDS ORDERED: BUPIVACAINE/EPIN 0.25% 30 ML VIAL As Ordered ONE (13:56)
[2019-05-23] MEDS ORDERED: TRANEXAMIC ACID 100 MG/ML 10ML VIAL As Ordered ONE (13:57)
[2019-05-23] MEDS ORDERED: EPINEPHrine INJ 1 MG/ML 1ML AMP As Ordered ONE ×2 (13:57→14:06)
[2019-05-23] MEDS ORDERED: ceFAZolin 1GM INJ (J0690 PER 500MG) As Ordered ONE (13:57)
[2019-05-23] MEDS ORDERED: LIDOCAINE 2% INJ 100 MG/5 ML SDV (FOR ANES.) As Ordered ONE (14:33)
[2019-05-23] MEDS ORDERED: PROPOFOL 200 MG/20 ML VIAL As Ordered ONE (14:33)
[2019-05-23] MEDS ORDERED: ONDANSETRON 4MG/2ML VIAL (J2405) As Ordered ONE ×2 (14:33→18:49)
[2019-05-23] MEDS ORDERED: ROCURONIUM BROMIDE 50 MG/5 ML VIAL As Ordered ONE (14:33)
[2019-05-23] MEDS ORDERED: dexameTHASONE 4 MG/ML 1ML VIAL (J1100) As Ordered ONE (14:33)
[2019-05-23] MEDS ORDERED: MIDAZOLAM INJ 2 MG/2 ML VIAL (J2250) As Ordered ONE (14:34)
[2019-05-23] MEDS ORDERED: fentaNYL 100 MCG/2 ML INJECTION (J3010) As Ordered ONE ×3 (14:34→18:58)
[2019-05-23] MEDS ORDERED: ceFAZolin 2 GM/D5W 50 ML IV BAG (J0690 PER 500MG) As Ordered ONE (15:26)
[2019-05-23] MEDS ORDERED: ACETAMINOPHEN 1000MG 100ML IV BTL (OFIRMEV) (J0131 PER 10MG) As Ordered ONE (16:59)
[2019-05-23] MEDS ORDERED: SUGAMMADEX SODIUM 500 MG/5 ML VIAL (BRIDION) As Ordered ONE (17:33)
[2019-05-23] MEDS ORDERED: ESMOLOL INJ 100MG/10ML VIAL As Ordered ONE (18:17)
[2019-05-23] MEDS ORDERED: LR 1,000 ML IV SCH (18:45)
[2019-05-23] MEDS ORDERED: ONDANSETRON 4MG/2ML VIAL (J2405) IV PRN (18:45)
[2019-05-23] MEDS: oxyCODONE 5MG TAB PO PRN ×2 (18:50→19:20)
[2019-05-23] MEDS ORDERED: oxyCODONE 5MG TAB As Ordered ONE ×2 (18:50→18:58)
[2019-05-23] MEDS: fentaNYL 100 MCG/2 ML INJECTION (J3010) IV PRN ×3 (19:00→19:10)
[2019-05-23 20:00] VITALS: BP 156/83
[2019-05-23 20:30] VITALS: BP 139/80
[2019-05-23 21:00] VITALS: BP 152/87
[2019-05-24] VITALS: BP 149/77
[2019-05-24 01:00] VITALS: BP 145/78
[2019-05-24] MEDS: PERCOCET 5MG/325MG TAB PO PRN (05:48)
[2019-05-24 06:00] VITALS: BP 150/78
[2019-05-24 06:24] LABS: HEMATOCRIT 30.1 % (36.0-47.0); HEMOGLOBIN 9.6 g/dl (12.0-15.5); MEAN CORPUSCULAR HEMOGLOBIN 29.8 pg (27.0-33.0); MEAN CORPUSCULAR HGB CONC 31.9 g/dl (32.0-36.5); MEAN CORPUSCULAR VOLUME 93.5 fl (80.0-96.0); PLATELET COUNT, AUTOMATED 269 10^3/uL (150-450); RED BLOOD COUNT 3.22 10^6/uL (4.00-5.40); WHITE BLOOD COUNT 6.5 10^3/uL (4.0-10.0)
[2019-05-24 06:37] LABS: INR 1.21
[2019-05-24 06:49] LABS: BLOOD UREA NITROGEN 8 MG/DL (7-18); GLUCOSE, FASTING 109 MG/DL (70-100)
[2019-05-24 06:50] LABS: CALCIUM LEVEL 8.5 MG/DL (8.8-10.2); CARBON DIOXIDE LEVEL 30 MEQ/L (21-32); CHLORIDE LEVEL 102 MEQ/L (98-107); GLOMERULAR FILTRATION RATE > 60.0 (>39); POTASSIUM SERUM 3.9 MEQ/L (3.5-5.1); SODIUM LEVEL 138 MEQ/L (136-145)
--- NOTE | 2019-05-24 07:43 | REP ---
LEFT HIP, TWO VIEWS: Two views of the left hip performed. Metallic prosthesis is noted in the proximal left femur. Osseous structures are intact and well aligned. Fusion caleb bridges the left sacroiliac joint. Electronically Signed by Feliciano Gardner MD 05/25/2019 12:20 A
[2019-05-24] MEDS ORDERED: XARE10TA PO (07:57)
[2019-05-24] MEDS ORDERED: PERC5TAB12 PO (07:57)
[2019-05-24] MEDS ORDERED: ONDANSETRON 4 MG TAB (S0181) PO PRN (08:00)
[2019-05-24] MEDS ORDERED: RIVAROXABAN 10 MG TAB (XARELTO) PO SCH (08:00)
[2019-05-24] MEDS ORDERED: PERCOCET 5MG/325MG TAB PO PRN (08:00)
[2019-05-24] MEDS: DOCUSATE SODIUM 100 MG CAP PO SCH (08:06)
[2019-05-24] MEDS ORDERED: MIRALAX *UNIT DOSE* 17GM PACKET PO SCH (09:00)
--- NOTE | 2019-05-24 10:54 | RO ---
DATE OF PROCEDURE: 05/23/2019 PREPROCEDURE DIAGNOSIS: Left displaced femoral neck fracture. POSTPROCEDURE DIAGNOSIS: Left displaced femoral neck fracture. PROCEDURE: Left hip hemiarthroplasty using a Size 5 cemented [place] stem with a -3 neck and a 43 mm ball. Prosthesis was made by [employer]. SURGEON: Dr. Robby Forte QUALITY CONTROL TECHNICIAN: Mr. Lopez Overholt ANESTHESIA: General endotracheal tube anesthetic. COMPLICATIONS: None. SPECIMEN: Femoral head. ESTIMATED BLOOD LOSS: 200 mL. INDICATIONS: 78-year-old female who fell yesterday and has been evaluated by the medical staff and felt to be optimized at present for surgery. Dr. Vogel, original orthopedic surgeon, was unavailable this afternoon and I was asked to perform the surgery. I discussed this with the patient and her son prior to the surgery and she understands the risk and would like to proceed. I have reviewed the x-rays and the chart. DESCRIPTION OF PROCEDURE: Antibiotics were given intravenously preoperatively. A successful general endotracheal tube anesthetic was established. She was then turned in the lateral decubitus position with the left hip uppermost on a baldwin bag, the down leg well padded, especially the peroneal nerve. The axillary roll was utilized. Dopplers were done of the dorsalis pedis on the left foot and it Dopplerable prior to the start of the procedure. The left hip area was then carefully prepped and draped in the usual sterile fashion. After an appropriate time out, a longitudinal incision was made for a direct lateral approach to the hip. Bovie cautery was used to coagulate crossing vessels down to the tensor fascia. The tensor fascia divided in line with the skin incision. We split the gluteus medius anterior 1/3 posterior 2/3 junctions, carefully dissecting down the minimus and capsule off the proximal femur as we externally rotated and placed the leg in a leg bag, identifying the fracture site. A starting reamer was placed in the piriformis fossa followed by the canal finding reamer and then the lateralizing reamer. Then a femoral neck osteotomy performed using the template about a fingers breath above the lesser trochanter and then we broached up to a size 5. We then removed the femoral head with a corkscrew device and sized for a 43 mm diameter ball. The broach was applied and the femoral head trial was applied with a -3 neck length and it fit snugly without too much excessive force to reduce the hip, thus I felt this would be the appropriate soft tissue tension and appropriate length of the femoral neck by palpating the soft tissues. The hip was very stable and I did a flexion and internal rotation and extension and external rotation maneuver. We then removed the broach and then prepared the canal for cementing by copiously pulsatile lavage irrigating and used the canal brush and then placed the cement restrictor after sizing up to a size #5. That was placed down the femoral shaft based off the prosthetic. Centralizer was applied to the stem and we copiously pulsatile lavage irrigated the femoral canal and continued to irrigate and used the canal brush and then used constant suction irrigation with a long Avendano tip sucker and applied epinephrine soaked sponges and then removed those and then placed dry sponges to keep the femoral canal dry. As this was happening, my web assistant mixed the cement on the back table. Then two sponges were placed in the acetabulum and then once the cement was at the appropriate consistency I removed all the sponges and replaced them down the femoral canal and then the prosthesis was placed down the femoral canal. Excess cement was removed. We held the stem in stable position until the cement hardened. As we were awaiting this, we copiously pulsatile lavage irrigated out the wound, including the acetabulum. The two sponges in the acetabulum were removed and then when the cement had hardened we placed the -3 neck and head combination on the trunnion and then reduced the hip. Again, she was very stable to flexion and internal rotation and external rotation and extension. There was no soft tissue telescoping. The hip was felt to be nice and stable. I then closed the gluteus minimus and medius back anatomically with interrupted #1 PDS sutures, irrigating between layers. Then closed the tensor fascia with interrupted #1 PDS sutures and a running Stratafix. Then the subdermal tissues were closed with interrupted #2-0 PDS suture and erasmo used on the skin covered by an Optifoam and dry sterile bulky dressing. She was then awakened from general endotracheal tube anesthesia after having tolerated the procedure well and then turned supine and then transferred to the recovery room in stable condition. There were no intraoperative complications.
[2019-05-24 11:02] VITALS: BP 154/79
--- NOTE | 2019-05-24 17:30 | DS.PDOC ---
Discharge Summary General Date of Admission May 22, 2019 at 15:02 Date of Discharge 05/24/19 Specialist/Consultants Involve Dr. Jackson of Orthopedic Surgery Discharge Summary PROCEDURES PERFORMED DURING STAY: Left intertrochanteric hip fracture s/p left hip hemiarthroplasty on 05/23 ADMITTING/DISCHARGE DIAGNOSES: Left intertrochanteric hip fracture s/p left hip hemiarthroplasty on 05/23 COMPLICATIONS/CHIEF COMPLAINT: Hip Fracture Left. HISTORY OF PRESENT ILLNESS: . 78yo female recently discharged on 04/26/19 after brief hospital stay for debility, presents with left hip fracture. Patient stated she had been using her cane, instead of walker, to go to bathroom when her back "gave out" and she fell. States no head injury but increased back and hip pain. Was brought to ED where she was determined to have a left intertrochanteric hip fracture. Ortho, Dr Vogel was consulted, and the patient was admitted to the hospitalist service. Left intertrochanteric hip fracture s/p left hip hemiarthroplasty on 05/23 Follow up with Orthopedic surgery as outpatient Back pain - acute on chronic with caleb placement XR of the thoracic and lumbar spine with no acute fractures of the spine noted Follow up with Ortho History of duodenal ulcer and hemorrhagic shock in March 2019 PPI for GI prophylaxis. RA Continue home regimen but hold any DMARDs or immunosuppressants History of Cardiac Cath in February of 2019 Follow up with PCP as outpatient DISCHARGE MEDICATIONS: Please see below. ALLERGIES: Please see below. PHYSICAL EXAMINATION ON DISCHARGE: VITAL SIGNS: Please see below. General Exam: Positive: Alert, Cooperative, No Acute Distress ENT Exam: Positive: Atraumatic, Mucous membr. moist/pink Neck Exam: Negative: JVD Chest Exam: Positive: Clear to auscultation, Normal air movement; Negative: Rales, Rhonchi, Wheezing, Diminished Heart Exam: Positive: Rate Normal, Normal S1, Normal S2 Abdomen Exam: Positive: Soft; Negative: Tenderness Extremity Exam: Left hip joint with limited range of motion secondary to recent surgical intervention. Extremity neurovascularly intact distally Negative: Clubbing, Cyanosis, Edema Psych Exam: Positive: Mental status NL, Mood NL, Oriented x 3 LABORATORY DATA: Please see below. IMAGING: LEFT HIP, AP PELVIS, THREE VIEWS: HISTORY: Trauma. There is a nondisplaced fracture of the neck of the left femur. There is no dislocation. There is moderate narrowing of the right and marked narrowing of the left hip joint spaces. The bony structure is osteopenic. The patient is status post ORIF of a fracture of the right femoral neck. Metal hardware is present. IMPRESSION: Nondisplaced fracture of the left femoral neck. CHEST, ONE VIEW: HISTORY: Preop. COMPARISON: 03/28/2019. The lungs are clear. The cardiac silhouette is enlarged. The pulmonary vasculature is normal in appearance. IMPRESSION: Cardiomegaly. THORACIC SPINE, FOUR VIEWS: HISTORY: Spinal fusion. There is no acute fracture or subluxation. There is loss of height of several mid and lower thoracic intervertebral discs. The patient is status post lumbar to sacroiliac posterior spinal fusion. The bony structure is osteopenic. IMPRESSION: Degenerative change as described above. LUMBAR SPINE, TWO VIEWS: HISTORY: Evaluate hardware. A lateral radiograph of the lumbar spine and AP radiograph of the pelvis were obtained. The patient is status-post lumbar to sacroiliac posterior spinal fusion. Metal hardware is present. There is no definite fracture or subluxation. The bony structure is very osteopenic. The patient is status-post ORIF of a right femoral neck fracture. Metal hardware is present. There is a nondisplaced fracture of the left femoral neck. There is narrowing of the hip joint spaces. IMPRESSION: 1. The patient is status-post lumbar to sacroiliac posterior spinal fusion. There is no definite fracture or subluxation. 2. There is a nondisplaced fracture of the left femoral neck. LEFT HIP, TWO VIEWS: Two views of the left hip performed. Metallic prosthesis is noted in the proximal left femur. Osseous structures are intact and well aligned. Fusion caleb bridges the left sacroiliac joint. PROGNOSIS: Fair ACTIVITY: As recommended by orthopedic surgery DIET: As tolerated DISCHARGE PLAN: DISPOSITION: 62 D/T Rehab Facility. DISCHARGE INSTRUCTIONS: Follow-up with primary care physician within 7 days. Follow-up with acute rehabilitation for further functional optimization. Return to the ER for any acute emergencies. DISCHARGE CONDITION: Stable. TIME SPENT ON DISCHARGE: Greater than 30 minutes. Vital Signs/I&Os Vital Signs Date Time Temp Pulse Resp B/P (MAP) Pulse Ox O2 Delivery O2 Flow Rate FiO2 05/24/19 11:33 18 05/24/19 11:02 97.3 78 154/79 (104) 97 2.0 05/23/19 19:20 95 05/22/19 17:45 Nasal Cannula I&O- Last 24 Hours up to 6 AM 05/24/19 06:00 Intake Total 1375 ml Output Total 525 ml Balance 850 ml Laboratory Data Labs 24H Laboratory Tests 2 05/24/19 05:29: Nucleated Red Blood Cells % (auto) 0.0, Prothrombin Time 15.0H, Prothromb Time International Ratio 1.21, Anion Gap 6L, Glomerular Filtration Rate > 60.0, Blood Urea Nitrogen 8, Creatinine 0.40L, Sodium Level 138, Potassium Level 3.9, Chloride Level 102, Carbon Dioxide Level 30, Calcium Level 8.5L CBC/BMP Laboratory Tests 05/24/19 05:29 Red Blood Count 3.22 L, Mean Corpuscular Volume 93.5, Mean Corpuscular Hemoglobin 29.8, Mean Corpuscular Hemoglobin Concent 31.9 L, Red Cell Distribution Width 15.1 H, Calcium Level 8.5 L Discharge Medications Scheduled Atorvastatin Calcium (Atorvastatin Calcium) 40 Mg Tablet, 40 MG PO QHS, (Reported) Escitalopram Oxalate (Escitalopram Oxalate) 10 Mg Tablet, 20 MG PO DAILY, (Reported) Furosemide (Furosemide) 40 Mg Tablet, 40 MG PO DAILY, (Reported) Losartan Potassium (Losartan Potassium) 50 Mg Tablet, 50 MG PO BID, (Reported) Metoprolol Tartrate (Metoprolol Tartrate) 50 Mg Tablet, 50 MG PO BID, (Reported) Multivitamin (Multivitamins) 1 Each Capsule, 1 CAP PO DAILY, (Reported) Pantoprazole Sodium (Pantoprazole Sodium) 40 Mg Tablet.dr, 40 MG PO DAILY, (Reported) Potassium Chloride (Potassium Chloride) 10 Meq Tab.er.prt, 10 MEQ PO QID, (Reported) Rivaroxaban (Xarelto) 10 Mg Tablet, 10 MG PO DAILY Spironolactone (Spironolactone) 25 Mg Tablet, 25 MG PO DAILY, (Reported) Sucralfate (Sucralfate) 1 Gm Tablet, 1 GM PO ACHS, (Reported) Scheduled PRN Acetaminophen (Tylenol Extra Strength) 500 Mg Tablet, 1,000 MG PO Q8H PRN for PAIN / FEVER, (Reported) Oxycodone HCl/Acetaminophen (Percocet 5-325 mg Tablet) 1 Each Tablet, 1 TAB PO Q4H PRN for PAIN Allergies Coded Allergies: amlodipine (Verified Allergy, Mild, rash, 02/22/19) duloxetine (Verified Allergy, Mild, Rash, 02/22/19) latex (Verified Allergy, Mild, rash, 03/21/19) Contrast Media (Verified Allergy, Unknown, rash, 07/11/17) nystatin (Verified Allergy, Unknown, Rash, 02/22/19) TRUNG NORIEGA MD May 24, 2019 17:30
== END 2019-05-24 14:00 | DRG 470 ==
LOC: EDBD 13:45 → M ED 13:45 → M ED INP 15:02 → M MS5PR 18:06
PROVIDERS: ADMIT Family Medicine; ATTEND Internal Medicine
PROC: 0SRS0J9 Replacement of Left Hip Joint, Femoral Surface with Synthetic Substitute, Cemented, Open Approach (ICD-10-PCS; principal; 2019-05-23 13:45)
DX: S72.042A Displaced fracture of base of neck of left femur, initial encounter for closed fracture (principal); W18.09XA Striking against other object with subsequent fall, initial encounter; Y92.009 Unspecified place in unspecified non-institutional (private) residence as the place of occurrence of the external cause; I10 Essential (primary) hypertension; M06.9 Rheumatoid arthritis, unspecified; I25.10 Atherosclerotic heart disease of native coronary artery without angina pectoris; R53.81 Other malaise; Z87.11 Personal history of peptic ulcer disease; Z91.041 Radiographic dye allergy status; Z91.040 Latex allergy status; Z88.8 Allergy status to other drugs, medicaments and biological substances; M81.0 Age-related osteoporosis without current pathological fracture; E87.6 Hypokalemia; F41.9 Anxiety disorder, unspecified; F32.9 Major depressive disorder, single episode, unspecified; I25.2 Old myocardial infarction; K21.9 Gastro-esophageal reflux disease without esophagitis; Z98.1 Arthrodesis status

== ENCOUNTER 2019-05-24 12:41 | Inpatient (IN) | payer MEDICARE, MEDICAID ==
[~2019-05-24] VITALS: Ht 157.5 cm; Wt 59.4 kg
[~2019-05-24 12:41] MED LIST changes: +POTA10TA17 PO
--- NOTE | 2019-05-24 12:58 | HPEPDOC ---
Certified Health Education Specialist Note DATE OF ADMISSION: 05/24/19 SOURCE OF ADMISSION INFORMATION: [facility] records and patient CHIEF COMPLAINT: left hip fracture HISTORY OF PRESENT ILLNESS: 78 year old female with a past medical history of hypertension, anxiety, depression, congestive heart failure, history of non-st elevated OH, spinal stenosis status post laminectomy, chronic back pain, rheumatoid arthritis, cad, bleeding duodenal ulcer with hemorrhagic shock status post oversewing March of 2019 with an ARU Rehabilitation stay who presented to [facility] ED on May 22 2019 reporting a fall. She denied any presyncopal symptoms prior to the fall. Hip Xray revealed, Nondisplaced fracture of the left femoral neck. She was evaluated by orthopedic who performed a left hip hemiarthroplasty without any postoperative complications. She had some postoperative anemia, was evaluated by therapy found to be well below her prior level of function and deemed medically appropriate for discharged a are you on May 24 2019 REVIEW OF SYSTEMS: The following is a completed review of systems and has been reviewed. Review of systems otherwise unremarkable. PAIN: Patient self reports no pain EYES: No recent vision changes EARS, NOSE, & THROAT: No throat pain, or dysphagia, or rhinorrhea CARDIOVASCULAR: Denies chest pain or palpitations PULMONARY: Denies shortness of breath GASTROINTESTINAL: Denies constipation/diarrhea GENITOURINARY: denies dysuria, retention, incontinence, or hematuria MUSCULOSKELETAL: low back pain with left hip fracture NEUROLOGICAL:no tremor or seizure-like activity HEMATOLOGICAL: +anemia SKIN: left hip incision PSYCHIATRIC: Unremarkable All other review of systems found to be negative. PAST MEDICAL HISTORY: as per HPI PAST SURGICAL HISTORY: AAA repair, duodenal oversewing, lumbar Fusion, left knee replacement, right hip fracture status post repair, cardiac catheterization ALLERGIES: Please see below. MEDICATIONS: Please see below. SOCIAL HISTORY: Lives with son, denies smoking, ETOH, or drugs DIET: low salt PHYSICAL EXAMINATION: VITAL SIGNS: Please see below. GENERAL: Pleasant and cooperative. No acute distress. HEENT: PERRL. Extraocular movements intact. Clear conjunctiva CARDIOVASCULAR: Regular rate and rhythm. No murmurs, rubs, or gallops LUNGS: Clear to auscultation bilaterally. No wheezes. No rhonchi ABDOMEN: Soft, nontender, nondistended. Positive bowel sounds. Normal active bowel sounds NEUROLOGICAL: Alert and oriented times three. Cranial nerves II through XII grossly intact. Sensation grossly intact including 1st web space of left foot EXTREMITIES: 5\5 strength bilateral upper extremities. 5\5 strength right lower extremity. >3/5 strength in left lower extremity (limited by hip surgery) 5/5 ankle DF and EHL SKIN: left hip incision c/d/i with minimal drainage LABORATORY DATA: Please see below. IMAGING:Imaging documentation personally reviewed by record FUNCTIONAL STATUS: Premorbid: [Independent with all activities of daily life as well as mobility]. On Admission: Minimum assistance for functional transfers able to ambulate one foot with minimal assistance, and requiring assistance with dressing toileting bathing GOALS: modified independent for ambulation Community distances, stair negotiation, balance training, modified independent for bathing dressing toileting grooming, medical optimization, caregiver training ASSESSMENT: 78-year-old F with past medical history of CAD s/p NSTEMI who presents status post fall with left hip fracture PLAN: Rehab: PT- strengthen / improve ROM/ stretch lower extremities maintaining hip precautions OT-strengthen / improve ROM/ stretch upper extremities maintaining hip precautions, teach the use of adaptive equipment, shoulder stabilization exercises 2. Neuro- avoid deliriogenic medications 3. Cardiac- recent nstemi in the setting of CHF, cad, hypertension- medicine consult it to assistant project engineer management- c/u diuretics, beta-stephanie -Currently on prophylactic Xarelto for DVT prevention, not on antiplatelet therapy due to recent GI bleed -c/u statin for HLD 4. respiratory- encourage incentive spirometry monitor for infection 5. Ortho: status post left hip fracture with hemiarthroplasty, maintain hip precautions- will consult Orthopedics 6. : monitor PVRs 7. DVT prophylaxis- Xarelto and Teds 8. GI prophylaxis- protonix and sucralfate, recent GI bleed 9. Pain- Tylenol, oxycodone PRN 10. Dispo- to be determined POST ADMISSION PHYSICIAN EVALUATION: Medical and functional status: Description of medical status, medical assessment: As above. Rehabilitation diagnosis and current and prior cold morbid medical conditions as above. Risk of complications and plans to mitigate them as above. Description of functional status current status is as above. Prior status as above. Status compared to preadmission: There are no clinically significant differences between the patient's current status and the information described on the pre admission screening document. Treatment plan anticipated: Treatment plan is as described above. Required disciplines including physical therapy, occupational therapy, others as noted above. Intensity of services: 3 hours a day, 6 days a week. Special considerations: There are no specific special or safety considerations that would likely preclude immediate implementation of an intensive rehabilitation program or subsequently influence the plan of care. ATTESTATION: Considering all the information above, it is my best judgment that this patient requires intensive rehabilitation therapy as described above and an inpatient hospital environment due to the complexity of nursing, medical, and rehabilitation needs required by the patient. Furthermore, this patient can reasonably be expected to participate in an benefit from an inpatient rehabilitation stay with an interdisciplinary team approach to the delivery of rehabilitation care under the direction and supervision of rehabilitation physician PROGNOSIS: good ESTIMATED LENGTH OF STAY 12-14days. PROJECTED DISCHARGE DESTINATION: Home with family support and any durable medical equipment required to increase functional safety and mobility TIME SPENT COUNSELING AND COORDINATING INITIAL CARE: Greater than 70 minutes. Vital Signs Vital Signs Date Time Temp Pulse Resp B/P (MAP) Pulse Ox O2 Delivery O2 Flow Rate FiO2 05/24/19 15:10 97.9 98 12 189/81 (117) 87 05/24/19 20:00 2.0 Home Medications Scheduled Atorvastatin Calcium (Atorvastatin Calcium) 40 Mg Tablet, 40 MG PO QHS, ( Reported) Escitalopram Oxalate (Escitalopram Oxalate) 10 Mg Tablet, 20 MG PO DAILY, (Reported) Furosemide (Furosemide) 40 Mg Tablet, 40 MG PO DAILY, (Reported) Losartan Potassium (Losartan Potassium) 50 Mg Tablet, 50 MG PO BID, (Reported) Metoprolol Tartrate (Metoprolol Tartrate) 50 Mg Tablet, 50 MG PO BID, (Reported) Multivitamin (Multivitamins) 1 Each Capsule, 1 CAP PO DAILY, (Reported) Pantoprazole Sodium (Pantoprazole Sodium) 40 Mg Tablet.dr, 40 MG PO DAILY, (Reported) Potassium Chloride (Potassium Chloride) 10 Meq Tab.er.prt, 10 MEQ PO QID, (Reported) Rivaroxaban (Xarelto) 10 Mg Tablet, 10 MG PO DAILY Spironolactone (Spironolactone) 25 Mg Tablet, 25 MG PO DAILY, (Reported) Sucralfate (Sucralfate) 1 Gm Tablet, 1 GM PO ACHS, (Reported) Scheduled PRN Acetaminophen (Tylenol Extra Strength) 500 Mg Tablet, 1,000 MG PO Q8H PRN for PAIN / FEVER, (Reported) Oxycodone HCl/Acetaminophen (Percocet 5-325 mg Tablet) 1 Each Tablet, 1 TAB PO Q4H PRN for PAIN Allergies Coded Allergies: amlodipine (Verified Allergy, Mild, rash, 02/22/19) duloxetine (Verified Allergy, Mild, Rash, 02/22/19) latex (Verified Allergy, Mild, rash, 03/21/19) Contrast Media (Verified Allergy, Unknown, rash, 07/11/17) nystatin (Verified Allergy, Unknown, Rash, 02/22/19) A-FIB/CHADSVASC A-FIB History Current/History of A-Fib/PAF?: No RADHA CARTER MD May 24, 2019 12:58
[2019-05-24] MEDS ORDERED: ONDANSETRON 4 MG TAB (S0181) PO PRN (14:45)
[2019-05-24 15:10] VITALS: BP 189/81
[2019-05-24 15:12] VITALS: BP 162/81
[2019-05-24] MEDS ORDERED: IPRATROPIUM 0.5MG/ALBUTEROL 2.5MG INH SOL UD 3ML (DUONEB)(J7620) NEB PRN (15:30)
[2019-05-24] MEDS: ACETAMINOPHEN 500 MG TAB PO SCH ×2 (16:00→21:24)
[2019-05-24] MEDS: POTASSIUM CHLORIDE 10 MEQ SR TABLET PO SCH ×2 (16:00→21:23)
[2019-05-24] MEDS: PANTOPRAZOLE 40MG TAB (PROTONIX) PO SCH (16:01)
[2019-05-24] MEDS: ESCITALOPRAM OXALATE 10 MG TAB (LEXAPRO) PO SCH (16:01)
[2019-05-24] MEDS: oxyCODONE 5MG TAB PO PRN ×2 (16:04→21:23)
[2019-05-24] MEDS: SUCRALFATE SUSP 1GM/10ML UD PO SCH ×2 (17:17→21:22)
[2019-05-24 21:00] VITALS: BP 160/64
[2019-05-24] MEDS: ATORVASTATIN 20 MG TAB PO SCH (21:22)
[2019-05-24] MEDS: DOCUSATE SODIUM 100 MG CAP PO SCH (21:23)
[2019-05-24] MEDS: LOSARTAN 50 MG TAB PO SCH (21:23)
[2019-05-24] MEDS: METOPROLOL TART 25 MG TABLET PO SCH (21:24)
[2019-05-24] MEDS: SENNA 8.6 MG TAB (SENOKOT) PO SCH (21:24)
[2019-05-25] MEDS: oxyCODONE 5MG TAB PO PRN ×5 (03:29→21:34)
[2019-05-25 06:00] VITALS: BP 152/67
[2019-05-25] MEDS: SUCRALFATE SUSP 1GM/10ML UD PO SCH ×4 (07:59→21:32)
[2019-05-25] MEDS: ACETAMINOPHEN 500 MG TAB PO SCH ×3 (08:00→21:33)
[2019-05-25] MEDS: DOCUSATE SODIUM 100 MG CAP PO SCH ×2 (08:01→21:35)
[2019-05-25] MEDS: POTASSIUM CHLORIDE 10 MEQ SR TABLET PO SCH ×4 (08:01→21:35)
[2019-05-25] MEDS: SPIRONOLACTONE 25 MG TAB PO SCH (08:01)
[2019-05-25] MEDS: PANTOPRAZOLE 40MG TAB (PROTONIX) PO SCH (08:02)
[2019-05-25] MEDS: METOPROLOL TART 25 MG TABLET PO SCH ×2 (08:02→21:33)
[2019-05-25] MEDS: ESCITALOPRAM OXALATE 10 MG TAB (LEXAPRO) PO SCH (08:02)
[2019-05-25] MEDS: FUROSEMIDE 40 MG TAB PO SCH (08:02)
[2019-05-25] MEDS: RIVAROXABAN 10 MG TAB (XARELTO) PO SCH (08:02)
[2019-05-25] MEDS: LOSARTAN 50 MG TAB PO SCH ×2 (08:02→21:32)
--- NOTE | 2019-05-25 11:12 | IPNPDOC ---
PM&R Progress Note DATE OF SERVICE: May 25, 2019 Human Resources Team Member Progress Note Subjective: Patient reports she is eager to begin therapy and that her pain is bearable. REVIEW OF SYSTEMS: The following is a completed review of systems and has been reviewed. Review of systems otherwise unremarkable. PAIN: Patient self reports no pain EYES: No recent vision changes EARS, NOSE, & THROAT: No throat pain, or dysphagia, or rhinorrhea CARDIOVASCULAR: Denies chest pain or palpitations PULMONARY: Denies shortness of breath GASTROINTESTINAL: Denies constipation/diarrhea GENITOURINARY: denies dysuria, retention, incontinence, or hematuria MUSCULOSKELETAL: low back pain with left hip fracture NEUROLOGICAL:no tremor or seizure-like activity HEMATOLOGICAL: +anemia SKIN: left hip incision PSYCHIATRIC: Unremarkable All other review of systems found to be negative. PHYSICAL EXAMINATION: VITAL SIGNS: Please see below. GENERAL: Pleasant and cooperative. No acute distress. HEENT: PERRL. Extraocular movements intact. Clear conjunctiva CARDIOVASCULAR: Regular rate and rhythm. No murmurs, rubs, or gallops LUNGS: Clear to auscultation bilaterally. No wheezes. No rhonchi ABDOMEN: Soft, nontender, nondistended. Positive bowel sounds. Normal active bowel sounds NEUROLOGICAL: Alert and oriented times three. Cranial nerves II through XII grossly intact. Sensation grossly intact including 1st web space of left foot EXTREMITIES: 5\5 strength bilateral upper extremities. 5\5 strength right lower extremity. >3/5 strength in left lower extremity (limited by hip surgery) 5/5 ankle DF and EHL SKIN: left hip incision c/d/i with minimal drainage ASSESSMENT: 78-year-old F with past medical history of CAD s/p NSTEMI who presents status post fall with left hip fracture PLAN: Rehab: PT- strengthen / improve ROM/ stretch lower extremities maintaining hip precautions OT-strengthen / improve ROM/ stretch upper extremities maintaining hip precautions, teach the use of adaptive equipment, shoulder stabilization exercises 2. Neuro- avoid deliriogenic medications 3. Cardiac- recent nstemi in the setting of CHF, cad, hypertension- medicine consult it to medical office receptionist assistant management- c/u diuretics, beta-stephanie -Currently on prophylactic Xarelto for DVT prevention, not on antiplatelet therapy due to recent GI bleed -c/u statin for HLD 4. respiratory- encourage incentive spirometry monitor for infection - wean from 5. Ortho: status post left hip fracture with hemiarthroplasty, maintain hip precautions- will consult Orthopedics 6. : monitor PVRs 7. DVT prophylaxis- Xarelto and Teds 8. GI prophylaxis- protonix and sucralfate, recent GI bleed 9. Pain- Tylenol, oxycodone PRN 10. Dispo- to be determined Allergies Coded Allergies: amlodipine (Verified Allergy, Mild, rash, 02/22/19) duloxetine (Verified Allergy, Mild, Rash, 02/22/19) latex (Verified Allergy, Mild, rash, 03/21/19) Contrast Media (Verified Allergy, Unknown, rash, 07/11/17) nystatin (Verified Allergy, Unknown, Rash, 02/22/19) Vital Signs Vital Signs Date Time Temp Pulse Resp B/P (MAP) Pulse Ox O2 Delivery O2 Flow Rate FiO2 05/25/19 10:28 2.0 05/25/19 08:33 18 05/25/19 08:02 77 152/67 05/25/19 06:00 96.9 97 Laboratory Data CBC/BMP Labs 24H Laboratory Tests 2 05/25/19 10:45: Current Medications Current Medications Current Medications Medications (Trade) Dose Ordered Sig/Leanna Route PRN Reason Start Time Stop Time Status Last Admin Dose Admin Acetaminophen (Tylenol Tab) 1,000 mg TID PO 05/24/19 16:00 05/25/19 08:00 Albuterol/ Ipratropium (Duoneb (Ipr 0.5mg/Alb 2.5mg)) 3 ml Q4HP PRN NEB SOB/WHEEZING 05/24/19 15:30 Atorvastatin Calcium (Lipitor) 40 mg QHS PO 05/24/19 21:00 05/24/19 21:22 Docusate Sodium (Colace) 100 mg BID PO 05/24/19 21:00 05/25/19 08:01 Escitalopram Oxalate (Lexapro) 20 mg DAILY PO 05/24/19 09:00 05/25/19 08:02 Furosemide (Lasix) 40 mg DAILY PO 05/25/19 09:00 05/25/19 08:02 Losartan Potassium (Cozaar) 50 mg BID PO 05/24/19 21:00 05/25/19 08:02 Magnesium Hydroxide (Milk Of Magnesia) 30 ml DAILYPRN PRN PO CONSTIPATION 05/24/19 14:45 Metoprolol Tartrate (Lopressor) 25 mg BID PO 05/24/19 21:00 05/25/19 08:02 Ondansetron HCl (Zofran) 4 mg Q6HP PRN PO NAUSEA 05/24/19 14:45 Oxycodone HCl (Roxicodone, Oxyir) 5 mg Q4HP PRN PO PAIN 05/24/19 14:45 05/25/19 08:03 Pantoprazole Sodium (Protonix) 40 mg DAILY PO 05/24/19 09:00 05/25/19 08:02 Potassium Chloride (Micro-K Extencaps) 10 meq QID PO 05/24/19 17:00 05/25/19 08:01 Rivaroxaban (Xarelto) 10 mg DAILY@0800 PO 05/25/19 08:00 05/25/19 08:02 Senna (Senokot) 1 tab QHS PO 05/24/19 21:00 05/24/19 21:24 Spironolactone (Aldactone) 25 mg QAM PO 05/25/19 09:00 05/25/19 08:01 Sucralfate (Carafate Suspension) 1 gm ACHS PO 05/24/19 17:30 05/25/19 07:59 RADHA CARTER MD May 25, 2019 11:12
[2019-05-25 11:31] LABS: BLOOD UREA NITROGEN 15 MG/DL (7-18); CALCIUM LEVEL 8.3 MG/DL (8.8-10.2); CARBON DIOXIDE LEVEL 25 MEQ/L (21-32); CHLORIDE LEVEL 103 MEQ/L (98-107); CREATININE FOR GFR 0.46 MG/DL (0.55-1.30); GLOMERULAR FILTRATION RATE > 60.0 (>39); GLUCOSE, FASTING 97 MG/DL (70-100); POTASSIUM SERUM 4.8 MEQ/L (3.5-5.1); SODIUM LEVEL 134 MEQ/L (136-145)
--- NOTE | 2019-05-25 13:16 | IPNPDOC ---
Text Note Date of Service The patient was seen on 05/25/19. NOTE John Toure is a 78-year-old female, admitted on account of left hip fracture . Subjective: Complaint of right thumb pain from fall. Up to chair bedside. Denies chest pain, denies shortness of breath. Objective: GENERAL: NAD SKIN : Warm, dry intact HEENT: Atraumatic, normocephalic, PERRL, moist mucous membrane CARDIOVASCULAR: Regular rate and rhythm, S1S2, no JVD, no edema RESP: CTAB, no accessory muscle use noted ABDOMEN: BS+ non distended non tender MS: right thumb tenderness and joint deformity NEURO: Alert and oriented x 3, CN2-12 grossly intact PSYCH: no anxiety or agitation, appropriate mood and affect. Assessment and plan Left hip fracture -S/P left hip hemiarthroplasty 05/23/19. -Continued in rehabilitation unit for mobilization and strengthening -Management by primary team Right thumb pain. -Right thumb x-ray, follow findings Hypertension -Continue Lasix, metoprolol, losartan CHF -currently euvolemic -continue spironolactone, lasix -electrolyte monitoring -fluid restriction, daily weights DVT prophylaxis -xarelto VS,Fishbone, I+O VS, Fishbone, I+O Laboratory Tests 05/25/19 10:45 Calcium Level 8.3 L Vital Signs Date Time Temp Pulse Resp B/P (MAP) Pulse Ox O2 Delivery O2 Flow Rate FiO2 05/25/19 12:21 18 05/25/19 10:28 2.0 05/25/19 08:02 77 152/67 05/25/19 06:00 96.9 97 I&O- Last 24 Hours up to 6 AM 05/25/19 06:00 Intake Total 280 ml Output Total 250 ml Balance 30 ml ARELI VALIENTEP May 25, 2019 13:16
[2019-05-25 14:00] VITALS: BP 132/60
--- NOTE | 2019-05-25 17:29 | REP ---
RIGHT THUMB, THREE VIEWS: HISTORY: Fracture. COMPARISON: 07/11/2017 There is no acute fracture or dislocation. There is narrowing of the carpal metacarpal, metacarpal phalangeal and interphalangeal joint spaces. Osteophytes are present at the metacarpal phalangeal and interphalangeal joint spaces. The bony structure is osteopenic. IMPRESSION: Degenerative changes as described above. Electronically Signed by Anoop Sánchez MD 05/25/2019 05:34 P
[2019-05-25 21:00] VITALS: BP 137/64
[2019-05-25] MEDS: ATORVASTATIN 20 MG TAB PO SCH (21:33)
[2019-05-25] MEDS: SENNA 8.6 MG TAB (SENOKOT) PO SCH (21:35)
[2019-05-26] MEDS: oxyCODONE 5MG TAB PO PRN ×5 (03:59→20:58)
[2019-05-26 06:00] VITALS: BP 151/68
[2019-05-26 07:16] LABS: BASO % 0.7 % (0.0-1.0); HEMATOCRIT 28.1 % (36.0-47.0); HEMOGLOBIN 8.7 g/dl (12.0-15.5); LYMPH # 1.1 10^3/uL (1.5-4.5); LYMPH % 18.5 % (24.0-44.0); MEAN CORPUSCULAR HEMOGLOBIN 28.5 pg (27.0-33.0); MEAN CORPUSCULAR VOLUME 92.1 fl (80.0-96.0); MONO # 1.2 10^3/uL (0.0-0.8); MONO % 20.2 % (0.0-5.0); NEUTROPHILS # 3.7 10^3/uL (1.8-7.7); NEUTROPHILS % 60.3 % (36.0-66.0); PLATELET COUNT, AUTOMATED 275 10^3/uL (150-450); RED BLOOD COUNT 3.05 10^6/uL (4.00-5.40); WHITE BLOOD COUNT 6.1 10^3/uL (4.0-10.0)
[2019-05-26 07:41] LABS: ALBUMIN 2.3 GM/DL (3.2-5.2); ALT/SGPT 9 U/L (12-78); BILIRUBIN,TOTAL 0.4 MG/DL (0.2-1.0); BLOOD UREA NITROGEN 14 MG/DL (7-18); CALCIUM LEVEL 8.1 MG/DL (8.8-10.2); CARBON DIOXIDE LEVEL 31 MEQ/L (21-32); CHLORIDE LEVEL 103 MEQ/L (98-107); CREATININE FOR GFR 0.42 MG/DL (0.55-1.30); GLOMERULAR FILTRATION RATE > 60.0 (>39); GLUCOSE, FASTING 78 MG/DL (70-100); MAGNESIUM LEVEL 1.9 MG/DL (1.8-2.4); POTASSIUM SERUM 4.4 MEQ/L (3.5-5.1); SODIUM LEVEL 138 MEQ/L (136-145); TOTAL PROTEIN 5.5 GM/DL (6.4-8.2)
[2019-05-26] MEDS: FUROSEMIDE 40 MG TAB PO SCH (08:02)
[2019-05-26] MEDS: SUCRALFATE SUSP 1GM/10ML UD PO SCH ×4 (08:02→20:56)
[2019-05-26] MEDS: SPIRONOLACTONE 25 MG TAB PO SCH (08:02)
[2019-05-26] MEDS: RIVAROXABAN 10 MG TAB (XARELTO) PO SCH (08:02)
[2019-05-26] MEDS: POTASSIUM CHLORIDE 10 MEQ SR TABLET PO SCH ×4 (08:02→20:59)
[2019-05-26] MEDS: DOCUSATE SODIUM 100 MG CAP PO SCH ×2 (08:02→20:58)
[2019-05-26] MEDS: PANTOPRAZOLE 40MG TAB (PROTONIX) PO SCH (08:02)
[2019-05-26] MEDS: ACETAMINOPHEN 500 MG TAB PO SCH ×3 (08:04→20:56)
[2019-05-26] MEDS: METOPROLOL TART 25 MG TABLET PO SCH ×2 (08:04→20:58)
[2019-05-26] MEDS: ESCITALOPRAM OXALATE 10 MG TAB (LEXAPRO) PO SCH (08:05)
[2019-05-26] MEDS: LOSARTAN 50 MG TAB PO SCH ×2 (08:05→20:59)
--- NOTE | 2019-05-26 11:42 | IPNPDOC ---
Text Note Date of Service The patient was seen on 05/26/19. NOTE John Toure is a 78-year-old female, admitted to inpatient rehabilitation [facility] on account of left hip fracture. Subjective: Visitors at bedside. Denies chest pain, denies shortness of breath. Objective: GENERAL: NAD SKIN : Warm, dry intact HEENT: Atraumatic, normocephalic, PERRL, moist mucous membrane CARDIOVASCULAR: Regular rate and rhythm, S1S2, no JVD, no edema RESP: CTAB, no accessory muscle use noted ABDOMEN: BS+ non distended non tender MS: right thumb tenderness and joint deformity NEURO: Alert and oriented x 3, CN2-12 grossly intact PSYCH: no anxiety or agitation, appropriate mood and affect. Assessment and plan Left hip fracture -S/P left hip hemiarthroplasty 05/23/19. -Continued in rehabilitation unit for mobilization and strengthening -Management by primary team Right thumb pain. -Right thumb x-ray, negative for acute pathology Hypertension -Continue Lasix, metoprolol, losartan CHF -currently euvolemic -continue spironolactone, lasix -electrolyte monitoring -fluid restriction, daily weights DVT prophylaxis -xarelto VS,Fishbone, I+O VS, Fishbone, I+O Laboratory Tests 05/26/19 07:01 Red Blood Count 3.05 L, Mean Corpuscular Volume 92.1, Mean Corpuscular Hemoglobin 28.5, Mean Corpuscular Hemoglobin Concent 31.0 L, Red Cell Distribution Width 15.5 H, Neutrophils (%) (Auto) 60.3, Lymphocytes (%) (Auto) 18.5 L, Monocytes (%) (Auto) 20.2 H, Eosinophils (%) (Auto) 0.0, Basophils (%) (Auto) 0.7, Neutrophils # (Auto) 3.7, Lymphocytes # (Auto) 1.1 L, Monocytes # (Auto) 1.2 H, Eosinophils # (Auto) 0.0, Basophils # (Auto) 0.0, Calcium Level 8.1 L, Aspartate Amino Transf (AST/SGOT) 15, Alanine Aminotransferase (ALT/SGPT) 9 L, Alkaline Phosphatase 96, Total Bilirubin 0.4, Total Protein 5.5 L, Albumin 2.3 L Vital Signs Date Time Temp Pulse Resp B/P (MAP) Pulse Ox O2 Delivery O2 Flow Rate FiO2 05/26/19 09:00 1.5 05/26/19 08:33 18 05/26/19 08:05 144/65 05/26/19 08:04 87 05/26/19 06:00 96.6 96 I&O- Last 24 Hours up to 6 AM 05/26/19 05:59 Intake Total 600 ml Output Total 300 ml Balance 300 ml ARELI VALIENTE FILM BOOKER May 26, 2019 11:42
[2019-05-26 14:00] VITALS: BP 157/69
[2019-05-26 20:00] VITALS: BP 142/74
[2019-05-26] MEDS: ATORVASTATIN 20 MG TAB PO SCH (20:56)
[2019-05-26] MEDS: MOM 30ML SUSPENSION UDC PO PRN (20:56)
[2019-05-26] MEDS: SENNA 8.6 MG TAB (SENOKOT) PO SCH (20:58)
[2019-05-27] MEDS: oxyCODONE 5MG TAB PO PRN ×5 (01:53→21:37)
[2019-05-27 05:50] VITALS: BP 150/75
[2019-05-27] MEDS: FUROSEMIDE 40 MG TAB PO SCH (08:24)
[2019-05-27] MEDS: ESCITALOPRAM OXALATE 10 MG TAB (LEXAPRO) PO SCH (08:24)
[2019-05-27] MEDS: SUCRALFATE SUSP 1GM/10ML UD PO SCH ×4 (08:24→21:38)
[2019-05-27] MEDS: SPIRONOLACTONE 25 MG TAB PO SCH (08:24)
[2019-05-27] MEDS: LOSARTAN 50 MG TAB PO SCH ×2 (08:24→21:36)
[2019-05-27] MEDS: RIVAROXABAN 10 MG TAB (XARELTO) PO SCH (08:24)
[2019-05-27] MEDS: PANTOPRAZOLE 40MG TAB (PROTONIX) PO SCH (08:24)
[2019-05-27] MEDS: POTASSIUM CHLORIDE 10 MEQ SR TABLET PO SCH ×4 (08:24→21:35)
[2019-05-27] MEDS: ACETAMINOPHEN 500 MG TAB PO SCH ×3 (08:24→21:37)
[2019-05-27] MEDS: DOCUSATE SODIUM 100 MG CAP PO SCH ×2 (08:24→21:35)
[2019-05-27] MEDS: METOPROLOL TART 25 MG TABLET PO SCH ×2 (08:25→21:38)
[2019-05-27 14:00] VITALS: BP 132/62
[2019-05-27 20:00] VITALS: BP 144/76
--- NOTE | 2019-05-27 20:17 | IPN ---
DATE: 05/27/2019 This is a 78-year-old female on the rehabilitation unit, status post left hip hemiarthroplasty 05/23/2019. She is doing well. She has no complaints or problems today, states she feels she is doing good. Pain is controlled. She is participating with physical therapy (PT). Vital signs have remained stable. She had some discomfort in her right thumb. X-ray was negative for acute pathology. She has no complaints of pain in it today. OBJECTIVE: Blood pressure 132/62, pulse 70, respirations 18, temperature 97, oxygen (O2) saturation 94% on one liter. The patient is alert and oriented times three. Pupils equal and reactive to light. Extraocular movements intact. Cornea and sclerae clear. Conjunctivae is normal. No facial asymmetry. Pharynx: Tongue and gums pink and moist. Tongue is midline. Neck is supple without lymphadenopathy. No thyromegaly. No goiter. Carotids 2+ without bruits. Jugular venous pressure is below clavicle. Chest is clear to auscultation without wheeze or retractions. Heart is regular. Abdomen is benign. Bowel sounds positive. Genital/Rectal: Not done. Extremities: No cyanosis, clubbing or edema. Peripheral pulses equal and palpable bilaterally. IMPRESSION AND PLAN: Left hip fracture, status post left hip hemiarthroplasty 05/23/2019. Continue rehabilitation for mobilization and strengthening. Right thumb pain. X-ray negative. Hypertension. Clinically stable. Continue Lasix, metoprolol, losartan. Congestive heart failure (CHF). Currently euvolemic. Continue spironolactone and Lasix. Electrolyte monitoring, fluid restriction and daily weights. The patient has no complaints of shortness of breath. Deep vein thrombosis (DVT) prophylaxis. On Xarelto.
[2019-05-27] MEDS: ATORVASTATIN 20 MG TAB PO SCH (21:35)
[2019-05-27] MEDS: SENNA 8.6 MG TAB (SENOKOT) PO SCH (21:38)
[2019-05-28] MEDS: oxyCODONE 5MG TAB PO PRN ×5 (03:49→20:39)
[2019-05-28 06:00] VITALS: BP 146/73
[2019-05-28] MEDS: SUCRALFATE SUSP 1GM/10ML UD PO SCH ×4 (08:26→20:38)
[2019-05-28] MEDS: ESCITALOPRAM OXALATE 10 MG TAB (LEXAPRO) PO SCH (08:27)
[2019-05-28] MEDS: SPIRONOLACTONE 25 MG TAB PO SCH (08:27)
[2019-05-28] MEDS: POTASSIUM CHLORIDE 10 MEQ SR TABLET PO SCH ×4 (08:27→20:40)
[2019-05-28] MEDS: PANTOPRAZOLE 40MG TAB (PROTONIX) PO SCH (08:27)
[2019-05-28] MEDS: LOSARTAN 50 MG TAB PO SCH ×2 (08:27→20:40)
[2019-05-28] MEDS: DOCUSATE SODIUM 100 MG CAP PO SCH ×2 (08:27→20:38)
[2019-05-28] MEDS: FUROSEMIDE 40 MG TAB PO SCH (08:27)
[2019-05-28] MEDS: RIVAROXABAN 10 MG TAB (XARELTO) PO SCH (08:27)
[2019-05-28] MEDS: METOPROLOL TART 25 MG TABLET PO SCH ×2 (08:28→20:39)
[2019-05-28] MEDS: ACETAMINOPHEN 500 MG TAB PO SCH ×3 (08:28→20:42)
[2019-05-28 14:00] VITALS: BP 134/61
[2019-05-28 20:00] VITALS: BP 148/70
[2019-05-28] MEDS: SENNA 8.6 MG TAB (SENOKOT) PO SCH (20:39)
[2019-05-28] MEDS: ATORVASTATIN 20 MG TAB PO SCH (20:40)
[2019-05-29] MEDS: oxyCODONE 5MG TAB PO PRN ×2 (03:06→08:19)
[2019-05-29 06:00] VITALS: BP 148/86
[2019-05-29] MEDS: SUCRALFATE SUSP 1GM/10ML UD PO SCH ×4 (08:18→21:39)
[2019-05-29] MEDS: PANTOPRAZOLE 40MG TAB (PROTONIX) PO SCH (08:18)
[2019-05-29] MEDS: METOPROLOL TART 25 MG TABLET PO SCH ×2 (08:19→21:40)
[2019-05-29] MEDS: SPIRONOLACTONE 25 MG TAB PO SCH (08:20)
[2019-05-29] MEDS: FUROSEMIDE 40 MG TAB PO SCH (08:20)
[2019-05-29] MEDS: ESCITALOPRAM OXALATE 10 MG TAB (LEXAPRO) PO SCH (08:20)
[2019-05-29] MEDS: POTASSIUM CHLORIDE 10 MEQ SR TABLET PO SCH ×4 (08:20→21:40)
[2019-05-29] MEDS: ACETAMINOPHEN 500 MG TAB PO SCH (08:20)
[2019-05-29] MEDS: LOSARTAN 50 MG TAB PO SCH ×2 (08:21→21:40)
[2019-05-29] MEDS: RIVAROXABAN 10 MG TAB (XARELTO) PO SCH (08:21)
[2019-05-29] MEDS: DOCUSATE SODIUM 100 MG CAP PO SCH ×2 (09:31→21:39)
--- NOTE | 2019-05-29 11:01 | IPNPDOC ---
Text Note Date of Service The patient was seen on 05/29/19. NOTE John Toure is a 78-year-old female, admitted to inpatient rehabilitation unit on account of left hip fracture. Subjective: States right thumb pain is much improved. Complaints of significant left hip pain, especially with therapy. Rates and 9 out of 10. Continued on supplemental oxygen therapy due to shortness of breath and oxygen desaturation with very minimal activity Objective: GENERAL: NAD SKIN : Warm, dry intact HEENT: Atraumatic, normocephalic, PERRL, moist mucous membrane CARDIOVASCULAR: Regular rate and rhythm, S1S2, no JVD, no edema RESP: CTAB, no accessory muscle use noted ABDOMEN: BS+ non distended non tender MS: right thumb tenderness and joint deformity NEURO: Alert and oriented x 3, CN2-12 grossly intact PSYCH: no anxiety or agitation, appropriate mood and affect. Assessment and plan Left hip fracture -S/P left hip hemiarthroplasty 05/23/19. -Continued in rehabilitation unit for mobilization and strengthening -Management by primary team -Roxicodone discontinued and substituted with Vicodin every 8 hours at 7.5mg as needed COPD -Now requiring supplemental oxygen -Saturations dropping to the low 80s without oxygen -Spiriva daily with albuterol as needed -Monitor response therapy -will need O/P PFT studies Right thumb pain. -Right thumb x-ray -Pain management as needed Hypertension -Continue Lasix, metoprolol, losartan CHF -Euvolemic, continue Lasix, fluid restriction, other guideline directed. Medical therapy for treatment of congestive heart failure DVT prophylaxis -Fully anticoagulated on xarelto VS,Fishbone, I+O VS, Fishbone, I+O Vital Signs Date Time Temp Pulse Resp B/P (MAP) Pulse Ox O2 Delivery O2 Flow Rate FiO2 05/29/19 08:49 20 05/29/19 08:19 67 148/86 05/29/19 06:00 96.9 95 1.0 I&O- Last 24 Hours up to 6 AM 05/29/19 05:59 Intake Total 990 ml Balance 990 ml ARELI VALIENTE May 29, 2019 11:01
[2019-05-29] MEDS: TIOTROPIUM INHALER/CAPSULE (SPIRIVA) INH SCH (11:45)
[2019-05-29] MEDS: ANEXSIA, NORCO 7.5MG/325MG TABLET(HYDROCODONE/APAP) PO PRN ×3 (12:00→23:16)
[2019-05-29 14:00] VITALS: BP 132/60
[2019-05-29] MEDS ORDERED: ALBUTEROL SULFATE 2.5 MG/0.5 ML INH NEB SOLN NEB PRN (14:00)
[2019-05-29] MEDS ORDERED: ALBUTEROL SULFATE 2.5 MG/0.5 ML INH NEB SOLN NEB SCH (14:00)
[2019-05-29] MEDS: SENNA 8.6 MG TAB (SENOKOT) PO SCH (21:39)
[2019-05-29] MEDS: ATORVASTATIN 20 MG TAB PO SCH (21:39)
[2019-05-29] MEDS: MOM 30ML SUSPENSION UDC PO PRN (21:39)
[2019-05-29 22:00] VITALS: BP 182/76
[2019-05-29 23:15] VITALS: BP 154/78
[2019-05-30 06:00] VITALS: BP 158/80
[2019-05-30] MEDS: ANEXSIA, NORCO 7.5MG/325MG TABLET(HYDROCODONE/APAP) PO PRN ×4 (06:18→21:03)
[2019-05-30] MEDS: TIOTROPIUM INHALER/CAPSULE (SPIRIVA) INH SCH (08:01)
[2019-05-30] MEDS: ESCITALOPRAM OXALATE 10 MG TAB (LEXAPRO) PO SCH (10:21)
[2019-05-30] MEDS: RIVAROXABAN 10 MG TAB (XARELTO) PO SCH (10:21)
[2019-05-30] MEDS: PANTOPRAZOLE 40MG TAB (PROTONIX) PO SCH (10:21)
[2019-05-30] MEDS: LOSARTAN 50 MG TAB PO SCH ×2 (10:21→21:02)
[2019-05-30] MEDS: SPIRONOLACTONE 25 MG TAB PO SCH (10:21)
[2019-05-30] MEDS: POTASSIUM CHLORIDE 10 MEQ SR TABLET PO SCH ×4 (10:21→21:01)
[2019-05-30] MEDS: METOPROLOL TART 25 MG TABLET PO SCH ×2 (10:22→21:03)
[2019-05-30] MEDS: FUROSEMIDE 40 MG TAB PO SCH (10:22)
[2019-05-30] MEDS: SUCRALFATE SUSP 1GM/10ML UD PO SCH ×4 (10:22→21:03)
[2019-05-30] MEDS: DOCUSATE SODIUM 100 MG CAP PO SCH ×2 (10:22→21:02)
[2019-05-30 10:51] LABS: BASO # 0.1 10^3/uL (0.0-0.2); BASO % 0.8 % (0.0-1.0); HEMATOCRIT 30.9 % (36.0-47.0); HEMOGLOBIN 9.6 g/dl (12.0-15.5); LYMPH # 1.1 10^3/uL (1.5-4.5); LYMPH % 18.5 % (24.0-44.0); MEAN CORPUSCULAR HEMOGLOBIN 28.1 pg (27.0-33.0); MEAN CORPUSCULAR HGB CONC 31.1 g/dl (32.0-36.5); MEAN CORPUSCULAR VOLUME 90.4 fl (80.0-96.0); MONO # 0.9 10^3/uL (0.0-0.8); MONO % 15.2 % (0.0-5.0); NEUTROPHILS % 64.9 % (36.0-66.0); PLATELET COUNT, AUTOMATED 480 10^3/uL (150-450); RED BLOOD COUNT 3.42 10^6/uL (4.00-5.40); WHITE BLOOD COUNT 6.2 10^3/uL (4.0-10.0)
[2019-05-30 11:11] LABS: BLOOD UREA NITROGEN 14 MG/DL (7-18); CALCIUM LEVEL 8.4 MG/DL (8.8-10.2); CARBON DIOXIDE LEVEL 29 MEQ/L (21-32); CHLORIDE LEVEL 101 MEQ/L (98-107); CREATININE FOR GFR 0.65 MG/DL (0.55-1.30); GLOMERULAR FILTRATION RATE > 60.0 (>39); GLUCOSE, FASTING 100 MG/DL (70-100); POTASSIUM SERUM 4.8 MEQ/L (3.5-5.1); SODIUM LEVEL 137 MEQ/L (136-145)
--- NOTE | 2019-05-30 12:18 | IPNPDOC ---
Text Note Date of Service The patient was seen on 05/30/19. NOTE John Toure is a 78-year-old female, admitted to inpatient rehabilitation un it on account of left hip fracture. Subjective: breathing is better, pain is better controlled and able to participate with PT. Supplemental O2 on standby as needed. Objective: GENERAL: NAD SKIN : Warm, dry intact HEENT: Atraumatic, normocephalic, PERRL, moist mucous membrane CARDIOVASCULAR: Regular rate and rhythm, S1S2, no JVD, no edema RESP: CTAB, no accessory muscle use noted ABDOMEN: BS+ non distended non tender MS: right thumb tenderness and joint deformity NEURO: Alert and oriented x 3, CN2-12 grossly intact PSYCH: no anxiety or agitation, appropriate mood and affect. Assessment and plan Left hip fracture -S/P left hip hemiarthroplasty 05/23/19. -Continued in rehabilitation unit for mobilization and strengthening -Management by primary team -continue Vicodin every 8 hours at 7.5mg as needed COPD -started on Spiriva daily with albuterol as needed -will need outpatient PFT studies Right thumb pain. -Right thumb x-ray -Pain management as needed Hypertension -Continue Lasix, metoprolol, losartan CHF -Euvolemic, continue Lasix, fluid restriction, other guideline directed. Medical therapy for treatment of congestive heart failure DVT prophylaxis -Fully anticoagulated on xarelto VS,Fishbone, I+O VS, Fishbone, I+O Laboratory Tests 05/30/19 10:19 Red Blood Count 3.42 L, Mean Corpuscular Volume 90.4, Mean Corpuscular Hemoglobin 28.1, Mean Corpuscular Hemoglobin Concent 31.1 L, Red Cell Distribution Width 15.6 H, Neutrophils (%) (Auto) 64.9, Lymphocytes (%) (Auto) 18.5 L, Monocytes (%) (Auto) 15.2 H, Eosinophils (%) (Auto) 0.0, Basophils (%) (Auto) 0.8, Neutrophils # (Auto) 4.0, Lymphocytes # (Auto) 1.1 L, Monocytes # (Auto) 0.9 H, Eosinophils # (Auto) 0.0, Basophils # (Auto) 0.1, Calcium Level 8.4 L Vital Signs Date Time Temp Pulse Resp B/P (MAP) Pulse Ox O2 Delivery O2 Flow Rate FiO2 8/13/19 10:56 1.0 05/30/19 06:48 18 05/30/19 06:00 97.1 74 158/80 (138) 97 I&O- Last 24 Hours up to 6 AM 05/30/19 06:00 Intake Total 960 ml Output Total 0 ml Balance 960 ml ARELI VALIENTE [facility] May 30, 2019 12:18
[2019-05-30 14:00] VITALS: BP 135/66
--- NOTE | 2019-05-30 16:48 | IPNPDOC ---
PM&R Progress Note DATE OF SERVICE: May 29, 2019 [employer] Responder Progress Note Subjective: Patient reporting she feels well and would like some ice for her hip. REVIEW OF SYSTEMS: The following is a completed review of systems and has been reviewed. Review of systems otherwise unremarkable. PAIN: Patient self reports no pain EYES: No recent vision changes EARS, NOSE, & THROAT: No throat pain, or dysphagia, or rhinorrhea CARDIOVASCULAR: Denies chest pain or palpitations PULMONARY: Denies shortness of breath GASTROINTESTINAL: Denies constipation/diarrhea GENITOURINARY: denies dysuria, retention, incontinence, or hematuria MUSCULOSKELETAL: low back pain with left hip fracture NEUROLOGICAL:no tremor or seizure-like activity HEMATOLOGICAL: +anemia SKIN: left hip incision PSYCHIATRIC: Unremarkable All other review of systems found to be negative. PHYSICAL EXAMINATION: VITAL SIGNS: Please see below. GENERAL: Pleasant and cooperative. No acute distress. HEENT: PERRL. Extraocular movements intact. Clear conjunctiva CARDIOVASCULAR: Regular rate and rhythm. No murmurs, rubs, or gallops LUNGS: Clear to auscultation bilaterally. No wheezes. No rhonchi ABDOMEN: Soft, nontender, nondistended. Positive bowel sounds. Normal active bowel sounds NEUROLOGICAL: Alert and oriented times three. Cranial nerves II through XII grossly intact. Sensation grossly intact including 1st web space of left foot EXTREMITIES: 5\5 strength bilateral upper extremities. 5\5 strength right lower extremity. >3/5 strength in left lower extremity (limited by hip surgery) 5/5 ankle DF and EHL SKIN: left hip incision c/d/i with minimal drainage ASSESSMENT: 78-year-old F with past medical history of CAD s/p NSTEMI who presents status post fall with left hip fracture PLAN: Rehab: PT- strengthen / improve ROM/ stretch lower extremities maintaining hip precautions OT-strengthen / improve ROM/ stretch upper extremities maintaining hip precautions, teach the use of adaptive equipment, shoulder stabilization exercises 2. Neuro- avoid deliriogenic medications 3. Cardiac- recent nstemi in the setting of CHF, cad, hypertension- medicine consult it to delinquent tax collection assistant management- c/u diuretics, beta-stephanie -Currently on prophylactic Xarelto for DVT prevention, not on antiplatelet therapy due to recent GI bleed -c/u statin for HLD 4. respiratory- encourage incentive spirometry monitor for infection - wean from 5. Ortho: status post left hip fracture with hemiarthroplasty, maintain hip precautions- will consult Orthopedics 6. : monitor PVRs 7. DVT prophylaxis- Xarelto and Teds 8. GI prophylaxis- protonix and sucralfate, recent GI bleed 9. Pain- Tylenol, oxycodone PRN 10. Dispo- to be determined Allergies Coded Allergies: amlodipine (Verified Allergy, Mild, rash, 02/22/19) duloxetine (Verified Allergy, Mild, Rash, 02/22/19) latex (Verified Allergy, Mild, rash, 03/21/19) Contrast Media (Verified Allergy, Unknown, rash, 07/11/17) nystatin (Verified Allergy, Unknown, Rash, 02/22/19) Vital Signs Vital Signs Date Time Temp Pulse Resp B/P (MAP) Pulse Ox O2 Delivery O2 Flow Rate FiO2 05/30/19 14:00 98.7 71 18 135/66 (89) 96 1.0 Laboratory Data CBC/BMP Laboratory Tests 05/30/19 10:19 Red Blood Count 3.42 L, Mean Corpuscular Volume 90.4, Mean Corpuscular Hemoglobin 28.1, Mean Corpuscular Hemoglobin Concent 31.1 L, Red Cell Distribution Width 15.6 H, Neutrophils (%) (Auto) 64.9, Lymphocytes (%) (Auto) 18.5 L, Monocytes (%) (Auto) 15.2 H, Eosinophils (%) (Auto) 0.0, Basophils (%) (Auto) 0.8, Neutrophils # (Auto) 4.0, Lymphocytes # (Auto) 1.1 L, Monocytes # (Auto) 0.9 H, Eosinophils # (Auto) 0.0, Basophils # (Auto) 0.1, Calcium Level 8.4 L Labs 24H Laboratory Tests 2 05/30/19 10:19: Immature Granulocyte % (Auto) 0.6, White Blood Count 6.2, Red Blood Count 3.42L, Hemoglobin 9.6L, Hematocrit 30.9L, Mean Corpuscular Volume 90.4, Mean Corpuscular Hemoglobin 28.1, Mean Corpuscular Hemoglobin Concent 31.1L, Red Cell Distribution Width 15.6H, Platelet Count 480H, Neutrophils (%) (Auto) 64.9, Lymphocytes (%) (Auto) 18.5L, Monocytes (%) (Auto) 15.2H, Eosinophils (%) (Auto) 0.0, Basophils (%) (Auto) 0.8, Neutrophils # (Auto) 4.0, Lymphocytes # (Auto) 1.1L, Monocytes # (Auto) 0.9H, Eosinophils # (Auto) 0.0, Basophils # (Auto) 0.1, Nucleated Red Blood Cells % (auto) 0.0, Anion Gap 7L, Glomerular Filtration Rate > 60.0, Blood Urea Nitrogen 14, Creatinine 0.65, Sodium Level 137, Potassium Level 4.8, Chloride Level 101, Carbon Dioxide Level 29, Calcium Level 8.4L Current Medications Current Medications Current Medications Medications (Trade) Dose Ordered Sig/Leanna Route PRN Reason Start Time Stop Time Status Last Admin Dose Admin Acetaminophen (Tylenol Tab) 500 mg TID PRN PO PAIN 05/29/19 11:30 Acetaminophen (Tylenol Tab) 1,000 mg TID PO 05/24/19 16:00 05/29/19 11:31 DC 05/29/19 08:20 Acetaminophen/ Hydrocodone Bitart (Anexsia, [place] 7.5mg/325mg) 1 tab QIDP PRN PO PAIN 05/29/19 11:30 05/30/19 12:20 Albuterol Sulfate (Proventil Neb) 2.5 mg RQ6H NEB 05/29/19 14:00 05/29/19 14:00 DC Albuterol Sulfate (Proventil Neb) 2.5 mg RQ6H PRN NEB SHORTNESS OF BREATH 05/29/19 14:00 Albuterol/ Ipratropium (Duoneb (Ipr 0.5mg/Alb 2.5mg)) 3 ml Q4HP PRN NEB SOB/WHEEZING 05/24/19 15:30 05/29/19 11:37 DC Atorvastatin Calcium (Lipitor) 40 mg QHS PO 05/24/19 21:00 05/29/19 21:39 Docusate Sodium (Colace) 100 mg BID PO 05/24/19 21:00 05/30/19 10:22 Escitalopram Oxalate (Lexapro) 20 mg DAILY PO 05/24/19 09:00 05/30/19 10:21 Furosemide (Lasix) 40 mg DAILY PO 05/25/19 09:00 05/30/19 10:22 Losartan Potassium (Cozaar) 50 mg BID PO 05/24/19 21:00 05/30/19 10:21 Magnesium Hydroxide (Milk Of Magnesia) 30 ml DAILYPRN PRN PO CONSTIPATION 05/24/19 14:45 05/29/19 21:39 Metoprolol Tartrate (Lopressor) 25 mg BID PO 05/24/19 21:00 05/30/19 10:22 Ondansetron HCl (Zofran) 4 mg Q6HP PRN PO NAUSEA 05/24/19 14:45 Oxycodone HCl (Roxicodone, Oxyir) 5 mg Q4HP PRN PO PAIN 05/24/19 14:45 05/29/19 11:31 DC 05/29/19 08:19 Pantoprazole Sodium (Protonix) 40 mg DAILY PO 05/24/19 09:00 05/30/19 10:21 Potassium Chloride (Micro-K Extencaps) 10 meq QID PO 05/24/19 17:00 05/30/19 12:19 Rivaroxaban (Xarelto) 10 mg DAILY@0800 PO 05/25/19 08:00 05/30/19 10:21 Senna (Senokot) 1 tab QHS PO 05/24/19 21:00 05/29/19 21:39 Spironolactone (Aldactone) 25 mg QAM PO 05/25/19 09:00 05/30/19 10:21 Sucralfate (Carafate Suspension) 1 gm ACHS PO 05/24/19 17:30 05/30/19 12:19 Tiotropium [place] (Spiriva Handihaler) 1 inhalation DAILY@08 INH 05/29/19 11:45 05/30/19 08:01 RADHA CARTER MD May 30, 2019 16:48
--- NOTE | 2019-05-30 16:50 | IPNPDOC ---
PM&R Progress Note DATE OF SERVICE: May 30, 2019 [employer] Progress Note Subjective: Patient believes she needs to stay until 06/07/19 stating there is so much she needs to practice doing. She denies feeling short of breath at rest or on exer tion and is willing to try weaning off 02. REVIEW OF SYSTEMS: The following is a completed review of systems and has been reviewed. Review of systems otherwise unremarkable. PAIN: Patient self reports no pain EYES: No recent vision changes EARS, NOSE, & THROAT: No throat pain, or dysphagia, or rhinorrhea CARDIOVASCULAR: Denies chest pain or palpitations PULMONARY: Denies shortness of breath GASTROINTESTINAL: Denies constipation/diarrhea GENITOURINARY: denies dysuria, retention, incontinence, or hematuria MUSCULOSKELETAL: low back pain with left hip fracture NEUROLOGICAL:no tremor or seizure-like activity HEMATOLOGICAL: +anemia SKIN: left hip incision PSYCHIATRIC: Unremarkable All other review of systems found to be negative. PHYSICAL EXAMINATION: VITAL SIGNS: Please see below. GENERAL: Pleasant and cooperative. No acute distress. HEENT: PERRL. Extraocular movements intact. Clear conjunctiva CARDIOVASCULAR: Regular rate and rhythm. No murmurs, rubs, or gallops LUNGS: Clear to auscultation bilaterally. No wheezes. No rhonchi ABDOMEN: Soft, nontender, nondistended. Positive bowel sounds. Normal active bowel sounds NEUROLOGICAL: Alert and oriented times three. Cranial nerves II through XII grossly intact. Sensation grossly intact including 1st web space of left foot EXTREMITIES: 5\5 strength bilateral upper extremities. 5\5 strength right lower extremity. >3/5 strength in left lower extremity (limited by hip surgery) 5/5 ankle DF and EHL SKIN: left hip incision c/d/i with minimal drainage ASSESSMENT: 78-year-old F with past medical history of CAD s/p NSTEMI who pre sents status post fall with left hip fracture PLAN: Rehab: PT- strengthen / improve ROM/ stretch lower extremities maintaining hip precautions OT-strengthen / improve ROM/ stretch upper extremities maintaining hip precautions, teach the use of adaptive equipment, shoulder stabilization exer cises 2. Neuro- avoid deliriogenic medications 3. Cardiac- recent nstemi in the setting of CHF, cad, hypertension- medicine consult it to junior sales assistant management- c/u diuretics, beta-stephanie -Currently on prophylactic Xarelto for DVT prevention, not on antiplatelet therapy due to recent GI bleed -c/u statin for HLD 4. respiratory- encourage incentive spirometry monitor for infection - wean from 02 goal >88% without symptoms 5. Ortho: status post left hip fracture with hemiarthroplasty, maintain hip precautions- will consult Orthopedics 6. : monitor PVRs 7. DVT prophylaxis- Xarelto and Teds 8. GI prophylaxis- protonix and sucralfate, recent GI bleed 9. Pain- switched to Dennis c/u 10. Dispo- 06/09/19 to home, progressing towards goals Allergies Coded Allergies: amlodipine (Verified Allergy, Mild, rash, 02/22/19) duloxetine (Verified Allergy, Mild, Rash, 02/22/19) latex (Verified Allergy, Mild, rash, 03/21/19) Contrast Media (Verified Allergy, Unknown, rash, 07/11/17) nystatin (Verified Allergy, Unknown, Rash, 02/22/19) Vital Signs Vital Signs Date Time Temp Pulse Resp B/P (MAP) Pulse Ox O2 Delivery O2 Flow Rate FiO2 05/30/19 14:00 98.7 71 18 135/66 (89) 96 1.0 Laboratory Data CBC/BMP Laboratory Tests 05/30/19 10:19 Red Blood Count 3.42 L, Mean Corpuscular Volume 90.4, Mean Corpuscular Hemoglobin 28.1, Mean Corpuscular Hemoglobin Concent 31.1 L, Red Cell Distribution Width 15.6 H, Neutrophils (%) (Auto) 64.9, Lymphocytes (%) (Auto) 18.5 L, Monocytes (%) (Auto) 15.2 H, Eosinophils (%) (Auto) 0.0, Basophils (%) (Auto) 0.8, Neutrophils # (Auto) 4.0, Lymphocytes # (Auto) 1.1 L, Monocytes # (Auto) 0.9 H, Eosinophils # (Auto) 0.0, Basophils # (Auto) 0.1, Calcium Level 8.4 L Labs 24H Laboratory Tests 2 05/30/19 10:19: Immature Granulocyte % (Auto) 0.6, White Blood Count 6.2, Red Blood Count 3.42L, Hemoglobin 9.6L, Hematocrit 30.9L, Mean Corpuscular Volume 90.4, Mean Corpuscular Hemoglobin 28.1, Mean Corpuscular Hemoglobin Concent 31.1L, Red Cell Distribution Width 15.6H, Platelet Count 480H, Neutrophils (%) (Auto) 64.9, Lymphocytes (%) (Auto) 18.5L, Monocytes (%) (Auto) 15.2H, Eosinophils (%) (Auto) 0.0, Basophils (%) (Auto) 0.8, Neutrophils # (Auto) 4.0, Lymphocytes # (Auto) 1.1L, Monocytes # (Auto) 0.9H, Eosinophils # (Auto) 0.0, Basophils # (Auto) 0.1, Nucleated Red Blood Cells % (auto) 0.0, Anion Gap 7L, Glomerular Filtration Rate > 60.0, Blood Urea Nitrogen 14, Creatinine 0.65, Sodium Level 137, Potassium Level 4.8, Chloride Level 101, Carbon Dioxide Level 29, Calcium Level 8.4L Current Medications Current Medications Current Medications Medications (Trade) Dose Ordered Sig/Leanna Route PRN Reason Start Time Stop Time Status Last Admin Dose Admin Acetaminophen (Tylenol Tab) 500 mg TID PRN PO PAIN 05/29/19 11:30 Acetaminophen (Tylenol Tab) 1,000 mg TID PO 05/24/19 16:00 05/29/19 11:31 DC 05/29/19 08:20 Acetaminophen/ Hydrocodone Bitart (Anexsia, [place] 7.5mg/325mg) 1 tab QIDP PRN PO PAIN 05/29/19 11:30 05/30/19 12:20 Albuterol Sulfate (Proventil Neb) 2.5 mg RQ6H NEB 05/29/19 14:00 05/29/19 14:00 DC Albuterol Sulfate (Proventil Neb) 2.5 mg RQ6H PRN NEB SHORTNESS OF BREATH 05/29/19 14:00 Albuterol/ Ipratropium (Duoneb (Ipr 0.5mg/Alb 2.5mg)) 3 ml Q4HP PRN NEB SOB/WHEEZING 05/24/19 15:30 05/29/19 11:37 DC Atorvastatin Calcium (Lipitor) 40 mg QHS PO 05/24/19 21:00 05/29/19 21:39 Docusate Sodium (Colace) 100 mg BID PO 05/24/19 21:00 05/30/19 10:22 Escitalopram Oxalate (Lexapro) 20 mg DAILY PO 05/24/19 09:00 05/30/19 10:21 Furosemide (Lasix) 40 mg DAILY PO 05/25/19 09:00 05/30/19 10:22 Losartan Potassium (Cozaar) 50 mg BID PO 05/24/19 21:00 05/30/19 10:21 Magnesium Hydroxide (Milk Of Magnesia) 30 ml DAILYPRN PRN PO CONSTIPATION 05/24/19 14:45 05/29/19 21:39 Metoprolol Tartrate (Lopressor) 25 mg BID PO 05/24/19 21:00 05/30/19 10:22 Ondansetron HCl (Zofran) 4 mg Q6HP PRN PO NAUSEA 05/24/19 14:45 Oxycodone HCl (Roxicodone, Oxyir) 5 mg Q4HP PRN PO PAIN 05/24/19 14:45 05/29/19 11:31 DC 05/29/19 08:19 Pantoprazole Sodium (Protonix) 40 mg DAILY PO 05/24/19 09:00 05/30/19 10:21 Potassium Chloride (Micro-K Extencaps) 10 meq QID PO 05/24/19 17:00 05/30/19 12:19 Rivaroxaban (Xarelto) 10 mg DAILY@0800 PO 05/25/19 08:00 05/30/19 10:21 Senna (Senokot) 1 tab QHS PO 05/24/19 21:00 05/29/19 21:39 Spironolactone (Aldactone) 25 mg QAM PO 05/25/19 09:00 05/30/19 10:21 Sucralfate (Carafate Suspension) 1 gm ACHS PO 05/24/19 17:30 05/30/19 12:19 Tiotropium [place] (Spiriva Handihaler) 1 inhalation DAILY@08 INH 05/29/19 11:45 05/30/19 08:01 RADHA CARTER MD May 30, 2019 16:50
[2019-05-30] MEDS: SENNA 8.6 MG TAB (SENOKOT) PO SCH (21:01)
[2019-05-30] MEDS: ATORVASTATIN 20 MG TAB PO SCH (21:02)
[2019-05-30 22:00] VITALS: BP 157/62
[2019-05-31 05:54] VITALS: BP 162/68
[2019-05-31] MEDS: ANEXSIA, NORCO 7.5MG/325MG TABLET(HYDROCODONE/APAP) PO PRN ×4 (06:46→21:05)
[2019-05-31] MEDS: SUCRALFATE SUSP 1GM/10ML UD PO SCH ×4 (08:11→21:15)
[2019-05-31] MEDS: ESCITALOPRAM OXALATE 10 MG TAB (LEXAPRO) PO SCH (08:12)
[2019-05-31] MEDS: LOSARTAN 50 MG TAB PO SCH ×2 (08:12→21:04)
[2019-05-31] MEDS: POTASSIUM CHLORIDE 10 MEQ SR TABLET PO SCH ×4 (08:12→21:03)
[2019-05-31] MEDS: FUROSEMIDE 40 MG TAB PO SCH (08:12)
[2019-05-31] MEDS: SPIRONOLACTONE 25 MG TAB PO SCH (08:12)
[2019-05-31] MEDS: PANTOPRAZOLE 40MG TAB (PROTONIX) PO SCH (08:12)
[2019-05-31] MEDS: DOCUSATE SODIUM 100 MG CAP PO SCH ×2 (08:13→21:03)
[2019-05-31] MEDS: METOPROLOL TART 25 MG TABLET PO SCH ×2 (08:13→21:04)
[2019-05-31] MEDS: RIVAROXABAN 10 MG TAB (XARELTO) PO SCH (08:13)
[2019-05-31] MEDS: TIOTROPIUM INHALER/CAPSULE (SPIRIVA) INH SCH (11:14)
--- NOTE | 2019-05-31 13:36 | IPNPDOC ---
Text Note Date of Service The patient was seen on 05/31/19. NOTE John Toure is a 78-year-old female, admitted to inpatient rehabilitation unit on account of left hip fracture. Subjective: Seen during therapy, O2 demands are decreasing. Denies SOB or CP. reports she feels good today. Pain is better controlled Objective: GENERAL: NAD SKIN : Warm, dry intact HEENT: Atraumatic, normocephalic, PERRL, moist mucous membrane CARDIOVASCULAR: Regular rate and rhythm, S1S2, no JVD, no edema RESP: CTAB, no accessory muscle use noted ABDOMEN: BS+ non distended non tender MS: right thumb tenderness and joint deformity NEURO: Alert and oriented x 3, CN2-12 grossly intact PSYCH: no anxiety or agitation, appropriate mood and affect. Assessment and plan Left hip fracture -S/P left hip hemiarthroplasty 05/23/19. -Continued in rehabilitation unit for mobilization and strengthening -Management by primary team -Pain management with Vicodin every 8 hours at 7.5mg as needed COPD -Continue Spiriva daily with albuterol as needed -will need outpatient PFT studies Right thumb pain. -Improving, imaging study negative for acute process Hypertension -Continue Lasix, metoprolol, losartan CHF -Euvolemic, continue Lasix, fluid restriction, other guideline directed. Medical therapy for treatment of congestive heart failure DVT prophylaxis -Fully anticoagulated on xarelto VS,Fishbone, I+O VS, Fishbone, I+O Vital Signs Date Time Temp Pulse Resp B/P (MAP) Pulse Ox O2 Delivery O2 Flow Rate FiO2 05/31/19 12:25 18 05/31/19 08:13 70 162/68 05/31/19 05:54 96.6 93 05/30/19 20:00 1.0 I&O- Last 24 Hours up to 6 AM 05/31/19 06:00 Intake Total 1130 ml Output Total 0 ml Balance 1130 ml ARELI VALIENTE [facility] May 31, 2019 13:36
[2019-05-31 14:00] VITALS: BP 110/55
[2019-05-31] MEDS: SENNA 8.6 MG TAB (SENOKOT) PO SCH (21:03)
[2019-05-31] MEDS: ATORVASTATIN 20 MG TAB PO SCH (21:03)
[2019-05-31 22:00] VITALS: BP 122/69
[2019-06-01 06:00] VITALS: BP 150/67
[2019-06-01] MEDS: ANEXSIA, NORCO 7.5MG/325MG TABLET(HYDROCODONE/APAP) PO PRN ×3 (06:40→20:06)
[2019-06-01] MEDS: SUCRALFATE SUSP 1GM/10ML UD PO SCH ×4 (06:41→20:05)
[2019-06-01] MEDS: TIOTROPIUM INHALER/CAPSULE (SPIRIVA) INH SCH (08:08)
[2019-06-01] MEDS: RIVAROXABAN 10 MG TAB (XARELTO) PO SCH (09:52)
[2019-06-01] MEDS: PANTOPRAZOLE 40MG TAB (PROTONIX) PO SCH (09:52)
[2019-06-01] MEDS: DOCUSATE SODIUM 100 MG CAP PO SCH ×2 (09:52→20:06)
[2019-06-01] MEDS: LOSARTAN 50 MG TAB PO SCH ×2 (09:53→20:07)
[2019-06-01] MEDS: POTASSIUM CHLORIDE 10 MEQ SR TABLET PO SCH ×4 (09:53→20:07)
[2019-06-01] MEDS: ESCITALOPRAM OXALATE 10 MG TAB (LEXAPRO) PO SCH (09:54)
[2019-06-01] MEDS: FUROSEMIDE 40 MG TAB PO SCH (09:54)
[2019-06-01] MEDS: SPIRONOLACTONE 25 MG TAB PO SCH (09:54)
[2019-06-01] MEDS: METOPROLOL TART 25 MG TABLET PO SCH ×2 (09:55→20:07)
--- NOTE | 2019-06-01 12:20 | IPNPDOC ---
PM&R Progress Note DATE OF SERVICE: May 31, 2019 Cns Progress Note Subjective: Patient seen in therapy gym without 02, stating she feels well, not short of breath and pain is well controlled. REVIEW OF SYSTEMS: The following is a completed review of systems and has been reviewed. Review of systems otherwise unremarkable. PAIN: Patient self reports no pain EYES: No recent vision changes EARS, NOSE, & THROAT: No throat pain, or dysphagia, or rhinorrhea CARDIOVASCULAR: Denies chest pain or palpitations PULMONARY: Denies shortness of breath GASTROINTESTINAL: Denies constipation/diarrhea GENITOURINARY: denies dysuria, retention, incontinence, or hematuria MUSCULOSKELETAL: low back pain with left hip fracture NEUROLOGICAL:no tremor or seizure-like activity HEMATOLOGICAL: +anemia SKIN: left hip incision PSYCHIATRIC: Unremarkable All other review of systems found to be negative. PHYSICAL EXAMINATION: VITAL SIGNS: Please see below. GENERAL: Pleasant and cooperative. No acute distress. HEENT: PERRL. Extraocular movements intact. Clear conjunctiva CARDIOVASCULAR: Regular rate and rhythm. No murmurs, rubs, or gallops LUNGS: Clear to auscultation bilaterally. No wheezes. No rhonchi ABDOMEN: Soft, nontender, nondistended. Positive bowel sounds. Normal active bowel sounds NEUROLOGICAL: Alert and oriented times three. Cranial nerves II through XII grossly intact. Sensation grossly intact including 1st web space of left foot EXTREMITIES: 5\5 strength bilateral upper extremities. 5\5 strength right lower extremity. >3/5 strength in left lower extremity (limited by hip surgery) 5/5 ankle DF and EHL SKIN: left hip incision c/d/i with minimal drainage ASSESSMENT: 78-year-old F with past medical history of CAD s/p NSTEMI who presents status post fall with left hip fracture PLAN: Rehab: PT- strengthen / improve ROM/ stretch lower extremities maintaining hip precautions, ambulating with Rw OT-strengthen / improve ROM/ stretch upper extremities maintaining hip precautions, teach the use of adaptive equipment, shoulder stabilization exercises 2. Neuro- avoid deliriogenic medications 3. Cardiac- recent nstemi in the setting of CHF, cad, hypertension- medicine consult it to pharmaceutical assistant management- c/u diuretics, beta-stephanie -Currently on prophylactic Xarelto for DVT prevention, not on antiplatelet therapy due to recent GI bleed -c/u statin for HLD 4. respiratory- encourage incentive spirometry monitor for infection - wean from goal >88% without symptoms- improving 5. Ortho: status post left hip fracture with hemiarthroplasty, maintain hip precautions- will consult Orthopedics 6. : monitor PVRs 7. DVT prophylaxis- Xarelto and Teds 8. GI prophylaxis- protonix and sucralfate, recent GI bleed, Hgb stable 9. Pain- switched to [place] c/u 10. Dispo- 06/09/19 to home, progressing towards goals Allergies Coded Allergies: amlodipine (Verified Allergy, Mild, rash, 02/22/19) duloxetine (Verified Allergy, Mild, Rash, 02/22/19) latex (Verified Allergy, Mild, rash, 03/21/19) Contrast Media (Verified Allergy, Unknown, rash, 07/11/17) nystatin (Verified Allergy, Unknown, Rash, 02/22/19) Vital Signs Vital Signs Date Time Temp Pulse Resp B/P (MAP) Pulse Ox O2 Delivery O2 Flow Rate FiO2 06/01/19 12:11 18 06/01/19 09:55 76 150/67 06/01/19 06:00 97.1 94 05/30/19 20:00 1.0 Current Medications Current Medications Current Medications Medications (Trade) Dose Ordered Sig/Leanna Route PRN Reason Start Time Stop Time Status Last Admin Dose Admin Acetaminophen (Tylenol Tab) 500 mg TID PRN PO PAIN 05/29/19 11:30 Acetaminophen (Tylenol Tab) 1,000 mg TID PO 05/24/19 16:00 05/29/19 11:31 DC 05/29/19 08:20 Acetaminophen/ Hydrocodone Bitart (Anexsia, [place] 7.5mg/325mg) 1 tab QIDP PRN PO PAIN 05/29/19 11:30 06/01/19 12:11 Albuterol Sulfate (Proventil Neb) 2.5 mg RQ6H NEB 05/29/19 14:00 05/29/19 14:00 DC Albuterol Sulfate (Proventil Neb) 2.5 mg RQ6H PRN NEB SHORTNESS OF BREATH 05/29/19 14:00 Albuterol/ Ipratropium (Duoneb (Ipr 0.5mg/Alb 2.5mg)) 3 ml Q4HP PRN NEB SOB/WHEEZING 05/24/19 15:30 05/29/19 11:37 DC Atorvastatin Calcium (Lipitor) 40 mg QHS PO 05/24/19 21:00 05/31/19 21:03 Docusate Sodium (Colace) 100 mg BID PO 05/24/19 21:00 06/01/19 09:52 Escitalopram Oxalate (Lexapro) 20 mg DAILY PO 05/24/19 09:00 06/01/19 09:54 Furosemide (Lasix) 40 mg DAILY PO 05/25/19 09:00 06/01/19 09:54 Losartan Potassium (Cozaar) 50 mg BID PO 05/24/19 21:00 06/01/19 09:53 Magnesium Hydroxide (Milk Of Magnesia) 30 ml DAILYPRN PRN PO CONSTIPATION 05/24/19 14:45 05/29/19 21:39 Metoprolol Tartrate (Lopressor) 25 mg BID PO 05/24/19 21:00 06/01/19 09:55 Ondansetron HCl (Zofran) 4 mg Q6HP PRN PO NAUSEA 05/24/19 14:45 Oxycodone HCl (Roxicodone, Oxyir) 5 mg Q4HP PRN PO PAIN 05/24/19 14:45 05/29/19 11:31 DC 05/29/19 08:19 Pantoprazole Sodium (Protonix) 40 mg DAILY PO 05/24/19 09:00 06/01/19 09:52 Potassium Chloride (Micro-K Extencaps) 10 meq QID PO 05/24/19 17:00 06/01/19 12:11 Rivaroxaban (Xarelto) 10 mg DAILY@0800 PO 05/25/19 08:00 06/01/19 09:52 Senna (Senokot) 1 tab QHS PO 05/24/19 21:00 05/31/19 21:03 Spironolactone (Aldactone) 25 mg QAM PO 05/25/19 09:00 06/01/19 09:54 Sucralfate (Carafate Suspension) 1 gm ACHS PO 05/24/19 17:30 06/01/19 11:24 Tiotropium [place] (Spiriva Handihaler) 1 inhalation DAILY@08 INH 05/29/19 11:45 06/01/19 08:08 RADHA CARTER MD Jun 01, 2019 12:19
--- NOTE | 2019-06-01 12:20 | IPNPDOC ---
PM&R Progress Note DATE OF SERVICE: Jun 01, 2019 Industrial Services Worker Progress Note Subjective: Patient seen in her room enjoying her dinner, no complaints. REVIEW OF SYSTEMS: The following is a completed review of systems and has been reviewed. Review of systems otherwise unremarkable. PAIN: Patient self reports no pain EYES: No recent vision changes EARS, NOSE, & THROAT: No throat pain, or dysphagia, or rhinorrhea CARDIOVASCULAR: Denies chest pain or palpitations PULMONARY: Denies shortness of breath GASTROINTESTINAL: Denies constipation/diarrhea GENITOURINARY: denies dysuria, retention, incontinence, or hematuria MUSCULOSKELETAL: low back pain with left hip fracture NEUROLOGICAL:no tremor or seizure-like activity HEMATOLOGICAL: +anemia SKIN: left hip incision PSYCHIATRIC: Unremarkable All other review of systems found to be negative. PHYSICAL EXAMINATION: VITAL SIGNS: Please see below. GENERAL: Pleasant and cooperative. No acute distress. HEENT: PERRL. Extraocular movements intact. Clear conjunctiva CARDIOVASCULAR: Regular rate and rhythm. No murmurs, rubs, or gallops LUNGS: Clear to auscultation bilaterally. No wheezes. No rhonchi ABDOMEN: Soft, nontender, nondistended. Positive bowel sounds. Normal active bowel sounds NEUROLOGICAL: Alert and oriented times three. Cranial nerves II through XII grossly intact. Sensation grossly intact including 1st web space of left foot EXTREMITIES: 5\5 strength bilateral upper extremities. 5\5 strength right lower extremity. >3/5 strength in left lower extremity (limited by hip surgery) 5/5 ankle DF and EHL SKIN: left hip incision c/d/i with minimal drainage ASSESSMENT: 78-year-old F with past medical history of CAD s/p NSTEMI who presents status post fall with left hip fracture PLAN: Rehab: PT- strengthen / improve ROM/ stretch lower extremities maintaining hip precautions OT-strengthen / improve ROM/ stretch upper extremities maintaining hip precautions, teach the use of adaptive equipment, shoulder stabilization exercises 2. Neuro- avoid deliriogenic medications 3. Cardiac- recent nstemi in the setting of CHF, cad, hypertension- medicine consult it to assistant manager/embalmer management- c/u diuretics, beta-stephanie -Currently on prophylactic Xarelto for DVT prevention, not on antiplatelet therapy due to recent GI bleed -c/u statin for HLD 4. respiratory- encourage incentive spirometry monitor for infection - wean from 02 goal >88% without symptoms 5. Ortho: status post left hip fracture with hemiarthroplasty, maintain hip precautions- will consult Orthopedics 6. : monitor PVRs 7. DVT prophylaxis- Xarelto and Teds 8. GI prophylaxis- protonix and sucralfate, recent GI bleed 9. Pain- switched to [place] c/u 10. Dispo- 06/09/19 to home, progressing towards goals Allergies Coded Allergies: amlodipine (Verified Allergy, Mild, rash, 02/22/19) duloxetine (Verified Allergy, Mild, Rash, 02/22/19) latex (Verified Allergy, Mild, rash, 03/21/19) Contrast Media (Verified Allergy, Unknown, rash, 07/11/17) nystatin (Verified Allergy, Unknown, Rash, 02/22/19) Vital Signs Vital Signs Date Time Temp Pulse Resp B/P (MAP) Pulse Ox O2 Delivery O2 Flow Rate FiO2 06/01/19 12:11 18 06/01/19 09:55 76 150/67 06/01/19 06:00 97.1 94 05/30/19 20:00 1.0 Current Medications Current Medications Current Medications Medications (Trade) Dose Ordered Sig/Leanna Route PRN Reason Start Time Stop Time Status Last Admin Dose Admin Acetaminophen (Tylenol Tab) 500 mg TID PRN PO PAIN 05/29/19 11:30 Acetaminophen (Tylenol Tab) 1,000 mg TID PO 05/24/19 16:00 05/29/19 11:31 DC 05/29/19 08:20 Acetaminophen/ Hydrocodone Bitart (Anexsia, [place] 7.5mg/325mg) 1 tab QIDP PRN PO PAIN 05/29/19 11:30 06/01/19 12:11 Albuterol Sulfate (Proventil Neb) 2.5 mg RQ6H NEB 05/29/19 14:00 05/29/19 14:00 DC Albuterol Sulfate (Proventil Neb) 2.5 mg RQ6H PRN NEB SHORTNESS OF BREATH 05/29/19 14:00 Albuterol/ Ipratropium (Duoneb (Ipr 0.5mg/Alb 2.5mg)) 3 ml Q4HP PRN NEB SOB/WHEEZING 05/24/19 15:30 05/29/19 11:37 DC Atorvastatin Calcium (Lipitor) 40 mg QHS PO 05/24/19 21:00 05/31/19 21:03 Docusate Sodium (Colace) 100 mg BID PO 05/24/19 21:00 06/01/19 09:52 Escitalopram Oxalate (Lexapro) 20 mg DAILY PO 05/24/19 09:00 06/01/19 09:54 Furosemide (Lasix) 40 mg DAILY PO 05/25/19 09:00 06/01/19 09:54 Losartan Potassium (Cozaar) 50 mg BID PO 05/24/19 21:00 06/01/19 09:53 Magnesium Hydroxide (Milk Of Magnesia) 30 ml DAILYPRN PRN PO CONSTIPATION 05/24/19 14:45 05/29/19 21:39 Metoprolol Tartrate (Lopressor) 25 mg BID PO 05/24/19 21:00 06/01/19 09:55 Ondansetron HCl (Zofran) 4 mg Q6HP PRN PO NAUSEA 05/24/19 14:45 Oxycodone HCl (Roxicodone, Oxyir) 5 mg Q4HP PRN PO PAIN 05/24/19 14:45 05/29/19 11:31 DC 05/29/19 08:19 Pantoprazole Sodium (Protonix) 40 mg DAILY PO 05/24/19 09:00 06/01/19 09:52 Potassium Chloride (Micro-K Extencaps) 10 meq QID PO 05/24/19 17:00 06/01/19 12:11 Rivaroxaban (Xarelto) 10 mg DAILY@0800 PO 05/25/19 08:00 06/01/19 09:52 Senna (Senokot) 1 tab QHS PO 05/24/19 21:00 05/31/19 21:03 Spironolactone (Aldactone) 25 mg QAM PO 05/25/19 09:00 06/01/19 09:54 Sucralfate (Carafate Suspension) 1 gm ACHS PO 05/24/19 17:30 06/01/19 11:24 Tiotropium [place] (Spiriva Handihaler) 1 inhalation DAILY@08 INH 05/29/19 11:45 06/01/19 08:08 RADHA CARTER MD Jun 01, 2019 12:20
[2019-06-01 14:00] VITALS: BP 120/62
[2019-06-01 20:00] VITALS: BP 150/69
[2019-06-01] MEDS: ATORVASTATIN 20 MG TAB PO SCH (20:07)
[2019-06-01] MEDS: SENNA 8.6 MG TAB (SENOKOT) PO SCH (20:07)
[2019-06-02 06:00] VITALS: BP 140/70
[2019-06-02 06:54] LABS: HEMOGLOBIN 8.8 g/dl (12.0-15.5); MEAN CORPUSCULAR HEMOGLOBIN 27.8 pg (27.0-33.0); MEAN CORPUSCULAR HGB CONC 31.4 g/dl (32.0-36.5); MEAN CORPUSCULAR VOLUME 88.3 fl (80.0-96.0); PLATELET COUNT, AUTOMATED 480 10^3/uL (150-450); RED BLOOD COUNT 3.17 10^6/uL (4.00-5.40); WHITE BLOOD COUNT 6.6 10^3/uL (4.0-10.0)
[2019-06-02] MEDS: ANEXSIA, NORCO 7.5MG/325MG TABLET(HYDROCODONE/APAP) PO PRN ×3 (07:00→20:43)
[2019-06-02 07:25] LABS: ALBUMIN 2.3 GM/DL (3.2-5.2); ALT/SGPT 9 U/L (12-78); BILIRUBIN,TOTAL 0.4 MG/DL (0.2-1.0); BLOOD UREA NITROGEN 14 MG/DL (7-18); CALCIUM LEVEL 8.2 MG/DL (8.8-10.2); CARBON DIOXIDE LEVEL 29 MEQ/L (21-32); CHLORIDE LEVEL 103 MEQ/L (98-107); CREATININE FOR GFR 0.46 MG/DL (0.55-1.30); GLOMERULAR FILTRATION RATE > 60.0 (>39); GLUCOSE, FASTING 83 MG/DL (70-100); MAGNESIUM LEVEL 1.9 MG/DL (1.8-2.4); POTASSIUM SERUM 3.7 MEQ/L (3.5-5.1); SODIUM LEVEL 138 MEQ/L (136-145); TOTAL PROTEIN 5.6 GM/DL (6.4-8.2)
[2019-06-02] MEDS: TIOTROPIUM INHALER/CAPSULE (SPIRIVA) INH SCH (08:17)
[2019-06-02] MEDS: SUCRALFATE SUSP 1GM/10ML UD PO SCH ×4 (08:49→20:43)
[2019-06-02] MEDS: ESCITALOPRAM OXALATE 10 MG TAB (LEXAPRO) PO SCH (08:49)
[2019-06-02] MEDS: PANTOPRAZOLE 40MG TAB (PROTONIX) PO SCH (08:50)
[2019-06-02] MEDS: POTASSIUM CHLORIDE 10 MEQ SR TABLET PO SCH ×4 (08:50→20:44)
[2019-06-02] MEDS: LOSARTAN 50 MG TAB PO SCH ×2 (08:50→20:45)
[2019-06-02] MEDS: SPIRONOLACTONE 25 MG TAB PO SCH (08:50)
[2019-06-02] MEDS: FUROSEMIDE 40 MG TAB PO SCH (08:50)
[2019-06-02] MEDS: RIVAROXABAN 10 MG TAB (XARELTO) PO SCH (08:50)
[2019-06-02] MEDS: DOCUSATE SODIUM 100 MG CAP PO SCH ×2 (08:50→20:44)
[2019-06-02] MEDS: METOPROLOL TART 25 MG TABLET PO SCH ×2 (08:51→20:46)
[2019-06-02 14:00] VITALS: BP 157/69
[2019-06-02] MEDS: ACETAMINOPHEN 500 MG TAB PO PRN (14:28)
--- NOTE | 2019-06-02 14:48 | IPNPDOC ---
PM&R Progress Note DATE OF SERVICE: Jun 02, 2019 Equity Research Analyst Progress Note Subjective: Patient seen walking stating her arthritis is flaring up because she is eating whatever she wants, but doesn't mind the pain. She would like heat for her back. REVIEW OF SYSTEMS: The following is a completed review of systems and has been reviewed. Review of systems otherwise unremarkable. PAIN: Patient self reports no pain EYES: No recent vision changes EARS, NOSE, & THROAT: No throat pain, or dysphagia, or rhinorrhea CARDIOVASCULAR: Denies chest pain or palpitations PULMONARY: Denies shortness of breath GASTROINTESTINAL: Denies constipation/diarrhea GENITOURINARY: denies dysuria, retention, incontinence, or hematuria MUSCULOSKELETAL: low back pain with left hip fracture NEUROLOGICAL:no tremor or seizure-like activity HEMATOLOGICAL: +anemia SKIN: left hip incision PSYCHIATRIC: Unremarkable All other review of systems found to be negative. PHYSICAL EXAMINATION: VITAL SIGNS: Please see below. GENERAL: Pleasant and cooperative. No acute distress. HEENT: PERRL. Extraocular movements intact. Clear conjunctiva CARDIOVASCULAR: Regular rate and rhythm. No murmurs, rubs, or gallops LUNGS: Clear to auscultation bilaterally. No wheezes. No rhonchi ABDOMEN: Soft, nontender, nondistended. Positive bowel sounds. Normal active bowel sounds NEUROLOGICAL: Alert and oriented times three. Cranial nerves II through XII grossly intact. Sensation grossly intact including 1st web space of left foot EXTREMITIES: 5\5 strength bilateral upper extremities. 5\5 strength right lower extremity. >3/5 strength in left lower extremity (limited by hip surgery) 5/5 ankle DF and EHL SKIN: left hip incision c/d/i with minimal drainage ASSESSMENT: 78-year-old F with past medical history of CAD s/p NSTEMI who presents status post fall with left hip fracture PLAN: Rehab: PT- strengthen / improve ROM/ stretch lower extremities maintaining hip precautions OT-strengthen / improve ROM/ stretch upper extremities maintaining hip precautions, teach the use of adaptive equipment, shoulder stabilization exercises 2. Neuro- avoid deliriogenic medications 3. Cardiac- recent nstemi in the setting of CHF, cad, hypertension- medicine consult it to speech assistant management- c/u diuretics, beta-stephanie -Currently on prophylactic Xarelto for DVT prevention, not on antiplatelet therapy due to recent GI bleed -c/u statin for HLD 4. respiratory- encourage incentive spirometry monitor for infection - wean from 02 goal >88% without symptoms 5. Ortho: status post left hip fracture with hemiarthroplasty, maintain hip precautions- will consult Orthopedics 6. : monitor PVRs 7. DVT prophylaxis- Xarelto and Teds 8. GI prophylaxis- protonix and sucralfate, recent GI bleed 9. Pain- switched to [place] c/u 10. Dispo- 06/09/19 to home, progressing towards goals Allergies Coded Allergies: amlodipine (Verified Allergy, Mild, rash, 02/22/19) duloxetine (Verified Allergy, Mild, Rash, 02/22/19) latex (Verified Allergy, Mild, rash, 03/21/19) Contrast Media (Verified Allergy, Unknown, rash, 07/11/17) nystatin (Verified Allergy, Unknown, Rash, 02/22/19) Vital Signs Vital Signs Date Time Temp Pulse Resp B/P (MAP) Pulse Ox O2 Delivery O2 Flow Rate FiO2 06/02/19 14:18 16 06/02/19 08:51 68 140/70 06/02/19 06:00 98.5 96 05/30/19 20:00 1.0 Laboratory Data CBC/BMP Laboratory Tests 06/02/19 06:27 Red Blood Count 3.17 L, Mean Corpuscular Volume 88.3, Mean Corpuscular Hemoglobin 27.8, Mean Corpuscular Hemoglobin Concent 31.4 L, Red Cell Distribution Width 15.8 H, Calcium Level 8.2 L, Aspartate Amino Transf (AST/SGOT) 11, Alanine Aminotransferase (ALT/SGPT) 9 L, Alkaline Phosphatase 132 H, Total Bilirubin 0.4, Total Protein 5.6 L, Albumin 2.3 L Labs 24H Laboratory Tests 2 06/02/19 06:27: Nucleated Red Blood Cells % (auto) 0.0, Anion Gap 6L, Glomerular Filtration Rate > 60.0, Blood Urea Nitrogen 14, Creatinine 0.46L, Sodium Level 138, Potassium Level 3.7#, Chloride Level 103, Carbon Dioxide Level 29, Calcium Level 8.2L, Aspartate Amino Transf (AST/SGOT) 11, Alanine Aminotransferase (ALT/SGPT) 9L, Alkaline Phosphatase 132H, Total Bilirubin 0.4, Total Protein 5.6L, Albumin 2.3L, Magnesium Level 1.9, Albumin/Globulin Ratio 0.70L Current Medications Current Medications Current Medications Medications (Trade) Dose Ordered Sig/Leanna Route PRN Reason Start Time Stop Time Status Last Admin Dose Admin Acetaminophen (Tylenol Tab) 500 mg TID PRN PO PAIN 05/29/19 11:30 06/02/19 14:28 Acetaminophen (Tylenol Tab) 1,000 mg TID PO 05/24/19 16:00 05/29/19 11:31 DC 05/29/19 08:20 Acetaminophen/ Hydrocodone Bitart (Anexsia, [place] 7.5mg/325mg) 1 tab QIDP PRN PO PAIN 05/29/19 11:30 06/02/19 13:18 Albuterol Sulfate (Proventil Neb) 2.5 mg RQ6H NEB 05/29/19 14:00 05/29/19 14:00 DC Albuterol Sulfate (Proventil Neb) 2.5 mg RQ6H PRN NEB SHORTNESS OF BREATH 05/29/19 14:00 Albuterol/ Ipratropium (Duoneb (Ipr 0.5mg/Alb 2.5mg)) 3 ml Q4HP PRN NEB SOB/WHEEZING 05/24/19 15:30 05/29/19 11:37 DC Atorvastatin Calcium (Lipitor) 40 mg QHS PO 05/24/19 21:00 06/01/19 20:07 Docusate Sodium (Colace) 100 mg BID PO 05/24/19 21:00 06/02/19 08:50 Escitalopram Oxalate (Lexapro) 20 mg DAILY PO 05/24/19 09:00 06/02/19 08:49 Furosemide (Lasix) 40 mg DAILY PO 05/25/19 09:00 06/02/19 08:50 Losartan Potassium (Cozaar) 50 mg BID PO 05/24/19 21:00 06/02/19 08:50 Magnesium Hydroxide (Milk Of Magnesia) 30 ml DAILYPRN PRN PO CONSTIPATION 05/24/19 14:45 05/29/19 21:39 Metoprolol Tartrate (Lopressor) 25 mg BID PO 05/24/19 21:00 06/02/19 08:51 Ondansetron HCl (Zofran) 4 mg Q6HP PRN PO NAUSEA 05/24/19 14:45 Oxycodone HCl (Roxicodone, Oxyir) 5 mg Q4HP PRN PO PAIN 05/24/19 14:45 05/29/19 11:31 DC 05/29/19 08:19 Pantoprazole Sodium (Protonix) 40 mg DAILY PO 05/24/19 09:00 06/02/19 08:50 Potassium Chloride (Micro-K Extencaps) 10 meq QID PO 05/24/19 17:00 06/02/19 11:36 Rivaroxaban (Xarelto) 10 mg DAILY@0800 PO 05/25/19 08:00 06/02/19 08:50 Senna (Senokot) 1 tab QHS PO 05/24/19 21:00 06/01/19 20:07 Spironolactone (Aldactone) 25 mg QAM PO 05/25/19 09:00 06/02/19 08:50 Sucralfate (Carafate Suspension) 1 gm ACHS PO 05/24/19 17:30 06/02/19 11:36 Tiotropium [place] (Spiriva Handihaler) 1 inhalation DAILY@08 INH 05/29/19 11:45 06/02/19 08:17 RADHA CARTER MD Jun 02, 2019 14:48
[2019-06-02 20:30] VITALS: BP 142/60
[2019-06-02] MEDS: ATORVASTATIN 20 MG TAB PO SCH (20:44)
[2019-06-02] MEDS: SENNA 8.6 MG TAB (SENOKOT) PO SCH (20:44)
[2019-06-03 06:00] VITALS: BP 158/80
[2019-06-03] MEDS: ANEXSIA, NORCO 7.5MG/325MG TABLET(HYDROCODONE/APAP) PO PRN ×2 (06:47→19:18)
[2019-06-03] MEDS: TIOTROPIUM INHALER/CAPSULE (SPIRIVA) INH SCH (07:57)
[2019-06-03] MEDS: SUCRALFATE SUSP 1GM/10ML UD PO SCH ×4 (09:16→20:25)
[2019-06-03] MEDS: LOSARTAN 50 MG TAB PO SCH ×2 (09:17→20:26)
[2019-06-03] MEDS: PANTOPRAZOLE 40MG TAB (PROTONIX) PO SCH (09:17)
[2019-06-03] MEDS: METOPROLOL TART 25 MG TABLET PO SCH ×2 (09:17→20:26)
[2019-06-03] MEDS: DOCUSATE SODIUM 100 MG CAP PO SCH ×2 (09:17→20:27)
[2019-06-03] MEDS: ESCITALOPRAM OXALATE 10 MG TAB (LEXAPRO) PO SCH (09:17)
[2019-06-03] MEDS: FUROSEMIDE 40 MG TAB PO SCH (09:18)
[2019-06-03] MEDS: SPIRONOLACTONE 25 MG TAB PO SCH (09:18)
[2019-06-03] MEDS: RIVAROXABAN 10 MG TAB (XARELTO) PO SCH (09:18)
[2019-06-03] MEDS: POTASSIUM CHLORIDE 10 MEQ SR TABLET PO SCH ×4 (09:18→20:26)
[2019-06-03] MEDS: ACETAMINOPHEN 500 MG TAB PO PRN (12:58)
[2019-06-03 14:00] VITALS: BP 109/61
[2019-06-03 20:14] VITALS: BP 134/59
[2019-06-03] MEDS: ATORVASTATIN 20 MG TAB PO SCH (20:25)
[2019-06-03] MEDS: SENNA 8.6 MG TAB (SENOKOT) PO SCH (20:27)
[2019-06-04] MEDS: ANEXSIA, NORCO 7.5MG/325MG TABLET(HYDROCODONE/APAP) PO PRN ×2 (06:04→15:50)
[2019-06-04 06:11] VITALS: BP 144/65
[2019-06-04] MEDS: TIOTROPIUM INHALER/CAPSULE (SPIRIVA) INH SCH (08:02)
[2019-06-04] MEDS: SPIRONOLACTONE 25 MG TAB PO SCH (08:51)
[2019-06-04] MEDS: DOCUSATE SODIUM 100 MG CAP PO SCH ×2 (08:51→21:02)
[2019-06-04] MEDS: RIVAROXABAN 10 MG TAB (XARELTO) PO SCH (08:51)
[2019-06-04] MEDS: LOSARTAN 50 MG TAB PO SCH ×2 (08:51→21:04)
[2019-06-04] MEDS: SUCRALFATE SUSP 1GM/10ML UD PO SCH ×4 (08:51→21:02)
[2019-06-04] MEDS: FUROSEMIDE 40 MG TAB PO SCH (08:52)
[2019-06-04] MEDS: METOPROLOL TART 25 MG TABLET PO SCH ×2 (08:52→21:04)
[2019-06-04] MEDS: PANTOPRAZOLE 40MG TAB (PROTONIX) PO SCH (08:52)
[2019-06-04] MEDS: POTASSIUM CHLORIDE 10 MEQ SR TABLET PO SCH ×4 (08:52→21:02)
[2019-06-04] MEDS: ESCITALOPRAM OXALATE 10 MG TAB (LEXAPRO) PO SCH (08:55)
[2019-06-04 14:00] VITALS: BP 120/66
[2019-06-04 20:00] VITALS: BP 141/63
[2019-06-04] MEDS: SENNA 8.6 MG TAB (SENOKOT) PO SCH (21:03)
[2019-06-04] MEDS: ACETAMINOPHEN 500 MG TAB PO PRN (21:03)
[2019-06-04] MEDS: ATORVASTATIN 20 MG TAB PO SCH (21:04)
[2019-06-05 06:00] VITALS: BP 144/69
[2019-06-05] MEDS: ANEXSIA, NORCO 7.5MG/325MG TABLET(HYDROCODONE/APAP) PO PRN ×2 (06:09→12:36)
[2019-06-05] MEDS: SUCRALFATE SUSP 1GM/10ML UD PO SCH ×4 (08:34→21:09)
[2019-06-05] MEDS: DOCUSATE SODIUM 100 MG CAP PO SCH ×2 (08:34→21:09)
[2019-06-05] MEDS: SPIRONOLACTONE 25 MG TAB PO SCH (08:35)
[2019-06-05] MEDS: METOPROLOL TART 25 MG TABLET PO SCH ×2 (08:35→21:10)
[2019-06-05] MEDS: PANTOPRAZOLE 40MG TAB (PROTONIX) PO SCH (08:35)
[2019-06-05] MEDS: LOSARTAN 50 MG TAB PO SCH ×2 (08:35→21:09)
[2019-06-05] MEDS: RIVAROXABAN 10 MG TAB (XARELTO) PO SCH (08:35)
[2019-06-05] MEDS: ESCITALOPRAM OXALATE 10 MG TAB (LEXAPRO) PO SCH (08:36)
[2019-06-05] MEDS: FUROSEMIDE 40 MG TAB PO SCH (08:36)
[2019-06-05] MEDS: POTASSIUM CHLORIDE 10 MEQ SR TABLET PO SCH ×4 (08:36→21:10)
[2019-06-05] MEDS: TIOTROPIUM INHALER/CAPSULE (SPIRIVA) INH SCH (08:47)
[2019-06-05 14:00] VITALS: BP 125/58
--- NOTE | 2019-06-05 17:06 | IPNPDOC ---
PM&R Progress Note DATE OF SERVICE: Jun 05, 2019 Electrostatic Painter Progress Note Subjective: Patient seen in her room stating she feels well, was instructed to avoid rushing to the restroom in the future if she ever feels she cannot hold her urine to prevent falling. She was told it was better to have to change her clothing than to fall again and hurt herself. REVIEW OF SYSTEMS: The following is a completed review of systems and has been reviewed. Review of systems otherwise unremarkable. PAIN: Patient self reports no pain EYES: No recent vision changes EARS, NOSE, & THROAT: No throat pain, or dysphagia, or rhinorrhea CARDIOVASCULAR: Denies chest pain or palpitations PULMONARY: Denies shortness of breath GASTROINTESTINAL: Denies constipation/diarrhea GENITOURINARY: denies dysuria, retention, incontinence, or hematuria MUSCULOSKELETAL: low back pain with left hip fracture NEUROLOGICAL:no tremor or seizure-like activity HEMATOLOGICAL: +anemia SKIN: left hip incision PSYCHIATRIC: Unremarkable All other review of systems found to be negative. PHYSICAL EXAMINATION: VITAL SIGNS: Please see below. GENERAL: Pleasant and cooperative. No acute distress. HEENT: PERRL. Extraocular movements intact. Clear conjunctiva CARDIOVASCULAR: Regular rate and rhythm. No murmurs, rubs, or gallops LUNGS: Clear to auscultation bilaterally. No wheezes. No rhonchi ABDOMEN: Soft, nontender, nondistended. Positive bowel sounds. Normal active bowel sounds NEUROLOGICAL: Alert and oriented times three. Cranial nerves II through XII grossly intact. Sensation grossly intact including 1st web space of left foot EXTREMITIES: 5\5 strength bilateral upper extremities. 5\5 strength right lower extremity. >3/5 strength in left lower extremity (limited by hip surgery) 5/5 ankle DF and EHL SKIN: left hip incision c/d/i with minimal drainage ASSESSMENT: 78-year-old F with past medical history of CAD s/p NSTEMI who presents status post fall with left hip fracture PLAN: Rehab: PT- strengthen / improve ROM/ stretch lower extremities maintaining hip precautions- room privileges today OT-strengthen / improve ROM/ stretch upper extremities maintaining hip precautions, teach the use of adaptive equipment, shoulder stabilization exercises 2. Neuro- avoid deliriogenic medications 3. Cardiac- recent nstemi in the setting of CHF, cad, hypertension- medicine consult it to assistant manager quality management management- c/u diuretics, beta-stephanie -Currently on prophylactic Xarelto for DVT prevention, not on antiplatelet therapy due to recent GI bleed -c/u statin for HLD 4. respiratory- encourage incentive spirometry monitor for infection - weaned from goal >88% without symptoms 5. Ortho: status post left hip fracture with hemiarthroplasty, maintain hip precautions- will consult Orthopedics 6. : monitor PVRs 7. DVT prophylaxis- Xarelto and Teds 8. GI prophylaxis- protonix and sucralfate, recent GI bleed 9. Pain- switched to [place] c/u 10. Dispo- 06/07/19 to home, progressing towards goals Allergies Coded Allergies: amlodipine (Verified Allergy, Mild, rash, 02/22/19) duloxetine (Verified Allergy, Mild, Rash, 02/22/19) latex (Verified Allergy, Mild, rash, 03/21/19) Contrast Media (Verified Allergy, Unknown, rash, 07/11/17) nystatin (Verified Allergy, Unknown, Rash, 02/22/19) Vital Signs Vital Signs Date Time Temp Pulse Resp B/P (MAP) Pulse Ox O2 Delivery O2 Flow Rate FiO2 06/05/19 14:00 97.8 77 18 125/58 (80) 92 05/30/19 20:00 1.0 Current Medications Current Medications Current Medications Medications (Trade) Dose Ordered Sig/Leanna Route PRN Reason Start Time Stop Time Status Last Admin Dose Admin Acetaminophen (Tylenol Tab) 500 mg TID PRN PO PAIN 05/29/19 11:30 06/04/19 21:03 Acetaminophen (Tylenol Tab) 1,000 mg TID PO 05/24/19 16:00 05/29/19 11:31 DC 05/29/19 08:20 Acetaminophen/ Hydrocodone Bitart (Anexsia, [place] 7.5mg/325mg) 1 tab QIDP PRN PO PAIN 05/29/19 11:30 06/05/19 12:36 Albuterol Sulfate (Proventil Neb) 2.5 mg RQ6H NEB 05/29/19 14:00 05/29/19 14:00 DC Albuterol Sulfate (Proventil Neb) 2.5 mg RQ6H PRN NEB SHORTNESS OF BREATH 05/29/19 14:00 Albuterol/ Ipratropium (Duoneb (Ipr 0.5mg/Alb 2.5mg)) 3 ml Q4HP PRN NEB SOB/WHEEZING 05/24/19 15:30 05/29/19 11:37 DC Atorvastatin Calcium (Lipitor) 40 mg QHS PO 05/24/19 21:00 06/04/19 21:04 Docusate Sodium (Colace) 100 mg BID PO 05/24/19 21:00 06/05/19 08:34 Escitalopram Oxalate (Lexapro) 20 mg DAILY PO 05/24/19 09:00 06/05/19 08:36 Furosemide (Lasix) 40 mg DAILY PO 05/25/19 09:00 06/05/19 08:36 Losartan Potassium (Cozaar) 50 mg BID PO 05/24/19 21:00 06/05/19 08:35 Magnesium Hydroxide (Milk Of Magnesia) 30 ml DAILYPRN PRN PO CONSTIPATION 05/24/19 14:45 05/29/19 21:39 Metoprolol Tartrate (Lopressor) 25 mg BID PO 05/24/19 21:00 06/05/19 08:35 Miscellaneous (Unresolved Clarification Entry) SEE LABEL COMMENTS DAILY XX 06/04/19 09:00 06/04/19 13:55 DC Ondansetron HCl (Zofran) 4 mg Q6HP PRN PO NAUSEA 05/24/19 14:45 Oxycodone HCl (Roxicodone, Oxyir) 5 mg Q4HP PRN PO PAIN 05/24/19 14:45 05/29/19 11:31 DC 05/29/19 08:19 Pantoprazole Sodium (Protonix) 40 mg DAILY PO 05/24/19 09:00 06/05/19 08:35 Potassium Chloride (Micro-K Extencaps) 10 meq QID PO 05/24/19 17:00 06/05/19 12:35 Rivaroxaban (Xarelto) 10 mg DAILY@0800 PO 05/25/19 08:00 06/05/19 08:35 Senna (Senokot) 1 tab QHS PO 05/24/19 21:00 06/04/19 21:03 Spironolactone (Aldactone) 25 mg QAM PO 05/25/19 09:00 06/05/19 08:35 Sucralfate (Carafate Suspension) 1 gm ACHS PO 05/24/19 17:30 8/19/19 12:35 Tiotropium [place] (Spiriva Handihaler) 1 inhalation DAILY@08 INH 05/29/19 11:45 06/05/19 08:47 RADHA CARTER MD Jun 05, 2019 17:06
[2019-06-05 19:55] VITALS: BP 137/61
[2019-06-05] MEDS: SENNA 8.6 MG TAB (SENOKOT) PO SCH (21:09)
[2019-06-05] MEDS: ATORVASTATIN 20 MG TAB PO SCH (21:09)
[2019-06-05] MEDS: ACETAMINOPHEN 500 MG TAB PO PRN (21:10)
--- NOTE | 2019-06-05 23:07 | IPN ---
DATE: 06/05/2019 This is a 78-year-old female who sustained a left hip fracture. She is status post left hip hemiarthroplasty 06/02/2019. She continues to do well. Vital signs have been stable. She had some anemia status post surgery. Will repeat CBC in the morning. She has no complaints of shortness of breath. Continues on Lasix and spironolactone. Remains euvolemic. Has no rales. Her weight is 59.4 down from 62.1 on 05/28/2019. Will check a CBC, CMP in the morning. Vital signs are stable. OBJECTIVE: Blood pressure 125/80, pulse 77, respirations 18, temperature 97.8, oxygen saturation 92% on room air. The patient is alert and oriented times three. Pupils equal and react to light. Pharynx: Tongue and gums pink and moist. Tongue is midline. Neck is supple without lymphadenopathy. No thyromegaly. No goiter. Jugular venous pressure is below clavicle. Chest is clear to auscultation without wheeze or retractions. Heart is regular. Abdomen: Benign. Bowel sounds are positive. Genital/Rectal: Not done. Extremities: No cyanosis, clubbing or edema. IMPRESSION/PLAN: Left hip fracture, status post left hip hemiarthroplasty 05/23/2019. Continues to do well. Management per rehab. Chronic obstructive pulmonary disease (COPD). Continues on Spiriva, albuterol as needed. Recommend outpatient pulmonary function test (PFT) study. Currently clinically stable respiratory status. Right thumb pain, resolved. Hypertension, stable. Congestive heart failure (CHF), euvolemic. Continue Lasix, fluid restriction. Deep vein thrombosis (DVT) Prophylaxis. Continues on Xarelto.
[2019-06-06] MEDS: ANEXSIA, NORCO 7.5MG/325MG TABLET(HYDROCODONE/APAP) PO PRN ×3 (05:35→18:52)
[2019-06-06 05:44] VITALS: BP 150/71
[2019-06-06 06:32] LABS: BASO # 0.1 10^3/uL (0.0-0.2); BASO % 0.7 % (0.0-1.0); HEMATOCRIT 27.4 % (36.0-47.0); HEMOGLOBIN 8.8 g/dl (12.0-15.5); LYMPH # 1.1 10^3/uL (1.5-4.5); LYMPH % 15.8 % (24.0-44.0); MEAN CORPUSCULAR HEMOGLOBIN 29.2 pg (27.0-33.0); MEAN CORPUSCULAR HGB CONC 32.1 g/dl (32.0-36.5); MONO # 1.3 10^3/uL (0.0-0.8); MONO % 18.1 % (0.0-5.0); NEUTROPHILS # 4.5 10^3/uL (1.8-7.7); NEUTROPHILS % 64.8 % (36.0-66.0); PLATELET COUNT, AUTOMATED 461 10^3/uL (150-450); RED BLOOD COUNT 3.01 10^6/uL (4.00-5.40); WHITE BLOOD COUNT 6.9 10^3/uL (4.0-10.0)
[2019-06-06 06:58] LABS: ALBUMIN 2.4 GM/DL (3.2-5.2); ALT/SGPT 9 U/L (12-78); BILIRUBIN,TOTAL 0.4 MG/DL (0.2-1.0); BLOOD UREA NITROGEN 12 MG/DL (7-18); CALCIUM LEVEL 8.5 MG/DL (8.8-10.2); CARBON DIOXIDE LEVEL 28 MEQ/L (21-32); CHLORIDE LEVEL 104 MEQ/L (98-107); CREATININE FOR GFR 0.38 MG/DL (0.55-1.30); GLOMERULAR FILTRATION RATE > 60.0 (>39); GLUCOSE, FASTING 90 MG/DL (70-100); POTASSIUM SERUM 3.8 MEQ/L (3.5-5.1); SODIUM LEVEL 138 MEQ/L (136-145); TOTAL PROTEIN 5.7 GM/DL (6.4-8.2)
[2019-06-06] MEDS: TIOTROPIUM INHALER/CAPSULE (SPIRIVA) INH SCH (07:29)
[2019-06-06] MEDS: ESCITALOPRAM OXALATE 10 MG TAB (LEXAPRO) PO SCH (08:31)
[2019-06-06] MEDS: SUCRALFATE SUSP 1GM/10ML UD PO SCH ×4 (08:31→21:02)
[2019-06-06] MEDS: FUROSEMIDE 40 MG TAB PO SCH (08:32)
[2019-06-06] MEDS: POTASSIUM CHLORIDE 10 MEQ SR TABLET PO SCH ×4 (08:32→21:02)
[2019-06-06] MEDS: SPIRONOLACTONE 25 MG TAB PO SCH (08:32)
[2019-06-06] MEDS: DOCUSATE SODIUM 100 MG CAP PO SCH ×2 (08:32→21:03)
[2019-06-06] MEDS: RIVAROXABAN 10 MG TAB (XARELTO) PO SCH (08:32)
[2019-06-06] MEDS: PANTOPRAZOLE 40MG TAB (PROTONIX) PO SCH (08:32)
[2019-06-06] MEDS: LOSARTAN 50 MG TAB PO SCH ×2 (08:33→21:02)
[2019-06-06] MEDS: METOPROLOL TART 25 MG TABLET PO SCH ×2 (08:33→21:03)
--- NOTE | 2019-06-06 12:21 | IPN ---
DATE: 06/06/2019 Tejal is seen in Acute Rehabilitation Unit. I am rounding for the hospitalist. She was in the kitchen making applesauce. She denies any chest pain, shortness of breath, worsening of her edema. PHYSICAL EXAMINATION: Afebrile. Vital signs stable. LUNGS: Clear. HEART: Regular rhythm. ABDOMEN: Soft, nontender. EXTREMITIES: Trace peripheral edema. LABORATORIES: CBC unremarkable. Electrolytes unremarkable. Potassium 3.8. IMPRESSION: 1. Left hip fracture. Progressing in therapy. 2. Chronic obstructive pulmonary disease (COPD), asymptomatic. Lungs are clear. 3. History of congestive heart failure (CHF). He is euvolemic and well compensated on examination.
--- NOTE | 2019-06-06 16:46 | IPNPDOC ---
PM&R Progress Note DATE OF SERVICE: Jun 06, 2019 [facility] Progress Note Subjective: Patient seen walking in therapy and negotiating stairs, feeling well and ready to go home tomorrow. REVIEW OF SYSTEMS: The following is a completed review of systems and has been reviewed. Review of systems otherwise unremarkable. PAIN: Patient self reports no pain EYES: No recent vision changes EARS, NOSE, & THROAT: No throat pain, or dysphagia, or rhinorrhea CARDIOVASCULAR: Denies chest pain or palpitations PULMONARY: Denies shortness of breath GASTROINTESTINAL: Denies constipation/diarrhea GENITOURINARY: denies dysuria, retention, incontinence, or hematuria MUSCULOSKELETAL: low back pain with left hip fracture NEUROLOGICAL:no tremor or seizure-like activity HEMATOLOGICAL: +anemia SKIN: left hip incision PSYCHIATRIC: Unremarkable All other review of systems found to be negative. PHYSICAL EXAMINATION: VITAL SIGNS: Please see below. GENERAL: Pleasant and cooperative. No acute distress. HEENT: PERRL. Extraocular movements intact. Clear conjunctiva CARDIOVASCULAR: Regular rate and rhythm. No murmurs, rubs, or gallops LUNGS: Clear to auscultation bilaterally. No wheezes. No rhonchi ABDOMEN: Soft, nontender, nondistended. Positive bowel sounds. Normal active bowel sounds NEUROLOGICAL: Alert and oriented times three. Cranial nerves II through XII grossly intact. Sensation grossly intact including 1st web space of left foot EXTREMITIES: 5\5 strength bilateral upper extremities. 5\5 strength right lower extremity. >3/5 strength in left lower extremity (limited by hip surgery) 5/5 ankle DF and EHL SKIN: left hip incision c/d/i with minimal drainage ASSESSMENT: 78-year-old F with past medical history of CAD s/p NSTEMI who pre sents status post fall with left hip fracture PLAN: Rehab: PT- strengthen / improve ROM/ stretch lower extremities maintaining hip precautions- room privileges today OT-strengthen / improve ROM/ stretch upper extremities maintaining hip precautions, teach the use of adaptive equipment, shoulder stabilization exercises 2. Neuro- avoid deliriogenic medications 3. 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 respiratory- encourage incentive spirometry monitor for infection - weaned from 02 goal >88% without symptoms 5. Ortho: status post left hip fracture with hemiarthroplasty, maintain hip precautions- will consult Orthopedics 6. : monitor PVRs 7. DVT prophylaxis- Xarelto and Teds 8. GI prophylaxis- protonix and sucralfate, recent GI bleed 9. Pain- switched to [place] c/u 10. Dispo- 06/07/19 to home, progressing towards goals Allergies Coded Allergies: amlodipine (Verified Allergy, Mild, rash, 02/22/19) duloxetine (Verified Allergy, Mild, Rash, 02/22/19) latex (Verified Allergy, Mild, rash, 03/21/19) Contrast Media (Verified Allergy, Unknown, rash, 07/11/17) nystatin (Verified Allergy, Unknown, Rash, 02/22/19) Vital Signs Vital Signs Date Time Temp Pulse Resp B/P (MAP) Pulse Ox O2 Delivery O2 Flow Rate FiO2 06/06/19 13:00 18 06/06/19 08:33 72 150/71 06/06/19 05:44 98.0 98 Laboratory Data CBC/BMP Laboratory Tests 06/06/19 06:14 Red Blood Count 3.01 L, Mean Corpuscular Volume 91.0, Mean Corpuscular Hemoglobin 29.2, Mean Corpuscular Hemoglobin Concent 32.1, Red Cell Distribution Width 15.6 H, Neutrophils (%) (Auto) 64.8, Lymphocytes (%) (Auto) 15.8 L, Monocytes (%) (Auto) 18.1 H, Eosinophils (%) (Auto) 0.0, Basophils (%) (Auto) 0.7, Neutrophils # (Auto) 4.5, Lymphocytes # (Auto) 1.1 L, Monocytes # (Auto) 1.3 H, Eosinophils # (Auto) 0.0, Basophils # (Auto) 0.1, Calcium Level 8.5 L, Aspartate Amino Transf (AST/SGOT) 12, Alanine Aminotransferase (ALT/SGPT) 9 L, Alkaline Phosphatase 145 H, Total Bilirubin 0.4, Total Protein 5.7 L, Albumin 2.4 L Labs 24H Laboratory Tests 2 06/06/19 06:14: Immature Granulocyte % (Auto) 0.6, White Blood Count 6.9, Red Blood Count 3.01L, Hemoglobin 8.8L, Hematocrit 27.4L, Mean Corpuscular Volume 91.0, Mean Corpuscular Hemoglobin 29.2, Mean Corpuscular Hemoglobin Concent 32.1, Red Cell Distribution Width 15.6H, Platelet Count 461H, Neutrophils (%) (Auto) 64.8, Lymphocytes (%) (Auto) 15.8L, Monocytes (%) (Auto) 18.1H, Eosinophils (%) (Auto) 0.0, Basophils (%) (Auto) 0.7, Neutrophils # (Auto) 4.5, Lymphocytes # (Auto) 1.1L, Monocytes # (Auto) 1.3H, Eosinophils # (Auto) 0.0, Basophils # (Auto) 0.1, Nucleated Red Blood Cells % (auto) 0.0, Anion Gap 6L, Glomerular Filtration Rate > 60.0, Blood Urea Nitrogen 12, Creatinine 0.38L, Sodium Level 138, Potassium Level 3.8, Chloride Level 104, Carbon Dioxide Level 28, Calcium Level 8.5L, Aspartate Amino Transf (AST/SGOT) 12, Alanine Aminotransferase (ALT/SGPT) 9L, Alkaline Phosphatase 145H, Total Bilirubin 0.4, Total Protein 5.7L, Albumin 2. 4L, Albumin/Globulin Ratio 0.73L Current Medications Current Medications Current Medications Medications (Trade) Dose Ordered Sig/Leanna Route PRN Reason Start Time Stop Time Status Last Admin Dose Admin Acetaminophen (Tylenol Tab) 500 mg TID PRN PO PAIN 05/29/19 11:30 06/05/19 21:10 Acetaminophen (Tylenol Tab) 1,000 mg TID PO 05/24/19 16:00 05/29/19 11:31 DC 05/29/19 08:20 Acetaminophen/ Hydrocodone Bitart (Anexsia, [place] 7.5mg/325mg) 1 tab QIDP PRN PO PAIN 05/29/19 11:30 06/06/19 12:07 Albuterol Sulfate (Proventil Neb) 2.5 mg RQ6H NEB 05/29/19 14:00 05/29/19 14:00 DC Albuterol Sulfate (Proventil Neb) 2.5 mg RQ6H PRN NEB SHORTNESS OF BREATH 05/29/19 14:00 Albuterol/ Ipratropium (Duoneb (Ipr 0.5mg/Alb 2.5mg)) 3 ml Q4HP PRN NEB SOB/WHEEZING 05/24/19 15:30 05/29/19 11:37 DC Atorvastatin Calcium (Lipitor) 40 mg QHS PO 05/24/19 21:00 06/05/19 21:09 Docusate Sodium (Colace) 100 mg BID PO 05/24/19 21:00 06/06/19 08:32 Escitalopram Oxalate (Lexapro) 20 mg DAILY PO 05/24/19 09:00 06/06/19 08:31 Furosemide (Lasix) 40 mg DAILY PO 05/25/19 09:00 06/06/19 08:32 Losartan Potassium (Cozaar) 50 mg BID PO 05/24/19 21:00 06/06/19 08:33 Magnesium Hydroxide (Milk Of Magnesia) 30 ml DAILYPRN PRN PO CONSTIPATION 05/24/19 14:45 05/29/19 21:39 Metoprolol Tartrate (Lopressor) 25 mg BID PO 05/24/19 21:00 06/06/19 08:33 Miscellaneous (Unresolved Clarification Entry) SEE LABEL COMMENTS DAILY XX 06/04/19 09:00 06/04/19 13:55 DC Ondansetron HCl (Zofran) 4 mg Q6HP PRN PO NAUSEA 05/24/19 14:45 Oxycodone HCl (Roxicodone, Oxyir) 5 mg Q4HP PRN PO PAIN 05/24/19 14:45 05/29/19 11:31 DC 05/29/19 08:19 Pantoprazole Sodium (Protonix) 40 mg DAILY PO 05/24/19 09:00 06/06/19 08:32 Potassium Chloride (Micro-K Extencaps) 10 meq QID PO 05/24/19 17:00 06/06/19 12:07 Rivaroxaban (Xarelto) 10 mg DAILY@0800 PO 05/25/19 08:00 06/06/19 08:32 Senna (Senokot) 1 tab QHS PO 05/24/19 21:00 06/05/19 21:09 Spironolactone (Aldactone) 25 mg QAM PO 05/25/19 09:00 06/06/19 08:32 Sucralfate (Carafate Suspension) 1 gm ACHS PO 05/24/19 17:30 06/06/19 12:07 Tiotropium [place] (Spiriva Handihaler) 1 inhalation DAILY@08 INH 05/29/19 11:45 06/06/19 07:29 RADHA CARTER MD Jun 06, 2019 16:46
[2019-06-06 20:00] VITALS: BP 131/60
[2019-06-06] MEDS: ATORVASTATIN 20 MG TAB PO SCH (21:03)
[2019-06-06] MEDS: SENNA 8.6 MG TAB (SENOKOT) PO SCH (21:03)
[2019-06-07] MEDS ORDERED: XARE10TA PO (05:40)
[2019-06-07] MEDS: ANEXSIA, NORCO 7.5MG/325MG TABLET(HYDROCODONE/APAP) PO PRN (05:53)
[2019-06-07 06:00] VITALS: BP_SYST 158; BP_SYST 172; BP_DIAS 74; BP_DIAS 78
[2019-06-07] MEDS: TIOTROPIUM INHALER/CAPSULE (SPIRIVA) INH SCH (08:27)
[2019-06-07] MEDS: DOCUSATE SODIUM 100 MG CAP PO SCH (08:32)
[2019-06-07] MEDS: SUCRALFATE SUSP 1GM/10ML UD PO SCH ×2 (08:32→12:07)
[2019-06-07] MEDS: POTASSIUM CHLORIDE 10 MEQ SR TABLET PO SCH ×2 (08:32→12:07)
[2019-06-07] MEDS: PANTOPRAZOLE 40MG TAB (PROTONIX) PO SCH (08:32)
[2019-06-07] MEDS: RIVAROXABAN 10 MG TAB (XARELTO) PO SCH (08:32)
[2019-06-07 08:33] VITALS: BP 139/93
[2019-06-07] MEDS: METOPROLOL TART 25 MG TABLET PO SCH (08:33)
[2019-06-07] MEDS: FUROSEMIDE 40 MG TAB PO SCH (08:33)
[2019-06-07] MEDS: SPIRONOLACTONE 25 MG TAB PO SCH (08:33)
[2019-06-07] MEDS: ESCITALOPRAM OXALATE 10 MG TAB (LEXAPRO) PO SCH (08:33)
[2019-06-07] MEDS: LOSARTAN 50 MG TAB PO SCH (08:33)
[2019-06-07] MEDS ORDERED: FURO40TA2 PO (09:26)
[2019-06-07] MEDS ORDERED: KLOR10TA76 PO (09:26)
[2019-06-07] MEDS ORDERED: METO1TAB87 PO (09:26)
[2019-06-07] MEDS ORDERED: COZA50TA PO (09:26)
[2019-06-07] MEDS ORDERED: SUCR10SS PO (09:26)
[2019-06-07] MEDS ORDERED: ALDA25TA2 PO (09:26)
[2019-06-07] MEDS ORDERED: ESCI10TA2 PO (09:26)
[2019-06-07] MEDS ORDERED: ATOR1TAB21 PO (09:26)
[2019-06-07] MEDS ORDERED: PANT40TA3 PO (09:26)
--- NOTE | 2019-06-08 17:09 | PMRDS ---
DATE OF ADMISSION: 05/24/2019 DATE OF DISCHARGE: 06/07/2019 CHIEF COMPLAINT/DISCHARGE DIAGNOSIS: Left hip fracture. HISTORY OF PRESENT ILLNESS: A 78-year-old female with a past medical history of hypertension, anxiety, depression, congestive heart failure, history of non-ST elevated myocardial infarction (AR), spinal stenosis status post laminectomy, chronic back pain, rheumatoid arthritis, coronary artery disease (CAD), bleeding duodenal ulcer with hemorrhagic shock status post oversewing on March 2019 with an acute rehabilitation unit (ARU) rehabilitation stay who presented to [facility]) Emergency Department (ED) on 05/22/2019 reporting a fall. She denied any presyncopal symptoms prior to the fall. Hip x-ray revealed "nondisplaced fracture of the left femoral neck." She was evaluated by therapy from the left hip hemiarthroplasty without any postoperative complications. She had some postoperative anemia, was evaluated by therapy and found to be well below her prior level of function and deemed medically appropriate for discharge to ARU on 05/24/2019. PAST MEDICAL HISTORY: As per history of present illness (HPI). HOSPITAL COURSE: The patient was admitted and enrolled in a comprehensive physical therapy (PT), occupational therapy (OT) program. She received 24-hour nursing supervision and weekly team meetings were held to discuss her progress. The patient was able to maintain her hip precautions for her hemiarthroplasty and her hemoglobin and hematocrit remained stable despite being on Xarelto and was maintained on Protonix and sucralfate in the setting of a recent gastrointestinal (GI) bleed. The patient was weaned from oxygen therapy with a goal of greater than 88% and was symptom free. She performed very well in therapy, was hemodynamically stable and deemed medically and functionally stable to return home at a modified independent level on 06/07/2019. DISCHARGE MEDICATIONS: As per instructions. FUNCTIONAL HISTORY UPON DISCHARGE: The patient was modified independent for all functional transfers, able to ambulate 150 feet and negotiate two stairs at a modified independent level. In occupational therapy, she was independent with eating, oral hygiene, toileting, upper and lower body dressing. Thank you for this referral.
== END 2019-06-07 12:26 | disposition home health service (06) | DRG 561 ==
LOC: M PM&R 14:05
PROVIDERS: ADMIT Physical Medicine & Rehabilitation; ATTEND Physical Medicine & Rehabilitation
DX: S72.042D Displaced fracture of base of neck of left femur, subsequent encounter for closed fracture with routine healing (principal); I10 Essential (primary) hypertension; F41.9 Anxiety disorder, unspecified; F32.9 Major depressive disorder, single episode, unspecified; I50.9 Heart failure, unspecified; I25.2 Old myocardial infarction; M79.644 Pain in right finger(s); M06.9 Rheumatoid arthritis, unspecified; I25.10 Atherosclerotic heart disease of native coronary artery without angina pectoris; Z98.1 Arthrodesis status; Z96.652 Presence of left artificial knee joint; Z87.11 Personal history of peptic ulcer disease; W19.XXXD Unspecified fall, subsequent encounter; Y92.9 Unspecified place or not applicable; Z79.01 Long term (current) use of anticoagulants; Z79.899 Other long term (current) drug therapy; Z88.8 Allergy status to other drugs, medicaments and biological substances; Z91.041 Radiographic dye allergy status; Z91.040 Latex allergy status

== ENCOUNTER → 2020-04-02 | Outpatient (REF) | payer MEDICARE, MEDICAID ==
[~2020-04-02] MED LIST changes: +ATOR1TAB21 PO; +MAGN400O53 PO; -MILKSUS PO; +SUCR1ORA2 PO; -TRAZ-163 PO; +TRAZ-257 PO
[2020-04-02 11:51] LABS: BASO # 0.1 10^3/uL (0.0-0.2); BASO % 1.1 % (0.0-1.0); HEMATOCRIT 39.5 % (36.0-47.0); HEMOGLOBIN 12.2 g/dl (12.0-15.5); LYMPH % 15.6 % (24.0-44.0); MEAN CORPUSCULAR HEMOGLOBIN 27.1 pg (27.0-33.0); MEAN CORPUSCULAR HGB CONC 30.9 g/dl (32.0-36.5); MEAN CORPUSCULAR VOLUME 87.6 fl (80.0-96.0); MONO # 1.1 10^3/uL (0.0-0.8); MONO % 17.1 % (0.0-5.0); NEUTROPHILS # 4.1 10^3/uL (1.5-8.5); PLATELET COUNT, AUTOMATED 252 10^3/uL (150-450); RED BLOOD COUNT 4.51 10^6/uL (4.00-5.40); WHITE BLOOD COUNT 6.1 10^3/uL (4.0-10.0)
[2020-04-02 12:27] LABS: ALBUMIN 3.6 GM/DL (3.2-5.2); ALT/SGPT 20 U/L (12-78); BILIRUBIN,TOTAL 0.5 MG/DL (0.2-1.0); BLOOD UREA NITROGEN 20 MG/DL (7-18); CALCIUM LEVEL 9.1 MG/DL (8.8-10.2); CARBON DIOXIDE LEVEL 33 MEQ/L (21-32); CHLORIDE LEVEL 104 MEQ/L (98-107); CHOLESTEROL LEVEL 135 MG/DL (<200); CHOLESTEROL RISK RATIO 1.956 (<5); CREATININE FOR GFR 0.75 MG/DL (0.55-1.30); GLOMERULAR FILTRATION RATE > 60.0 (>39); GLUCOSE, FASTING 73 MG/DL (70-100); HDL CHOLESTEROL 69 MG/DL (>40); LDL CHOLESTEROL 56 MG/DL (<100); NON-HDL-C 66 MG/DL; POTASSIUM SERUM 4.4 MEQ/L (3.5-5.1); SODIUM LEVEL 139 MEQ/L (136-145); TOTAL PROTEIN 7.1 GM/DL (6.4-8.2); TRIGLYCERIDES LEVEL 51 MG/DL (<150)
== END ==
LOC: M SFHCCLAY 07:10
PROVIDERS: ATTEND Family Medicine
DX: I10 Essential (primary) hypertension (principal); E78.00 Pure hypercholesterolemia, unspecified; K27.4 Chronic or unspecified peptic ulcer, site unspecified, with hemorrhage

== ENCOUNTER 2020-07-13 20:09 | Emergency (ER) | payer MEDICARE, MEDICAID ==
[~2020-07-13] VITALS: Ht 157.5 cm; Wt 59.1 kg
[~2020-07-13 20:09] MED LIST changes: +CALC600T63 PO; -CALCTAB6 PO; -MAGN400O53 PO; +MILKSUS22 PO; +PANT40TA29 PO; -PANT40TA3 PO
[2020-07-13] MEDS ORDERED: NITROGLYCERIN 2% OINT 1 GM *U/D* PKT As Ordered ONE (20:21)
[2020-07-13] MEDS ORDERED: NITROGLYCERIN 2% OINT 1 GM *U/D* PKT TOP ONE (20:30)
[2020-07-13] MEDS ORDERED: diphenhydrAMINE 50MG/ML VIAL (J1200) As Ordered ONE (20:34)
[2020-07-13] MEDS ORDERED: methylPREDNISolone 125MG 2ML VIAL As Ordered ONE (20:34)
[2020-07-13 20:36] LABS: BASO # 0.1 10^3/uL (0.0-0.2); BASO % 1.3 % (0.0-1.0); EOS % 0.1 % (0.0-3.0); HEMATOCRIT 48.2 % (36.0-47.0); HEMOGLOBIN 14.4 g/dl (12.0-15.5); LYMPH # 1.8 10^3/uL (1.5-5.0); LYMPH % 23.8 % (24.0-44.0); MEAN CORPUSCULAR HEMOGLOBIN 26.2 pg (27.0-33.0); MEAN CORPUSCULAR HGB CONC 29.9 g/dl (32.0-36.5); MEAN CORPUSCULAR VOLUME 87.8 fl (80.0-96.0); MONO # 0.9 10^3/uL (0.0-0.8); MONO % 12.7 % (0.0-5.0); NEUTROPHILS # 4.5 10^3/uL (1.5-8.5); PLATELET COUNT, AUTOMATED 293 10^3/uL (150-450); RED BLOOD COUNT 5.49 10^6/uL (4.00-5.40); WHITE BLOOD COUNT 7.4 10^3/uL (4.0-10.0)
[2020-07-13] MEDS ORDERED: diphenhydrAMINE 50MG/ML VIAL (J1200) IV ONE (20:45)
[2020-07-13] MEDS ORDERED: methylPREDNISolone 125MG 2ML VIAL IV ONE (20:45)
[2020-07-13] MEDS ORDERED: TRAM50TA2 (20:52)
[2020-07-13] MEDS ORDERED: ISOVUE-370 76% 100ML VIAL As Ordered ONE (21:01)
[2020-07-13 21:12] LABS: ALBUMIN 3.6 GM/DL (3.2-5.2); BILIRUBIN,DIRECT 0.2 MG/DL (0.0-0.2); BILIRUBIN,TOTAL 0.4 MG/DL (0.2-1.0); CK-MB VALUE MASS 3.4 NG/ML (<3.6); TOTAL PROTEIN 7.6 GM/DL (6.4-8.2); TROPONIN I 0.37 NG/ML (< 0.10)
--- NOTE | 2020-07-13 22:08 | REPVR ---
PROCEDURE INFORMATION: Exam: CT Head Without Contrast Exam date and time: 07/13/2020 9:46 PM Age: 79 years old Clinical indication: Injury or trauma; Fall; Initial encounter; Blunt trauma (contusions or hematomas) TECHNIQUE: Imaging protocol: Computed tomography of the head without contrast. Radiation optimization: All CT scans at this facility use at least one of these dose optimization techniques: automated exposure control; mA and/or kV adjustment per patient size (includes targeted exams where dose is matched to clinical indication); or iterative reconstruction. COMPARISON: No relevant prior studies available. FINDINGS: Brain: Diffuse moderate cerebral age related volume loss. Moderate patchy low attenuation in the white matter compatible with moderate chronic small vessel ischemic disease. No midline shift, mass, fluid collection, or evidence of hemorrhage. Cerebral ventricles: Ventricular enlargement proportional to volume loss. Bones/joints: Unremarkable. No acute fracture. Paranasal sinuses: Visualized sinuses are unremarkable. No fluid levels. Mastoid air cells: Visualized mastoid air cells are well aerated. Soft tissues: Unremarkable. IMPRESSION: Moderate involutional changes, no acute intracranial abnormality. Electronically signed by: Vivek Beard On 07/13/2020 22:08:26 PM
--- NOTE | 2020-07-13 22:28 | REPVR ---
PROCEDURE INFORMATION: Exam: CT Angiography Abdomen and Pelvis With Contrast Exam date and time: 07/13/2020 9:46 PM Age: 79 years old Clinical indication: Abdominal pain; Generalized; Additional info: SOB, back pain, HX of aaa TECHNIQUE: Imaging protocol: Computed tomographic angiography of the abdomen and pelvis with intravenous contrast material. 3D rendering (Not supervised by radiologist): MIP and/or 3D reconstructed images were created by the technologist. Radiation optimization: All CT scans at this facility use at least one of these dose optimization techniques: automated exposure control; mA and/or kV adjustment per patient size (includes targeted exams where dose is matched to clinical indication); or iterative reconstruction. Contrast material: ISOVUE 370; Contrast volume: 100 ml; Contrast route: INTRAVENOUS (IV); COMPARISON: CT ABD/PEL W/IV CONTRAST ONLY 2018-10-04 23:56 FINDINGS: Limitations: Artifact related to patient's arm position limits evaluation. Lungs: Small bilateral pleural effusions with associated atelectasis. Aorta: Intraluminal adherent soft plaque/thrombus along the left lateral wall of the mid aorta measures 1 cm. 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 Widely patent superior mesenteric artery. Renal arteries: Patent left renal artery stent. Aortoiliac endograft initiated above the right renal artery origin and overlapping the left renal artery origin and just below the right renal artery origin. Right iliac arteries: No occlusion or significant stenosis. Right femoral/popliteal arteries: Moderate right common femoral, and severe proximal right femoral artery stenosis. Left iliac arteries: No occlusion or significant stenosis. Liver: No mass. Gallbladder and bile ducts: Unremarkable. No calcified stones. No ductal dilation. Pancreas: Unremarkable. No mass. No ductal dilation. Spleen: Unremarkable. No splenomegaly. Adrenals: Unremarkable. No mass. Kidneys and ureters: Unremarkable. No solid mass. No hydronephrosis. Stomach and bowel: Excessive stool in the right hemicolon. Mild gastric antral wall thickening, correlate for gastritis. Appendix: No evidence of appendicitis. Intraperitoneal space: Unremarkable. No free air. No significant fluid collection. Lymph nodes: Unremarkable. No enlarged lymph nodes. Urinary bladder: Unremarkable. No mass. Reproductive: Unremarkable as visualized. Bones/joints: Left hip arthroplasty. ORIF right femur. Sacral arthrodesis with large bone screws. Relatively hypodense bones indicating osteopenia. Lumbar spinal fusion. Moderate levoconvex lumbar curvature. Moderate right common femoral atherosclerotic disease. Soft tissues: Small midline incisional fat protruding hernia. IMPRESSION: 1. No acute abnormality. Intact endograft, left renal artery stent. Intraluminal soft plaque and thrombus in the aorta without luminal compromise. 2. 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 3. Moderate right common femoral, and severe proximal right femoral artery stenosis. 4. Excessive stool in the right hemicolon. 5. Mild gastric antral wall thickening, correlate for gastritis. Electronically signed by: Vivek Beard On 07/13/2020 22:27:42 PM
--- NOTE | 2020-07-13 22:45 | REPVR ---
PROCEDURE INFORMATION: Exam: CT Angiography Chest With Contrast Exam date and time: 07/13/2020 9:46 PM Age: 79 years old Clinical indication: Shortness of breath; Additional info: SOB, back pain, HX of aaa TECHNIQUE: Imaging protocol: Computed tomographic angiography of the chest with intravenous contrast. 3D rendering (Not supervised by radiologist): MIP and/or 3D reconstructed images were created by the technologist. Radiation optimization: All CT scans at this facility use at least one of these dose optimization techniques: automated exposure control; mA and/or kV adjustment per patient size (includes targeted exams where dose is matched to clinical indication); or iterative reconstruction. Contrast material: ISOVUE 370; Contrast volume: 100 ml; Contrast route: INTRAVENOUS (IV); COMPARISON: CT ANGIO CHEST 2018-10-04 23:56 FINDINGS: Pulmonary arteries: The pulmonary arteries demonstrate moderate central enlargement, consistent with moderate pulmonary hypertension. No pulmonary emboli. No filling defects in the pulmonary arteries to suggest pulmonary emboli. Aorta: Fusiform enlarged aorta. Proximal ascending aorta measures 4.2 cm. Mid descending thoracic aorta 3.3 cm scattered atherosclerotic plaque. Great vessels off aortic arch: Mild great vessel artery origin narrowing. Other arteries: Hypoplastic right vertebral artery with severe stenosis at its origin. Lungs: Dependent subsegmental pulmonary atelectasis. There is a pulmonary parenchymal calcification consistent with remote granulomatous organism exposure. Interstitial thickening, peribronchial thickening, and scattered ground-glass lung opacities, suspect edema, atypical/viral infection not excluded. Pleural space: Small bilateral pleural effusions with associated atelectasis. Heart: Cardiomegaly. Lymph nodes: Mild mediastinal adenopathy. Bones/joints: Chronic healed left lateral rib fractures. Exaggerated thoracic kyphosis. Mild T8 and T9 vertebral body height loss compression fractures, age-indeterminate and new since the comparison study from 2018. Minimal superior T2 endplate depression. Mild age-indeterminate superior T2 endplate fracture. Impression. Soft tissues: Unremarkable. IMPRESSION: 1. No acute arterial abnormality. 2. Interstitial thickening, peribronchial thickening, and scattered ground-glass lung opacities, suspect edema, atypical/viral infection not excluded. 3. Fusiform enlarged aorta. Proximal ascending aorta measures 4.2 cm. 4. Hypoplastic right vertebral artery with severe stenosis at its origin. 5. Mild mediastinal adenopathy. Mild left subclavian artery stenosis. 6. Mild T8 and T9 vertebral body height loss compression fractures, age-indeterminate and new since the comparison study from 2018. Electronically signed by: Vivek Beard On 07/13/2020 22:44:15 PM
--- NOTE | 2020-07-13 22:51 | REPVR ---
PROCEDURE INFORMATION: Exam: XR Chest, 1 View Exam date and time: 07/13/2020 10:03 PM Age: 79 years old Clinical indication: Cough and dyspnea; Additional info: Dyspnea/cough TECHNIQUE: Imaging protocol: XR of the chest Views: 1 view. COMPARISON: CT ANGIO CHEST 2020-07-13 21:29 FINDINGS: Lungs: Coarsened interstitial lung opacities and scattered patchy ground-glass opacities, differential includes edema or infection. Pleural space: Trace bilateral pleural effusions. Heart/Mediastinum: Unremarkable. No cardiomegaly. Bones/joints: Unremarkable. IMPRESSION: 1. Trace bilateral pleural effusions. 2. Coarsened interstitial lung opacities and scattered patchy ground-glass opacities, differential includes edema or infection. Electronically signed by: Vivek Beard On 07/13/2020 22:50:40 PM
[2020-07-13 23:40] LABS: CK-MB VALUE MASS 4.7 NG/ML (<3.6); MB/CK RELATIVE INDEX 6.91 (< OR =4); TROPONIN I 1.32 NG/ML (< 0.10)
[2020-07-13] MEDS ORDERED: CLOPIDOGREL 300 MG TAB (PLAVIX) PO STA (23:47)
[2020-07-13] MEDS ORDERED: HEPARIN DRIP 25,000 UNITS in IV 1 EA IV SCH (23:47)
[2020-07-14] MEDS ORDERED: FUROSEMIDE 100MG/10ML VIAL (J1940) IV ONE
[2020-07-14] MEDS ORDERED: ASPIRIN 81 MG CHEW TABLET PO ONE
[2020-07-14] MEDS ORDERED: HEPARIN SOD (PORCINE) 5000UNITS/ML 1ML VIAL/SYRINGE IV ONE
[2020-07-14 00:02] LABS: INR 1.1; PROTHROMBIN TIME 14.5 SECONDS (12.5-14.3)
[2020-07-14 01:15] VITALS: BP 133/69
--- NOTE | 2020-07-14 15:27 | ECGEPIP ---
[facility] - ED Test Date: 2020-07-13 Pat Name: JENNIE MENDOZA Department: Room: - Gender: Female Organizational Consultant: andrei : 1940 Requested By: KHANG Moe Order Number: [id number] Reading MD: Simona Mas Measurements Intervals [place] Rate: 88 P: 59 DC: 176 QRS: -11 QRSD: 86 T: 95 QT: 360 QTc: 437 Interpretive Statements SINUS RHYTHM POSSIBLE LEFT ATRIAL ENLARGEMENT ST DEVIATION AND MODERATE T-WAVE ABNORMALITY, CONSIDER LATERAL ISCHEMIA, COMPARED 8 05/22/19, CLINICAL CORRELATION Electronically Signed on 07-14-2020 15:27:25 EDT by Simona Mas
--- NOTE | 2020-07-14 15:29 | ECGEPIP ---
[facility] - ED Test Date: 2020-07-13 Pat Name: JENNIE MENDOZA Department: Room: - Gender: Female Encapsulator: andrei : 1940 Requested By: KHANG Moe Order Number: [id number] Reading MD: Simona Mas Measurements Intervals [place] Rate: 78 P: 39 VA: 158 QRS: 1 QRSD: 87 T: 22 QT: 408 QTc: 465 Interpretive Statements SINUS RHYTHM MODERATE ST DEPRESSION DECREASED RATE 07/13/20 Electronically Signed on 07-14-2020 15:29:18 EDT by Simona Mas
== END 2020-07-14 01:28 | disposition short-term general hospital (02) ==
LOC: M ED 20:09
DX: I21.4 Non-ST elevation (NSTEMI) myocardial infarction (principal); J81.0 Acute pulmonary edema; J96.01 Acute respiratory failure with hypoxia; I10 Essential (primary) hypertension; Z79.899 Other long term (current) drug therapy; Z91.041 Radiographic dye allergy status; Z88.8 Allergy status to other drugs, medicaments and biological substances; Z91.040 Latex allergy status; Z86.79 Personal history of other diseases of the circulatory system; Z87.891 Personal history of nicotine dependence; Z82.49 Family history of ischemic heart disease and other diseases of the circulatory system; Z98.890 Other specified postprocedural states
CPT/HCPCS: 36600; 51702; 70450; 71045; 71275; 74174; 80047; 80076; 82550; 82553; 82803; 83605; 83880; 84484; 85025; 85610; 85730; 87040; 87486; 87581; 87633; 87798; 93005; 93041; 94640; 94660; 96374; 96375; 99285; J1200; J1644; J1940; J2930; Q9967